=== PATIENT | female | born 1950 | race African-American/Black ===

== ENCOUNTER 2016-11-07 11:19 | Inpatient (IN) | payer MEDICARE ==
[~2016-11-07] VITALS: Ht 167.6 cm; Wt 65.8 kg
[2016-11-07] VITALS (14 sets, daily range): BP systolic 73–111; BP diastolic 32–53
[~2016-11-07 11:19] MED LIST: AMLO5TAB4 PO; FOLI1TAB16 PO; GABA-586 PO; GLYB1TAB2 PO; HYDR-2666 PO; INSU100I13 SQ; LATA2.5D2 EACHEYE; LOSA1TAB18 PO; METO-269 PO
--- NOTE | 2016-11-07 12:02 | RAD ---
Portable chest, 11/07/2016: History: Confusion, decreased alertness Comparison is made to a study from 04/08/2008. The right-sided transvenous pacing wires are unchanged in positions. The heart size and pulmonary vascularity are normal. There is calcific plaquing of the aorta. No pulmonary infiltrates are seen. There is no evidence of pleural fluid. IMPRESSION: No acute cardiopulmonary abnormality is detected.
[2016-11-07 12:38] LABS: ALBUMIN 4.2 g/dL (3.4-5.0); CREATININE 1.9 mg/dL (0.6-1.0); DIRECT BILIRUBIN 0.1 mg/dL (0.0-0.2); GFR 32.1; POTASSIUM 4.8 mmol/L (3.5-5.1); TOTAL BILIRUBIN 0.5 mg/dL (0.2-1.0); TOTAL PROTEIN 8.3 g/dL (6.4-8.2)
[2016-11-07 13:00] LABS: BILIRUBIN,URINE NEGATIVE (NEG); GLUCOSE,URINE >=1000 mg/dL (NEG); NITRITE,URINE NEGATIVE (NEG); PROTEIN,URINE 30 mg/dL (NEG-TRACE); UROBILINOGEN,URINE 0.2 mg/dL (0.2 mg/dL)
[2016-11-07] MEDS ORDERED: ASPIRIN 81 MG TAB.CHEW PO ONE (13:00)
[2016-11-07 13:01] LABS: BASO # 0.1 x10^3/uL (0.0-0.2); BASO % 1 % (0-3); EOS % 0 % (0-3); HEMATOCRIT 45.7 % (36.0-47.0); LYMPH % 6 % (24-48); MEAN CORPUSCULAR HEMOGLOBIN 28 pg (25-35); MEAN CORPUSCULAR HGB CONC 28 g/dL (31-37); MEAN CORPUSCULAR VOLUME 99 fL (79-100); MONO % 9 % (0-9); NEUT % 85 % (31-73); PLATELET COUNT 224 x10^3/uL (140-400); RED BLOOD COUNT 4.63 x10^6/uL (3.50-5.40); RED CELL DISTRIBUTION WIDTH 14.8 % (11.5-14.5); WHITE BLOOD COUNT 15.5 x10^3/uL (4.0-11.0)
[2016-11-07 13:08] LABS: BACTERIA,URINE 0 /HPF (0-FEW); RBC,URINE 0 /HPF (0-2); SQUAMOUS EPITHELIAL CELL,UR FEW /LPF; WBC,URINE OCC /HPF (0-4)
[2016-11-07] MEDS ORDERED: IV NORMAL SALINE 1000ML BAG 1,000 ML IV SCH (13:20)
[2016-11-07] MEDS ORDERED: SODIUM BICARBONATE VIAL 50 MEQ in IV 1/2 NORMAL SALINE 1,000 ML IV PRN ×2 (13:20→16:50)
[2016-11-07] MEDS ORDERED: POTASSIUM CHLORIDE 10MEQ 100 ML IV PRN ×4 (13:30→23:00)
[2016-11-07] MEDS ORDERED: ONDANSETRON PF 4 MG/2 ML VIAL. IV PRN (13:30)
[2016-11-07] MEDS ORDERED: MORPHINE SULFATE 2 MG/ML DISP.SYRIN. IV PRN (13:30)
[2016-11-07] MEDS ORDERED: INSULIN,REGULAR 150 UNIT DRIP 150 ML IV ONE (13:30)
[2016-11-07] MEDS ORDERED: INSULIN REGULAR VIAL 150 UNIT in 0.9 % SODIUM CHLORIDE 150ML 150 ML IV PRN (13:30)
[2016-11-07] MEDS ORDERED: PROPOFOL 50 ML IV ONE (13:54)
[2016-11-07 13:55] LABS: PLT ESTIMATE ADEQUATE (ADEQUATE); TOXIC GRANULATION SLIGHT
[2016-11-07 13:57] LABS: MAGNESIUM 2.9 mg/dL (1.8-2.4)
[2016-11-07 14:18] LABS: PCO2 ABG 10 mmHg (35-46); PH ABG 7.01 (7.35-7.45)
[2016-11-07 14:19] LABS: BODY TEMP ABG 96.2 DEG; FIO2 ABG 21; HCO3 ABG 3 mmol/L (21-28); PO2 ABG 140 mmHg (65-108); SAT O2 ABG 98 % (92-99)
--- NOTE | 2016-11-07 14:56 | EKG ---
[facility] [address] [place] [address] Test Date: 2016-11-07 Test Time: 12:41:56 Pat Name: MARY BONILLA Department: Room: ED HOLD 1 Gender: F Digital Campaign Manager: : 1950 Requested By: ROSEMARIE SOLORZANO Order Number: [id number] Reading MD: Shekhar Stubbs Measurements Intervals [place] Rate: 98 P: -82 MI: 182 QRS: 16 QRSD: 54 T: -70 QT: 404 QTc: 518 Interpretive Statements V PACED BEATS RI6.01 Unconfirmed report Electronically Signed On 11-16-2016 10:13:20 ASSESSMENT CLINICIAN by Shekhar Stubbs
--- NOTE | 2016-11-07 15:10 | PHYS DOC ---
Past Medical History Past Medical History: COPD, Diabetes-Type I, Seizure Additional Past Medical Histor: RA,NEUROPATHY, SLEEP APNEA-CPAP @NOC Past Surgical History: Pacemaker, Other Additional Past Surgical Histo: PACE Alcohol Use: None Drug Use: None Adult General Chief Complaint Chief Complaint: ALTERED MENTAL STATUS HPI HPI 66-year-old female presenting to the emergency department with an elevated blood glucose. Daughter is here with her today. Daughter reports her having eaten last night and having mild gastric abdominal pain. The abdominal pain went away and this morning when the daughter went to check on her she was confused and tired. EMS was called. Blood glucose elevated on EMS bedside glucometer. They bring the patient to our emergency department for further evaluation workup and care. Onset today. Location generalized. Duration intermittent. No alleviating factors. No specific timing. Review of systems is negative for chest pain shortness of breath. Positive for abdominal pain. Negative for fevers chills nausea or vomiting. All other review of systems is negative unless otherwise noted in history of present illness. Review of Systems Review of Systems SEE ABOVE. Current Medications Current Medications Current Medications Medications (Trade) Dose Ordered Sig/Thuy Start Time Stop Time Status Last Admin Dose Admin Aspirin 324 mg 324 mg 1X ONCE 11/07/16 13:00 11/07/16 13:01 DC 11/07/16 13:20 324 MG Sodium Bicarbonate/ Sodium Chloride (Iv Sodium Chloride 0.45%) 1,050 ml @ 500 mls/hr Q2H6M PRN 11/07/16 13:20 11/07/16 15:50 500 MLS/HR Sodium Chloride 1,000 ml @ 1,000 mls/hr Q1H 11/07/16 13:20 11/07/16 14:19 DC Allergies Allergies Allergies Coded Allergies Type Severity Reaction Last Updated Verified Penicillins Allergy Intermediate 12/25/14 No azithromycin Allergy Intermediate 05/28/16 Yes metoprolol Allergy Intermediate 05/28/16 Yes nifedipine Allergy Intermediate 05/28/16 Yes Physical Exam Physical Exam Constitutional: Well developed, well nourished, patient has decreased mental status. Patient breathing comfortably on room air. HENT: Normocephalic, atraumatic, bilateral external ears normal, oropharynx moist, no oral exudates, nose normal. Eyes: PERRLA, EOMI, conjunctiva normal, no discharge. Neck: Normal range of motion, no tenderness, supple, no stridor. [] Cardiovascular:Heart rate regular rhythm, no murmur Lungs & Thorax: Bilateral breath sounds clear to auscultation Abdomen: Bowel sounds normal, soft, no tenderness, no masses, no pulsatile masses. Skin: Warm, dry, no erythema, no rash. Back: No tenderness, no CVA tenderness. [] Extremities: No tenderness, no cyanosis, no clubbing, ROM intact, no edema. Neurologic: Neuro exam: Mental status: Patient is somnolent but opens eyes to voice and pain. She speaks in clear sentences when aroused. withdraws to pain. Cranial nerves: Extraocular movements intact, eyebrows giuseppe bilaterally smile symmetric, uvula elevation, shoulder shrug intact, tongue protrusion normal Sensation: equal and normal in all extremities Strength: 5/5 in upper and lower extremities bilaterally Psychologic: Affect normal, judgement normal, mood normal. [] Current Patient Data Vital Signs Vital Signs Date Time Temp Pulse Resp B/P Pulse Ox O2 Delivery O2 Flow Rate FiO2 11/07/16 11:19 96.2 65 26 147/73 100 Room Air 96.2 Lab Values Laboratory Tests Test 11/07/16 12:05 11/07/16 12:25 11/07/16 12:49 11/07/16 12:55 Sodium Level 135mmol/L (136-145) L Potassium Level 4.8mmol/L (3.5-5.1) Chloride Level 93mmol/L (98-107) L Carbon Dioxide Level 7mmol/L (21-32) *L Anion Gap 35 (6-14) H Blood Urea Nitrogen 27mg/dL (7-20) H Creatinine 1.9mg/dL (0.6-1.0) H Estimated GFR (Cockcroft-Gault) 32.1 Glucose Level 818mg/dL (70-99) *H Calcium Level 11.0mg/dL (8.5-10.1) H Total Bilirubin 0.5mg/dL (0.2-1.0) Direct Bilirubin 0.1mg/dL (0.0-0.2) Aspartate Amino Transferase (AST) 16U/L (15-37) Alanine Aminotransferase (ALT) 22U/L (14-59) Alkaline Phosphatase 108U/L (46-116) Total Protein 8.3g/dL (6.4-8.2) H Albumin 4.2g/dL (3.4-5.0) Lipase 61U/L (73-393) L Urine Collection Type Unknown Urine Color Yellow Urine Clarity Clear Urine pH 5.0 Urine Specific [place] 1.025 Urine Protein 30mg/dL (NEG-TRACE) Urine Glucose (UA) >=1000mg/dL (NEG) Urine Ketones (Stick) >=80mg/dL (NEG) Urine Blood Small (NEG) Urine Nitrite Negative (NEG) Urine Bilirubin Negative (NEG) Urine Urobilinogen Dipstick 0.2mg/dL (0.2 mg/dL) Urine Leukocyte Esterase Negative (NEG) Urine RBC 0/HPF (0-2) Urine WBC Occ/HPF (0-4) Urine Squamous Epithelial Cells Few/LPF Urine Amorphous Sediment Present/HPF Urine Bacteria 0/HPF (0-FEW) Urine Hyaline Casts Occasional/HPF Urine Mucus Slight/LPF White Blood Count 15.5x10^3/uL (4.0-11.0) H Red Blood Count 4.63x10^6/uL (3.50-5.40) Hemoglobin 13.0g/dL (12.0-15.5) Hematocrit 45.7% (36.0-47.0) Mean Corpuscular Volume 99fL (79-100) Mean Corpuscular Hemoglobin 28pg (25-35) Mean Corpuscular Hemoglobin Concent 28g/dL (31-37) L Red Cell Distribution Width 14.8% (11.5-14.5) H Platelet Count 224x10^3/uL (140-400) Neutrophils (%) (Auto) 85% (31-73) H Lymphocytes (%) (Auto) 6% (24-48) L Monocytes (%) (Auto) 9% (0-9) Eosinophils (%) (Auto) 0% (0-3) Basophils (%) (Auto) 1% (0-3) Neutrophils # (Auto) 13.1x10^3uL (1.8-7.7) H Lymphocytes # (Auto) 1.0x10^3/uL (1.0-4.8) Monocytes # (Auto) 1.4x10^3/uL (0.0-1.1) H Eosinophils # (Auto) 0.0x10^3/uL (0.0-0.7) Basophils # (Auto) 0.1x10^3/uL (0.0-0.2) Segmented Neutrophils % 74% (35-66) H Band Neutrophils % 8% (0-9) Lymphocytes % 9% (24-48) L Monocytes % 9% (0-10) Toxic Granulation Slight Platelet Estimate Adequate (ADEQUATE) Serum Osmolality 357mOsm/Kg (279-304) H Lactic Acid Level 6.5mmol/L (0.4-2.0) *H Phosphorus Level 10.0mg/dL (2.6-4.7) H Magnesium Level 2.9mg/dL (1.8-2.4) H Troponin I Quantitative 0.058ng/mL (0.000-0.055) FI-Rtm-U-Type Natriuretic Peptide 995pg/mL (0-124) H O2 Saturation 98% (92-99) Arterial Blood pH 7.01 (7.35-7.45) *L Arterial Blood pCO2 at Patient Temp 10mmHg (35-46) *L Arterial Blood pO2 at Patient Temp 140mmHg (65-108) H Arterial Blood HCO3 3mmol/L (21-28) L Arterial Blood Base Excess -27mmol/L (-3-3) L FiO2 21 Laboratory Tests 11/07/16 12:49 Laboratory Tests 11/07/16 12:05 EKG EKG EKG shows paced rhythm. Discussed with Dr. mckeon at 1253pm. Dr. Mckeon review EKG in real time. Radiology/Procedures Radiology/Procedures [] Course & Med Decision Making Course & Med Decision Making Pertinent Labs and Imaging studies reviewed. (See chart for details) [] 66-year-old female presenting to the emergency department today with decreased mental status/somnolence in conjunction with hyperglycemia. Vital signs showed tachypnea with Kussmaul breathing. IV access obtained. IV fluids administered. Patient was hypothermic and warmed with warm IV fluids and a bear hugger. Patient was intubated in the emergency department for mental status. See procedure note. Right IJ placed. See procedure note. Chest x-ray afterwards shows ET tube in good position after adjustment with right IJ in good position. Blood work shows leukocytosis. Urinalysis not suggestive of infection. Chemistry panel shows significant diabetic ketoacidosis. Positive Lactic acidosis present. Magnesium within normal limits. Patient was administered bicarbonate and insulin and initiated on our DKA protocol including an insulin drip with regular electrolyte checks. The patient was then admitted to our intensive care unit for further evaluation workup and care. Dragon Disclaimer Dragon Disclaimer This electronic medical record was generated, in whole or in part, using a voice recognition dictation system. Departure Departure Impression: Primary Impression: DKA (diabetic ketoacidoses) Additional Impressions: Lethargy Lactic acidosis Disposition: ADMITTED INPATIENT Admitting Physician: Cherry Del Toro Condition: IMPROVED Referrals: MATTHEW BOOTH (PCP) Central Line Placement Proc Central Line Indication: Vascular access Consent: The patient provided consent for this procedure. Procedure: The patient was positioned appropriately and the skin over the right IJ was prepped and draped in a sterile fashion. Local anesthesia was used. Ultrasound guidance utilized. A large bore needle was used to identify the vein. A guide wire was then inserted into the vein through the needle. A triple lumen catheter was then inserted into the vessel over the guide wire using the Seldinger technique. All ports showed good, free flowing blood return and were flushed with saline solution. The catheter was then securely fastened to the skin with sutures and covered with a sterile dressing. A post procedure X-ray was ordered. The patient tolerated the procedure well. Complications: none. Critical Care Time Critical care time was 50 minutes exclusive of procedures. Time was spent evaluating the patient, ordering the titration of medications, reevaluating the patient, documenting, and discussing with the admitting provider. Intubation Procedure Intubation Procedure Intub Indication: Respiratory failure Consent: Unable to give consent due to emergent nature. Medications Used: see nursing note Procedure: The patient was placed in the appropriate position. Intubation was performed 7.5 endotracheal tube used secured at 24 cm at the teeth.. Initial confirmation of placement included bilateral breath sounds, tube fogging, adequate chest rise, adequate pulse oximetry reading. A chest x-ray to verify correct placement of the tube showed the ETT need to be advanced. It was advanced 3 cm. repeat chest x-ray shows ET tube in good position. The patient tolerated the procedure well. Complications: none. Problem Qualifiers ROSEMARIE SOLORZANO MD Nov 07, 2016 15:10
--- NOTE | 2016-11-07 15:22 | RAD ---
Portable chest, 11/07/2016, 3:04 PM: History: Check central line placement Comparison is made to a study from earlier the same day. An ET tube has been inserted with its tip located 6-7 cm above the rukhsana. An NG tube extends into the stomach. A right jugular central venous catheter extends into the superior vena cava. A right-sided transvenous pacemaker remains in place. The heart size and pulmonary vascularity are normal. The lungs are clear. There is no evidence of pneumothorax or pleural fluid. IMPRESSION: 1. The ET tube, NG tube and right jugular central venous catheter are in satisfactory positions. 2. No acute cardiopulmonary abnormality is detected.
--- NOTE | 2016-11-07 15:23 | RAD ---
Portable abdomen, 11/07/2016: History: Check NG tube placement A supine view of the upper abdomen demonstrates an NG tube extending into the body of the stomach. The gas pattern is unremarkable. IMPRESSION: The NG tube extends into the body of the stomach.
--- NOTE | 2016-11-07 15:28 | ACF ---
Admission Forms Criteria DIABETES Clinical Indications for Admission to Inpatient Care (Place 'X' for any and all applicable criteria): Admission is indicated by presence of ALL (if I & II) or ANY ONE (if III or IV) of the following (1)(2)(3)(4): [X]I. Diabetes is uncontrolled as indicated by ANY ONE of the following: [X]a) Diabetic ketoacidosis as indicated by ALL of the following (8): [X]i) Hyperglycemia (eg, plasma glucose greater than 200 mg/ dL (11.1 mmol/L)) [X]ii) Acidosis (eg, arterial pH less than 7.30, serum bicarbonate level less than 15 mEq/L (mmol/L)) [X]iii) Moderate ketonuria or ketonemia [ ]b) Hyperglycemic hyperosmolar state as indicated by ALL of the following(9)(10): [ ]i) Neurologic dysfunction (eg, stupor, coma, hemiparesis , seizure)(13) [ ]ii) Plasma glucose greater than 600 mg/dL (33.3 mmol/L) [ ]iii) Serum osmolality greater than 320 mOsm/kg (mmol/kg) [ ]c) Severe signs or symptoms secondary to hyperglycemia indicated by ANY ONE of the following: [ ]i) Altered mental status(10) [ ]ii) Significant hypovolemia or dehydration [ ]iii) Intractable nausea or vomiting [ ]iv) Unexplained fever or severe infection [ ]v) Severe electrolyte abnormality (eg, hypokalemia, hyperkalemia, hypernatremia) [X]II. Management at other levels of care (Also use Diabetes: Observation Care as appropriate) is not feasible because of ANY ONE of the following: [X]a) Condition was not adequately corrected with treatment at other levels of care. [ ]b) Treatment at other levels of care is not appropriate because of condition severity (eg, hyperosmolar coma). [ ]III. Contraindications and/or Inappropriate clinical situations for Observational Care in patients with Diabetes, when ANY ONE of the following is required: [ ]a) Patient require specific diagnostic workup or therapeutic intervention 22 [ ]b) Patient with abnormal vital signs or altered mental status 23 [ ]IV. General contraindications and/or Inappropriate clinical situations for Observational Care in patients with Diabetes, when ANY ONE of the following is required: [ ]a) Prediction of prolongation of LOS based on ANY ONE of the following may be considered as a contraindication for observational care 2, 3, 4, 5, 6, 7, 8, 9, 10, 11 [ ]i) Age > 65 yrs. [ ]ii) Patient arriving by ambulance [ ]iii) Patient with high acuity [ ]iv) Patient requiring vital sign monitoring [ ]v) Patient on IV medication [ ]b) Systolic blood pressures 180mmHg 3,12 [ ]c) Patient with altered mental status including delirium and other alteration of consciousness, (3) [ ]d) Patient whose discharge disposition will be to a [place] [facility] home or rehabilitation home should not be managed in Emergency Department Observation Unit. CMS rule requires 3 days hospital stay before such placement.3,13 [ ]e) Patient with failure to thrive due to broad array of etiologies 3,16,17 [ ]f) Inability to ambulate 3,14 Extended stay beyond goal length of stay may be needed for(3)(20): [ ]a) Treatment of precipitating causes [ ]b) Development of hypoglycemia [ ]c) Complications of treatment [ ]d) Complications of decompensated diabetes (eg, acute gastric dilatation, persistent metabolic or neurologic derangement) [ ]e) Active Comorbidities [ ]f) Older patients( 65 years or older) The original [employer] content created by [employer] has been revised. The portions of the content which have been revised are identified through the use of italic text or in bold,and [facility] has neither reviewed nor approved the modified material. All other unmodified content is copyright [employer]. Please see references footnoted in the original [facility] edition 2016 Admission Criteria Met?: Yes MARISSA HASTINGS Nov 07, 2016 15:28
[2016-11-07] MEDS ORDERED: SODIUM BICARB ADULT 8.4% 50 MEQ/50 ML DISP.SYRIN. ONE (15:43)
[2016-11-07] MEDS ORDERED: VANCOMYCIN 1.5 GM in IV NORMAL SALINE 500ML BAG 500 ML IV ONE ×2 (16:00→17:00)
[2016-11-07] MEDS ORDERED: IV RINGERS,LACTATED 500ML 500 ML IV ONE (16:00)
[2016-11-07] MEDS ORDERED: SODIUM BICARB ADULT 8.4% 50 MEQ/50 ML DISP.SYRIN. IV ONE (16:00)
--- NOTE | 2016-11-07 16:38 | RAD ---
Chest portable chest, 11/07/2016, 4:11 PM: History: Intubation Comparison is made to the study of earlier the same day at 3:04 PM. The patient is rotated to the left. The tip of the ET tube lies 2.5 cm above the rukhsana. The NG tube extends into the stomach. A right jugular central venous catheter extends into the superior vena cava. A right-sided transvenous pacemaker is again noted. The heart size is normal. The lungs are clear. There is no evidence of pleural fluid. IMPRESSION: 1. Tube placements as described above. 2. No acute cardiopulmonary abnormality is detected.
[2016-11-07] MEDS ORDERED: SODIUM BICARBONATE VIAL 50 MEQ in IV 1/2 NORMAL SALINE 1,000 ML IV SCH (17:00)
[2016-11-07] MEDS ORDERED: SUCCINYLCHOLINE 200 MG/10 ML VIAL. ONE (17:16)
[2016-11-07] MEDS ORDERED: ETOMIDATE 20 MG/10 ML VIAL. IV ONE (17:16)
[2016-11-07] MEDS: VANCOMYCIN PER PHARMACY MC PRN (17:19)
[2016-11-07 17:35] LABS: PH ABG 6.85 (7.35-7.45)
[2016-11-07 17:36] LABS: HCO3 ABG 4 mmol/L (21-28); PCO2 ABG 22 mmHg (35-46); PO2 ABG 147 mmHg (65-108); SAT O2 ABG 98 % (92-99)
[2016-11-07 17:37] LABS: BODY TEMP ABG 95.6 DEG; FIO2 ABG 28
--- NOTE | 2016-11-07 17:37 | PDOC ---
Provider Note Provider Note called by RT regarding low PH. Pt in DKA and has severe metabolic acidosis due to DKA (bicarb 4, PCO2 10). discussed in detail with Dr Del Toro regarding management of DKA aggressively with Insulin drip/ IV hydration. Pt does not need bicarb drip as it may delay the resolution of ketosis and may make acidosis worse.Dr Del Toro with continue management of DKA. Pt is covered with BS antibiotic to cover for any infection. repeat lactic acid level. I will follow up on vent with repeat ABG YASHIRA REYNOLDS MD Nov 07, 2016 17:37
--- NOTE | 2016-11-07 18:00 | PDOC2 ---
CONSULT Date of Consult Date of Consult DATE: 11/07/16 TIME: 18:00 Past Surgical History Past Surgical History: Total knee replacement, No pertinent history Family History Family History: No Significant Social History ALCOHOL: none Drugs: None Current Problem List Problem List Problems Medical Problems: (1) DKA (diabetic ketoacidoses) Status: Acute (2) Lactic acidosis Status: Acute (3) Lethargy Status: Acute Current Medications Current Medications Current Medications Aspirin 324 mg 324 mg 1X ONCE PO Last administered on 11/07/16 13:20; Start 11/07/16 at 13:00; Stop 11/07/16 at 13:01; Status DC Sodium Chloride 1,000 ml @ 1,000 mls/hr Q1H IV Last administered on 11/07/16 16:15; Start 11/07/16 at 13:20; Stop 11/07/16 at 14:19; Status DC Insulin Human Regular 150 unit/ Sodium Chloride 151.5 ml @ 0 mls/hr CONT PRN PRN IV PER PROTOCOL; Start 11/07/16 at 13:30 Potassium Chloride 100 ml @ 100 mls/hr PRN Q1HR PRN IV SEE COMMENTS; Start at 13:30 Potassium Chloride 100 ml @ 100 mls/hr PRN Q1HR PRN IV SEE COMMENTS; Start at 13:30 Potassium Chloride 100 ml @ 100 mls/hr PRN Q1HR PRN IV SEE COMMENTS; Start at 13:30 Sodium Bicarbonate/ Sodium Chloride (Iv Sodium Chloride 0.45%) 1,050 ml @ 500 mls/hr Q2H6M PRN IV SEE COMMENTS Last administered on 11/07/16 15:50; Start at 13:20 Ondansetron HCl (Zofran) 4 mg PRN Q8HRS PRN IV NAUSEA/VOMITING; Start 11/07/16 at 13:30; Stop 11/08/16 at 13:29 Morphine Sulfate 2 mg 2 mg PRN Q2HR PRN IV PAIN; Start 11/07/16 at 13:30; Stop 11/08/16 at 13:29 Sodium Chloride 1,000 ml @ 125 mls/hr Q8H IV ; Start 11/07/16 at 13:23; Stop at 13:22 Insulin Human Regular 150 ml @ 0 mls/hr 1X ONCE IV Last administered on 17:00; Start 11/07/16 at 13:30; Stop 11/07/16 at 13:32; Status DC Propofol (Diprivan) 50 ml @ As Directed STK-MED ONCE IV ; Start 11/07/16 at 13: 54; Stop 11/07/16 at 13:55; Status DC Vancomycin HCl 1 each 1 each PRN DAILY PRN MC SEE COMMENTS Last administered on 11/07/16 17:19; Start 11/07/16 at 15:30 Levofloxacin/ Dextrose 100 ml @ 100 mls/hr 1X ONCE IV Last administered on 15:53; Start 11/07/16 at 16:00; Stop 11/07/16 at 17:10; Status DC Lactated Ringer's 500 ml @ 500 mls/hr 1X ONCE IV ; Start 11/07/16 at 16:00; Stop 11/07/16 at 17:10; Status DC Vancomycin HCl/ Sodium Chloride (Iv Sodium Chloride 0.9% 500ml Bag) 500 ml @ 250 mls/hr 1X ONCE IV Last administered on 11/07/16 16:00; Start 11/07/16 at 16:00; Stop 11/07/16 at 17:59; Status DC Sodium Bicarbonate 50 meq STK-MED ONCE .ROUTE ; Start 11/07/16 at 15:43; Stop at 15:44; Status DC Sodium Bicarbonate 150 meq 150 meq 1X ONCE IV Last administered on 11/07/16 15:57; Start 11/07/16 at 16:00; Stop 11/07/16 at 17:10; Status DC Sodium Bicarbonate 50 meq/Sodium Chloride 1,050 ml @ 125 mls/hr Q8H24M IV ; Start 11/07/16 at 17:00; Stop 11/07/16 at 17:00; Status DC Sodium Bicarbonate 50 meq/Sodium Chloride 1,050 ml @ 500 mls/hr Q2H6M PRN IV SEE COMMENTS; Start 11/07/16 at 16:50 Vancomycin HCl/ Sodium Chloride (Iv Sodium Chloride 0.9% 500ml Bag) 500 ml @ 250 mls/hr 1X ONCE IV ; Start 11/07/16 at 17:00; Stop 11/07/16 at 18:59; Status Cancel Etomidate (Amidate) 20 mg STK-MED ONCE IV ; Start 11/07/16 at 17:16; Stop at 17:17; Status DC Succinylcholine Chloride 200 mg 200 mg STK-MED ONCE .ROUTE ; Start 11/07/16 at 17:16; Stop 11/07/16 at 17:17; Status DC Vancomycin HCl/ Sodium Chloride (Iv Sodium Chloride 0.9% 250ml) 250 ml @ 250 mls/hr Q24H IV ; Start 11/08/16 at 18:00 Vancomycin HCl 1 each 1 each 1X ONCE MC ; Start 11/09/16 at 17:30; Stop at 17:31 Piperacillin Sod/ Tazobactam Sod/ Sodium Chloride (Zosyn/Iv Sodium Chloride 0.9 % 50ml) 50 ml @ 100 mls/hr Q6HRS IV ; Start 11/07/16 at 18:30 Active Scripts Active Reported Folic Acid 1 Mg Tablet 1 Tab PO DAILY Hydrocodone-Apap 5-325 (Hydrocodone Bit/Acetaminophen) 1 Each Tablet 1-2 Tab PO Q4-6HRS Glucovance 5-500 Mg Tablet (Glyburide/Metformin Hcl) 1 Each Tablet 2 Tab PO DAILY Glucovance 5-500 Mg Tablet (Glyburide/Metformin Hcl) 1 Each Tablet 1 Tab PO HS Losartan-Hctz 100-12.5 Mg Tab (Losartan/Hydrochlorothiazide) 1 Each Tablet 1 Each PO DAILY Xalatan (Latanoprost) 2.5 Ml Drops 1 Drop EACHEYE QHS Gabapentin 300 Mg Capsule 300 Mg PO TID Toprol Xl (Metoprolol Succinate) 50 Mg Tab.er.24h 1 Tab PO DAILY Allergies Allergies: Coded Allergies: Penicillins (Unverified Allergy, Intermediate, 12/25/14) azithromycin (Verified Allergy, Intermediate, 05/28/16) metoprolol (Verified Allergy, Intermediate, 05/28/16) nifedipine (Verified Allergy, Intermediate, 05/28/16) Vitals VITALS Vital Signs Date Time Temp Pulse Resp B/P Pulse Ox O2 Delivery O2 Flow Rate FiO2 11/07/16 16:45 109 93/43 Ventilator 11/07/16 16:30 100 11/07/16 14:00 15 11/07/16 13:00 95.6 95.6 11/07/16 11:19 26 Labs Labs Laboratory Tests Test 11/07/16 12:05 11/07/16 12:25 11/07/16 12:49 11/07/16 12:55 Sodium Level 135mmol/L (136-145) Potassium Level 4.8mmol/L (3.5-5.1) Chloride Level 93mmol/L (98-107) Carbon Dioxide Level 7mmol/L (21-32) Anion Gap 35 (6-14) Blood Urea Nitrogen 27mg/dL (7-20) Creatinine 1.9mg/dL (0.6-1.0) Estimated GFR (Cockcroft-Gault) 32.1 Glucose Level 818mg/dL (70-99) Calcium Level 11.0mg/dL (8.5-10.1) Total Bilirubin 0.5mg/dL (0.2-1.0) Direct Bilirubin 0.1mg/dL (0.0-0.2) Aspartate Amino Transf (AST/SGOT) 16U/L (15-37) Alanine Aminotransferase (ALT/SGPT) 22U/L (14-59) Alkaline Phosphatase 108U/L (46-116) Total Protein 8.3g/dL (6.4-8.2) Albumin 4.2g/dL (3.4-5.0) Lipase 61U/L (73-393) Urine Collection Type Unknown Urine Color Yellow Urine Clarity Clear Urine pH 5.0 Urine Specific Truman 1.025 Urine Protein 30mg/dL (NEG-TRACE) Urine Glucose (UA) >=1000mg/dL (NEG) Urine Ketones (Stick) >=80mg/dL (NEG) Urine Blood Small (NEG) Urine Nitrite Negative (NEG) Urine Bilirubin Negative (NEG) Urine Urobilinogen Dipstick 0.2mg/dL (0.2 mg/dL) Urine Leukocyte Esterase Negative (NEG) Urine RBC 0/HPF (0-2) Urine WBC Occ/HPF (0-4) Urine Squamous Epithelial Cells Few/LPF Urine Amorphous Sediment Present/HPF Urine Bacteria 0/HPF (0-FEW) Urine Hyaline Casts Occasional/HPF Urine Mucus Slight/LPF White Blood Count 15.5x10^3/uL (4.0-11.0) Red Blood Count 4.63x10^6/uL (3.50-5.40) Hemoglobin 13.0g/dL (12.0-15.5) Hematocrit 45.7% (36.0-47.0) Mean Corpuscular Volume 99fL (79-100) Mean Corpuscular Hemoglobin 28pg (25-35) Mean Corpuscular Hemoglobin Concent 28g/dL (31-37) Red Cell Distribution Width 14.8% (11.5-14.5) Platelet Count 224x10^3/uL (140-400) Neutrophils (%) (Auto) 85% (31-73) Lymphocytes (%) (Auto) 6% (24-48) Monocytes (%) (Auto) 9% (0-9) Eosinophils (%) (Auto) 0% (0-3) Basophils (%) (Auto) 1% (0-3) Neutrophils # (Auto) 13.1x10^3uL (1.8-7.7) Lymphocytes # (Auto) 1.0x10^3/uL (1.0-4.8) Monocytes # (Auto) 1.4x10^3/uL (0.0-1.1) Eosinophils # (Auto) 0.0x10^3/uL (0.0-0.7) Basophils # (Auto) 0.1x10^3/uL (0.0-0.2) Segmented Neutrophils % 74% (35-66) Band Neutrophils % 8% (0-9) Lymphocytes % 9% (24-48) Monocytes % 9% (0-10) Toxic Granulation Slight Platelet Estimate Adequate (ADEQUATE) Serum Osmolality 357mOsm/Kg (279-304) Lactic Acid Level 6.5mmol/L (0.4-2.0) Phosphorus Level 10.0mg/dL (2.6-4.7) Magnesium Level 2.9mg/dL (1.8-2.4) Troponin I Quantitative 0.058ng/mL (0.000-0.055) SX-Pcu-B-Type Natriuretic Peptide 995pg/mL (0-124) O2 Saturation 98% (92-99) Arterial Blood pH 7.01 (7.35-7.45) Arterial Blood pCO2 at Patient Temp 10mmHg (35-46) Arterial Blood pO2 at Patient Temp 140mmHg (65-108) Arterial Blood HCO3 3mmol/L (21-28) Arterial Blood Base Excess -27mmol/L (-3-3) FiO2 21 Test 11/07/16 15:20 O2 Saturation 98% (92-99) Arterial Blood pH 6.85 (7.35-7.45) Arterial Blood pCO2 at Patient Temp 22mmHg (35-46) Arterial Blood pO2 at Patient Temp 147mmHg (65-108) Arterial Blood HCO3 4mmol/L (21-28) Arterial Blood Base Excess -29mmol/L (-3-3) FiO2 28 Laboratory Tests Test 11/07/16 12:05 11/07/16 12:25 11/07/16 12:49 11/07/16 12:55 Sodium Level 135mmol/L (136-145) Potassium Level 4.8mmol/L (3.5-5.1) Chloride Level 93mmol/L (98-107) Carbon Dioxide Level 7mmol/L (21-32) Anion Gap 35 (6-14) Blood Urea Nitrogen 27mg/dL (7-20) Creatinine 1.9mg/dL (0.6-1.0) Estimated GFR (Cockcroft-Gault) 32.1 Glucose Level 818mg/dL (70-99) Calcium Level 11.0mg/dL (8.5-10.1) Total Bilirubin 0.5mg/dL (0.2-1.0) Direct Bilirubin 0.1mg/dL (0.0-0.2) Aspartate Amino Transf (AST/SGOT) 16U/L (15-37) Alanine Aminotransferase (ALT/SGPT) 22U/L (14-59) Alkaline Phosphatase 108U/L (46-116) Total Protein 8.3g/dL (6.4-8.2) Albumin 4.2g/dL (3.4-5.0) Lipase 61U/L (73-393) Urine Collection Type Unknown Urine Color Yellow Urine Clarity Clear Urine pH 5.0 Urine Specific Truman 1.025 Urine Protein 30mg/dL (NEG-TRACE) Urine Glucose (UA) >=1000mg/dL (NEG) Urine Ketones (Stick) >=80mg/dL (NEG) Urine Blood Small (NEG) Urine Nitrite Negative (NEG) Urine Bilirubin Negative (NEG) Urine Urobilinogen Dipstick 0.2mg/dL (0.2 mg/dL) Urine Leukocyte Esterase Negative (NEG) Urine RBC 0/HPF (0-2) Urine WBC Occ/HPF (0-4) Urine Squamous Epithelial Cells Few/LPF Urine Amorphous Sediment Present/HPF Urine Bacteria 0/HPF (0-FEW) Urine Hyaline Casts Occasional/HPF Urine Mucus Slight/LPF White Blood Count 15.5x10^3/uL (4.0-11.0) Red Blood Count 4.63x10^6/uL (3.50-5.40) Hemoglobin 13.0g/dL (12.0-15.5) Hematocrit 45.7% (36.0-47.0) Mean Corpuscular Volume 99fL (79-100) Mean Corpuscular Hemoglobin 28pg (25-35) Mean Corpuscular Hemoglobin Concent 28g/dL (31-37) Red Cell Distribution Width 14.8% (11.5-14.5) Platelet Count 224x10^3/uL (140-400) Neutrophils (%) (Auto) 85% (31-73) Lymphocytes (%) (Auto) 6% (24-48) Monocytes (%) (Auto) 9% (0-9) Eosinophils (%) (Auto) 0% (0-3) Basophils (%) (Auto) 1% (0-3) Neutrophils # (Auto) 13.1x10^3uL (1.8-7.7) Lymphocytes # (Auto) 1.0x10^3/uL (1.0-4.8) Monocytes # (Auto) 1.4x10^3/uL (0.0-1.1) Eosinophils # (Auto) 0.0x10^3/uL (0.0-0.7) Basophils # (Auto) 0.1x10^3/uL (0.0-0.2) Segmented Neutrophils % 74% (35-66) Band Neutrophils % 8% (0-9) Lymphocytes % 9% (24-48) Monocytes % 9% (0-10) Toxic Granulation Slight Platelet Estimate Adequate (ADEQUATE) Serum Osmolality 357mOsm/Kg (279-304) Lactic Acid Level 6.5mmol/L (0.4-2.0) Phosphorus Level 10.0mg/dL (2.6-4.7) Magnesium Level 2.9mg/dL (1.8-2.4) Troponin I Quantitative 0.058ng/mL (0.000-0.055) JI-Dmu-T-Type Natriuretic Peptide 995pg/mL (0-124) O2 Saturation 98% (92-99) Arterial Blood pH 7.01 (7.35-7.45) Arterial Blood pCO2 at Patient Temp 10mmHg (35-46) Arterial Blood pO2 at Patient Temp 140mmHg (65-108) Arterial Blood HCO3 3mmol/L (21-28) Arterial Blood Base Excess -27mmol/L (-3-3) FiO2 21 Test / 15:20 O2 Saturation 98% (92-99) Arterial Blood pH 6.85 (7.35-7.45) Arterial Blood pCO2 at Patient Temp 22mmHg (35-46) Arterial Blood pO2 at Patient Temp 147mmHg (65-108) Arterial Blood HCO3 4mmol/L (21-28) Arterial Blood Base Excess -29mmol/L (-3-3) FiO2 28 Assessment/Plan Assessment/Plan RENAL CONSULT / ED Dictated. d/w Drs. Del Toro and Sue Thank you. See orders. DC HCO3 IVF Labs. DANUTA WARD MD Nov 07, 2016 18:00
[2016-11-07] MEDS: IV NORMAL SALINE 1000ML BAG 1,000 ML IV SCH ×2 (18:07→22:53)
[2016-11-07 18:23] LABS: CALCIUM 8.5 mg/dL (8.5-10.1); CREATININE 2.2 mg/dL (0.6-1.0); GFR 27.1; MAGNESIUM 2.1 mg/dL (1.8-2.4); PHOSPHORUS 6.4 mg/dL (2.6-4.7); POTASSIUM 4.2 mmol/L (3.5-5.1)
--- NOTE | 2016-11-07 19:21 | PDOC ---
Provider Note Provider Note full note dictated YASHIRA REYNOLDS MD Nov 07, 2016 19:21
[2016-11-07 19:44] LABS: HCO3 ABG 7 mmol/L (21-28); PCO2 ABG 21 mmHg (35-46); PH ABG 7.14 (7.35-7.45); PO2 ABG 153 mmHg (65-108); SAT O2 ABG 98 % (92-99)
[2016-11-07 19:45] LABS: FIO2 ABG 28
--- NOTE | 2016-11-07 19:45 | HP ---
ADMIT DATE: 11/07/2016 CHIEF COMPLAINT: Mental status change. HISTORY OF PRESENT ILLNESS: The patient is a pleasant 66-year-old female who presents to the ER with mental status change. She was noted to have DKA. She has a glucose of 818, her bicarbonate is down to 7. Her pH is 6.8. I discussed the case with the ER physician. We are admitting the patient to the ICU. I gave orders to start insulin drip, fluids and BiPAP, and consulted Dr. Rogers and Dr. Corral. I spoke with all 3 physicians and a couple of nurses on this case. PAST MEDICAL HISTORY: Noncompliance per her daughter, diabetes, previous DKA, COPD, neuropathy, obstructive sleep apnea, and pacemaker. ALLERGIES: PENICILLIN, AZITHROMYCIN, METOPROLOL, AND NIFEDIPINE. FAMILY HISTORY: Diabetes. SOCIAL HISTORY: She quit smoking, no drinking or drugs. I think she lives alone. MEDICATIONS: Reviewed, please refer to the MRAD. REVIEW OF SYSTEMS: Unobtainable, the patient is too obtunded. PHYSICAL EXAMINATION: VITAL SIGNS: Temperature 95.6, pulse 100, respirations 20, blood pressure 133/50. GENERAL: She is obtunded in the ER ____. HEART: Tachy, S1, S2. LUNGS: Diminished, but clear. ABDOMEN: Soft, decreased bowel sounds. EXTREMITIES: Trace edema. SKIN: No rashes. ENDOCRINE: No thyromegaly. LYMPHATICS: No cervical nodes. HEMATOPOIETIC: No bruising. LABORATORY DATA: Electrolytes: Sodium 135, potassium 4.8, chloride 93, bicarb 7, anion gap 35, BUN 27, creatinine 1.9, glucose ____, lactic acid 6.5, serum osmolality 357. Troponin 0.058. BNP 995. Urinalysis negative. ASSESSMENT AND PLAN: Severe metabolic anion gap acidosis with leukocytosis, elevated troponin, elevated BNP, respiratory failure. The patient is being admitted to the ICU. I am starting IV vancomycin and IV Zosyn. Consult Dr. Rogers, consult Dr. Corral, consult Dr. Bartholomew. Insulin drip, IV fluids, frequent labs, DKA protocol. We started bicarb drip, but after extensive discussion with Dr. Rogers, we have decided to try stopping the drip as there is some literature which I reviewed from Dr. Rogers showing that bicarb might possibly ____ slow the clearing of the ketoacidosis. PROGNOSIS: Extremely guarded. ANA KIRKLAND DO DR: CAPRI/kyaw JOB#: [id number] / [id number]
--- NOTE | 2016-11-07 20:06 | CONS ---
DATE OF CONSULTATION: ATTENDING PHYSICIAN: Dr. Del Toro. REASON FOR CONSULTATION: Respiratory failure, DKA. HISTORY OF PRESENT ILLNESS: The patient is a 66-year-old female who has a history of insulin-requiring diabetes. The patient has been in reasonable health until today when she was brought into the hospital with lethargy and altered mental status. The patient's daughter is at the bedside. She states that she ate pizza last night and she was having diarrhea all night. She was also started on a new diabetic medication, Trulicity by her primary care physician recently. The patient had also some abdominal pain as well. She was seen in the Emergency Room, she was confused and lethargic. Her pH was 7.01, pCO2 of 10 and a pO2 of 140 with a bicarbonate of 3. The patient's ABGs were on room air. She had a severe hyperglycemia with a glucose level of 818 with serum bicarbonate of 7. Her potassium was 4.8. The patient's troponin level was 0.058. She has a phosphorus level of 6.4, which was initially 10. Magnesium was 2.1. I have been asked to see her for further evaluation. I interviewed the patient's daughter at the bedside and I have talked in detail with Dr. Del Toro. She was intubated by ER staff due to her lethargy. She was started on insulin drip in the ICU. She has received 2 liters of IV fluids, her blood pressure was in the 70s last check and I have ordered to give more aggressive fluids. The daughter states there are no recent signs of infection. There is no cough, no fever, no chills and no urinary symptoms. She was, however, started on vancomycin and Zosyn in the ER. Consultation was requested for further evaluation and management. PAST MEDICAL HISTORY: Significant for history of diabetes type 1, history of seizure. No history of tobacco use. History of rheumatoid arthritis, neuropathy, sleep apnea, CPAP at night time. PAST SURGICAL HISTORY: Pacemaker. ALLERGIES: PENICILLIN, AZITHROMYCIN, METOPROLOL AND NIFEDIPINE. REVIEW OF SYSTEMS: Unable to obtain as she is on the ventilator. SOCIAL HISTORY: Nonsmoker, nonalcoholic. PHYSICAL EXAMINATION: VITAL SIGNS: Latest blood pressure recorded is 93 systolic. Pulse is 103. There is no fever. HEENT: Sclerae nonicteric. NECK: Supple. LUNGS: Diminished breath sounds. CARDIOVASCULAR: Regular rate. ABDOMEN: Soft and nontender. Decreased bowel sounds. EXTREMITIES: With no pitting edema. LABORATORY DATA: Reviewed. White cell count 15.5, hemoglobin 13.0, platelets are 224. BUN is 34 and creatinine of 2.2. Bicarbonate latest was 9 on serum chemistries. IMPRESSION: 1. Acute respiratory failure secondary to acute encephalopathy from diabetic ketoacidosis. 2. Severe metabolic acidosis secondary to diabetic ketoacidosis. Lactic acid was also elevated. Clinically, I doubt any infection. Lactic acidosis is probably elevated because of hypoperfusion caused by hypotension. 3. Hypotension, likely related to severe dehydration with acute renal failure. She will benefit from continued IV aggressive fluid resuscitation. 4. Clear chest x-ray. Endotracheal tube is slightly above the rukhsana. We will pull it back further 2 cm. 5. History of insulin-requiring diabetes and recently started on Trulicity, which can also contribute to diarrhea. RECOMMENDATIONS: 1. Discussed with Dr. Del Toro and with family, and with RN and RT in detail. 2. Continue with present ventilator support and follow ABGs. 3. Treatment of DKA would help improve the acidosis. I would recommend aggressive insulin drip, aggressive volume resuscitation. Close monitoring of electrolytes including potassium, magnesium and phosphate. 4. Follow chemistries as needed. 5. Continue empiric antibiotics for now. 6. Lactic acid is being monitored and is down to 3.5. 7. SCDs for stress ulcer prophylaxis. 8. Lovenox for DVT prophylaxis. 9. Discussed with Dr. Del Toro, discussed with family, discussed with RN and RT and discussed with Dr. Corral. YASHIRA REYNOLDS MD DR: URMILA/kyaw JOB#: [id number] / [id number]
[2016-11-07] MEDS ORDERED: IV NORMAL SALINE 1000ML BAG 1,000 ML IV ONE ×2 (20:15→21:45)
[2016-11-07] MEDS: PIPERACILLIN/TAZOBACTAM 3.375 GM in IV NORMAL SALINE 50ML 50 ML IV SCH ×2 (21:24→22:57)
[2016-11-07 22:39] LABS: ALBUMIN 2.5 g/dL (3.4-5.0); CALCIUM 7.9 mg/dL (8.5-10.1); GFR 30.3; MAGNESIUM 1.8 mg/dL (1.8-2.4); PHOSPHORUS 0.8 mg/dL (2.6-4.7); TOTAL BILIRUBIN 0.5 mg/dL (0.2-1.0); TOTAL PROTEIN 5.1 g/dL (6.4-8.2)
[2016-11-07 22:49] LABS: POTASSIUM 2.9 mmol/L (3.5-5.1)
[2016-11-07] MEDS: FENTANYL PF 100 MCG/2 ML VIAL. IV PRN (22:56)
[2016-11-07] MEDS ORDERED: SODIUM PHOSPHATE IV PRN (23:00)
[2016-11-07] MEDS ORDERED: DEXTROSE 5% IV PRN (23:00)
[2016-11-07] MEDS ORDERED: SODIUM PHOSPHATE IV ONE (23:30)
[2016-11-07] MEDS ORDERED: DEXTROSE 5% IV ONE (23:30)
[2016-11-08] VITALS (22 sets, daily range): BP systolic 108–148; BP diastolic 42–79
[2016-11-08] MEDS: IV 1/2 NORMAL SALINE 1,000 ML IV SCH ×2 (00:28→02:53)
[2016-11-08] MEDS: FENTANYL PF 100 MCG/2 ML VIAL. IV PRN ×2 (00:33→07:18)
[2016-11-08] MEDS: POTASSIUM CHLORIDE 20MEQ 50 ML IV SCH ×6 (00:55→13:09)
[2016-11-08] MEDS ORDERED: INSU100I30 SQ (02:10)
[2016-11-08] MEDS ORDERED: METF750T2 PO (02:10)
[2016-11-08] MEDS ORDERED: OXYB10TA PO (02:10)
[2016-11-08] MEDS: PIPERACILLIN/TAZOBACTAM 3.375 GM in IV NORMAL SALINE 50ML 50 ML IV SCH ×3 (05:19→17:35)
[2016-11-08 06:26] LABS: CALCIUM 7.8 mg/dL (8.5-10.1); CREATININE 1.5 mg/dL (0.6-1.0); GFR 42.2
[2016-11-08 06:29] LABS: BASO # 0.1 x10^3/uL (0.0-0.2); BASO % 1 % (0-3); EOS % 0 % (0-3); HEMATOCRIT 29.7 % (36.0-47.0); HEMOGLOBIN 9.8 g/dL (12.0-15.5); LYMPH # 0.7 x10^3/uL (1.0-4.8); LYMPH % 8 % (24-48); MEAN CORPUSCULAR HEMOGLOBIN 28 pg (25-35); MEAN CORPUSCULAR HGB CONC 33 g/dL (31-37); MONO % 13 % (0-9); NEUT % 78 % (31-73); PLATELET COUNT 148 x10^3/uL (140-400); RED BLOOD COUNT 3.45 x10^6/uL (3.50-5.40); RED CELL DISTRIBUTION WIDTH 13.3 % (11.5-14.5); WHITE BLOOD COUNT 8.3 x10^3/uL (4.0-11.0)
[2016-11-08 06:33] LABS: POTASSIUM 2.7 mmol/L (3.5-5.1)
[2016-11-08] MEDS ORDERED: POTASSIUM CHLORIDE 20MEQ 50 ML IV ONE ×3 (07:00→20:30)
[2016-11-08 07:12] LABS: MEAN CORPUSCULAR VOLUME 86 fL (79-100)
[2016-11-08 07:23] LABS: MAGNESIUM 1.5 mg/dL (1.8-2.4); PHOSPHORUS 1.7 mg/dL (2.6-4.7)
[2016-11-08] MEDS ORDERED: POTASSIUM PHOSPHATE DIBASIC 10 MMOL in IV NORMAL SALINE 100ML 100 ML IV SCH (08:00)
[2016-11-08] MEDS ORDERED: MAGNESIUM SULFATE 2GM 50 ML IV ONE (08:00)
[2016-11-08 08:28] LABS: HCO3 ABG 19 mmol/L (21-28); PCO2 ABG 27 mmHg (35-46); PH ABG 7.47 (7.35-7.45); PO2 ABG 133 mmHg (65-108); SAT O2 ABG 98 % (92-99)
[2016-11-08 08:30] LABS: FIO2 ABG 28
[2016-11-08] MEDS ORDERED: DEXTROSE 50% 25 GM / 50ML DISP.SYRIN. IV ONE (09:00)
[2016-11-08] MEDS ORDERED: DEXTROSE 50% 25 GM / 50ML DISP.SYRIN. IV PRN (09:00)
--- NOTE | 2016-11-08 09:18 | PDOC ---
PULMONARY PROGRESS NOTES Subjective awake, AG almost resolved Acidosis much improved Vitals Vital Signs Date Time Temp Pulse Resp B/P Pulse Ox O2 Delivery O2 Flow Rate FiO2 11/08/16 08:33 Ventilator 11/08/16 08:05 100 11/08/16 07:48 16 11/08/16 07:00 100.0 100 116/50 100.0 11/07/16 22:56 15.0 General: Alert, No acute distress Cardiovascular: S1 Abdomen: Soft Neuro Exam: Alert Extremities: No Edema Skin: Warm Labs Laboratory Tests Test 11/07/16 12:05 11/07/16 12:25 11/07/16 12:49 11/07/16 12:55 Sodium Level 135mmol/L (136-145) Potassium Level 4.8mmol/L (3.5-5.1) Chloride Level 93mmol/L (98-107) Carbon Dioxide Level 7mmol/L (21-32) Anion Gap 35 (6-14) Blood Urea Nitrogen 27mg/dL (7-20) Creatinine 1.9mg/dL (0.6-1.0) Estimated GFR (Cockcroft-Gault) 32.1 Glucose Level 818mg/dL (70-99) Calcium Level 11.0mg/dL (8.5-10.1) Total Bilirubin 0.5mg/dL (0.2-1.0) Direct Bilirubin 0.1mg/dL (0.0-0.2) Aspartate Amino Transf (AST/SGOT) 16U/L (15-37) Alanine Aminotransferase (ALT/SGPT) 22U/L (14-59) Alkaline Phosphatase 108U/L (46-116) Total Protein 8.3g/dL (6.4-8.2) Albumin 4.2g/dL (3.4-5.0) Lipase 61U/L (73-393) Urine Collection Type Unknown Urine Color Yellow Urine Clarity Clear Urine pH 5.0 Urine Specific [place] 1.025 Urine Protein 30mg/dL (NEG-TRACE) Urine Glucose (UA) >=1000mg/dL (NEG) Urine Ketones (Stick) >=80mg/dL (NEG) Urine Blood Small (NEG) Urine Nitrite Negative (NEG) Urine Bilirubin Negative (NEG) Urine Urobilinogen Dipstick 0.2mg/dL (0.2 mg/dL) Urine Leukocyte Esterase Negative (NEG) Urine RBC 0/HPF (0-2) Urine WBC Occ/HPF (0-4) Urine Squamous Epithelial Cells Few/LPF Urine Amorphous Sediment Present/HPF Urine Bacteria 0/HPF (0-FEW) Urine Hyaline Casts Occasional/HPF Urine Mucus Slight/LPF White Blood Count 15.5x10^3/uL (4.0-11.0) Red Blood Count 4.63x10^6/uL (3.50-5.40) Hemoglobin 13.0g/dL (12.0-15.5) Hematocrit 45.7% (36.0-47.0) Mean Corpuscular Volume 99fL (79-100) Mean Corpuscular Hemoglobin 28pg (25-35) Mean Corpuscular Hemoglobin Concent 28g/dL (31-37) Red Cell Distribution Width 14.8% (11.5-14.5) Platelet Count 224x10^3/uL (140-400) Neutrophils (%) (Auto) 85% (31-73) Lymphocytes (%) (Auto) 6% (24-48) Monocytes (%) (Auto) 9% (0-9) Eosinophils (%) (Auto) 0% (0-3) Basophils (%) (Auto) 1% (0-3) Neutrophils # (Auto) 13.1x10^3uL (1.8-7.7) Lymphocytes # (Auto) 1.0x10^3/uL (1.0-4.8) Monocytes # (Auto) 1.4x10^3/uL (0.0-1.1) Eosinophils # (Auto) 0.0x10^3/uL (0.0-0.7) Basophils # (Auto) 0.1x10^3/uL (0.0-0.2) Segmented Neutrophils % 74% (35-66) Band Neutrophils % 8% (0-9) Lymphocytes % 9% (24-48) Monocytes % 9% (0-10) Toxic Granulation Slight Platelet Estimate Adequate (ADEQUATE) Serum Osmolality 357mOsm/Kg (279-304) Lactic Acid Level 6.5mmol/L (0.4-2.0) Phosphorus Level 10.0mg/dL (2.6-4.7) Magnesium Level 2.9mg/dL (1.8-2.4) Troponin I Quantitative 0.058ng/mL (0.000-0.055) MJ-Ujq-S-Type Natriuretic Peptide 995pg/mL (0-124) O2 Saturation 98% (92-99) Arterial Blood pH 7.01 (7.35-7.45) Arterial Blood pCO2 at Patient Temp 10mmHg (35-46) Arterial Blood pO2 at Patient Temp 140mmHg (65-108) Arterial Blood HCO3 3mmol/L (21-28) Arterial Blood Base Excess -27mmol/L (-3-3) FiO2 21 Test 11/07/16 15:20 11/07/16 17:58 11/07/16 18:55 11/07/16 19:28 O2 Saturation 98% (92-99) 98% (92-99) Arterial Blood pH 6.85 (7.35-7.45) 7.14 (7.35-7.45) Arterial Blood pCO2 at Patient Temp 22mmHg (35-46) 21mmHg (35-46) Arterial Blood pO2 at Patient Temp 147mmHg (65-108) 153mmHg (65-108) Arterial Blood HCO3 4mmol/L (21-28) 7mmol/L (21-28) Arterial Blood Base Excess -29mmol/L (-3-3) -21mmol/L (-3-3) FiO2 28 28 Sodium Level 143mmol/L (136-145) Potassium Level 4.2mmol/L (3.5-5.1) Chloride Level 99mmol/L (98-107) Carbon Dioxide Level 9mmol/L (21-32) Anion Gap 35 (6-14) Blood Urea Nitrogen 34mg/dL (7-20) Creatinine 2.2mg/dL (0.6-1.0) Estimated GFR (Cockcroft-Gault) 27.1 Glucose Level 822mg/dL (70-99) 830mg/dL (70-99) Lactic Acid Level 3.5mmol/L (0.4-2.0) Calcium Level 8.5mg/dL (8.5-10.1) Phosphorus Level 6.4mg/dL (2.6-4.7) Magnesium Level 2.1mg/dL (1.8-2.4) Test 11/07/16 20:23 11/07/16 22:16 11/07/16 23:30 11/07/16 23:54 Glucose Level 571mg/dL (70-99) 428mg/dL (70-99) Sodium Level 150mmol/L (136-145) Potassium Level 2.9mmol/L (3.5-5.1) Chloride Level 111mmol/L (98-107) Carbon Dioxide Level 13mmol/L (21-32) Anion Gap 26 (6-14) Blood Urea Nitrogen 31mg/dL (7-20) Creatinine 2.0mg/dL (0.6-1.0) Estimated GFR (Cockcroft-Gault) 30.3 BUN/Creatinine Ratio 16 (6-20) Calcium Level 7.9mg/dL (8.5-10.1) Phosphorus Level 0.8mg/dL (2.6-4.7) Magnesium Level 1.8mg/dL (1.8-2.4) Total Bilirubin 0.5mg/dL (0.2-1.0) Aspartate Amino Transf (AST/SGOT) 19U/L (15-37) Alanine Aminotransferase (ALT/SGPT) 12U/L (14-59) Alkaline Phosphatase 63U/L (46-116) Total Protein 5.1g/dL (6.4-8.2) Albumin 2.5g/dL (3.4-5.0) Albumin/Globulin Ratio 1.0 (1.0-1.7) Troponin I Quantitative 0.453ng/mL (0.000-0.055) Glucose (Fingerstick) 341mg/dL (70-99) Test 11/08/16 00:58 11/08/16 02:02 11/08/16 03:06 11/08/16 04:16 Glucose (Fingerstick) 288mg/dL (70-99) 240mg/dL (70-99) 237mg/dL (70-99) 274mg/dL (70-99) Test 11/08/16 05:25 11/08/16 06:06 11/08/16 06:29 11/08/16 08:05 Glucose (Fingerstick) 176mg/dL (70-99) 145mg/dL (70-99) White Blood Count 8.3x10^3/uL (4.0-11.0) Red Blood Count 3.45x10^6/uL (3.50-5.40) Hemoglobin 9.8g/dL (12.0-15.5) Hematocrit 29.7% (36.0-47.0) Mean Corpuscular Volume 86fL (79-100) Mean Corpuscular Hemoglobin 28pg (25-35) Mean Corpuscular Hemoglobin Concent 33g/dL (31-37) Red Cell Distribution Width 13.3% (11.5-14.5) Platelet Count 148x10^3/uL (140-400) Neutrophils (%) (Auto) 78% (31-73) Lymphocytes (%) (Auto) 8% (24-48) Monocytes (%) (Auto) 13% (0-9) Eosinophils (%) (Auto) 0% (0-3) Basophils (%) (Auto) 1% (0-3) Neutrophils # (Auto) 6.5x10^3uL (1.8-7.7) Lymphocytes # (Auto) 0.7x10^3/uL (1.0-4.8) Monocytes # (Auto) 1.1x10^3/uL (0.0-1.1) Eosinophils # (Auto) 0.0x10^3/uL (0.0-0.7) Basophils # (Auto) 0.1x10^3/uL (0.0-0.2) Sodium Level 150mmol/L (136-145) Potassium Level 2.7mmol/L (3.5-5.1) Chloride Level 116mmol/L (98-107) Carbon Dioxide Level 21mmol/L (21-32) Anion Gap 13 (6-14) Blood Urea Nitrogen 23mg/dL (7-20) Creatinine 1.5mg/dL (0.6-1.0) Estimated GFR (Cockcroft-Gault) 42.2 Glucose Level 148mg/dL (70-99) Calcium Level 7.8mg/dL (8.5-10.1) Phosphorus Level 1.7mg/dL (2.6-4.7) Magnesium Level 1.5mg/dL (1.8-2.4) Troponin I Quantitative 1.162ng/mL (0.000-0.055) O2 Saturation 98% (92-99) Arterial Blood pH 7.47 (7.35-7.45) Arterial Blood pCO2 at Patient Temp 27mmHg (35-46) Arterial Blood pO2 at Patient Temp 133mmHg (65-108) Arterial Blood HCO3 19mmol/L (21-28) Arterial Blood Base Excess -3mmol/L (-3-3) FiO2 28 Laboratory Tests Test 11/07/16 12:05 11/07/16 12:25 11/07/16 12:49 11/07/16 12:55 Sodium Level 135mmol/L (136-145) Potassium Level 4.8mmol/L (3.5-5.1) Chloride Level 93mmol/L (98-107) Carbon Dioxide Level 7mmol/L (21-32) Anion Gap 35 (6-14) Blood Urea Nitrogen 27mg/dL (7-20) Creatinine 1.9mg/dL (0.6-1.0) Estimated GFR (Cockcroft-Gault) 32.1 Glucose Level 818mg/dL (70-99) Calcium Level 11.0mg/dL (8.5-10.1) Total Bilirubin 0.5mg/dL (0.2-1.0) Direct Bilirubin 0.1mg/dL (0.0-0.2) Aspartate Amino Transf (AST/SGOT) 16U/L (15-37) Alanine Aminotransferase (ALT/SGPT) 22U/L (14-59) Alkaline Phosphatase 108U/L (46-116) Total Protein 8.3g/dL (6.4-8.2) Albumin 4.2g/dL (3.4-5.0) Lipase 61U/L (73-393) Urine Collection Type Unknown Urine Color Yellow Urine Clarity Clear Urine pH 5.0 Urine Specific [place] 1.025 Urine Protein 30mg/dL (NEG-TRACE) Urine Glucose (UA) >=1000mg/dL (NEG) Urine Ketones (Stick) >=80mg/dL (NEG) Urine Blood Small (NEG) Urine Nitrite Negative (NEG) Urine Bilirubin Negative (NEG) Urine Urobilinogen Dipstick 0.2mg/dL (0.2 mg/dL) Urine Leukocyte Esterase Negative (NEG) Urine RBC 0/HPF (0-2) Urine WBC Occ/HPF (0-4) Urine Squamous Epithelial Cells Few/LPF Urine Amorphous Sediment Present/HPF Urine Bacteria 0/HPF (0-FEW) Urine Hyaline Casts Occasional/HPF Urine Mucus Slight/LPF White Blood Count 15.5x10^3/uL (4.0-11.0) Red Blood Count 4.63x10^6/uL (3.50-5.40) Hemoglobin 13.0g/dL (12.0-15.5) Hematocrit 45.7% (36.0-47.0) Mean Corpuscular Volume 99fL (79-100) Mean Corpuscular Hemoglobin 28pg (25-35) Mean Corpuscular Hemoglobin Concent 28g/dL (31-37) Red Cell Distribution Width 14.8% (11.5-14.5) Platelet Count 224x10^3/uL (140-400) Neutrophils (%) (Auto) 85% (31-73) Lymphocytes (%) (Auto) 6% (24-48) Monocytes (%) (Auto) 9% (0-9) Eosinophils (%) (Auto) 0% (0-3) Basophils (%) (Auto) 1% (0-3) Neutrophils # (Auto) 13.1x10^3uL (1.8-7.7) Lymphocytes # (Auto) 1.0x10^3/uL (1.0-4.8) Monocytes # (Auto) 1.4x10^3/uL (0.0-1.1) Eosinophils # (Auto) 0.0x10^3/uL (0.0-0.7) Basophils # (Auto) 0.1x10^3/uL (0.0-0.2) Segmented Neutrophils % 74% (35-66) Band Neutrophils % 8% (0-9) Lymphocytes % 9% (24-48) Monocytes % 9% (0-10) Toxic Granulation Slight Platelet Estimate Adequate (ADEQUATE) Serum Osmolality 357mOsm/Kg (279-304) Lactic Acid Level 6.5mmol/L (0.4-2.0) Phosphorus Level 10.0mg/dL (2.6-4.7) Magnesium Level 2.9mg/dL (1.8-2.4) Troponin I Quantitative 0.058ng/mL (0.000-0.055) WM-Gil-G-Type Natriuretic Peptide 995pg/mL (0-124) O2 Saturation 98% (92-99) Arterial Blood pH 7.01 (7.35-7.45) Arterial Blood pCO2 at Patient Temp 10mmHg (35-46) Arterial Blood pO2 at Patient Temp 140mmHg (65-108) Arterial Blood HCO3 3mmol/L (21-28) Arterial Blood Base Excess -27mmol/L (-3-3) FiO2 21 Test 11/07/16 15:20 11/07/16 17:58 11/07/16 18:55 11/07/16 19:28 O2 Saturation 98% (92-99) 98% (92-99) Arterial Blood pH 6.85 (7.35-7.45) 7.14 (7.35-7.45) Arterial Blood pCO2 at Patient Temp 22mmHg (35-46) 21mmHg (35-46) Arterial Blood pO2 at Patient Temp 147mmHg (65-108) 153mmHg (65-108) Arterial Blood HCO3 4mmol/L (21-28) 7mmol/L (21-28) Arterial Blood Base Excess -29mmol/L (-3-3) -21mmol/L (-3-3) FiO2 28 28 Sodium Level 143mmol/L (136-145) Potassium Level 4.2mmol/L (3.5-5.1) Chloride Level 99mmol/L (98-107) Carbon Dioxide Level 9mmol/L (21-32) Anion Gap 35 (6-14) Blood Urea Nitrogen 34mg/dL (7-20) Creatinine 2.2mg/dL (0.6-1.0) Estimated GFR (Cockcroft-Gault) 27.1 Glucose Level 822mg/dL (70-99) 830mg/dL (70-99) Lactic Acid Level 3.5mmol/L (0.4-2.0) Calcium Level 8.5mg/dL (8.5-10.1) Phosphorus Level 6.4mg/dL (2.6-4.7) Magnesium Level 2.1mg/dL (1.8-2.4) Test 11/07/16 20:23 11/07/16 22:16 11/07/16 23:30 11/07/16 23:54 Glucose Level 571mg/dL (70-99) 428mg/dL (70-99) Sodium Level 150mmol/L (136-145) Potassium Level 2.9mmol/L (3.5-5.1) Chloride Level 111mmol/L (98-107) Carbon Dioxide Level 13mmol/L (21-32) Anion Gap 26 (6-14) Blood Urea Nitrogen 31mg/dL (7-20) Creatinine 2.0mg/dL (0.6-1.0) Estimated GFR (Cockcroft-Gault) 30.3 BUN/Creatinine Ratio 16 (6-20) Calcium Level 7.9mg/dL (8.5-10.1) Phosphorus Level 0.8mg/dL (2.6-4.7) Magnesium Level 1.8mg/dL (1.8-2.4) Total Bilirubin 0.5mg/dL (0.2-1.0) Aspartate Amino Transf (AST/SGOT) 19U/L (15-37) Alanine Aminotransferase (ALT/SGPT) 12U/L (14-59) Alkaline Phosphatase 63U/L (46-116) Total Protein 5.1g/dL (6.4-8.2) Albumin 2.5g/dL (3.4-5.0) Albumin/Globulin Ratio 1.0 (1.0-1.7) Troponin I Quantitative 0.453ng/mL (0.000-0.055) Glucose (Fingerstick) 341mg/dL (70-99) Test 11/08/16 00:58 11/08/16 02:02 11/08/16 03:06 11/08/16 04:16 Glucose (Fingerstick) 288mg/dL (70-99) 240mg/dL (70-99) 237mg/dL (70-99) 274mg/dL (70-99) Test 11/08/16 05:25 11/08/16 06:06 11/08/16 06:29 11/08/16 08:05 Glucose (Fingerstick) 176mg/dL (70-99) 145mg/dL (70-99) White Blood Count 8.3x10^3/uL (4.0-11.0) Red Blood Count 3.45x10^6/uL (3.50-5.40) Hemoglobin 9.8g/dL (12.0-15.5) Hematocrit 29.7% (36.0-47.0) Mean Corpuscular Volume 86fL (79-100) Mean Corpuscular Hemoglobin 28pg (25-35) Mean Corpuscular Hemoglobin Concent 33g/dL (31-37) Red Cell Distribution Width 13.3% (11.5-14.5) Platelet Count 148x10^3/uL (140-400) Neutrophils (%) (Auto) 78% (31-73) Lymphocytes (%) (Auto) 8% (24-48) Monocytes (%) (Auto) 13% (0-9) Eosinophils (%) (Auto) 0% (0-3) Basophils (%) (Auto) 1% (0-3) Neutrophils # (Auto) 6.5x10^3uL (1.8-7.7) Lymphocytes # (Auto) 0.7x10^3/uL (1.0-4.8) Monocytes # (Auto) 1.1x10^3/uL (0.0-1.1) Eosinophils # (Auto) 0.0x10^3/uL (0.0-0.7) Basophils # (Auto) 0.1x10^3/uL (0.0-0.2) Sodium Level 150mmol/L (136-145) Potassium Level 2.7mmol/L (3.5-5.1) Chloride Level 116mmol/L (98-107) Carbon Dioxide Level 21mmol/L (21-32) Anion Gap 13 (6-14) Blood Urea Nitrogen 23mg/dL (7-20) Creatinine 1.5mg/dL (0.6-1.0) Estimated GFR (Cockcroft-Gault) 42.2 Glucose Level 148mg/dL (70-99) Calcium Level 7.8mg/dL (8.5-10.1) Phosphorus Level 1.7mg/dL (2.6-4.7) Magnesium Level 1.5mg/dL (1.8-2.4) Troponin I Quantitative 1.162ng/mL (0.000-0.055) O2 Saturation 98% (92-99) Arterial Blood pH 7.47 (7.35-7.45) Arterial Blood pCO2 at Patient Temp 27mmHg (35-46) Arterial Blood pO2 at Patient Temp 133mmHg (65-108) Arterial Blood HCO3 19mmol/L (21-28) Arterial Blood Base Excess -3mmol/L (-3-3) FiO2 28 Medications Active Scripts Medications Dose Route/Sig Days Date Category Metformin Hcl Er (Metformin Hcl) 750 Mg Tab.er.24h 1 Tab PO BID 11/08/16 Reported Oxybutynin Chloride Er (Oxybutynin Chloride) 10 Mg Tab.er.24 1 Tab PO DAILY 11/08/16 Reported Tresiba Flextouch U-100 (Insulin Degludec) 100 Unit/1 Ml Insuln.pen 25 Unit SQ DAILY 11/08/16 Reported Folic Acid 1 Mg Tablet 1 Tab PO DAILY 05/28/14 Reported Hydrocodone-Apap 5-325 (Hydrocodone Bit/Acetaminophen) 1 Each Tablet 1-2 Tab PO Q4-6HRS 05/28/14 Reported Glucovance 5-500 Mg Tablet (Glyburide/Metformin Hcl) 1 Each Tablet 2 Tab PO DAILY 05/28/14 Reported Glucovance 5-500 Mg Tablet (Glyburide/Metformin Hcl) 1 Each Tablet 1 Tab PO HS 05/28/14 Reported Losartan-Hctz 100-12.5 Mg Tab (Losartan/Hydrochlorothiazide) 1 Each Tablet 1 Each PO DAILY 05/28/14 Reported Xalatan (Latanoprost) 2.5 Ml Drops 1 Drop EACHEYE QHS 05/28/14 Reported Gabapentin 300 Mg Capsule 300 Mg PO TID 05/28/14 Reported Toprol Xl (Metoprolol Succinate) 50 Mg Tab.er.24h 1 Tab PO DAILY 05/28/14 Reported Impression . 1. Acute respiratory failure secondary to acute encephalopathy from diabetic ketoacidosis. 2. Severe AG induced metabolic acidosis secondary to diabetic ketoacidosis. Lactic acid was also elevated. Clinically, I doubt any infection. Lactic acidosis is probably elevated because of hypoperfusion caused by hypotension. improved post hydration 3. Hypotension, related to severe dehydration with acute renal failure. improved s/p aggressive fluid resuscitation. 4. Clear chest x-ray. 5. History of insulin-requiring diabetes and recently started on Trulicity, which can also contribute to diarrhea. Plan . 1. Pt self extubated during CPAP trial. Doing well 2. follow ABGs.much improved. 3. DKA management per PCP, 4. replace Mg, K, PO4 5. Continue empiric antibiotics for now. 6. Lactic acid improved 7. SCDs for stress ulcer prophylaxis. 8. Lovenox for DVT prophylaxis. 9. Discussed with RN and RT cct 30 min YASHIRA REYNOLDS MD Nov 08, 2016 09:18
[2016-11-08] MEDS: VANCOMYCIN PER PHARMACY MC PRN (09:56)
[2016-11-08] MEDS ORDERED: ALBUTEROL SULFATE 2.5 MG/3 ML NEBU. NEB ONE (10:00)
[2016-11-08] MEDS: INSULIN ASPART 300 UNITS/3 ML INSULN.PEN SQ SCH ×2 (11:27→17:00)
[2016-11-08] MEDS: IV DEXTROSE 5 %-0.45 % NACL 1,000 ML IV SCH ×4 (11:28→22:44)
[2016-11-08] MEDS: INSULIN DETEMIR 300 UNITS/3 ML INSULN.PEN. SQ SCH (12:41)
--- NOTE | 2016-11-08 13:12 | PDOC ---
PROGRESS NOTES Chief Complaint Chief Complaint 1. Severe metabolic anion gap acidosis with leukocytosis 2. Diabetic Ketoacidosis 3. Respiratory failure 4. Elevated BNP 5. Elevated Troponin 6. COPD 7. Medication non-compliance History of Present Illness History of Present Illness Pt seen and examined this AM in ICU. Pt resting in NAD. Pt's family member present and at bedside. Pt self extubated and is hemodynamically stable. ICU nurse present and discussed with during AM evaluation. Pt has been complaining of a sore throat. Pt is able to open eyes to verbal commands. VSS- All questions and concerns addressed and answered. Vitals Vitals Vital Signs Date Time Temp Pulse Resp B/P Pulse Ox O2 Delivery O2 Flow Rate FiO2 11/08/16 12:02 99.3 104 26 139/48 100 Nasal Cannula 2.0 99.3 Physical Exam General: Cooperative, No acute distress Heart: Regular rate, Normal S1, Normal S2, No murmurs Lungs: Clear Abdomen: Normal bowel sounds, Soft, No tenderness, No hepatosplenomegaly Extremities: No clubbing, No cyanosis, No edema, Normal pulses Skin: No rashes, No breakdown, No significant lesion Labs LABS Laboratory Tests Test 11/07/16 15:20 11/07/16 17:58 11/07/16 18:55 11/07/16 19:28 O2 Saturation 98% (92-99) 98% (92-99) Arterial Blood pH 6.85 (7.35-7.45) 7.14 (7.35-7.45) Arterial Blood pCO2 at Patient Temp 22mmHg (35-46) 21mmHg (35-46) Arterial Blood pO2 at Patient Temp 147mmHg (65-108) 153mmHg (65-108) Arterial Blood HCO3 4mmol/L (21-28) 7mmol/L (21-28) Arterial Blood Base Excess -29mmol/L (-3-3) -21mmol/L (-3-3) FiO2 28 28 Sodium Level 143mmol/L (136-145) Potassium Level 4.2mmol/L (3.5-5.1) Chloride Level 99mmol/L (98-107) Carbon Dioxide Level 9mmol/L (21-32) Anion Gap 35 (6-14) Blood Urea Nitrogen 34mg/dL (7-20) Creatinine 2.2mg/dL (0.6-1.0) Estimated GFR (Cockcroft-Gault) 27.1 Glucose Level 822mg/dL (70-99) 830mg/dL (70-99) Lactic Acid Level 3.5mmol/L (0.4-2.0) Calcium Level 8.5mg/dL (8.5-10.1) Phosphorus Level 6.4mg/dL (2.6-4.7) Magnesium Level 2.1mg/dL (1.8-2.4) Test 11/07/16 20:23 11/07/16 22:16 11/07/16 23:30 11/07/16 23:54 Glucose Level 571mg/dL (70-99) 428mg/dL (70-99) Sodium Level 150mmol/L (136-145) Potassium Level 2.9mmol/L (3.5-5.1) Chloride Level 111mmol/L (98-107) Carbon Dioxide Level 13mmol/L (21-32) Anion Gap 26 (6-14) Blood Urea Nitrogen 31mg/dL (7-20) Creatinine 2.0mg/dL (0.6-1.0) Estimated GFR (Cockcroft-Gault) 30.3 BUN/Creatinine Ratio 16 (6-20) Calcium Level 7.9mg/dL (8.5-10.1) Phosphorus Level 0.8mg/dL (2.6-4.7) Magnesium Level 1.8mg/dL (1.8-2.4) Total Bilirubin 0.5mg/dL (0.2-1.0) Aspartate Amino Transf (AST/SGOT) 19U/L (15-37) Alanine Aminotransferase (ALT/SGPT) 12U/L (14-59) Alkaline Phosphatase 63U/L (46-116) Total Protein 5.1g/dL (6.4-8.2) Albumin 2.5g/dL (3.4-5.0) Albumin/Globulin Ratio 1.0 (1.0-1.7) Troponin I Quantitative 0.453ng/mL (0.000-0.055) Glucose (Fingerstick) 341mg/dL (70-99) Test 11/08/16 00:58 11/08/16 02:02 11/08/16 03:06 11/08/16 04:16 Glucose (Fingerstick) 288mg/dL (70-99) 240mg/dL (70-99) 237mg/dL (70-99) 274mg/dL (70-99) Test 11/08/16 05:25 11/08/16 06:06 11/08/16 06:29 11/08/16 07:40 Glucose (Fingerstick) 176mg/dL (70-99) 145mg/dL (70-99) 83mg/dL (70-99) White Blood Count 8.3x10^3/uL (4.0-11.0) Red Blood Count 3.45x10^6/uL (3.50-5.40) Hemoglobin 9.8g/dL (12.0-15.5) Hematocrit 29.7% (36.0-47.0) Mean Corpuscular Volume 86fL (79-100) Mean Corpuscular Hemoglobin 28pg (25-35) Mean Corpuscular Hemoglobin Concent 33g/dL (31-37) Red Cell Distribution Width 13.3% (11.5-14.5) Platelet Count 148x10^3/uL (140-400) Neutrophils (%) (Auto) 78% (31-73) Lymphocytes (%) (Auto) 8% (24-48) Monocytes (%) (Auto) 13% (0-9) Eosinophils (%) (Auto) 0% (0-3) Basophils (%) (Auto) 1% (0-3) Neutrophils # (Auto) 6.5x10^3uL (1.8-7.7) Lymphocytes # (Auto) 0.7x10^3/uL (1.0-4.8) Monocytes # (Auto) 1.1x10^3/uL (0.0-1.1) Eosinophils # (Auto) 0.0x10^3/uL (0.0-0.7) Basophils # (Auto) 0.1x10^3/uL (0.0-0.2) Sodium Level 150mmol/L (136-145) Potassium Level 2.7mmol/L (3.5-5.1) Chloride Level 116mmol/L (98-107) Carbon Dioxide Level 21mmol/L (21-32) Anion Gap 13 (6-14) Blood Urea Nitrogen 23mg/dL (7-20) Creatinine 1.5mg/dL (0.6-1.0) Estimated GFR (Cockcroft-Gault) 42.2 Glucose Level 148mg/dL (70-99) Calcium Level 7.8mg/dL (8.5-10.1) Phosphorus Level 1.7mg/dL (2.6-4.7) Magnesium Level 1.5mg/dL (1.8-2.4) Troponin I Quantitative 1.162ng/mL (0.000-0.055) Test 11/08/16 08:05 11/08/16 08:33 11/08/16 09:00 11/08/16 09:22 O2 Saturation 98% (92-99) Arterial Blood pH 7.47 (7.35-7.45) Arterial Blood pCO2 at Patient Temp 27mmHg (35-46) Arterial Blood pO2 at Patient Temp 133mmHg (65-108) Arterial Blood HCO3 19mmol/L (21-28) Arterial Blood Base Excess -3mmol/L (-3-3) FiO2 28 Glucose (Fingerstick) 61mg/dL (70-99) 74mg/dL (70-99) 133mg/dL (70-99) Test 11/08/16 10:14 Glucose (Fingerstick) 147mg/dL (70-99) Review of Systems Review of Systems Complaint of fatigue Complaint of hunger Assessment and Plan Assessmemt and Plan Problems Medical Problems: (1) DKA (diabetic ketoacidoses) Status: Acute (2) Lactic acidosis Status: Acute (3) Lethargy Status: Acute Assessment: 1. Severe metabolic anion gap acidosis with leukocytosis 2. Diabetic Ketoacidosis 3. Respiratory failure 4. Elevated BNP 5. Elevated Troponin 6. COPD 7. Medication non-compliance Plan: Continue to monitor the patient per ICU protocol Monitor daily labs- CBC, BMP, BUN and Cr Monitor daily glucose, Add Levemir 20 units for high BG Monitor ABG Add Cholaseptic throat spray for sore throat Continue broad spectrum IV Abx- Vancomycin and Zosyn Continue Zofran 4 mg PRN for nausea Appreciate all subspecialty input and recommendations Pulmonary and Renal following Discuss with ICU nurse and family Problems: Comment Review of Relevant I have reviewed the following items terese (where applicable) has been applied. Labs Laboratory Tests Test 11/07/16 12:05 11/07/16 12:25 11/07/16 12:49 11/07/16 12:55 Sodium Level 135mmol/L (136-145) Potassium Level 4.8mmol/L (3.5-5.1) Chloride Level 93mmol/L (98-107) Carbon Dioxide Level 7mmol/L (21-32) Anion Gap 35 (6-14) Blood Urea Nitrogen 27mg/dL (7-20) Creatinine 1.9mg/dL (0.6-1.0) Estimated GFR (Cockcroft-Gault) 32.1 Glucose Level 818mg/dL (70-99) Calcium Level 11.0mg/dL (8.5-10.1) Total Bilirubin 0.5mg/dL (0.2-1.0) Direct Bilirubin 0.1mg/dL (0.0-0.2) Aspartate Amino Transf (AST/SGOT) 16U/L (15-37) Alanine Aminotransferase (ALT/SGPT) 22U/L (14-59) Alkaline Phosphatase 108U/L (46-116) Total Protein 8.3g/dL (6.4-8.2) Albumin 4.2g/dL (3.4-5.0) Lipase 61U/L (73-393) Urine Collection Type Unknown Urine Color Yellow Urine Clarity Clear Urine pH 5.0 Urine Specific [place] 1.025 Urine Protein 30mg/dL (NEG-TRACE) Urine Glucose (UA) >=1000mg/dL (NEG) Urine Ketones (Stick) >=80mg/dL (NEG) Urine Blood Small (NEG) Urine Nitrite Negative (NEG) Urine Bilirubin Negative (NEG) Urine Urobilinogen Dipstick 0.2mg/dL (0.2 mg/dL) Urine Leukocyte Esterase Negative (NEG) Urine RBC 0/HPF (0-2) Urine WBC Occ/HPF (0-4) Urine Squamous Epithelial Cells Few/LPF Urine Amorphous Sediment Present/HPF Urine Bacteria 0/HPF (0-FEW) Urine Hyaline Casts Occasional/HPF Urine Mucus Slight/LPF White Blood Count 15.5x10^3/uL (4.0-11.0) Red Blood Count 4.63x10^6/uL (3.50-5.40) Hemoglobin 13.0g/dL (12.0-15.5) Hematocrit 45.7% (36.0-47.0) Mean Corpuscular Volume 99fL (79-100) Mean Corpuscular Hemoglobin 28pg (25-35) Mean Corpuscular Hemoglobin Concent 28g/dL (31-37) Red Cell Distribution Width 14.8% (11.5-14.5) Platelet Count 224x10^3/uL (140-400) Neutrophils (%) (Auto) 85% (31-73) Lymphocytes (%) (Auto) 6% (24-48) Monocytes (%) (Auto) 9% (0-9) Eosinophils (%) (Auto) 0% (0-3) Basophils (%) (Auto) 1% (0-3) Neutrophils # (Auto) 13.1x10^3uL (1.8-7.7) Lymphocytes # (Auto) 1.0x10^3/uL (1.0-4.8) Monocytes # (Auto) 1.4x10^3/uL (0.0-1.1) Eosinophils # (Auto) 0.0x10^3/uL (0.0-0.7) Basophils # (Auto) 0.1x10^3/uL (0.0-0.2) Segmented Neutrophils % 74% (35-66) Band Neutrophils % 8% (0-9) Lymphocytes % 9% (24-48) Monocytes % 9% (0-10) Toxic Granulation Slight Platelet Estimate Adequate (ADEQUATE) Serum Osmolality 357mOsm/Kg (279-304) Lactic Acid Level 6.5mmol/L (0.4-2.0) Phosphorus Level 10.0mg/dL (2.6-4.7) Magnesium Level 2.9mg/dL (1.8-2.4) Troponin I Quantitative 0.058ng/mL (0.000-0.055) IQ-Yey-W-Type Natriuretic Peptide 995pg/mL (0-124) O2 Saturation 98% (92-99) Arterial Blood pH 7.01 (7.35-7.45) Arterial Blood pCO2 at Patient Temp 10mmHg (35-46) Arterial Blood pO2 at Patient Temp 140mmHg (65-108) Arterial Blood HCO3 3mmol/L (21-28) Arterial Blood Base Excess -27mmol/L (-3-3) FiO2 21 Test 11/07/16 15:20 11/07/16 17:58 11/07/16 18:55 11/07/16 19:28 O2 Saturation 98% (92-99) 98% (92-99) Arterial Blood pH 6.85 (7.35-7.45) 7.14 (7.35-7.45) Arterial Blood pCO2 at Patient Temp 22mmHg (35-46) 21mmHg (35-46) Arterial Blood pO2 at Patient Temp 147mmHg (65-108) 153mmHg (65-108) Arterial Blood HCO3 4mmol/L (21-28) 7mmol/L (21-28) Arterial Blood Base Excess -29mmol/L (-3-3) -21mmol/L (-3-3) FiO2 28 28 Sodium Level 143mmol/L (136-145) Potassium Level 4.2mmol/L (3.5-5.1) Chloride Level 99mmol/L (98-107) Carbon Dioxide Level 9mmol/L (21-32) Anion Gap 35 (6-14) Blood Urea Nitrogen 34mg/dL (7-20) Creatinine 2.2mg/dL (0.6-1.0) Estimated GFR (Cockcroft-Gault) 27.1 Glucose Level 822mg/dL (70-99) 830mg/dL (70-99) Lactic Acid Level 3.5mmol/L (0.4-2.0) Calcium Level 8.5mg/dL (8.5-10.1) Phosphorus Level 6.4mg/dL (2.6-4.7) Magnesium Level 2.1mg/dL (1.8-2.4) Test 11/07/16 20:23 11/07/16 22:16 11/07/16 23:30 11/07/16 23:54 Glucose Level 571mg/dL (70-99) 428mg/dL (70-99) Sodium Level 150mmol/L (136-145) Potassium Level 2.9mmol/L (3.5-5.1) Chloride Level 111mmol/L (98-107) Carbon Dioxide Level 13mmol/L (21-32) Anion Gap 26 (6-14) Blood Urea Nitrogen 31mg/dL (7-20) Creatinine 2.0mg/dL (0.6-1.0) Estimated GFR (Cockcroft-Gault) 30.3 BUN/Creatinine Ratio 16 (6-20) Calcium Level 7.9mg/dL (8.5-10.1) Phosphorus Level 0.8mg/dL (2.6-4.7) Magnesium Level 1.8mg/dL (1.8-2.4) Total Bilirubin 0.5mg/dL (0.2-1.0) Aspartate Amino Transf (AST/SGOT) 19U/L (15-37) Alanine Aminotransferase (ALT/SGPT) 12U/L (14-59) Alkaline Phosphatase 63U/L (46-116) Total Protein 5.1g/dL (6.4-8.2) Albumin 2.5g/dL (3.4-5.0) Albumin/Globulin Ratio 1.0 (1.0-1.7) Troponin I Quantitative 0.453ng/mL (0.000-0.055) Glucose (Fingerstick) 341mg/dL (70-99) Test 11/08/16 00:58 11/08/16 02:02 11/08/16 03:06 11/08/16 04:16 Glucose (Fingerstick) 288mg/dL (70-99) 240mg/dL (70-99) 237mg/dL (70-99) 274mg/dL (70-99) Test 11/08/16 05:25 11/08/16 06:06 11/08/16 06:29 11/08/16 07:40 Glucose (Fingerstick) 176mg/dL (70-99) 145mg/dL (70-99) 83mg/dL (70-99) White Blood Count 8.3x10^3/uL (4.0-11.0) Red Blood Count 3.45x10^6/uL (3.50-5.40) Hemoglobin 9.8g/dL (12.0-15.5) Hematocrit 29.7% (36.0-47.0) Mean Corpuscular Volume 86fL (79-100) Mean Corpuscular Hemoglobin 28pg (25-35) Mean Corpuscular Hemoglobin Concent 33g/dL (31-37) Red Cell Distribution Width 13.3% (11.5-14.5) Platelet Count 148x10^3/uL (140-400) Neutrophils (%) (Auto) 78% (31-73) Lymphocytes (%) (Auto) 8% (24-48) Monocytes (%) (Auto) 13% (0-9) Eosinophils (%) (Auto) 0% (0-3) Basophils (%) (Auto) 1% (0-3) Neutrophils # (Auto) 6.5x10^3uL (1.8-7.7) Lymphocytes # (Auto) 0.7x10^3/uL (1.0-4.8) Monocytes # (Auto) 1.1x10^3/uL (0.0-1.1) Eosinophils # (Auto) 0.0x10^3/uL (0.0-0.7) Basophils # (Auto) 0.1x10^3/uL (0.0-0.2) Sodium Level 150mmol/L (136-145) Potassium Level 2.7mmol/L (3.5-5.1) Chloride Level 116mmol/L (98-107) Carbon Dioxide Level 21mmol/L (21-32) Anion Gap 13 (6-14) Blood Urea Nitrogen 23mg/dL (7-20) Creatinine 1.5mg/dL (0.6-1.0) Estimated GFR (Cockcroft-Gault) 42.2 Glucose Level 148mg/dL (70-99) Calcium Level 7.8mg/dL (8.5-10.1) Phosphorus Level 1.7mg/dL (2.6-4.7) Magnesium Level 1.5mg/dL (1.8-2.4) Troponin I Quantitative 1.162ng/mL (0.000-0.055) Test 11/08/16 08:05 11/08/16 08:33 11/08/16 09:00 11/08/16 09:22 O2 Saturation 98% (92-99) Arterial Blood pH 7.47 (7.35-7.45) Arterial Blood pCO2 at Patient Temp 27mmHg (35-46) Arterial Blood pO2 at Patient Temp 133mmHg (65-108) Arterial Blood HCO3 19mmol/L (21-28) Arterial Blood Base Excess -3mmol/L (-3-3) FiO2 28 Glucose (Fingerstick) 61mg/dL (70-99) 74mg/dL (70-99) 133mg/dL (70-99) Test 11/08/16 10:14 Glucose (Fingerstick) 147mg/dL (70-99) Laboratory Tests Test 11/07/16 15:20 11/07/16 17:58 11/07/16 18:55 11/07/16 19:28 O2 Saturation 98% (92-99) 98% (92-99) Arterial Blood pH 6.85 (7.35-7.45) 7.14 (7.35-7.45) Arterial Blood pCO2 at Patient Temp 22mmHg (35-46) 21mmHg (35-46) Arterial Blood pO2 at Patient Temp 147mmHg (65-108) 153mmHg (65-108) Arterial Blood HCO3 4mmol/L (21-28) 7mmol/L (21-28) Arterial Blood Base Excess -29mmol/L (-3-3) -21mmol/L (-3-3) FiO2 28 28 Sodium Level 143mmol/L (136-145) Potassium Level 4.2mmol/L (3.5-5.1) Chloride Level 99mmol/L (98-107) Carbon Dioxide Level 9mmol/L (21-32) Anion Gap 35 (6-14) Blood Urea Nitrogen 34mg/dL (7-20) Creatinine 2.2mg/dL (0.6-1.0) Estimated GFR (Cockcroft-Gault) 27.1 Glucose Level 822mg/dL (70-99) 830mg/dL (70-99) Lactic Acid Level 3.5mmol/L (0.4-2.0) Calcium Level 8.5mg/dL (8.5-10.1) Phosphorus Level 6.4mg/dL (2.6-4.7) Magnesium Level 2.1mg/dL (1.8-2.4) Test 11/07/16 20:23 11/07/16 22:16 11/07/16 23:30 11/07/16 23:54 Glucose Level 571mg/dL (70-99) 428mg/dL (70-99) Sodium Level 150mmol/L (136-145) Potassium Level 2.9mmol/L (3.5-5.1) Chloride Level 111mmol/L (98-107) Carbon Dioxide Level 13mmol/L (21-32) Anion Gap 26 (6-14) Blood Urea Nitrogen 31mg/dL (7-20) Creatinine 2.0mg/dL (0.6-1.0) Estimated GFR (Cockcroft-Gault) 30.3 BUN/Creatinine Ratio 16 (6-20) Calcium Level 7.9mg/dL (8.5-10.1) Phosphorus Level 0.8mg/dL (2.6-4.7) Magnesium Level 1.8mg/dL (1.8-2.4) Total Bilirubin 0.5mg/dL (0.2-1.0) Aspartate Amino Transf (AST/SGOT) 19U/L (15-37) Alanine Aminotransferase (ALT/SGPT) 12U/L (14-59) Alkaline Phosphatase 63U/L (46-116) Total Protein 5.1g/dL (6.4-8.2) Albumin 2.5g/dL (3.4-5.0) Albumin/Globulin Ratio 1.0 (1.0-1.7) Troponin I Quantitative 0.453ng/mL (0.000-0.055) Glucose (Fingerstick) 341mg/dL (70-99) Test 11/08/16 00:58 11/08/16 02:02 11/08/16 03:06 11/08/16 04:16 Glucose (Fingerstick) 288mg/dL (70-99) 240mg/dL (70-99) 237mg/dL (70-99) 274mg/dL (70-99) Test 11/08/16 05:25 11/08/16 06:06 11/08/16 06:29 11/08/16 07:40 Glucose (Fingerstick) 176mg/dL (70-99) 145mg/dL (70-99) 83mg/dL (70-99) White Blood Count 8.3x10^3/uL (4.0-11.0) Red Blood Count 3.45x10^6/uL (3.50-5.40) Hemoglobin 9.8g/dL (12.0-15.5) Hematocrit 29.7% (36.0-47.0) Mean Corpuscular Volume 86fL (79-100) Mean Corpuscular Hemoglobin 28pg (25-35) Mean Corpuscular Hemoglobin Concent 33g/dL (31-37) Red Cell Distribution Width 13.3% (11.5-14.5) Platelet Count 148x10^3/uL (140-400) Neutrophils (%) (Auto) 78% (31-73) Lymphocytes (%) (Auto) 8% (24-48) Monocytes (%) (Auto) 13% (0-9) Eosinophils (%) (Auto) 0% (0-3) Basophils (%) (Auto) 1% (0-3) Neutrophils # (Auto) 6.5x10^3uL (1.8-7.7) Lymphocytes # (Auto) 0.7x10^3/uL (1.0-4.8) Monocytes # (Auto) 1.1x10^3/uL (0.0-1.1) Eosinophils # (Auto) 0.0x10^3/uL (0.0-0.7) Basophils # (Auto) 0.1x10^3/uL (0.0-0.2) Sodium Level 150mmol/L (136-145) Potassium Level 2.7mmol/L (3.5-5.1) Chloride Level 116mmol/L (98-107) Carbon Dioxide Level 21mmol/L (21-32) Anion Gap 13 (6-14) Blood Urea Nitrogen 23mg/dL (7-20) Creatinine 1.5mg/dL (0.6-1.0) Estimated GFR (Cockcroft-Gault) 42.2 Glucose Level 148mg/dL (70-99) Calcium Level 7.8mg/dL (8.5-10.1) Phosphorus Level 1.7mg/dL (2.6-4.7) Magnesium Level 1.5mg/dL (1.8-2.4) Troponin I Quantitative 1.162ng/mL (0.000-0.055) Test 11/08/16 08:05 11/08/16 08:33 11/08/16 09:00 11/08/16 09:22 O2 Saturation 98% (92-99) Arterial Blood pH 7.47 (7.35-7.45) Arterial Blood pCO2 at Patient Temp 27mmHg (35-46) Arterial Blood pO2 at Patient Temp 133mmHg (65-108) Arterial Blood HCO3 19mmol/L (21-28) Arterial Blood Base Excess -3mmol/L (-3-3) FiO2 28 Glucose (Fingerstick) 61mg/dL (70-99) 74mg/dL (70-99) 133mg/dL (70-99) Test 11/08/16 10:14 Glucose (Fingerstick) 147mg/dL (70-99) Medications Current Medications Aspirin 324 mg 324 mg 1X ONCE PO Last administered on 11/07/16 13:20; Start 11/07/16 at 13:00; Stop 11/07/16 at 13:01; Status DC Sodium Chloride 1,000 ml @ 1,000 mls/hr Q1H IV Last administered on 11/07/16 16:15; Start 11/07/16 at 13:20; Stop 11/07/16 at 14:19; Status DC Insulin Human Regular 150 unit/ Sodium Chloride 151.5 ml @ 0 mls/hr CONT PRN PRN IV PER PROTOCOL; Start 11/07/16 at 13:30; Stop 11/08/16 at 10:34; Status DC Potassium Chloride 100 ml @ 100 mls/hr PRN Q1HR PRN IV SEE COMMENTS; Start at 13:30 Potassium Chloride 100 ml @ 100 mls/hr PRN Q1HR PRN IV SEE COMMENTS; Start at 13:30 Potassium Chloride 100 ml @ 100 mls/hr PRN Q1HR PRN IV SEE COMMENTS; Start at 13:30 Sodium Bicarbonate/ Sodium Chloride (Iv Sodium Chloride 0.45%) 1,050 ml @ 500 mls/hr Q2H6M PRN IV SEE COMMENTS Last administered on 11/07/16 15:50; Start at 13:20; Stop 11/07/16 at 20:13; Status DC Ondansetron HCl (Zofran) 4 mg PRN Q8HRS PRN IV NAUSEA/VOMITING Last administered on 11/08/16 12:19; Start 11/07/16 at 13:30; Stop 11/08/16 at 13:29 Morphine Sulfate 2 mg 2 mg PRN Q2HR PRN IV PAIN; Start 11/07/16 at 13:30; Stop 11/08/16 at 13:29 Sodium Chloride 1,000 ml @ 125 mls/hr Q8H IV Last administered on 11/07/16 22 :53; Start 11/07/16 at 13:23; Stop 11/08/16 at 00:15; Status DC Insulin Human Regular 150 ml @ 0 mls/hr 1X ONCE IV Last administered on 17:00; Start 11/07/16 at 13:30; Stop 11/07/16 at 13:32; Status DC Propofol (Diprivan) 50 ml @ As Directed STK-MED ONCE IV ; Start 11/07/16 at 13: 54; Stop 11/07/16 at 13:55; Status DC Vancomycin HCl 1 each 1 each PRN DAILY PRN MC SEE COMMENTS Last administered on 11/08/16 09:56; Start 11/07/16 at 15:30 Levofloxacin/ Dextrose 100 ml @ 100 mls/hr 1X ONCE IV Last administered on 15:53; Start 11/07/16 at 16:00; Stop 11/07/16 at 17:10; Status DC Lactated Ringer's 500 ml @ 500 mls/hr 1X ONCE IV ; Start 11/07/16 at 16:00; Stop 11/07/16 at 17:10; Status DC Vancomycin HCl/ Sodium Chloride (Iv Sodium Chloride 0.9% 500ml Bag) 500 ml @ 250 mls/hr 1X ONCE IV Last administered on 11/07/16 16:00; Start 11/07/16 at 16:00; Stop 11/07/16 at 17:59; Status DC Sodium Bicarbonate 50 meq STK-MED ONCE .ROUTE ; Start 11/07/16 at 15:43; Stop at 15:44; Status DC Sodium Bicarbonate 150 meq 150 meq 1X ONCE IV Last administered on 11/07/16 15:57; Start 11/07/16 at 16:00; Stop 11/07/16 at 17:10; Status DC Sodium Bicarbonate 50 meq/Sodium Chloride 1,050 ml @ 125 mls/hr Q8H24M IV ; Start 11/07/16 at 17:00; Stop 11/07/16 at 17:00; Status DC Sodium Bicarbonate 50 meq/Sodium Chloride 1,050 ml @ 500 mls/hr Q2H6M PRN IV SEE COMMENTS; Start 11/07/16 at 16:50; Stop 11/07/16 at 20:13; Status DC Vancomycin HCl/ Sodium Chloride (Iv Sodium Chloride 0.9% 500ml Bag) 500 ml @ 250 mls/hr 1X ONCE IV ; Start 11/07/16 at 17:00; Stop 11/07/16 at 18:59; Status Cancel Etomidate (Amidate) 20 mg STK-MED ONCE IV ; Start 11/07/16 at 17:16; Stop at 17:17; Status DC Succinylcholine Chloride 200 mg 200 mg STK-MED ONCE .ROUTE ; Start 11/07/16 at 17:16; Stop 11/07/16 at 17:17; Status DC Vancomycin HCl/ Sodium Chloride (Iv Sodium Chloride 0.9% 250ml) 250 ml @ 250 mls/hr Q24H IV ; Start 11/08/16 at 18:00 Vancomycin HCl 1 each 1 each 1X ONCE MC ; Start 11/09/16 at 17:30; Stop at 17:31 Piperacillin Sod/ Tazobactam Sod 3.375 gm/Sodium Chloride 50 ml @ 100 mls/hr Q6HRS IV Last administered on 11/08/16 12:00; Start 11/07/16 at 18:30 Sodium Chloride (Iv Sodium Chloride 0.9% 1000ml Bag) 1,000 ml @ 1,000 mls/hr 1X ONCE IV Last administered on 11/07/16 21:24; Start 11/07/16 at 20:15; Stop 11/07/16 at 21:14; Status DC Fentanyl Citrate 25 mcg 25 mcg PRN Q2HR PRN IV PAIN Last administered on 07:18; Start 11/07/16 at 20:15 Sodium Chloride 1,000 ml @ 1,000 mls/hr ONCE ONCE IV Last administered on 21:44; Start 11/07/16 at 21:45; Stop 11/07/16 at 22:44; Status DC Potassium Chloride 100 ml @ 100 mls/hr PRN Q1HR PRN IV SEE COMMENTS; Start at 23:00 Sodium Phosphate 40 mmol/Dextrose 513.3333 ml @ 83.3 mls/hr 1X PRN PRN IV SEE COMMENTS; Start 11/07/16 at 23:00 Sodium Phosphate 40 mmol/Dextrose 513.3333 ml @ 83.3 mls/hr ONCE ONCE IV Last administered on 11/07/16 23:46; Start 11/07/16 at 23:30; Stop 11/08/16 at 05:39 ; Status DC Potassium Chloride 50 ml @ 50 mls/hr 1X ONCE IV Last administered on 00:11; Start 11/08/16 at 00:00; Stop 11/08/16 at 00:59; Status DC Potassium Chloride 50 ml @ 50 mls/hr Q1H IV Last administered on 11/08/16 02: 05; Start 11/08/16 at 01:00; Stop 11/08/16 at 02:59; Status DC Sodium Chloride 1,000 ml @ 125 mls/hr Q8H IV Last administered on 11/08/16 02 :53; Start 11/08/16 at 00:15; Stop 11/08/16 at 10:34; Status DC Potassium Chloride 50 ml @ 50 mls/hr 1X ONCE IV Last administered on 07:02; Start 11/08/16 at 07:00; Stop 11/08/16 at 07:59; Status DC Potassium Chloride 50 ml @ 50 mls/hr Q1H IV Last administered on 11/08/16 10: 07; Start 11/08/16 at 08:00; Stop 11/08/16 at 09:59; Status DC Potassium Chloride 50 ml @ 50 mls/hr Q1H IV Last administered on 11/08/16 11: 29; Start 11/08/16 at 10:00; Stop 11/08/16 at 11:59; Status DC Magnesium Sulfate/ Dextrose 50 ml @ 25 mls/hr 1X ONCE IV Last administered on 11/08/16 08:30; Start 11/08/16 at 08:00; Stop 11/08/16 at 09:59; Status DC Potassium Phosphate/Sodium Chloride (Potassium Phosphate/Iv Sodium Chloride 0.9 % 100ml) 103.3333 ml @ 51.667 m... Q2H IV Last administered on 11/08/16 10:07 ; Start 11/08/16 at 08:00; Stop 11/08/16 at 09:59; Status DC Dextrose 25 gm PRN Q15MIN PRN IV SEE COMMENTS; Start 11/08/16 at 09:00; Stop at 10:32; Status DC Albuterol Sulfate (Ventolin Neb Soln) 2.5 mg 1X ONCE NEB Last administered on 11/08/16 09:20; Start 11/08/16 at 10:00; Stop 11/08/16 at 10:01; Status DC Insulin Aspart (Novolog) 0-7 UNITS TIDWMEALS SQ ; Start 11/08/16 at 12:00 Dextrose 12.5 gm 12.5 gm PRN Q15MIN PRN IV SEE COMMENTS; Start 11/08/16 at 09: 45 Dextrose/Sodium Chloride (Iv D5% - 1/2 NS) 1,000 ml @ 250 mls/hr Q4H IV Last administered on 11/08/16 11:28; Start 11/08/16 at 10:30 Insulin Detemir (Levemir) 20 units DAILY SQ Last administered on 11/08/16 12: 41; Start 11/08/16 at 12:00 Throat Lozenges (Chloraseptic) 2 spray PRN Q2HR PRN PO SORE THROAT; Start 11/08 at 12:00 Ondansetron HCl (Zofran) 4 mg PRN Q6HRS PRN IV NAUSEA/VOMITING 1ST CHOICE; Start 11/08/16 at 12:15 Active Scripts Active Reported Metformin Hcl Er (Metformin Hcl) 750 Mg Tab.er.24h 1 Tab PO BID Oxybutynin Chloride Er (Oxybutynin Chloride) 10 Mg Tab.er.24 1 Tab PO DAILY Tresiba Flextouch U-100 (Insulin Degludec) 100 Unit/1 Ml Insuln.pen 25 Unit SQ DAILY Folic Acid 1 Mg Tablet 1 Tab PO DAILY Hydrocodone-Apap 5-325 (Hydrocodone Bit/Acetaminophen) 1 Each Tablet 1-2 Tab PO Q4-6HRS Glucovance 5-500 Mg Tablet (Glyburide/Metformin Hcl) 1 Each Tablet 2 Tab PO DAILY Glucovance 5-500 Mg Tablet (Glyburide/Metformin Hcl) 1 Each Tablet 1 Tab PO HS Losartan-Hctz 100-12.5 Mg Tab (Losartan/Hydrochlorothiazide) 1 Each Tablet 1 Each PO DAILY Xalatan (Latanoprost) 2.5 Ml Drops 1 Drop EACHEYE QHS Gabapentin 300 Mg Capsule 300 Mg PO TID Toprol Xl (Metoprolol Succinate) 50 Mg Tab.er.24h 1 Tab PO DAILY Vitals/I & O Vital Sign - Last 24 Hours 11/07/16 11/07/16 11/07/16 11/07/16 13:30 14:00 14:15 14:28 Pulse 82 80 78 B/P 132/56 128/54 175/74 Pulse Ox 93 100 100 O2 Delivery Room Air Bag Valve Mask Ventilator Ventilator O2 Flow Rate 15 11/07/16 11/07/16 11/07/16 11/07/16 14:30 14:45 15:00 15:15 Pulse 78 100 100 98 B/P 119/55 151/53 92/46 100/45 Pulse Ox 100 100 100 100 O2 Delivery Ventilator Ventilator Ventilator Ventilator 11/07/16 11/07/16 11/07/16 11/07/16 15:30 15:45 16:00 16:15 Pulse 100 98 112 106 B/P 92/44 132/50 85/41 71/32 Pulse Ox 100 100 100 100 O2 Delivery Ventilator Ventilator Ventilator Ventilator 11/07/16 11/07/16 11/07/16 11/07/16 16:30 16:30 16:45 16:45 Temp 98.8 98.8 Pulse 108 106 Resp 24 B/P 74/40 90/40 Pulse Ox 100 98 98 O2 Delivery Ventilator Ventilator Ventilator Mechanical Ventilator 11/07/16 11/07/16 11/07/16 11/07/16 16:45 17:00 17:15 17:30 Pulse 109 102 102 102 Resp 24 24 24 B/P 93/43 100/43 100/42 90/37 Pulse Ox 98 100 98 O2 Delivery Ventilator Ventilator Ventilator Ventilator 11/07/16 11/07/16 11/07/16 11/07/16 18:00 18:30 19:00 19:05 Pulse 102 102 100 100 Resp 24 24 24 B/P 81/33 75/39 83/35 73/41 Pulse Ox 100 100 100 100 O2 Delivery Ventilator Ventilator Ventilator Ventilator 11/07/16 11/07/16 11/07/16 11/07/16 19:28 20:00 20:15 20:35 Pulse 104 103 Resp 28 B/P 79/32 85/39 Pulse Ox 100 100 96 O2 Delivery Ventilator Mechanical Ventilator Ventilator Ventilator 11/07/16 11/07/16 11/07/16 11/07/16 20:50 21:35 21:49 22:35 Pulse 104 103 Resp 29 B/P 79/32 80/41 111/36 Pulse Ox 100 100 100 97 O2 Delivery Ventilator Ventilator Ventilator Ventilator 11/07/16 11/07/16 11/07/16 11/08/16 22:56 23:00 23:59 00:00 Temp 97.6 97.6 Pulse 103 101 Resp 25 25 B/P 111/53 116/42 Pulse Ox 97 100 100 O2 Delivery Ventilator Mechanical Ventilator Ventilator O2 Flow Rate 15.0 11/08/16 11/08/16 11/08/16 11/08/16 00:33 01:00 01:37 02:00 Pulse 97 100 Resp 24 24 24 B/P 113/43 125/44 Pulse Ox 100 100 100 100 O2 Delivery Ventilator Ventilator Ventilator Ventilator 11/08/16 11/08/16 11/08/16 11/08/16 03:09 03:36 04:00 04:00 Temp 98.5 98.5 Pulse 100 103 Resp 24 24 B/P 115/51 114/47 Pulse Ox 100 100 100 O2 Delivery Ventilator Ventilator Mechanical Ventilator Ventilator 11/08/16 11/08/16 11/08/16 11/08/16 05:00 05:00 06:00 07:00 Temp 100.0 100.0 Pulse 101 101 100 Resp 24 22 17 B/P 116/45 118/46 116/50 Pulse Ox 100 100 100 100 O2 Delivery Ventilator Ventilator Ventilator Ventilator 11/08/16 11/08/16 11/08/16 11/08/16 07:18 07:48 08:00 08:00 Pulse 100 Resp 19 16 19 B/P 108/50 Pulse Ox 100 O2 Delivery Ventilator Ventilator Ventilator Mechanical Ventilator 11/08/16 11/08/16 11/08/16 11/08/16 08:05 08:33 09:00 09:05 Pulse 96 Resp 20 B/P Pulse Ox 100 100 100 O2 Delivery Ventilator Ventilator Ventilator Nasal Cannula O2 Flow Rate 2.0 11/08/16 11/08/16 11/08/16 11/08/16 09:17 10:00 11:00 12:02 Temp 99.3 99.3 Pulse 104 Resp B/P 130/51 121/52 139/48 Pulse Ox 100 100 100 100 O2 Delivery Nasal Cannula Nasal Cannula Nasal Cannula Nasal Cannula O2 Flow Rate 2.0 2.0 2.0 2.0 Intake and Output 11/07/16 11/07/16 11/08/16 15:00 23:00 07:00 Intake Total 2000 ml 7850 ml Output Total 1360 ml 305 ml Balance 640 ml 7545 ml ANA KIRKLAND III DO Nov 08, 2016 13:12
[2016-11-08] MEDS ORDERED: PROCHLORPERAZINE 10 MG/2 ML VIAL. IV ONE (14:30)
[2016-11-08 15:06] LABS: MAGNESIUM 2.1 mg/dL (1.8-2.4)
[2016-11-08] MEDS ORDERED: INSULIN ASPART 300 UNITS/3 ML INSULN.PEN SQ ONE (15:15)
[2016-11-08 15:56] LABS: CALCIUM 7.6 mg/dL (8.5-10.1); CREATININE 1.2 mg/dL (0.6-1.0); GFR 54.6; POTASSIUM 4.8 mmol/L (3.5-5.1)
--- NOTE | 2016-11-08 16:32 | PDOC2 ---
CONSULT Date of Consult Date of Consult DATE: 11/08/16 TIME: 16:25 Reason for Consult Reason for Consult: Elevated troponin level Referring Physician Referring Physician: Dr. Del Toro Identification/Chief Complaint Chief Complaint Mental status changes Source Source: Chart review History of Present Illness Reason for Visit: 66-year-old female was brought to the emergency room with mental status changes and was diagnosed with diabetic ketoacidosis and acute respiratory failure secondary to metabolic encephalopathy. Cardiology has been consulted for elevated troponin level. Patient self extubated herself earlier today and apparently had an episode of chest pain according to her family. She has history of permanent pacemaker implantation done in 1999 with subsequent generator change and usually follows with Dr. Rose. She is a poor historian due to mental status changes and no significant history can be obtained at this time. Past Medical History Past Medical History Diabetes mellitus with noncompliance with medications Sick sinus syndrome s/p permanent pacemaker implantation COPD Obstructive sleep apnea Hypertension Past Surgical History Past Surgical History: Pacemaker, Total knee replacement Family History Family History Diabetes mellitus Social History Quit ALCOHOL: none Drugs: None Current Problem List Problem List Problems Medical Problems: (1) DKA (diabetic ketoacidoses) Status: Acute (2) Lactic acidosis Status: Acute (3) Lethargy Status: Acute Current Medications Current Medications Current Medications Aspirin 324 mg 324 mg 1X ONCE PO Last administered on 11/07/16 13:20; Start 11/07/16 at 13:00; Stop 11/07/16 at 13:01; Status DC Sodium Chloride 1,000 ml @ 1,000 mls/hr Q1H IV Last administered on 11/07/16 16:15; Start 11/07/16 at 13:20; Stop 11/07/16 at 14:19; Status DC Insulin Human Regular 150 unit/ Sodium Chloride 151.5 ml @ 0 mls/hr CONT PRN PRN IV PER PROTOCOL; Start 11/07/16 at 13:30; Stop 11/08/16 at 10:34; Status DC Potassium Chloride 100 ml @ 100 mls/hr PRN Q1HR PRN IV SEE COMMENTS; Start at 13:30 Potassium Chloride 100 ml @ 100 mls/hr PRN Q1HR PRN IV SEE COMMENTS; Start at 13:30 Potassium Chloride 100 ml @ 100 mls/hr PRN Q1HR PRN IV SEE COMMENTS; Start at 13:30 Sodium Bicarbonate/ Sodium Chloride (Iv Sodium Chloride 0.45%) 1,050 ml @ 500 mls/hr Q2H6M PRN IV SEE COMMENTS Last administered on 11/07/16 15:50; Start at 13:20; Stop 11/07/16 at 20:13; Status DC Ondansetron HCl (Zofran) 4 mg PRN Q8HRS PRN IV NAUSEA/VOMITING Last administered on 11/08/16 12:19; Start 11/07/16 at 13:30; Stop 11/08/16 at 13:29 ; Status DC Morphine Sulfate 2 mg 2 mg PRN Q2HR PRN IV PAIN; Start 11/07/16 at 13:30; Stop 11/08/16 at 13:29; Status DC Sodium Chloride 1,000 ml @ 125 mls/hr Q8H IV Last administered on 11/07/16 22 :53; Start 11/07/16 at 13:23; Stop 11/08/16 at 00:15; Status DC Insulin Human Regular 150 ml @ 0 mls/hr 1X ONCE IV Last administered on 17:00; Start 11/07/16 at 13:30; Stop 11/07/16 at 13:32; Status DC Propofol (Diprivan) 50 ml @ As Directed STK-MED ONCE IV ; Start 11/07/16 at 13: 54; Stop 11/07/16 at 13:55; Status DC Vancomycin HCl 1 each 1 each PRN DAILY PRN MC SEE COMMENTS Last administered on 11/08/16 09:56; Start 11/07/16 at 15:30 Levofloxacin/ Dextrose 100 ml @ 100 mls/hr 1X ONCE IV Last administered on 15:53; Start 11/07/16 at 16:00; Stop 11/07/16 at 17:10; Status DC Lactated Ringer's 500 ml @ 500 mls/hr 1X ONCE IV ; Start 11/07/16 at 16:00; Stop 11/07/16 at 17:10; Status DC Vancomycin HCl/ Sodium Chloride (Iv Sodium Chloride 0.9% 500ml Bag) 500 ml @ 250 mls/hr 1X ONCE IV Last administered on 11/07/16 16:00; Start 11/07/16 at 16:00; Stop 11/07/16 at 17:59; Status DC Sodium Bicarbonate 50 meq STK-MED ONCE .ROUTE ; Start 11/07/16 at 15:43; Stop at 15:44; Status DC Sodium Bicarbonate 150 meq 150 meq 1X ONCE IV Last administered on 11/07/16 15:57; Start 11/07/16 at 16:00; Stop 11/07/16 at 17:10; Status DC Sodium Bicarbonate 50 meq/Sodium Chloride 1,050 ml @ 125 mls/hr Q8H24M IV ; Start 11/07/16 at 17:00; Stop 11/07/16 at 17:00; Status DC Sodium Bicarbonate 50 meq/Sodium Chloride 1,050 ml @ 500 mls/hr Q2H6M PRN IV SEE COMMENTS; Start 11/07/16 at 16:50; Stop 11/07/16 at 20:13; Status DC Vancomycin HCl/ Sodium Chloride (Iv Sodium Chloride 0.9% 500ml Bag) 500 ml @ 250 mls/hr 1X ONCE IV ; Start 11/07/16 at 17:00; Stop 11/07/16 at 18:59; Status Cancel Etomidate (Amidate) 20 mg STK-MED ONCE IV ; Start 11/07/16 at 17:16; Stop at 17:17; Status DC Succinylcholine Chloride 200 mg 200 mg STK-MED ONCE .ROUTE ; Start 11/07/16 at 17:16; Stop 11/07/16 at 17:17; Status DC Vancomycin HCl/ Sodium Chloride (Iv Sodium Chloride 0.9% 250ml) 250 ml @ 250 mls/hr Q24H IV ; Start 11/08/16 at 18:00 Vancomycin HCl 1 each 1 each 1X ONCE MC ; Start 11/09/16 at 17:30; Stop at 17:31 Piperacillin Sod/ Tazobactam Sod 3.375 gm/Sodium Chloride 50 ml @ 100 mls/hr Q6HRS IV Last administered on 11/08/16 12:00; Start 11/07/16 at 18:30 Sodium Chloride (Iv Sodium Chloride 0.9% 1000ml Bag) 1,000 ml @ 1,000 mls/hr 1X ONCE IV Last administered on 11/07/16 21:24; Start 11/07/16 at 20:15; Stop 11/07/16 at 21:14; Status DC Fentanyl Citrate 25 mcg 25 mcg PRN Q2HR PRN IV PAIN Last administered on 07:18; Start 11/07/16 at 20:15 Sodium Chloride 1,000 ml @ 1,000 mls/hr ONCE ONCE IV Last administered on 21:44; Start 11/07/16 at 21:45; Stop 11/07/16 at 22:44; Status DC Potassium Chloride 100 ml @ 100 mls/hr PRN Q1HR PRN IV SEE COMMENTS; Start at 23:00 Sodium Phosphate 40 mmol/Dextrose 513.3333 ml @ 83.3 mls/hr 1X PRN PRN IV SEE COMMENTS; Start 11/07/16 at 23:00 Sodium Phosphate 40 mmol/Dextrose 513.3333 ml @ 83.3 mls/hr ONCE ONCE IV Last administered on 11/07/16 23:46; Start 11/07/16 at 23:30; Stop 11/08/16 at 05:39 ; Status DC Potassium Chloride 50 ml @ 50 mls/hr 1X ONCE IV Last administered on 00:11; Start 11/08/16 at 00:00; Stop 11/08/16 at 00:59; Status DC Potassium Chloride 50 ml @ 50 mls/hr Q1H IV Last administered on 11/08/16 02: 05; Start 11/08/16 at 01:00; Stop 11/08/16 at 02:59; Status DC Sodium Chloride 1,000 ml @ 125 mls/hr Q8H IV Last administered on 11/08/16 02 :53; Start 11/08/16 at 00:15; Stop 11/08/16 at 10:34; Status DC Potassium Chloride 50 ml @ 50 mls/hr 1X ONCE IV Last administered on 07:02; Start 11/08/16 at 07:00; Stop 11/08/16 at 07:59; Status DC Potassium Chloride 50 ml @ 50 mls/hr Q1H IV Last administered on 11/08/16 10: 07; Start 11/08/16 at 08:00; Stop 11/08/16 at 09:59; Status DC Potassium Chloride 50 ml @ 50 mls/hr Q1H IV Last administered on 11/08/16 13: 09; Start 11/08/16 at 10:00; Stop 11/08/16 at 11:59; Status DC Magnesium Sulfate/ Dextrose 50 ml @ 25 mls/hr 1X ONCE IV Last administered on 11/08/16 08:30; Start 11/08/16 at 08:00; Stop 11/08/16 at 09:59; Status DC Potassium Phosphate/Sodium Chloride (Potassium Phosphate/Iv Sodium Chloride 0.9 % 100ml) 103.3333 ml @ 51.667 m... Q2H IV Last administered on 11/08/16 10:07 ; Start 11/08/16 at 08:00; Stop 11/08/16 at 09:59; Status DC Dextrose 25 gm PRN Q15MIN PRN IV SEE COMMENTS; Start 11/08/16 at 09:00; Stop at 10:32; Status DC Albuterol Sulfate (Ventolin Neb Soln) 2.5 mg 1X ONCE NEB Last administered on 11/08/16 09:20; Start 11/08/16 at 10:00; Stop 11/08/16 at 10:01; Status DC Insulin Aspart (Novolog) 0-7 UNITS TIDWMEALS SQ ; Start 11/08/16 at 12:00 Dextrose 12.5 gm 12.5 gm PRN Q15MIN PRN IV SEE COMMENTS; Start 11/08/16 at 09: 45 Dextrose/Sodium Chloride (Iv D5% - 1/2 NS) 1,000 ml @ 250 mls/hr Q4H IV Last administered on 11/08/16 13:09; Start 11/08/16 at 10:30 Insulin Detemir (Levemir) 20 units DAILY SQ Last administered on 11/08/16 12: 41; Start 11/08/16 at 12:00 Throat Lozenges (Chloraseptic) 2 spray PRN Q2HR PRN PO SORE THROAT; Start 11/08 at 12:00 Ondansetron HCl (Zofran) 4 mg PRN Q6HRS PRN IV NAUSEA/VOMITING 1ST CHOICE; Start 11/08/16 at 12:15 Prochlorperazine Edisylate (Compazine) 10 mg 1X ONCE IV Last administered on 14:50; Start 11/08/16 at 14:30; Stop 11/08/16 at 14:31; Status DC Insulin Aspart (Novolog) 12 units 1X ONCE SQ Last administered on 11/08/16 15 :23; Start 11/08/16 at 15:15; Stop 11/08/16 at 15:16; Status DC Active Scripts Active Reported Metformin Hcl Er (Metformin Hcl) 750 Mg Tab.er.24h 1 Tab PO BID Oxybutynin Chloride Er (Oxybutynin Chloride) 10 Mg Tab.er.24 1 Tab PO DAILY Tresiba Flextouch U-100 (Insulin Degludec) 100 Unit/1 Ml Insuln.pen 25 Unit SQ DAILY Folic Acid 1 Mg Tablet 1 Tab PO DAILY Hydrocodone-Apap 5-325 (Hydrocodone Bit/Acetaminophen) 1 Each Tablet 1-2 Tab PO Q4-6HRS Glucovance 5-500 Mg Tablet (Glyburide/Metformin Hcl) 1 Each Tablet 2 Tab PO DAILY Glucovance 5-500 Mg Tablet (Glyburide/Metformin Hcl) 1 Each Tablet 1 Tab PO HS Losartan-Hctz 100-12.5 Mg Tab (Losartan/Hydrochlorothiazide) 1 Each Tablet 1 Each PO DAILY Xalatan (Latanoprost) 2.5 Ml Drops 1 Drop EACHEYE QHS Gabapentin 300 Mg Capsule 300 Mg PO TID Toprol Xl (Metoprolol Succinate) 50 Mg Tab.er.24h 1 Tab PO DAILY Allergies Allergies: Coded Allergies: Penicillins (Verified Allergy, Intermediate, 11/08/16) azithromycin (Verified Allergy, Intermediate, 05/28/16) metoprolol (Verified Allergy, Intermediate, 05/28/16) nifedipine (Verified Allergy, Intermediate, 05/28/16) ROS Review of System No significant review of systems can be obtained since patient is too obtunded Physical Exam General: Other (obtunded) HEENT: Atraumatic Lungs: Clear to auscultation Heart: Regular rate Abdomen: Soft, No tenderness Extremities: No edema Vitals VITALS Vital Signs Date Time Temp Pulse Resp B/P Pulse Ox O2 Delivery O2 Flow Rate FiO2 11/08/16 12:02 99.3 104 26 139/48 100 Nasal Cannula 2.0 99.3 Labs Labs Laboratory Tests Test 11/07/16 12:05 11/07/16 12:25 11/07/16 12:49 11/07/16 12:55 Sodium Level 135mmol/L (136-145) Potassium Level 4.8mmol/L (3.5-5.1) Chloride Level 93mmol/L (98-107) Carbon Dioxide Level 7mmol/L (21-32) Anion Gap 35 (6-14) Blood Urea Nitrogen 27mg/dL (7-20) Creatinine 1.9mg/dL (0.6-1.0) Estimated GFR (Cockcroft-Gault) 32.1 Glucose Level 818mg/dL (70-99) Calcium Level 11.0mg/dL (8.5-10.1) Total Bilirubin 0.5mg/dL (0.2-1.0) Direct Bilirubin 0.1mg/dL (0.0-0.2) Aspartate Amino Transf (AST/SGOT) 16U/L (15-37) Alanine Aminotransferase (ALT/SGPT) 22U/L (14-59) Alkaline Phosphatase 108U/L (46-116) Total Protein 8.3g/dL (6.4-8.2) Albumin 4.2g/dL (3.4-5.0) Lipase 61U/L (73-393) Urine Collection Type Unknown Urine Color Yellow Urine Clarity Clear Urine pH 5.0 Urine Specific [place] 1.025 Urine Protein 30mg/dL (NEG-TRACE) Urine Glucose (UA) >=1000mg/dL (NEG) Urine Ketones (Stick) >=80mg/dL (NEG) Urine Blood Small (NEG) Urine Nitrite Negative (NEG) Urine Bilirubin Negative (NEG) Urine Urobilinogen Dipstick 0.2mg/dL (0.2 mg/dL) Urine Leukocyte Esterase Negative (NEG) Urine RBC 0/HPF (0-2) Urine WBC Occ/HPF (0-4) Urine Squamous Epithelial Cells Few/LPF Urine Amorphous Sediment Present/HPF Urine Bacteria 0/HPF (0-FEW) Urine Hyaline Casts Occasional/HPF Urine Mucus Slight/LPF White Blood Count 15.5x10^3/uL (4.0-11.0) Red Blood Count 4.63x10^6/uL (3.50-5.40) Hemoglobin 13.0g/dL (12.0-15.5) Hematocrit 45.7% (36.0-47.0) Mean Corpuscular Volume 99fL (79-100) Mean Corpuscular Hemoglobin 28pg (25-35) Mean Corpuscular Hemoglobin Concent 28g/dL (31-37) Red Cell Distribution Width 14.8% (11.5-14.5) Platelet Count 224x10^3/uL (140-400) Neutrophils (%) (Auto) 85% (31-73) Lymphocytes (%) (Auto) 6% (24-48) Monocytes (%) (Auto) 9% (0-9) Eosinophils (%) (Auto) 0% (0-3) Basophils (%) (Auto) 1% (0-3) Neutrophils # (Auto) 13.1x10^3uL (1.8-7.7) Lymphocytes # (Auto) 1.0x10^3/uL (1.0-4.8) Monocytes # (Auto) 1.4x10^3/uL (0.0-1.1) Eosinophils # (Auto) 0.0x10^3/uL (0.0-0.7) Basophils # (Auto) 0.1x10^3/uL (0.0-0.2) Segmented Neutrophils % 74% (35-66) Band Neutrophils % 8% (0-9) Lymphocytes % 9% (24-48) Monocytes % 9% (0-10) Toxic Granulation Slight Platelet Estimate Adequate (ADEQUATE) Serum Osmolality 357mOsm/Kg (279-304) Lactic Acid Level 6.5mmol/L (0.4-2.0) Phosphorus Level 10.0mg/dL (2.6-4.7) Magnesium Level 2.9mg/dL (1.8-2.4) Troponin I Quantitative 0.058ng/mL (0.000-0.055) YQ-Pks-H-Type Natriuretic Peptide 995pg/mL (0-124) O2 Saturation 98% (92-99) Arterial Blood pH 7.01 (7.35-7.45) Arterial Blood pCO2 at Patient Temp 10mmHg (35-46) Arterial Blood pO2 at Patient Temp 140mmHg (65-108) Arterial Blood HCO3 3mmol/L (21-28) Arterial Blood Base Excess -27mmol/L (-3-3) FiO2 21 Test 11/07/16 15:20 11/07/16 17:58 11/07/16 18:55 11/07/16 19:28 O2 Saturation 98% (92-99) 98% (92-99) Arterial Blood pH 6.85 (7.35-7.45) 7.14 (7.35-7.45) Arterial Blood pCO2 at Patient Temp 22mmHg (35-46) 21mmHg (35-46) Arterial Blood pO2 at Patient Temp 147mmHg (65-108) 153mmHg (65-108) Arterial Blood HCO3 4mmol/L (21-28) 7mmol/L (21-28) Arterial Blood Base Excess -29mmol/L (-3-3) -21mmol/L (-3-3) FiO2 28 28 Sodium Level 143mmol/L (136-145) Potassium Level 4.2mmol/L (3.5-5.1) Chloride Level 99mmol/L (98-107) Carbon Dioxide Level 9mmol/L (21-32) Anion Gap 35 (6-14) Blood Urea Nitrogen 34mg/dL (7-20) Creatinine 2.2mg/dL (0.6-1.0) Estimated GFR (Cockcroft-Gault) 27.1 Glucose Level 822mg/dL (70-99) 830mg/dL (70-99) Lactic Acid Level 3.5mmol/L (0.4-2.0) Calcium Level 8.5mg/dL (8.5-10.1) Phosphorus Level 6.4mg/dL (2.6-4.7) Magnesium Level 2.1mg/dL (1.8-2.4) Test 11/07/16 20:23 11/07/16 22:16 11/07/16 23:30 11/07/16 23:54 Glucose Level 571mg/dL (70-99) 428mg/dL (70-99) Sodium Level 150mmol/L (136-145) Potassium Level 2.9mmol/L (3.5-5.1) Chloride Level 111mmol/L (98-107) Carbon Dioxide Level 13mmol/L (21-32) Anion Gap 26 (6-14) Blood Urea Nitrogen 31mg/dL (7-20) Creatinine 2.0mg/dL (0.6-1.0) Estimated GFR (Cockcroft-Gault) 30.3 BUN/Creatinine Ratio 16 (6-20) Calcium Level 7.9mg/dL (8.5-10.1) Phosphorus Level 0.8mg/dL (2.6-4.7) Magnesium Level 1.8mg/dL (1.8-2.4) Total Bilirubin 0.5mg/dL (0.2-1.0) Aspartate Amino Transf (AST/SGOT) 19U/L (15-37) Alanine Aminotransferase (ALT/SGPT) 12U/L (14-59) Alkaline Phosphatase 63U/L (46-116) Total Protein 5.1g/dL (6.4-8.2) Albumin 2.5g/dL (3.4-5.0) Albumin/Globulin Ratio 1.0 (1.0-1.7) Troponin I Quantitative 0.453ng/mL (0.000-0.055) Glucose (Fingerstick) 341mg/dL (70-99) Test 11/08/16 00:58 11/08/16 02:02 11/08/16 03:06 11/08/16 04:16 Glucose (Fingerstick) 288mg/dL (70-99) 240mg/dL (70-99) 237mg/dL (70-99) 274mg/dL (70-99) Test 11/08/16 05:25 11/08/16 06:06 11/08/16 06:29 11/08/16 07:40 Glucose (Fingerstick) 176mg/dL (70-99) 145mg/dL (70-99) 83mg/dL (70-99) White Blood Count 8.3x10^3/uL (4.0-11.0) Red Blood Count 3.45x10^6/uL (3.50-5.40) Hemoglobin 9.8g/dL (12.0-15.5) Hematocrit 29.7% (36.0-47.0) Mean Corpuscular Volume 86fL (79-100) Mean Corpuscular Hemoglobin 28pg (25-35) Mean Corpuscular Hemoglobin Concent 33g/dL (31-37) Red Cell Distribution Width 13.3% (11.5-14.5) Platelet Count 148x10^3/uL (140-400) Neutrophils (%) (Auto) 78% (31-73) Lymphocytes (%) (Auto) 8% (24-48) Monocytes (%) (Auto) 13% (0-9) Eosinophils (%) (Auto) 0% (0-3) Basophils (%) (Auto) 1% (0-3) Neutrophils # (Auto) 6.5x10^3uL (1.8-7.7) Lymphocytes # (Auto) 0.7x10^3/uL (1.0-4.8) Monocytes # (Auto) 1.1x10^3/uL (0.0-1.1) Eosinophils # (Auto) 0.0x10^3/uL (0.0-0.7) Basophils # (Auto) 0.1x10^3/uL (0.0-0.2) Sodium Level 150mmol/L (136-145) Potassium Level 2.7mmol/L (3.5-5.1) Chloride Level 116mmol/L (98-107) Carbon Dioxide Level 21mmol/L (21-32) Anion Gap 13 (6-14) Blood Urea Nitrogen 23mg/dL (7-20) Creatinine 1.5mg/dL (0.6-1.0) Estimated GFR (Cockcroft-Gault) 42.2 Glucose Level 148mg/dL (70-99) Calcium Level 7.8mg/dL (8.5-10.1) Phosphorus Level 1.7mg/dL (2.6-4.7) Magnesium Level 1.5mg/dL (1.8-2.4) Troponin I Quantitative 1.162ng/mL (0.000-0.055) Test 11/08/16 08:05 11/08/16 08:33 11/08/16 09:00 11/08/16 09:22 O2 Saturation 98% (92-99) Arterial Blood pH 7.47 (7.35-7.45) Arterial Blood pCO2 at Patient Temp 27mmHg (35-46) Arterial Blood pO2 at Patient Temp 133mmHg (65-108) Arterial Blood HCO3 19mmol/L (21-28) Arterial Blood Base Excess -3mmol/L (-3-3) FiO2 28 Glucose (Fingerstick) 61mg/dL (70-99) 74mg/dL (70-99) 133mg/dL (70-99) Test 11/08/16 10:14 11/08/16 11:24 11/08/16 14:34 11/08/16 14:36 Glucose (Fingerstick) 147mg/dL (70-99) 183mg/dL (70-99) 353mg/dL (70-99) Sodium Level 144mmol/L (136-145) Potassium Level 4.8mmol/L (3.5-5.1) Chloride Level 111mmol/L (98-107) Carbon Dioxide Level 16mmol/L (21-32) Anion Gap 17 (6-14) Blood Urea Nitrogen 14mg/dL (7-20) Creatinine 1.2mg/dL (0.6-1.0) Estimated GFR (Cockcroft-Gault) 54.6 Glucose Level 393mg/dL (70-99) Calcium Level 7.6mg/dL (8.5-10.1) Phosphorus Level 3.0mg/dL (2.6-4.7) Magnesium Level 2.1mg/dL (1.8-2.4) Troponin I Quantitative 0.689ng/mL (0.000-0.055) Laboratory Tests Test 11/07/16 17:58 11/07/16 18:55 11/07/16 19:28 11/07/16 20:23 Sodium Level 143mmol/L (136-145) Potassium Level 4.2mmol/L (3.5-5.1) Chloride Level 99mmol/L (98-107) Carbon Dioxide Level 9mmol/L (21-32) Anion Gap 35 (6-14) Blood Urea Nitrogen 34mg/dL (7-20) Creatinine 2.2mg/dL (0.6-1.0) Estimated GFR (Cockcroft-Gault) 27.1 Glucose Level 822mg/dL (70-99) 830mg/dL (70-99) 571mg/dL (70-99) Lactic Acid Level 3.5mmol/L (0.4-2.0) Calcium Level 8.5mg/dL (8.5-10.1) Phosphorus Level 6.4mg/dL (2.6-4.7) Magnesium Level 2.1mg/dL (1.8-2.4) O2 Saturation 98% (92-99) Arterial Blood pH 7.14 (7.35-7.45) Arterial Blood pCO2 at Patient Temp 21mmHg (35-46) Arterial Blood pO2 at Patient Temp 153mmHg (65-108) Arterial Blood HCO3 7mmol/L (21-28) Arterial Blood Base Excess -21mmol/L (-3-3) FiO2 28 Test 11/07/16 22:16 11/07/16 23:30 11/07/16 23:54 11/08/16 00:58 Sodium Level 150mmol/L (136-145) Potassium Level 2.9mmol/L (3.5-5.1) Chloride Level 111mmol/L (98-107) Carbon Dioxide Level 13mmol/L (21-32) Anion Gap 26 (6-14) Blood Urea Nitrogen 31mg/dL (7-20) Creatinine 2.0mg/dL (0.6-1.0) Estimated GFR (Cockcroft-Gault) 30.3 BUN/Creatinine Ratio 16 (6-20) Glucose Level 428mg/dL (70-99) Calcium Level 7.9mg/dL (8.5-10.1) Phosphorus Level 0.8mg/dL (2.6-4.7) Magnesium Level 1.8mg/dL (1.8-2.4) Total Bilirubin 0.5mg/dL (0.2-1.0) Aspartate Amino Transf (AST/SGOT) 19U/L (15-37) Alanine Aminotransferase (ALT/SGPT) 12U/L (14-59) Alkaline Phosphatase 63U/L (46-116) Total Protein 5.1g/dL (6.4-8.2) Albumin 2.5g/dL (3.4-5.0) Albumin/Globulin Ratio 1.0 (1.0-1.7) Troponin I Quantitative 0.453ng/mL (0.000-0.055) Glucose (Fingerstick) 341mg/dL (70-99) 288mg/dL (70-99) Test 11/08/16 02:02 11/08/16 03:06 11/08/16 04:16 11/08/16 05:25 Glucose (Fingerstick) 240mg/dL (70-99) 237mg/dL (70-99) 274mg/dL (70-99) 176mg/dL (70-99) Test 11/08/16 06:06 11/08/16 06:29 11/08/16 07:40 11/08/16 08:05 White Blood Count 8.3x10^3/uL (4.0-11.0) Red Blood Count 3.45x10^6/uL (3.50-5.40) Hemoglobin 9.8g/dL (12.0-15.5) Hematocrit 29.7% (36.0-47.0) Mean Corpuscular Volume 86fL (79-100) Mean Corpuscular Hemoglobin 28pg (25-35) Mean Corpuscular Hemoglobin Concent 33g/dL (31-37) Red Cell Distribution Width 13.3% (11.5-14.5) Platelet Count 148x10^3/uL (140-400) Neutrophils (%) (Auto) 78% (31-73) Lymphocytes (%) (Auto) 8% (24-48) Monocytes (%) (Auto) 13% (0-9) Eosinophils (%) (Auto) 0% (0-3) Basophils (%) (Auto) 1% (0-3) Neutrophils # (Auto) 6.5x10^3uL (1.8-7.7) Lymphocytes # (Auto) 0.7x10^3/uL (1.0-4.8) Monocytes # (Auto) 1.1x10^3/uL (0.0-1.1) Eosinophils # (Auto) 0.0x10^3/uL (0.0-0.7) Basophils # (Auto) 0.1x10^3/uL (0.0-0.2) Sodium Level 150mmol/L (136-145) Potassium Level 2.7mmol/L (3.5-5.1) Chloride Level 116mmol/L (98-107) Carbon Dioxide Level 21mmol/L (21-32) Anion Gap 13 (6-14) Blood Urea Nitrogen 23mg/dL (7-20) Creatinine 1.5mg/dL (0.6-1.0) Estimated GFR (Cockcroft-Gault) 42.2 Glucose Level 148mg/dL (70-99) Calcium Level 7.8mg/dL (8.5-10.1) Phosphorus Level 1.7mg/dL (2.6-4.7) Magnesium Level 1.5mg/dL (1.8-2.4) Troponin I Quantitative 1.162ng/mL (0.000-0.055) Glucose (Fingerstick) 145mg/dL (70-99) 83mg/dL (70-99) O2 Saturation 98% (92-99) Arterial Blood pH 7.47 (7.35-7.45) Arterial Blood pCO2 at Patient Temp 27mmHg (35-46) Arterial Blood pO2 at Patient Temp 133mmHg (65-108) Arterial Blood HCO3 19mmol/L (21-28) Arterial Blood Base Excess -3mmol/L (-3-3) FiO2 28 Test 11/08/16 08:33 11/08/16 09:00 11/08/16 09:22 11/08/16 10:14 Glucose (Fingerstick) 61mg/dL (70-99) 74mg/dL (70-99) 133mg/dL (70-99) 147mg/dL (70-99) Test 11/08/16 11:24 11/08/16 14:34 11/08/16 14:36 Glucose (Fingerstick) 183mg/dL (70-99) 353mg/dL (70-99) Sodium Level 144mmol/L (136-145) Potassium Level 4.8mmol/L (3.5-5.1) Chloride Level 111mmol/L (98-107) Carbon Dioxide Level 16mmol/L (21-32) Anion Gap 17 (6-14) Blood Urea Nitrogen 14mg/dL (7-20) Creatinine 1.2mg/dL (0.6-1.0) Estimated GFR (Cockcroft-Gault) 54.6 Glucose Level 393mg/dL (70-99) Calcium Level 7.6mg/dL (8.5-10.1) Phosphorus Level 3.0mg/dL (2.6-4.7) Magnesium Level 2.1mg/dL (1.8-2.4) Troponin I Quantitative 0.689ng/mL (0.000-0.055) Assessment/Plan Assessment/Plan 1. Diabetic ketoacidosis secondary to noncompliance: Continue treatment per IM 2. Acute respiratory failure secondary to metabolic encephalopathy: Patient self extubated earlier today. Pulmonary team following. 3. Acute non-STEMI: Probably secondary to demand ischemia but significant coronary artery disease needs to be ruled out since patient has multiple cardiac risk factors factors. The option of cardiac catheterization was discussed with patient's family and they're agreeable. We will plan for this either tomorrow or Wednesday based on her overall clinical status. 4. Sick sinus syndrome s/p permanent pacemaker implantation with subsequent generator change. We will obtain records from primary junior staff accountant's (Dr. Rose) office. Thank you for your consultation. GORDON SPRINGER MD Nov 08, 2016 16:32
[2016-11-08] MEDS ORDERED: INSULIN REGULAR VIAL 150 UNIT in 0.9 % SODIUM CHLORIDE 150ML 150 ML IV PRN (17:00)
[2016-11-08] MEDS: VANCOMYCIN 1 GM in IV NORMAL SALINE 250ML 250 ML IV SCH (18:00)
[2016-11-08 19:10] LABS: CALCIUM 7.3 mg/dL (8.5-10.1); CREATININE 1.1 mg/dL (0.6-1.0); GFR 60.3; PHOSPHORUS 1.5 mg/dL (2.6-4.7); POTASSIUM 3.1 mmol/L (3.5-5.1)
[2016-11-08] MEDS: PHENOL ORAL SPRAY 177ML BOTTLE. PO PRN (20:34)
[2016-11-08] MEDS ORDERED: POTASSIUM CHLORIDE 10MEQ 100 ML IV SCH (20:45)
[2016-11-08] MEDS: POTASSIUM PHOSPHATE DIBASIC IV SCH ×3 (20:52→23:00)
[2016-11-08] MEDS: NORMAL SALINE IV SCH ×3 (20:52→23:00)
[2016-11-08] MEDS: ONDANSETRON PF 4 MG/2 ML VIAL. IV PRN (20:57)
[2016-11-08] MEDS: PROCHLORPERAZINE 10 MG/2 ML VIAL. IV PRN (22:27)
--- NOTE | 2016-11-08 23:39 | PDOC ---
Provider Note Provider Note ENAL F/U : ED S : Doing fair Weak and frail. No new c/o O : VSS Afebrile. Extubated Neck : Supple. Lungs : Non labored. CVS : RRR ABD : Portly, benign appearing. No distention. Ext. : No major edema. No specific focal changes. Labs reviewed. A/P: METABOLIC ACIDOSIS. DEHYDRATION. OLIGURIA ACUTE RESP FAILURE. Supportive care Watch labs. CPM. DANUTA WARD MD Nov 08, 2016 23:39
[2016-11-09] VITALS (29 sets, daily range): BP systolic 107–157; BP diastolic 52–85
[2016-11-09] MEDS: PIPERACILLIN/TAZOBACTAM 3.375 GM in IV NORMAL SALINE 50ML 50 ML IV SCH ×4 (01:01→17:52)
[2016-11-09] MEDS: IV DEXTROSE 5 %-0.45 % NACL 1,000 ML IV SCH ×3 (02:36→10:05)
[2016-11-09] MEDS: FENTANYL PF 100 MCG/2 ML VIAL. IV PRN ×3 (02:37→23:01)
[2016-11-09 04:34] LABS: BASO % 0 % (0-3); EOS % 0 % (0-3); HEMATOCRIT 29.7 % (36.0-47.0); HEMOGLOBIN 9.8 g/dL (12.0-15.5); LYMPH % 11 % (24-48); MEAN CORPUSCULAR HEMOGLOBIN 29 pg (25-35); MEAN CORPUSCULAR HGB CONC 33 g/dL (31-37); MEAN CORPUSCULAR VOLUME 87 fL (79-100); MONO % 12 % (0-9); NEUT % 77 % (31-73); PLATELET COUNT 133 x10^3/uL (140-400); RED CELL DISTRIBUTION WIDTH 13.9 % (11.5-14.5)
[2016-11-09] MEDS ORDERED: NITROGLYCERIN SUBLINGUAL 0.4 MG BOTTLE OF 25. SL ONE ×2 (04:42→05:00)
[2016-11-09] MEDS: ONDANSETRON PF 4 MG/2 ML VIAL. IV PRN ×2 (04:46→11:55)
[2016-11-09 04:53] LABS: CALCIUM 7.4 mg/dL (8.5-10.1); CREATININE 0.8 mg/dL (0.6-1.0); GFR 87.1; POTASSIUM 3.3 mmol/L (3.5-5.1)
[2016-11-09] MEDS ORDERED: NITROGLYCERIN SUBLINGUAL 0.4 MG BOTTLE OF 25. SL PRN (05:00)
[2016-11-09 05:43] LABS: MAGNESIUM 1.9 mg/dL (1.8-2.4); PHOSPHORUS 2.4 mg/dL (2.6-4.7)
[2016-11-09] MEDS ORDERED: POTASSIUM CHLORIDE 20MEQ 50 ML IV ONE (06:00)
[2016-11-09] MEDS: POTASSIUM PHOSPHATE DIBASIC 10 MMOL in IV NORMAL SALINE 100ML 100 ML IV SCH ×2 (06:20→10:01)
[2016-11-09] MEDS ORDERED: POTASSIUM CHLORIDE 10MEQ 100 ML IV SCH (06:30)
[2016-11-09] MEDS: INSULIN ASPART 300 UNITS/3 ML INSULN.PEN SQ SCH ×3 (08:00→17:00)
[2016-11-09] MEDS: PROCHLORPERAZINE 10 MG/2 ML VIAL. IV PRN (08:09)
[2016-11-09] MEDS: VANCOMYCIN PER PHARMACY MC PRN ×2 (08:24→18:50)
[2016-11-09] MEDS: INSULIN DETEMIR 300 UNITS/3 ML INSULN.PEN. SQ SCH (10:03)
--- NOTE | 2016-11-09 10:25 | PDOC ---
PROGRESS NOTES Chief Complaint Chief Complaint 1. Severe metabolic anion gap acidosis with leukocytosis 2. Diabetic Ketoacidosis 3. Respiratory failure 4. Elevated BNP 5. Elevated Troponin 6. COPD 7. Medication non-compliance History of Present Illness History of Present Illness Pt seen and examined this AM in ICU. Pt resting in NAD. Pt states that she is "not doing well". Pt responds and opens eyes to verbal commands. Pt not eating yet. VSS- All questions and concerns addressed and answered. Vitals Vitals Vital Signs Date Time Temp Pulse Resp B/P Pulse Ox O2 Delivery O2 Flow Rate FiO2 11/09/16 06:00 96 32 131/60 100 Nasal Cannula 2.0 11/09/16 03:00 98.7 98.7 Physical Exam General: Cooperative, No acute distress Heart: Regular rate, Normal S1, Normal S2 Lungs: Clear Abdomen: Soft, No tenderness, No hepatosplenomegaly Extremities: No clubbing, No cyanosis, No edema Skin: No rashes, No breakdown, No significant lesion Labs LABS Laboratory Tests Test 11/08/16 11:24 11/08/16 14:34 11/08/16 14:36 11/08/16 16:12 Glucose (Fingerstick) 183mg/dL (70-99) 353mg/dL (70-99) 308mg/dL (70-99) Sodium Level 144mmol/L (136-145) Potassium Level 4.8mmol/L (3.5-5.1) Chloride Level 111mmol/L (98-107) Carbon Dioxide Level 16mmol/L (21-32) Anion Gap 17 (6-14) Blood Urea Nitrogen 14mg/dL (7-20) Creatinine 1.2mg/dL (0.6-1.0) Estimated GFR (Cockcroft-Gault) 54.6 Glucose Level 393mg/dL (70-99) Calcium Level 7.6mg/dL (8.5-10.1) Phosphorus Level 3.0mg/dL (2.6-4.7) Magnesium Level 2.1mg/dL (1.8-2.4) Troponin I Quantitative 0.689ng/mL (0.000-0.055) Test 11/08/16 17:26 11/08/16 18:39 11/08/16 18:41 11/08/16 19:47 Glucose (Fingerstick) 231mg/dL (70-99) 170mg/dL (70-99) 140mg/dL (70-99) Sodium Level 149mmol/L (136-145) Potassium Level 3.1mmol/L (3.5-5.1) Chloride Level 116mmol/L (98-107) Carbon Dioxide Level 21mmol/L (21-32) Anion Gap 12 (6-14) Blood Urea Nitrogen 10mg/dL (7-20) Creatinine 1.1mg/dL (0.6-1.0) Estimated GFR (Cockcroft-Gault) 60.3 Glucose Level 183mg/dL (70-99) Calcium Level 7.3mg/dL (8.5-10.1) Phosphorus Level 1.5mg/dL (2.6-4.7) Test 11/08/16 20:56 11/08/16 22:00 11/08/16 23:07 11/09/16 00:01 Glucose (Fingerstick) 133mg/dL (70-99) 121mg/dL (70-99) 108mg/dL (70-99) 114mg/dL (70-99) Test 11/09/16 01:11 11/09/16 02:02 11/09/16 03:10 11/09/16 04:00 Glucose (Fingerstick) 108mg/dL (70-99) 121mg/dL (70-99) 137mg/dL (70-99) White Blood Count 9.0x10^3/uL (4.0-11.0) Red Blood Count 3.40x10^6/uL (3.50-5.40) Hemoglobin 9.8g/dL (12.0-15.5) Hematocrit 29.7% (36.0-47.0) Mean Corpuscular Volume 87fL (79-100) Mean Corpuscular Hemoglobin 29pg (25-35) Mean Corpuscular Hemoglobin Concent 33g/dL (31-37) Red Cell Distribution Width 13.9% (11.5-14.5) Platelet Count 133x10^3/uL (140-400) Neutrophils (%) (Auto) 77% (31-73) Lymphocytes (%) (Auto) 11% (24-48) Monocytes (%) (Auto) 12% (0-9) Eosinophils (%) (Auto) 0% (0-3) Basophils (%) (Auto) 0% (0-3) Neutrophils # (Auto) 7.0x10^3uL (1.8-7.7) Lymphocytes # (Auto) 1.0x10^3/uL (1.0-4.8) Monocytes # (Auto) 1.1x10^3/uL (0.0-1.1) Eosinophils # (Auto) 0.0x10^3/uL (0.0-0.7) Basophils # (Auto) 0.0x10^3/uL (0.0-0.2) Sodium Level 146mmol/L (136-145) Potassium Level 3.3mmol/L (3.5-5.1) Chloride Level 116mmol/L (98-107) Carbon Dioxide Level 22mmol/L (21-32) Anion Gap 8 (6-14) Blood Urea Nitrogen 5mg/dL (7-20) Creatinine 0.8mg/dL (0.6-1.0) Estimated GFR (Cockcroft-Gault) 87.1 Glucose Level 168mg/dL (70-99) Calcium Level 7.4mg/dL (8.5-10.1) Phosphorus Level 2.4mg/dL (2.6-4.7) Magnesium Level 1.9mg/dL (1.8-2.4) Test 11/09/16 04:16 11/09/16 05:27 11/09/16 06:30 11/09/16 07:36 Glucose (Fingerstick) 157mg/dL (70-99) 151mg/dL (70-99) 141mg/dL (70-99) 106mg/dL (70-99) Test 11/09/16 08:45 Glucose (Fingerstick) 98mg/dL (70-99) Review of Systems Review of Systems Complaint of fatigue Complaint of hunger Assessment and Plan Assessmemt and Plan Problems Medical Problems: (1) DKA (diabetic ketoacidoses) Status: Acute (2) Lactic acidosis Status: Acute (3) Lethargy Status: Acute Assessment: 1. Severe metabolic anion gap acidosis with leukocytosis 2. Diabetic Ketoacidosis 3. Respiratory failure 4. Elevated BNP 5. Elevated Troponin 6. COPD 7. Medication non-compliance Plan: Continue to monitor the patient per ICU protocol Continue labs- CBC, BMP, BUN, and Cr Monitor glucose levels Monitor Anion Gap for maintaining closure Encourage PO intake Continue electrolyte IV replacement Continue insulin drop while monitoring glucose Continue IV abx- Tammy Appreciate all subspecialty input and recommendations Discuss with ICU nurse Problems: Comment Review of Relevant I have reviewed the following items terese (where applicable) has been applied. Labs Laboratory Tests Test 11/07/16 12:05 11/07/16 12:25 11/07/16 12:49 11/07/16 12:55 Sodium Level 135mmol/L (136-145) Potassium Level 4.8mmol/L (3.5-5.1) Chloride Level 93mmol/L (98-107) Carbon Dioxide Level 7mmol/L (21-32) Anion Gap 35 (6-14) Blood Urea Nitrogen 27mg/dL (7-20) Creatinine 1.9mg/dL (0.6-1.0) Estimated GFR (Cockcroft-Gault) 32.1 Glucose Level 818mg/dL (70-99) Calcium Level 11.0mg/dL (8.5-10.1) Total Bilirubin 0.5mg/dL (0.2-1.0) Direct Bilirubin 0.1mg/dL (0.0-0.2) Aspartate Amino Transf (AST/SGOT) 16U/L (15-37) Alanine Aminotransferase (ALT/SGPT) 22U/L (14-59) Alkaline Phosphatase 108U/L (46-116) Total Protein 8.3g/dL (6.4-8.2) Albumin 4.2g/dL (3.4-5.0) Lipase 61U/L (73-393) Urine Collection Type Unknown Urine Color Yellow Urine Clarity Clear Urine pH 5.0 Urine Specific [place] 1.025 Urine Protein 30mg/dL (NEG-TRACE) Urine Glucose (UA) >=1000mg/dL (NEG) Urine Ketones (Stick) >=80mg/dL (NEG) Urine Blood Small (NEG) Urine Nitrite Negative (NEG) Urine Bilirubin Negative (NEG) Urine Urobilinogen Dipstick 0.2mg/dL (0.2 mg/dL) Urine Leukocyte Esterase Negative (NEG) Urine RBC 0/HPF (0-2) Urine WBC Occ/HPF (0-4) Urine Squamous Epithelial Cells Few/LPF Urine Amorphous Sediment Present/HPF Urine Bacteria 0/HPF (0-FEW) Urine Hyaline Casts Occasional/HPF Urine Mucus Slight/LPF White Blood Count 15.5x10^3/uL (4.0-11.0) Red Blood Count 4.63x10^6/uL (3.50-5.40) Hemoglobin 13.0g/dL (12.0-15.5) Hematocrit 45.7% (36.0-47.0) Mean Corpuscular Volume 99fL (79-100) Mean Corpuscular Hemoglobin 28pg (25-35) Mean Corpuscular Hemoglobin Concent 28g/dL (31-37) Red Cell Distribution Width 14.8% (11.5-14.5) Platelet Count 224x10^3/uL (140-400) Neutrophils (%) (Auto) 85% (31-73) Lymphocytes (%) (Auto) 6% (24-48) Monocytes (%) (Auto) 9% (0-9) Eosinophils (%) (Auto) 0% (0-3) Basophils (%) (Auto) 1% (0-3) Neutrophils # (Auto) 13.1x10^3uL (1.8-7.7) Lymphocytes # (Auto) 1.0x10^3/uL (1.0-4.8) Monocytes # (Auto) 1.4x10^3/uL (0.0-1.1) Eosinophils # (Auto) 0.0x10^3/uL (0.0-0.7) Basophils # (Auto) 0.1x10^3/uL (0.0-0.2) Segmented Neutrophils % 74% (35-66) Band Neutrophils % 8% (0-9) Lymphocytes % 9% (24-48) Monocytes % 9% (0-10) Toxic Granulation Slight Platelet Estimate Adequate (ADEQUATE) Serum Osmolality 357mOsm/Kg (279-304) Lactic Acid Level 6.5mmol/L (0.4-2.0) Phosphorus Level 10.0mg/dL (2.6-4.7) Magnesium Level 2.9mg/dL (1.8-2.4) Troponin I Quantitative 0.058ng/mL (0.000-0.055) MI-Tmo-X-Type Natriuretic Peptide 995pg/mL (0-124) O2 Saturation 98% (92-99) Arterial Blood pH 7.01 (7.35-7.45) Arterial Blood pCO2 at Patient Temp 10mmHg (35-46) Arterial Blood pO2 at Patient Temp 140mmHg (65-108) Arterial Blood HCO3 3mmol/L (21-28) Arterial Blood Base Excess -27mmol/L (-3-3) FiO2 21 Test 11/07/16 15:20 11/07/16 17:58 11/07/16 18:55 11/07/16 19:28 O2 Saturation 98% (92-99) 98% (92-99) Arterial Blood pH 6.85 (7.35-7.45) 7.14 (7.35-7.45) Arterial Blood pCO2 at Patient Temp 22mmHg (35-46) 21mmHg (35-46) Arterial Blood pO2 at Patient Temp 147mmHg (65-108) 153mmHg (65-108) Arterial Blood HCO3 4mmol/L (21-28) 7mmol/L (21-28) Arterial Blood Base Excess -29mmol/L (-3-3) -21mmol/L (-3-3) FiO2 28 28 Sodium Level 143mmol/L (136-145) Potassium Level 4.2mmol/L (3.5-5.1) Chloride Level 99mmol/L (98-107) Carbon Dioxide Level 9mmol/L (21-32) Anion Gap 35 (6-14) Blood Urea Nitrogen 34mg/dL (7-20) Creatinine 2.2mg/dL (0.6-1.0) Estimated GFR (Cockcroft-Gault) 27.1 Glucose Level 822mg/dL (70-99) 830mg/dL (70-99) Lactic Acid Level 3.5mmol/L (0.4-2.0) Calcium Level 8.5mg/dL (8.5-10.1) Phosphorus Level 6.4mg/dL (2.6-4.7) Magnesium Level 2.1mg/dL (1.8-2.4) Test 11/07/16 20:23 11/07/16 22:16 2/25/17 23:30 11/07/16 23:54 Glucose Level 571mg/dL (70-99) 428mg/dL (70-99) Sodium Level 150mmol/L (136-145) Potassium Level 2.9mmol/L (3.5-5.1) Chloride Level 111mmol/L (98-107) Carbon Dioxide Level 13mmol/L (21-32) Anion Gap 26 (6-14) Blood Urea Nitrogen 31mg/dL (7-20) Creatinine 2.0mg/dL (0.6-1.0) Estimated GFR (Cockcroft-Gault) 30.3 BUN/Creatinine Ratio 16 (6-20) Calcium Level 7.9mg/dL (8.5-10.1) Phosphorus Level 0.8mg/dL (2.6-4.7) Magnesium Level 1.8mg/dL (1.8-2.4) Total Bilirubin 0.5mg/dL (0.2-1.0) Aspartate Amino Transf (AST/SGOT) 19U/L (15-37) Alanine Aminotransferase (ALT/SGPT) 12U/L (14-59) Alkaline Phosphatase 63U/L (46-116) Total Protein 5.1g/dL (6.4-8.2) Albumin 2.5g/dL (3.4-5.0) Albumin/Globulin Ratio 1.0 (1.0-1.7) Troponin I Quantitative 0.453ng/mL (0.000-0.055) Glucose (Fingerstick) 341mg/dL (70-99) Test 11/08/16 00:58 11/08/16 02:02 11/08/16 03:06 11/08/16 04:16 Glucose (Fingerstick) 288mg/dL (70-99) 240mg/dL (70-99) 237mg/dL (70-99) 274mg/dL (70-99) Test 11/08/16 05:25 11/08/16 06:06 11/08/16 06:29 11/08/16 07:40 Glucose (Fingerstick) 176mg/dL (70-99) 145mg/dL (70-99) 83mg/dL (70-99) White Blood Count 8.3x10^3/uL (4.0-11.0) Red Blood Count 3.45x10^6/uL (3.50-5.40) Hemoglobin 9.8g/dL (12.0-15.5) Hematocrit 29.7% (36.0-47.0) Mean Corpuscular Volume 86fL (79-100) Mean Corpuscular Hemoglobin 28pg (25-35) Mean Corpuscular Hemoglobin Concent 33g/dL (31-37) Red Cell Distribution Width 13.3% (11.5-14.5) Platelet Count 148x10^3/uL (140-400) Neutrophils (%) (Auto) 78% (31-73) Lymphocytes (%) (Auto) 8% (24-48) Monocytes (%) (Auto) 13% (0-9) Eosinophils (%) (Auto) 0% (0-3) Basophils (%) (Auto) 1% (0-3) Neutrophils # (Auto) 6.5x10^3uL (1.8-7.7) Lymphocytes # (Auto) 0.7x10^3/uL (1.0-4.8) Monocytes # (Auto) 1.1x10^3/uL (0.0-1.1) Eosinophils # (Auto) 0.0x10^3/uL (0.0-0.7) Basophils # (Auto) 0.1x10^3/uL (0.0-0.2) Sodium Level 150mmol/L (136-145) Potassium Level 2.7mmol/L (3.5-5.1) Chloride Level 116mmol/L (98-107) Carbon Dioxide Level 21mmol/L (21-32) Anion Gap 13 (6-14) Blood Urea Nitrogen 23mg/dL (7-20) Creatinine 1.5mg/dL (0.6-1.0) Estimated GFR (Cockcroft-Gault) 42.2 Glucose Level 148mg/dL (70-99) Calcium Level 7.8mg/dL (8.5-10.1) Phosphorus Level 1.7mg/dL (2.6-4.7) Magnesium Level 1.5mg/dL (1.8-2.4) Troponin I Quantitative 1.162ng/mL (0.000-0.055) Test 11/08/16 08:05 11/08/16 08:33 11/08/16 09:00 11/08/16 09:22 O2 Saturation 98% (92-99) Arterial Blood pH 7.47 (7.35-7.45) Arterial Blood pCO2 at Patient Temp 27mmHg (35-46) Arterial Blood pO2 at Patient Temp 133mmHg (65-108) Arterial Blood HCO3 19mmol/L (21-28) Arterial Blood Base Excess -3mmol/L (-3-3) FiO2 28 Glucose (Fingerstick) 61mg/dL (70-99) 74mg/dL (70-99) 133mg/dL (70-99) Test 11/08/16 10:14 11/08/16 11:24 11/08/16 14:34 11/08/16 14:36 Glucose (Fingerstick) 147mg/dL (70-99) 183mg/dL (70-99) 353mg/dL (70-99) Sodium Level 144mmol/L (136-145) Potassium Level 4.8mmol/L (3.5-5.1) Chloride Level 111mmol/L (98-107) Carbon Dioxide Level 16mmol/L (21-32) Anion Gap 17 (6-14) Blood Urea Nitrogen 14mg/dL (7-20) Creatinine 1.2mg/dL (0.6-1.0) Estimated GFR (Cockcroft-Gault) 54.6 Glucose Level 393mg/dL (70-99) Calcium Level 7.6mg/dL (8.5-10.1) Phosphorus Level 3.0mg/dL (2.6-4.7) Magnesium Level 2.1mg/dL (1.8-2.4) Troponin I Quantitative 0.689ng/mL (0.000-0.055) Test 11/08/16 16:12 11/08/16 17:26 11/08/16 18:39 11/08/16 18:41 Glucose (Fingerstick) 308mg/dL (70-99) 231mg/dL (70-99) 170mg/dL (70-99) Sodium Level 149mmol/L (136-145) Potassium Level 3.1mmol/L (3.5-5.1) Chloride Level 116mmol/L (98-107) Carbon Dioxide Level 21mmol/L (21-32) Anion Gap 12 (6-14) Blood Urea Nitrogen 10mg/dL (7-20) Creatinine 1.1mg/dL (0.6-1.0) Estimated GFR (Cockcroft-Gault) 60.3 Glucose Level 183mg/dL (70-99) Calcium Level 7.3mg/dL (8.5-10.1) Phosphorus Level 1.5mg/dL (2.6-4.7) Test 11/08/16 19:47 11/08/16 20:56 11/08/16 22:00 11/08/16 23:07 Glucose (Fingerstick) 140mg/dL (70-99) 133mg/dL (70-99) 121mg/dL (70-99) 108mg/dL (70-99) Test 11/09/16 00:01 11/09/16 01:11 11/09/16 02:02 11/09/16 03:10 Glucose (Fingerstick) 114mg/dL (70-99) 108mg/dL (70-99) 121mg/dL (70-99) 137mg/dL (70-99) Test 11/09/16 04:00 11/09/16 04:16 11/09/16 05:27 11/09/16 06:30 White Blood Count 9.0x10^3/uL (4.0-11.0) Red Blood Count 3.40x10^6/uL (3.50-5.40) Hemoglobin 9.8g/dL (12.0-15.5) Hematocrit 29.7% (36.0-47.0) Mean Corpuscular Volume 87fL (79-100) Mean Corpuscular Hemoglobin 29pg (25-35) Mean Corpuscular Hemoglobin Concent 33g/dL (31-37) Red Cell Distribution Width 13.9% (11.5-14.5) Platelet Count 133x10^3/uL (140-400) Neutrophils (%) (Auto) 77% (31-73) Lymphocytes (%) (Auto) 11% (24-48) Monocytes (%) (Auto) 12% (0-9) Eosinophils (%) (Auto) 0% (0-3) Basophils (%) (Auto) 0% (0-3) Neutrophils # (Auto) 7.0x10^3uL (1.8-7.7) Lymphocytes # (Auto) 1.0x10^3/uL (1.0-4.8) Monocytes # (Auto) 1.1x10^3/uL (0.0-1.1) Eosinophils # (Auto) 0.0x10^3/uL (0.0-0.7) Basophils # (Auto) 0.0x10^3/uL (0.0-0.2) Sodium Level 146mmol/L (136-145) Potassium Level 3.3mmol/L (3.5-5.1) Chloride Level 116mmol/L (98-107) Carbon Dioxide Level 22mmol/L (21-32) Anion Gap 8 (6-14) Blood Urea Nitrogen 5mg/dL (7-20) Creatinine 0.8mg/dL (0.6-1.0) Estimated GFR (Cockcroft-Gault) 87.1 Glucose Level 168mg/dL (70-99) Calcium Level 7.4mg/dL (8.5-10.1) Phosphorus Level 2.4mg/dL (2.6-4.7) Magnesium Level 1.9mg/dL (1.8-2.4) Glucose (Fingerstick) 157mg/dL (70-99) 151mg/dL (70-99) 141mg/dL (70-99) Test 11/09/16 07:36 11/09/16 08:45 Glucose (Fingerstick) 106mg/dL (70-99) 98mg/dL (70-99) Laboratory Tests Test 11/08/16 11:24 11/08/16 14:34 11/08/16 14:36 11/08/16 16:12 Glucose (Fingerstick) 183mg/dL (70-99) 353mg/dL (70-99) 308mg/dL (70-99) Sodium Level 144mmol/L (136-145) Potassium Level 4.8mmol/L (3.5-5.1) Chloride Level 111mmol/L (98-107) Carbon Dioxide Level 16mmol/L (21-32) Anion Gap 17 (6-14) Blood Urea Nitrogen 14mg/dL (7-20) Creatinine 1.2mg/dL (0.6-1.0) Estimated GFR (Cockcroft-Gault) 54.6 Glucose Level 393mg/dL (70-99) Calcium Level 7.6mg/dL (8.5-10.1) Phosphorus Level 3.0mg/dL (2.6-4.7) Magnesium Level 2.1mg/dL (1.8-2.4) Troponin I Quantitative 0.689ng/mL (0.000-0.055) Test 11/08/16 17:26 11/08/16 18:39 11/08/16 18:41 11/08/16 19:47 Glucose (Fingerstick) 231mg/dL (70-99) 170mg/dL (70-99) 140mg/dL (70-99) Sodium Level 149mmol/L (136-145) Potassium Level 3.1mmol/L (3.5-5.1) Chloride Level 116mmol/L (98-107) Carbon Dioxide Level 21mmol/L (21-32) Anion Gap 12 (6-14) Blood Urea Nitrogen 10mg/dL (7-20) Creatinine 1.1mg/dL (0.6-1.0) Estimated GFR (Cockcroft-Gault) 60.3 Glucose Level 183mg/dL (70-99) Calcium Level 7.3mg/dL (8.5-10.1) Phosphorus Level 1.5mg/dL (2.6-4.7) Test 11/08/16 20:56 11/08/16 22:00 11/08/16 23:07 11/09/16 00:01 Glucose (Fingerstick) 133mg/dL (70-99) 121mg/dL (70-99) 108mg/dL (70-99) 114mg/dL (70-99) Test 11/09/16 01:11 11/09/16 02:02 11/09/16 03:10 11/09/16 04:00 Glucose (Fingerstick) 108mg/dL (70-99) 121mg/dL (70-99) 137mg/dL (70-99) White Blood Count 9.0x10^3/uL (4.0-11.0) Red Blood Count 3.40x10^6/uL (3.50-5.40) Hemoglobin 9.8g/dL (12.0-15.5) Hematocrit 29.7% (36.0-47.0) Mean Corpuscular Volume 87fL (79-100) Mean Corpuscular Hemoglobin 29pg (25-35) Mean Corpuscular Hemoglobin Concent 33g/dL (31-37) Red Cell Distribution Width 13.9% (11.5-14.5) Platelet Count 133x10^3/uL (140-400) Neutrophils (%) (Auto) 77% (31-73) Lymphocytes (%) (Auto) 11% (24-48) Monocytes (%) (Auto) 12% (0-9) Eosinophils (%) (Auto) 0% (0-3) Basophils (%) (Auto) 0% (0-3) Neutrophils # (Auto) 7.0x10^3uL (1.8-7.7) Lymphocytes # (Auto) 1.0x10^3/uL (1.0-4.8) Monocytes # (Auto) 1.1x10^3/uL (0.0-1.1) Eosinophils # (Auto) 0.0x10^3/uL (0.0-0.7) Basophils # (Auto) 0.0x10^3/uL (0.0-0.2) Sodium Level 146mmol/L (136-145) Potassium Level 3.3mmol/L (3.5-5.1) Chloride Level 116mmol/L (98-107) Carbon Dioxide Level 22mmol/L (21-32) Anion Gap 8 (6-14) Blood Urea Nitrogen 5mg/dL (7-20) Creatinine 0.8mg/dL (0.6-1.0) Estimated GFR (Cockcroft-Gault) 87.1 Glucose Level 168mg/dL (70-99) Calcium Level 7.4mg/dL (8.5-10.1) Phosphorus Level 2.4mg/dL (2.6-4.7) Magnesium Level 1.9mg/dL (1.8-2.4) Test 11/09/16 04:16 11/09/16 05:27 11/09/16 06:30 11/09/16 07:36 Glucose (Fingerstick) 157mg/dL (70-99) 151mg/dL (70-99) 141mg/dL (70-99) 106mg/dL (70-99) Test 11/09/16 08:45 Glucose (Fingerstick) 98mg/dL (70-99) Microbiology 11/08/16 Blood Culture - Preliminary, Resulted NO GROWTH AFTER 1 DAY Medications Current Medications Aspirin 324 mg 324 mg 1X ONCE PO Last administered on 11/07/16 13:20; Start 11/07/16 at 13:00; Stop 11/07/16 at 13:01; Status DC Sodium Chloride 1,000 ml @ 1,000 mls/hr Q1H IV Last administered on 11/07/16 16:15; Start 11/07/16 at 13:20; Stop 11/07/16 at 14:19; Status DC Insulin Human Regular 150 unit/ Sodium Chloride 151.5 ml @ 0 mls/hr CONT PRN PRN IV PER PROTOCOL; Start 11/07/16 at 13:30; Stop 11/08/16 at 10:34; Status DC Potassium Chloride 100 ml @ 100 mls/hr PRN Q1HR PRN IV SEE COMMENTS; Start at 13:30 Potassium Chloride 100 ml @ 100 mls/hr PRN Q1HR PRN IV SEE COMMENTS; Start at 13:30 Potassium Chloride 100 ml @ 100 mls/hr PRN Q1HR PRN IV SEE COMMENTS; Start at 13:30 Sodium Bicarbonate/ Sodium Chloride (Iv Sodium Chloride 0.45%) 1,050 ml @ 500 mls/hr Q2H6M PRN IV SEE COMMENTS Last administered on 11/07/16 15:50; Start at 13:20; Stop 11/07/16 at 20:13; Status DC Ondansetron HCl (Zofran) 4 mg PRN Q8HRS PRN IV NAUSEA/VOMITING Last administered on 11/08/16 12:19; Start 11/07/16 at 13:30; Stop 11/08/16 at 13:29 ; Status DC Morphine Sulfate 2 mg 2 mg PRN Q2HR PRN IV PAIN; Start 11/07/16 at 13:30; Stop 11/08/16 at 13:29; Status DC Sodium Chloride 1,000 ml @ 125 mls/hr Q8H IV Last administered on 11/07/16 22 :53; Start 11/07/16 at 13:23; Stop 11/08/16 at 00:15; Status DC Insulin Human Regular 150 ml @ 0 mls/hr 1X ONCE IV Last administered on 17:00; Start 11/07/16 at 13:30; Stop 11/07/16 at 13:32; Status DC Propofol (Diprivan) 50 ml @ As Directed STK-MED ONCE IV ; Start 11/07/16 at 13: 54; Stop 11/07/16 at 13:55; Status DC Vancomycin HCl 1 each 1 each PRN DAILY PRN MC SEE COMMENTS Last administered on 11/09/16 08:24; Start 11/07/16 at 15:30 Levofloxacin/ Dextrose 100 ml @ 100 mls/hr 1X ONCE IV Last administered on 15:53; Start 11/07/16 at 16:00; Stop 11/07/16 at 17:10; Status DC Lactated Ringer's 500 ml @ 500 mls/hr 1X ONCE IV ; Start 11/07/16 at 16:00; Stop 11/07/16 at 17:10; Status DC Vancomycin HCl/ Sodium Chloride (Iv Sodium Chloride 0.9% 500ml Bag) 500 ml @ 250 mls/hr 1X ONCE IV Last administered on 11/07/16 16:00; Start 11/07/16 at 16:00; Stop 11/07/16 at 17:59; Status DC Sodium Bicarbonate 50 meq STK-MED ONCE .ROUTE ; Start 11/07/16 at 15:43; Stop at 15:44; Status DC Sodium Bicarbonate 150 meq 150 meq 1X ONCE IV Last administered on 11/07/16 15:57; Start 11/07/16 at 16:00; Stop 11/07/16 at 17:10; Status DC Sodium Bicarbonate 50 meq/Sodium Chloride 1,050 ml @ 125 mls/hr Q8H24M IV ; Start 11/07/16 at 17:00; Stop 11/07/16 at 17:00; Status DC Sodium Bicarbonate 50 meq/Sodium Chloride 1,050 ml @ 500 mls/hr Q2H6M PRN IV SEE COMMENTS; Start 11/07/16 at 16:50; Stop 11/07/16 at 20:13; Status DC Vancomycin HCl/ Sodium Chloride (Iv Sodium Chloride 0.9% 500ml Bag) 500 ml @ 250 mls/hr 1X ONCE IV ; Start 11/07/16 at 17:00; Stop 11/07/16 at 18:59; Status Cancel Etomidate (Amidate) 20 mg STK-MED ONCE IV ; Start 11/07/16 at 17:16; Stop at 17:17; Status DC Succinylcholine Chloride 200 mg 200 mg STK-MED ONCE .ROUTE ; Start 11/07/16 at 17:16; Stop 11/07/16 at 17:17; Status DC Vancomycin HCl/ Sodium Chloride (Iv Sodium Chloride 0.9% 250ml) 250 ml @ 250 mls/hr Q24H IV Last administered on 11/08/16 18:00; Start 11/08/16 at 18:00 Vancomycin HCl 1 each 1 each 1X ONCE MC ; Start 11/09/16 at 17:30; Stop at 17:31 Piperacillin Sod/ Tazobactam Sod 3.375 gm/Sodium Chloride 50 ml @ 100 mls/hr Q6HRS IV Last administered on 11/09/16 05:30; Start 11/07/16 at 18:30 Sodium Chloride (Iv Sodium Chloride 0.9% 1000ml Bag) 1,000 ml @ 1,000 mls/hr 1X ONCE IV Last administered on 11/07/16 21:24; Start 11/07/16 at 20:15; Stop 11/07/16 at 21:14; Status DC Fentanyl Citrate 25 mcg 25 mcg PRN Q2HR PRN IV PAIN Last administered on 02:37; Start 11/07/16 at 20:15 Sodium Chloride 1,000 ml @ 1,000 mls/hr ONCE ONCE IV Last administered on 21:44; Start 11/07/16 at 21:45; Stop 11/07/16 at 22:44; Status DC Potassium Chloride 100 ml @ 100 mls/hr PRN Q1HR PRN IV SEE COMMENTS; Start at 23:00 Sodium Phosphate 40 mmol/Dextrose 513.3333 ml @ 83.3 mls/hr 1X PRN PRN IV SEE COMMENTS; Start 11/07/16 at 23:00 Sodium Phosphate 40 mmol/Dextrose 513.3333 ml @ 83.3 mls/hr ONCE ONCE IV Last administered on 11/07/16 23:46; Start 11/07/16 at 23:30; Stop 11/08/16 at 05:39 ; Status DC Potassium Chloride 50 ml @ 50 mls/hr 1X ONCE IV Last administered on 00:11; Start 11/08/16 at 00:00; Stop 11/08/16 at 00:59; Status DC Potassium Chloride 50 ml @ 50 mls/hr Q1H IV Last administered on 11/08/16 02: 05; Start 11/08/16 at 01:00; Stop 11/08/16 at 02:59; Status DC Sodium Chloride 1,000 ml @ 125 mls/hr Q8H IV Last administered on 11/08/16 02 :53; Start 11/08/16 at 00:15; Stop 11/08/16 at 10:34; Status DC Potassium Chloride 50 ml @ 50 mls/hr 1X ONCE IV Last administered on 07:02; Start 11/08/16 at 07:00; Stop 11/08/16 at 07:59; Status DC Potassium Chloride 50 ml @ 50 mls/hr Q1H IV Last administered on 11/08/16 10: 07; Start 11/08/16 at 08:00; Stop 11/08/16 at 09:59; Status DC Potassium Chloride 50 ml @ 50 mls/hr Q1H IV Last administered on 11/08/16 13: 09; Start 11/08/16 at 10:00; Stop 11/08/16 at 11:59; Status DC Magnesium Sulfate/ Dextrose 50 ml @ 25 mls/hr 1X ONCE IV Last administered on 11/08/16 08:30; Start 11/08/16 at 08:00; Stop 11/08/16 at 09:59; Status DC Potassium Phosphate/Sodium Chloride (Potassium Phosphate/Iv Sodium Chloride 0.9 % 100ml) 103.3333 ml @ 51.667 m... Q2H IV Last administered on 11/08/16 10:07 ; Start 11/08/16 at 08:00; Stop 11/08/16 at 09:59; Status DC Dextrose 25 gm PRN Q15MIN PRN IV SEE COMMENTS; Start 11/08/16 at 09:00; Stop at 10:32; Status DC Albuterol Sulfate (Ventolin Neb Soln) 2.5 mg 1X ONCE NEB Last administered on 11/08/16 09:20; Start 11/08/16 at 10:00; Stop 11/08/16 at 10:01; Status DC Insulin Aspart (Novolog) 0-7 UNITS TIDWMEALS SQ ; Start 11/08/16 at 12:00 Dextrose 12.5 gm 12.5 gm PRN Q15MIN PRN IV SEE COMMENTS; Start 11/08/16 at 09: 45 Dextrose/Sodium Chloride (Iv D5% - 1/2 NS) 1,000 ml @ 250 mls/hr Q4H IV Last administered on 11/09/16 10:05; Start 11/08/16 at 10:30 Insulin Detemir (Levemir) 20 units DAILY SQ Last administered on 11/09/16 10: 03; Start 11/08/16 at 12:00 Throat Lozenges (Chloraseptic) 2 spray PRN Q2HR PRN PO SORE THROAT Last administered on 11/08/16 20:34; Start 11/08/16 at 12:00 Ondansetron HCl (Zofran) 4 mg PRN Q6HRS PRN IV NAUSEA/VOMITING 1ST CHOICE Last administered on 11/09/16 04:46; Start 11/08/16 at 12:15 Prochlorperazine Edisylate (Compazine) 10 mg 1X ONCE IV Last administered on 14:50; Start 11/08/16 at 14:30; Stop 11/08/16 at 14:31; Status DC Insulin Aspart 12 units 12 units 1X ONCE SQ Last administered on 11/08/16 15: 23; Start 11/08/16 at 15:15; Stop 11/08/16 at 15:16; Status DC Insulin Human Regular 150 unit/ Sodium Chloride 151.5 ml @ 0 mls/hr CONT PRN PRN IV PER PROTOCOL Last administered on 11/08/16 17:33; Start 11/08/16 at 17: 00 Potassium Phosphate 13.3 mmol/Sodium Chloride 104.4333 ml @ 100 mls/hr Q1H IV Last administered on 11/08/16 22:42; Start 11/08/16 at 21:00; Stop 11/08/16 at 23:59; Status DC Potassium Chloride 50 ml @ 50 mls/hr 1X ONCE IV ; Start 11/08/16 at 20:30; Stop 11/08/16 at 21:29; Status DC Potassium Chloride (KCl Premix 10meq) 100 ml @ 100 mls/hr Q1H IV Last administered on 11/09/16 01:01; Start 11/08/16 at 20:45; Stop 11/08/16 at 21:44 ; Status DC Prochlorperazine Edisylate (Compazine) 10 mg PRN Q8HRS PRN IV NAUSEA/VOMITING Last administered on 11/09/16 08:09; Start 11/08/16 at 22:30 Nitroglycerin (Nitrostat) 0.4 mg STK-MED ONCE SL ; Start 11/09/16 at 04:42; Stop 11/09/16 at 04:43; Status DC Nitroglycerin 0.4 mg 0.4 mg PRN Q5MIN PRN SL X 3 DOSES FOR CHEST PAIN Last administered on 11/09/16 04:52; Start 11/09/16 at 05:00 Potassium Chloride 50 ml @ 50 mls/hr 1X ONCE IV ; Start 11/09/16 at 06:00; Stop 11/09/16 at 06:23; Status DC Potassium Phosphate 10 mmol/ Sodium Chloride 103.3333 ml @ 51.667 m... Q2H IV Last administered on 11/09/16 10:01; Start 11/09/16 at 06:15; Stop 11/09/16 at 10:14; Status DC Potassium Chloride (KCl Premix 10meq) 100 ml @ 100 mls/hr Q1H IV Last administered on 11/09/16 06:44; Start 11/09/16 at 06:30; Stop 11/09/16 at 07:29 ; Status DC Dextrose 25 gm STK-MED ONCE IV ; Start 11/08/16 at 09:00; Stop 11/09/16 at 08:21 ; Status DC Nitroglycerin (Nitrostat) 0.4 mg STK-MED ONCE SL ; Start 11/09/16 at 05:00; Stop 11/09/16 at 08:22; Status DC Active Scripts Active Reported Metformin Hcl Er (Metformin Hcl) 750 Mg Tab.er.24h 1 Tab PO BID Oxybutynin Chloride Er (Oxybutynin Chloride) 10 Mg Tab.er.24 1 Tab PO DAILY Tresiba Flextouch U-100 (Insulin Degludec) 100 Unit/1 Ml Insuln.pen 25 Unit SQ DAILY Folic Acid 1 Mg Tablet 1 Tab PO DAILY Hydrocodone-Apap 5-325 (Hydrocodone Bit/Acetaminophen) 1 Each Tablet 1-2 Tab PO Q4-6HRS Glucovance 5-500 Mg Tablet (Glyburide/Metformin Hcl) 1 Each Tablet 2 Tab PO DAILY Glucovance 5-500 Mg Tablet (Glyburide/Metformin Hcl) 1 Each Tablet 1 Tab PO HS Losartan-Hctz 100-12.5 Mg Tab (Losartan/Hydrochlorothiazide) 1 Each Tablet 1 Each PO DAILY Xalatan (Latanoprost) 2.5 Ml Drops 1 Drop EACHEYE QHS Gabapentin 300 Mg Capsule 300 Mg PO TID Toprol Xl (Metoprolol Succinate) 50 Mg Tab.er.24h 1 Tab PO DAILY Vitals/I & O Vital Sign - Last 24 Hours 11/08/16 11/08/16 11/08/16 11/08/16 11:00 12:00 12:02 13:00 Temp 99.3 99.3 Pulse 106 104 106 Resp 30 B/P 121/52 139/48 135/79 Pulse Ox 100 100 100 O2 Delivery Nasal Cannula Nasal Cannula Nasal Cannula Nasal Cannula O2 Flow Rate 2.0 2.0 2.0 2.0 11/08/16 11/08/16 11/08/16 11/08/16 14:00 15:00 16:00 16:00 Pulse 102 102 100 Resp 18 18 B/P 114/52 122/48 117/51 Pulse Ox 100 100 100 O2 Delivery Nasal Cannula Nasal Cannula Nasal Cannula Nasal Cannula O2 Flow Rate 2.0 2.0 2.0 2.0 11/08/16 11/08/16 11/08/16 11/08/16 17:00 19:00 20:00 20:00 Temp 98.8 99.2 98.8 99.2 Pulse 104 102 102 Resp 26 25 28 B/P 120/53 123/49 138/58 Pulse Ox 100 100 100 O2 Delivery Nasal Cannula Nasal Cannula Nasal Cannula Nasal Cannula O2 Flow Rate 2.0 2.0 2.0 2.0 11/08/16 11/08/16 11/08/16 11/08/16 21:00 22:00 23:00 23:59 Temp 98.7 98.7 Pulse 99 102 100 Resp 22 B/P 131/52 148/61 128/56 Pulse Ox 100 100 100 O2 Delivery Nasal Cannula Nasal Cannula Nasal Cannula Nasal Cannula O2 Flow Rate 2.0 2.0 2.0 2.0 11/09/16 11/09/16 11/09/16 11/09/16 00:00 01:00 02:00 02:37 Pulse 94 100 100 Resp 28 0 25 B/P 112/72 147/63 137/62 Pulse Ox 100 100 100 O2 Delivery Nasal Cannula Nasal Cannula Nasal Cannula Nasal Cannula O2 Flow Rate 2.0 2.0 2.0 2.0 11/09/16 11/09/16 11/09/16 11/09/16 03:00 04:00 04:46 04:52 Temp 98.7 98.7 Pulse 100 103 100 Resp 17 B/P 157/71 132/61 142/70 Pulse Ox 100 100 O2 Delivery Nasal Cannula Nasal Cannula Nasal Cannula O2 Flow Rate 2.0 2.0 2.0 11/09/16 11/09/16 05:37 06:00 Pulse 100 96 Resp 32 B/P 139/59 131/60 Pulse Ox 95 100 O2 Delivery Nasal Cannula Nasal Cannula O2 Flow Rate 2.0 2.0 Intake and Output 11/08/16 11/08/16 11/09/16 15:00 23:00 07:00 Intake Total 411.5 ml 1740 ml Output Total 1140 ml 610 ml 885 ml Balance -728.5 ml -610 ml 855 ml ANA KIRKLAND III DO Nov 09, 2016 10:25
--- NOTE | 2016-11-09 10:52 | PDOC ---
Renal-Progress Notes Vitals Vitals Vital Signs Date Time Temp Pulse Resp B/P Pulse Ox O2 Delivery O2 Flow Rate FiO2 11/09/16 06:00 96 32 131/60 100 Nasal Cannula 2.0 11/09/16 03:00 98.7 98.7 Weight Weight [ ] I.O. Intake and Output Intake and Output 11/09/16 06:59 Intake Total 2151.5 ml Output Total 2680 ml Balance -528.5 ml IV Total 2151.5 ml Output Urine Total 2680 ml Labs Labs Laboratory Tests Test 11/08/16 11:24 11/08/16 14:34 11/08/16 14:36 11/08/16 16:12 Glucose (Fingerstick) 183mg/dL (70-99) 353mg/dL (70-99) 308mg/dL (70-99) Sodium Level 144mmol/L (136-145) Potassium Level 4.8mmol/L (3.5-5.1) Chloride Level 111mmol/L (98-107) Carbon Dioxide Level 16mmol/L (21-32) Anion Gap 17 (6-14) Blood Urea Nitrogen 14mg/dL (7-20) Creatinine 1.2mg/dL (0.6-1.0) Estimated GFR (Cockcroft-Gault) 54.6 Glucose Level 393mg/dL (70-99) Calcium Level 7.6mg/dL (8.5-10.1) Phosphorus Level 3.0mg/dL (2.6-4.7) Magnesium Level 2.1mg/dL (1.8-2.4) Troponin I Quantitative 0.689ng/mL (0.000-0.055) Test 11/08/16 17:26 11/08/16 18:39 11/08/16 18:41 11/08/16 19:47 Glucose (Fingerstick) 231mg/dL (70-99) 170mg/dL (70-99) 140mg/dL (70-99) Sodium Level 149mmol/L (136-145) Potassium Level 3.1mmol/L (3.5-5.1) Chloride Level 116mmol/L (98-107) Carbon Dioxide Level 21mmol/L (21-32) Anion Gap 12 (6-14) Blood Urea Nitrogen 10mg/dL (7-20) Creatinine 1.1mg/dL (0.6-1.0) Estimated GFR (Cockcroft-Gault) 60.3 Glucose Level 183mg/dL (70-99) Calcium Level 7.3mg/dL (8.5-10.1) Phosphorus Level 1.5mg/dL (2.6-4.7) Test 11/08/16 20:56 11/08/16 22:00 11/08/16 23:07 11/09/16 00:01 Glucose (Fingerstick) 133mg/dL (70-99) 121mg/dL (70-99) 108mg/dL (70-99) 114mg/dL (70-99) Test 11/09/16 01:11 11/09/16 02:02 11/09/16 03:10 11/09/16 04:00 Glucose (Fingerstick) 108mg/dL (70-99) 121mg/dL (70-99) 137mg/dL (70-99) White Blood Count 9.0x10^3/uL (4.0-11.0) Red Blood Count 3.40x10^6/uL (3.50-5.40) Hemoglobin 9.8g/dL (12.0-15.5) Hematocrit 29.7% (36.0-47.0) Mean Corpuscular Volume 87fL (79-100) Mean Corpuscular Hemoglobin 29pg (25-35) Mean Corpuscular Hemoglobin Concent 33g/dL (31-37) Red Cell Distribution Width 13.9% (11.5-14.5) Platelet Count 133x10^3/uL (140-400) Neutrophils (%) (Auto) 77% (31-73) Lymphocytes (%) (Auto) 11% (24-48) Monocytes (%) (Auto) 12% (0-9) Eosinophils (%) (Auto) 0% (0-3) Basophils (%) (Auto) 0% (0-3) Neutrophils # (Auto) 7.0x10^3uL (1.8-7.7) Lymphocytes # (Auto) 1.0x10^3/uL (1.0-4.8) Monocytes # (Auto) 1.1x10^3/uL (0.0-1.1) Eosinophils # (Auto) 0.0x10^3/uL (0.0-0.7) Basophils # (Auto) 0.0x10^3/uL (0.0-0.2) Sodium Level 146mmol/L (136-145) Potassium Level 3.3mmol/L (3.5-5.1) Chloride Level 116mmol/L (98-107) Carbon Dioxide Level 22mmol/L (21-32) Anion Gap 8 (6-14) Blood Urea Nitrogen 5mg/dL (7-20) Creatinine 0.8mg/dL (0.6-1.0) Estimated GFR (Cockcroft-Gault) 87.1 Glucose Level 168mg/dL (70-99) Calcium Level 7.4mg/dL (8.5-10.1) Phosphorus Level 2.4mg/dL (2.6-4.7) Magnesium Level 1.9mg/dL (1.8-2.4) Test 11/09/16 04:16 11/09/16 05:27 11/09/16 06:30 11/09/16 07:36 Glucose (Fingerstick) 157mg/dL (70-99) 151mg/dL (70-99) 141mg/dL (70-99) 106mg/dL (70-99) Test 11/09/16 08:45 Glucose (Fingerstick) 98mg/dL (70-99) Micro Micro Microbiology 11/08/16 Blood Culture - Preliminary, Resulted NO GROWTH AFTER 1 DAY Assessment Assessment IMP SAURABH-RESOLVED DKA HYPOKALEMIA HYPERNATREMIA DEHYDRATION PLAN CONT IVF REPLACE SUSANA ZAFAR MD Nov 09, 2016 10:52
[2016-11-09 10:57] LABS: CALCIUM 7.6 mg/dL (8.5-10.1); CREATININE 0.6 mg/dL (0.6-1.0); GFR 121.4; MAGNESIUM 1.8 mg/dL (1.8-2.4); PHOSPHORUS 2.6 mg/dL (2.6-4.7); POTASSIUM 3.3 mmol/L (3.5-5.1)
[2016-11-09] MEDS: PHENOL ORAL SPRAY 177ML BOTTLE. PO PRN ×2 (11:03→23:04)
--- NOTE | 2016-11-09 11:12 | CARD ---
APPROVED REPORT EXAM: Two-dimensional and M-mode echocardiogram with Doppler and color Doppler. Other Information Quality : Fair INDICATION Non STEMI 2D DIMENSIONS Left Atrium(2D)2.4 (1.6-4.0cm)IVSd0.6 (0.7-1.1cm) Aortic Root(2D)2.7 (2.0-3.7cm)LVDd4.6 (3.9-5.9cm) LVOT Diameter2.0 (1.8-2.4cm)PWd0.9 (0.7-1.1cm) LVDs3.0 (2.5-4.0cm)FS (%) 35.5 % SV63.7 mlLVEF(%)65.0 (>50%) Aortic Valve AoV Peak Ez.144.5cm/sAoV VTI25.7cm AO Peak GR.8.3mmHgLVOT VTI 20.74cm AO Mean GR.5mmHgAVA (VTI)2.60cm2 Mitral Valve MV E Wtuxxvww30.1cm/sMV DECEL [id number] MV A Edwksaxw62.7cm/sE/A Ratio0.8 MV A [id number] TDI Lateral E' P. V10.88cm/sMedial E' P. V10.55cm/s E/Lateral E'6.2E/Medial E'6.4 Tricuspid Valve TR P. [id number]/sRAP [id number] TR Peak Gr.[id number] Pulmonary Vein S1 Ujkcjhii84.8cm/sS2 Wukintnr18.23cm/s D2 Mpiqogoa34.2cm/sPVa [id number] LEFT VENTRICLE The left ventricle is normal size. There is normal left ventricular wall thickness. The left ventricu lar systolic function is normal and the ejection fraction is within normal range. The Ejection Fracti on is 60-65%. There is normal LV segmental wall motion. Transmitral Doppler flow pattern is Grade I-a bnormal relaxation pattern. RIGHT VENTRICLE The right ventricle is normal size. The right ventricular systolic function is normal. ATRIA The left atrium size is normal. The right atrium size is normal. The interatrial septum is intact wit h no evidence for an atrial septal defect or patent foramen ovale as noted on 2-D or Doppler imaging. AORTIC VALVE The aortic valve is calcified but opens well. Doppler and Color Flow revealed no significant aortic r egurgitation. There is no significant aortic valvular stenosis. MITRAL VALVE The mitral valve is calcified but opens well. There is no evidence of mitral valve prolapse. There is no mitral valve stenosis. Doppler and Color Flow revealed no mitral valve regurgitation noted. TRICUSPID VALVE The tricuspid valve is normal in structure and function. Doppler and Color Flow revealed physiologica l tricuspid regurgitation. The PA pressure was estimated at 32 mmHg. There is no tricuspid valve sten osis. PULMONIC VALVE Doppler and Color Flow revealed no pulmonic valvular regurgitation. There is no pulmonic valvular keily nosis. GREAT VESSELS The aortic root is normal in size. The ascending aorta is normal in size. The IVC is normal in size a nd collapses >50% with inspiration. PERICARDIAL EFFUSION There is no evidence of significant pericardial effusion. Critical Notification Critical Value: No <Conclusion> There is normal left ventricular wall thickness. The left ventricular systolic function is normal and the ejection fraction is within normal range. Th e Ejection Fraction is 60-65%. No significant valvular disease.
--- NOTE | 2016-11-09 11:24 | PDOC ---
PULMONARY PROGRESS NOTES Subjective extubated 11/08 awake, AG resolved Acidosis much improved Vitals Vital Signs Date Time Temp Pulse Resp B/P Pulse Ox O2 Delivery O2 Flow Rate FiO2 11/09/16 06:00 96 32 131/60 100 Nasal Cannula 2.0 11/09/16 03:00 98.7 98.7 General: Alert, No acute distress Lungs: Clear Cardiovascular: S1 Abdomen: Soft Neuro Exam: Alert Extremities: No Edema Skin: Warm Labs Laboratory Tests Test 11/07/16 12:05 11/07/16 12:25 11/07/16 12:49 11/07/16 12:55 Sodium Level 135mmol/L (136-145) Potassium Level 4.8mmol/L (3.5-5.1) Chloride Level 93mmol/L (98-107) Carbon Dioxide Level 7mmol/L (21-32) Anion Gap 35 (6-14) Blood Urea Nitrogen 27mg/dL (7-20) Creatinine 1.9mg/dL (0.6-1.0) Estimated GFR (Cockcroft-Gault) 32.1 Glucose Level 818mg/dL (70-99) Calcium Level 11.0mg/dL (8.5-10.1) Total Bilirubin 0.5mg/dL (0.2-1.0) Direct Bilirubin 0.1mg/dL (0.0-0.2) Aspartate Amino Transf (AST/SGOT) 16U/L (15-37) Alanine Aminotransferase (ALT/SGPT) 22U/L (14-59) Alkaline Phosphatase 108U/L (46-116) Total Protein 8.3g/dL (6.4-8.2) Albumin 4.2g/dL (3.4-5.0) Lipase 61U/L (73-393) Urine Collection Type Unknown Urine Color Yellow Urine Clarity Clear Urine pH 5.0 Urine Specific [place] 1.025 Urine Protein 30mg/dL (NEG-TRACE) Urine Glucose (UA) >=1000mg/dL (NEG) Urine Ketones (Stick) >=80mg/dL (NEG) Urine Blood Small (NEG) Urine Nitrite Negative (NEG) Urine Bilirubin Negative (NEG) Urine Urobilinogen Dipstick 0.2mg/dL (0.2 mg/dL) Urine Leukocyte Esterase Negative (NEG) Urine RBC 0/HPF (0-2) Urine WBC Occ/HPF (0-4) Urine Squamous Epithelial Cells Few/LPF Urine Amorphous Sediment Present/HPF Urine Bacteria 0/HPF (0-FEW) Urine Hyaline Casts Occasional/HPF Urine Mucus Slight/LPF White Blood Count 15.5x10^3/uL (4.0-11.0) Red Blood Count 4.63x10^6/uL (3.50-5.40) Hemoglobin 13.0g/dL (12.0-15.5) Hematocrit 45.7% (36.0-47.0) Mean Corpuscular Volume 99fL (79-100) Mean Corpuscular Hemoglobin 28pg (25-35) Mean Corpuscular Hemoglobin Concent 28g/dL (31-37) Red Cell Distribution Width 14.8% (11.5-14.5) Platelet Count 224x10^3/uL (140-400) Neutrophils (%) (Auto) 85% (31-73) Lymphocytes (%) (Auto) 6% (24-48) Monocytes (%) (Auto) 9% (0-9) Eosinophils (%) (Auto) 0% (0-3) Basophils (%) (Auto) 1% (0-3) Neutrophils # (Auto) 13.1x10^3uL (1.8-7.7) Lymphocytes # (Auto) 1.0x10^3/uL (1.0-4.8) Monocytes # (Auto) 1.4x10^3/uL (0.0-1.1) Eosinophils # (Auto) 0.0x10^3/uL (0.0-0.7) Basophils # (Auto) 0.1x10^3/uL (0.0-0.2) Segmented Neutrophils % 74% (35-66) Band Neutrophils % 8% (0-9) Lymphocytes % 9% (24-48) Monocytes % 9% (0-10) Toxic Granulation Slight Platelet Estimate Adequate (ADEQUATE) Serum Osmolality 357mOsm/Kg (279-304) Lactic Acid Level 6.5mmol/L (0.4-2.0) Phosphorus Level 10.0mg/dL (2.6-4.7) Magnesium Level 2.9mg/dL (1.8-2.4) Troponin I Quantitative 0.058ng/mL (0.000-0.055) IZ-Xmy-A-Type Natriuretic Peptide 995pg/mL (0-124) O2 Saturation 98% (92-99) Arterial Blood pH 7.01 (7.35-7.45) Arterial Blood pCO2 at Patient Temp 10mmHg (35-46) Arterial Blood pO2 at Patient Temp 140mmHg (65-108) Arterial Blood HCO3 3mmol/L (21-28) Arterial Blood Base Excess -27mmol/L (-3-3) FiO2 21 Test 11/07/16 15:20 11/07/16 17:58 11/07/16 18:55 11/07/16 19:28 O2 Saturation 98% (92-99) 98% (92-99) Arterial Blood pH 6.85 (7.35-7.45) 7.14 (7.35-7.45) Arterial Blood pCO2 at Patient Temp 22mmHg (35-46) 21mmHg (35-46) Arterial Blood pO2 at Patient Temp 147mmHg (65-108) 153mmHg (65-108) Arterial Blood HCO3 4mmol/L (21-28) 7mmol/L (21-28) Arterial Blood Base Excess -29mmol/L (-3-3) -21mmol/L (-3-3) FiO2 28 28 Sodium Level 143mmol/L (136-145) Potassium Level 4.2mmol/L (3.5-5.1) Chloride Level 99mmol/L (98-107) Carbon Dioxide Level 9mmol/L (21-32) Anion Gap 35 (6-14) Blood Urea Nitrogen 34mg/dL (7-20) Creatinine 2.2mg/dL (0.6-1.0) Estimated GFR (Cockcroft-Gault) 27.1 Glucose Level 822mg/dL (70-99) 830mg/dL (70-99) Lactic Acid Level 3.5mmol/L (0.4-2.0) Calcium Level 8.5mg/dL (8.5-10.1) Phosphorus Level 6.4mg/dL (2.6-4.7) Magnesium Level 2.1mg/dL (1.8-2.4) Test 11/07/16 20:23 11/07/16 22:16 11/07/16 23:30 11/07/16 23:54 Glucose Level 571mg/dL (70-99) 428mg/dL (70-99) Sodium Level 150mmol/L (136-145) Potassium Level 2.9mmol/L (3.5-5.1) Chloride Level 111mmol/L (98-107) Carbon Dioxide Level 13mmol/L (21-32) Anion Gap 26 (6-14) Blood Urea Nitrogen 31mg/dL (7-20) Creatinine 2.0mg/dL (0.6-1.0) Estimated GFR (Cockcroft-Gault) 30.3 BUN/Creatinine Ratio 16 (6-20) Calcium Level 7.9mg/dL (8.5-10.1) Phosphorus Level 0.8mg/dL (2.6-4.7) Magnesium Level 1.8mg/dL (1.8-2.4) Total Bilirubin 0.5mg/dL (0.2-1.0) Aspartate Amino Transf (AST/SGOT) 19U/L (15-37) Alanine Aminotransferase (ALT/SGPT) 12U/L (14-59) Alkaline Phosphatase 63U/L (46-116) Total Protein 5.1g/dL (6.4-8.2) Albumin 2.5g/dL (3.4-5.0) Albumin/Globulin Ratio 1.0 (1.0-1.7) Troponin I Quantitative 0.453ng/mL (0.000-0.055) Glucose (Fingerstick) 341mg/dL (70-99) Test 11/08/16 00:58 11/08/16 02:02 11/08/16 03:06 11/08/16 04:16 Glucose (Fingerstick) 288mg/dL (70-99) 240mg/dL (70-99) 237mg/dL (70-99) 274mg/dL (70-99) Test 11/08/16 05:25 11/08/16 06:06 11/08/16 06:29 11/08/16 07:40 Glucose (Fingerstick) 176mg/dL (70-99) 145mg/dL (70-99) 83mg/dL (70-99) White Blood Count 8.3x10^3/uL (4.0-11.0) Red Blood Count 3.45x10^6/uL (3.50-5.40) Hemoglobin 9.8g/dL (12.0-15.5) Hematocrit 29.7% (36.0-47.0) Mean Corpuscular Volume 86fL (79-100) Mean Corpuscular Hemoglobin 28pg (25-35) Mean Corpuscular Hemoglobin Concent 33g/dL (31-37) Red Cell Distribution Width 13.3% (11.5-14.5) Platelet Count 148x10^3/uL (140-400) Neutrophils (%) (Auto) 78% (31-73) Lymphocytes (%) (Auto) 8% (24-48) Monocytes (%) (Auto) 13% (0-9) Eosinophils (%) (Auto) 0% (0-3) Basophils (%) (Auto) 1% (0-3) Neutrophils # (Auto) 6.5x10^3uL (1.8-7.7) Lymphocytes # (Auto) 0.7x10^3/uL (1.0-4.8) Monocytes # (Auto) 1.1x10^3/uL (0.0-1.1) Eosinophils # (Auto) 0.0x10^3/uL (0.0-0.7) Basophils # (Auto) 0.1x10^3/uL (0.0-0.2) Sodium Level 150mmol/L (136-145) Potassium Level 2.7mmol/L (3.5-5.1) Chloride Level 116mmol/L (98-107) Carbon Dioxide Level 21mmol/L (21-32) Anion Gap 13 (6-14) Blood Urea Nitrogen 23mg/dL (7-20) Creatinine 1.5mg/dL (0.6-1.0) Estimated GFR (Cockcroft-Gault) 42.2 Glucose Level 148mg/dL (70-99) Calcium Level 7.8mg/dL (8.5-10.1) Phosphorus Level 1.7mg/dL (2.6-4.7) Magnesium Level 1.5mg/dL (1.8-2.4) Troponin I Quantitative 1.162ng/mL (0.000-0.055) Test 11/08/16 08:05 11/08/16 08:33 11/08/16 09:00 11/08/16 09:22 O2 Saturation 98% (92-99) Arterial Blood pH 7.47 (7.35-7.45) Arterial Blood pCO2 at Patient Temp 27mmHg (35-46) Arterial Blood pO2 at Patient Temp 133mmHg (65-108) Arterial Blood HCO3 19mmol/L (21-28) Arterial Blood Base Excess -3mmol/L (-3-3) FiO2 28 Glucose (Fingerstick) 61mg/dL (70-99) 74mg/dL (70-99) 133mg/dL (70-99) Test 11/08/16 10:14 11/08/16 11:24 11/08/16 14:34 11/08/16 14:36 Glucose (Fingerstick) 147mg/dL (70-99) 183mg/dL (70-99) 353mg/dL (70-99) Sodium Level 144mmol/L (136-145) Potassium Level 4.8mmol/L (3.5-5.1) Chloride Level 111mmol/L (98-107) Carbon Dioxide Level 16mmol/L (21-32) Anion Gap 17 (6-14) Blood Urea Nitrogen 14mg/dL (7-20) Creatinine 1.2mg/dL (0.6-1.0) Estimated GFR (Cockcroft-Gault) 54.6 Glucose Level 393mg/dL (70-99) Calcium Level 7.6mg/dL (8.5-10.1) Phosphorus Level 3.0mg/dL (2.6-4.7) Magnesium Level 2.1mg/dL (1.8-2.4) Troponin I Quantitative 0.689ng/mL (0.000-0.055) Test 11/08/16 16:12 11/08/16 17:26 11/08/16 18:39 11/08/16 18:41 Glucose (Fingerstick) 308mg/dL (70-99) 231mg/dL (70-99) 170mg/dL (70-99) Sodium Level 149mmol/L (136-145) Potassium Level 3.1mmol/L (3.5-5.1) Chloride Level 116mmol/L (98-107) Carbon Dioxide Level 21mmol/L (21-32) Anion Gap 12 (6-14) Blood Urea Nitrogen 10mg/dL (7-20) Creatinine 1.1mg/dL (0.6-1.0) Estimated GFR (Cockcroft-Gault) 60.3 Glucose Level 183mg/dL (70-99) Calcium Level 7.3mg/dL (8.5-10.1) Phosphorus Level 1.5mg/dL (2.6-4.7) Test 11/08/16 19:47 11/08/16 20:56 11/08/16 22:00 11/08/16 23:07 Glucose (Fingerstick) 140mg/dL (70-99) 133mg/dL (70-99) 121mg/dL (70-99) 108mg/dL (70-99) Test 11/09/16 00:01 11/09/16 01:11 11/09/16 02:02 11/09/16 03:10 Glucose (Fingerstick) 114mg/dL (70-99) 108mg/dL (70-99) 121mg/dL (70-99) 137mg/dL (70-99) Test 11/09/16 04:00 11/09/16 04:16 11/09/16 05:27 11/09/16 06:30 White Blood Count 9.0x10^3/uL (4.0-11.0) Red Blood Count 3.40x10^6/uL (3.50-5.40) Hemoglobin 9.8g/dL (12.0-15.5) Hematocrit 29.7% (36.0-47.0) Mean Corpuscular Volume 87fL (79-100) Mean Corpuscular Hemoglobin 29pg (25-35) Mean Corpuscular Hemoglobin Concent 33g/dL (31-37) Red Cell Distribution Width 13.9% (11.5-14.5) Platelet Count 133x10^3/uL (140-400) Neutrophils (%) (Auto) 77% (31-73) Lymphocytes (%) (Auto) 11% (24-48) Monocytes (%) (Auto) 12% (0-9) Eosinophils (%) (Auto) 0% (0-3) Basophils (%) (Auto) 0% (0-3) Neutrophils # (Auto) 7.0x10^3uL (1.8-7.7) Lymphocytes # (Auto) 1.0x10^3/uL (1.0-4.8) Monocytes # (Auto) 1.1x10^3/uL (0.0-1.1) Eosinophils # (Auto) 0.0x10^3/uL (0.0-0.7) Basophils # (Auto) 0.0x10^3/uL (0.0-0.2) Sodium Level 146mmol/L (136-145) Potassium Level 3.3mmol/L (3.5-5.1) Chloride Level 116mmol/L (98-107) Carbon Dioxide Level 22mmol/L (21-32) Anion Gap 8 (6-14) Blood Urea Nitrogen 5mg/dL (7-20) Creatinine 0.8mg/dL (0.6-1.0) Estimated GFR (Cockcroft-Gault) 87.1 Glucose Level 168mg/dL (70-99) Calcium Level 7.4mg/dL (8.5-10.1) Phosphorus Level 2.4mg/dL (2.6-4.7) Magnesium Level 1.9mg/dL (1.8-2.4) Glucose (Fingerstick) 157mg/dL (70-99) 151mg/dL (70-99) 141mg/dL (70-99) Test 11/09/16 07:36 11/09/16 08:45 11/09/16 09:58 11/09/16 10:00 Glucose (Fingerstick) 106mg/dL (70-99) 98mg/dL (70-99) 122mg/dL (70-99) Sodium Level 146mmol/L (136-145) Potassium Level 3.3mmol/L (3.5-5.1) Chloride Level 113mmol/L (98-107) Carbon Dioxide Level 22mmol/L (21-32) Anion Gap 11 (6-14) Blood Urea Nitrogen 4mg/dL (7-20) Creatinine 0.6mg/dL (0.6-1.0) Estimated GFR (Cockcroft-Gault) 121.4 Glucose Level 129mg/dL (70-99) Calcium Level 7.6mg/dL (8.5-10.1) Phosphorus Level 2.6mg/dL (2.6-4.7) Magnesium Level 1.8mg/dL (1.8-2.4) Laboratory Tests Test 11/08/16 11:24 11/08/16 14:34 11/08/16 14:36 11/08/16 16:12 Glucose (Fingerstick) 183mg/dL (70-99) 353mg/dL (70-99) 308mg/dL (70-99) Sodium Level 144mmol/L (136-145) Potassium Level 4.8mmol/L (3.5-5.1) Chloride Level 111mmol/L (98-107) Carbon Dioxide Level 16mmol/L (21-32) Anion Gap 17 (6-14) Blood Urea Nitrogen 14mg/dL (7-20) Creatinine 1.2mg/dL (0.6-1.0) Estimated GFR (Cockcroft-Gault) 54.6 Glucose Level 393mg/dL (70-99) Calcium Level 7.6mg/dL (8.5-10.1) Phosphorus Level 3.0mg/dL (2.6-4.7) Magnesium Level 2.1mg/dL (1.8-2.4) Troponin I Quantitative 0.689ng/mL (0.000-0.055) Test 11/08/16 17:26 11/08/16 18:39 11/08/16 18:41 11/08/16 19:47 Glucose (Fingerstick) 231mg/dL (70-99) 170mg/dL (70-99) 140mg/dL (70-99) Sodium Level 149mmol/L (136-145) Potassium Level 3.1mmol/L (3.5-5.1) Chloride Level 116mmol/L (98-107) Carbon Dioxide Level 21mmol/L (21-32) Anion Gap 12 (6-14) Blood Urea Nitrogen 10mg/dL (7-20) Creatinine 1.1mg/dL (0.6-1.0) Estimated GFR (Cockcroft-Gault) 60.3 Glucose Level 183mg/dL (70-99) Calcium Level 7.3mg/dL (8.5-10.1) Phosphorus Level 1.5mg/dL (2.6-4.7) Test 11/08/16 20:56 11/08/16 22:00 11/08/16 23:07 11/09/16 00:01 Glucose (Fingerstick) 133mg/dL (70-99) 121mg/dL (70-99) 108mg/dL (70-99) 114mg/dL (70-99) Test 11/09/16 01:11 11/09/16 02:02 11/09/16 03:10 11/09/16 04:00 Glucose (Fingerstick) 108mg/dL (70-99) 121mg/dL (70-99) 137mg/dL (70-99) White Blood Count 9.0x10^3/uL (4.0-11.0) Red Blood Count 3.40x10^6/uL (3.50-5.40) Hemoglobin 9.8g/dL (12.0-15.5) Hematocrit 29.7% (36.0-47.0) Mean Corpuscular Volume 87fL (79-100) Mean Corpuscular Hemoglobin 29pg (25-35) Mean Corpuscular Hemoglobin Concent 33g/dL (31-37) Red Cell Distribution Width 13.9% (11.5-14.5) Platelet Count 133x10^3/uL (140-400) Neutrophils (%) (Auto) 77% (31-73) Lymphocytes (%) (Auto) 11% (24-48) Monocytes (%) (Auto) 12% (0-9) Eosinophils (%) (Auto) 0% (0-3) Basophils (%) (Auto) 0% (0-3) Neutrophils # (Auto) 7.0x10^3uL (1.8-7.7) Lymphocytes # (Auto) 1.0x10^3/uL (1.0-4.8) Monocytes # (Auto) 1.1x10^3/uL (0.0-1.1) Eosinophils # (Auto) 0.0x10^3/uL (0.0-0.7) Basophils # (Auto) 0.0x10^3/uL (0.0-0.2) Sodium Level 146mmol/L (136-145) Potassium Level 3.3mmol/L (3.5-5.1) Chloride Level 116mmol/L (98-107) Carbon Dioxide Level 22mmol/L (21-32) Anion Gap 8 (6-14) Blood Urea Nitrogen 5mg/dL (7-20) Creatinine 0.8mg/dL (0.6-1.0) Estimated GFR (Cockcroft-Gault) 87.1 Glucose Level 168mg/dL (70-99) Calcium Level 7.4mg/dL (8.5-10.1) Phosphorus Level 2.4mg/dL (2.6-4.7) Magnesium Level 1.9mg/dL (1.8-2.4) Test 11/09/16 04:16 11/09/16 05:27 11/09/16 06:30 11/09/16 07:36 Glucose (Fingerstick) 157mg/dL (70-99) 151mg/dL (70-99) 141mg/dL (70-99) 106mg/dL (70-99) Test 11/09/16 08:45 11/09/16 09:58 11/09/16 10:00 Glucose (Fingerstick) 98mg/dL (70-99) 122mg/dL (70-99) Sodium Level 146mmol/L (136-145) Potassium Level 3.3mmol/L (3.5-5.1) Chloride Level 113mmol/L (98-107) Carbon Dioxide Level 22mmol/L (21-32) Anion Gap 11 (6-14) Blood Urea Nitrogen 4mg/dL (7-20) Creatinine 0.6mg/dL (0.6-1.0) Estimated GFR (Cockcroft-Gault) 121.4 Glucose Level 129mg/dL (70-99) Calcium Level 7.6mg/dL (8.5-10.1) Phosphorus Level 2.6mg/dL (2.6-4.7) Magnesium Level 1.8mg/dL (1.8-2.4) Medications Active Scripts Medications Dose Route/Sig Days Date Category Metformin Hcl Er (Metformin Hcl) 750 Mg Tab.er.24h 1 Tab PO BID 11/08/16 Reported Oxybutynin Chloride Er (Oxybutynin Chloride) 10 Mg Tab.er.24 1 Tab PO DAILY 11/08/16 Reported Tresiba Flextouch U-100 (Insulin Degludec) 100 Unit/1 Ml Insuln.pen 25 Unit SQ DAILY 11/08/16 Reported Folic Acid 1 Mg Tablet 1 Tab PO DAILY 05/28/14 Reported Hydrocodone-Apap 5-325 (Hydrocodone Bit/Acetaminophen) 1 Each Tablet 1-2 Tab PO Q4-6HRS 05/28/14 Reported Glucovance 5-500 Mg Tablet (Glyburide/Metformin Hcl) 1 Each Tablet 2 Tab PO DAILY 05/28/14 Reported Glucovance 5-500 Mg Tablet (Glyburide/Metformin Hcl) 1 Each Tablet 1 Tab PO HS 05/28/14 Reported Losartan-Hctz 100-12.5 Mg Tab (Losartan/Hydrochlorothiazide) 1 Each Tablet 1 Each PO DAILY 05/28/14 Reported Xalatan (Latanoprost) 2.5 Ml Drops 1 Drop EACHEYE QHS 05/28/14 Reported Gabapentin 300 Mg Capsule 300 Mg PO TID 05/28/14 Reported Toprol Xl (Metoprolol Succinate) 50 Mg Tab.er.24h 1 Tab PO DAILY 05/28/14 Reported Impression . 1. Acute respiratory failure secondary to acute encephalopathy from diabetic ketoacidosis. extubated 11/08 2. Severe AG induced metabolic acidosis secondary to diabetic ketoacidosis. Lactic acid was also elevated. Clinically, I doubt any infection. Lactic acidosis is probably elevated because of hypoperfusion caused by hypotension. improved post hydration 3. Hypotension, related to severe dehydration with acute renal failure. improved s/p aggressive fluid resuscitation. 4. Clear chest x-ray. 5. History of insulin-requiring diabetes and recently started on Trulicity, which can also contribute to diarrhea. Plan . 1. nasal canula 2. follow ABGs.much improved. 3. DKA management per PCP, 4. replace Mg, K, PO4 5. Continue empiric antibiotics for now. 6. Lactic acid improved 7. SCDs for stress ulcer prophylaxis. 8. Lovenox for DVT prophylaxis. 9. Discussed with RN and RT YASHIRA REYNOLDS MD Nov 09, 2016 11:24
[2016-11-09] MEDS: IV 1/2 NORMAL SALINE 1,000 ML IV SCH (11:30)
[2016-11-09] MEDS ORDERED: NITROGLYCERIN 200 MCG/2 ML SYRINGE FOR CATH/VASC LAB. ONE (15:44)
[2016-11-09] MEDS ORDERED: FENTANYL PF 100 MCG/2 ML VIAL. ONE (15:44)
[2016-11-09] MEDS ORDERED: HEPARIN for IV BOLUS 10,000 UNIT/10 ML VIAL. ONE (15:44)
[2016-11-09] MEDS ORDERED: VERAPAMIL 5 MG/2 ML VIAL. ONE (15:44)
[2016-11-09] MEDS ORDERED: MIDAZOLAM HCL 2 MG/2 ML VIAL. ONE (15:44)
[2016-11-09] MEDS ORDERED: LIDOCAINE 2% 20 ML VIAL. ONE (15:49)
[2016-11-09] MEDS ORDERED: IOHEXOL 300 MG/ML 100ML VIAL. ONE (15:49)
[2016-11-09] MEDS ORDERED: IOHEXOL 300 MG/ML 100ML VIAL. IART ONE (16:00)
[2016-11-09] MEDS ORDERED: NITROGLYCERIN 200 MCG/2 ML SYRINGE FOR CATH/VASC LAB. IART ONE (16:00)
[2016-11-09] MEDS ORDERED: VERAPAMIL 5 MG/2 ML VIAL. IART ONE (16:00)
[2016-11-09] MEDS ORDERED: LIDOCAINE 2% 20 ML VIAL. IJ ONE (16:00)
[2016-11-09] MEDS ORDERED: FENTANYL PF 100 MCG/2 ML VIAL. IV ONE (16:00)
[2016-11-09] MEDS ORDERED: MIDAZOLAM HCL 2 MG/2 ML VIAL. IV ONE (16:00)
[2016-11-09] MEDS ORDERED: HEPARIN for IV BOLUS 10,000 UNIT/10 ML VIAL. IART ONE (16:00)
--- NOTE | 2016-11-09 16:13 | PDOC ---
MODERATE SEDATION ASSESSMENT RISKS/ALTERNATIVES Risks/Alternatives Risks and alternatives of this type of sedation and procedure discussed with: RISK/ALTERNATIVES: Patient H & P ON CHART H & P H & P on chart and reviewed for co-morbid conditions and appropriate labs. H&P ON CHART: Yes STATUS PREG STATUS ASSESSED: N/A MEDS/ALLERGIES REVIEWED Meds/Allergies Reviewed Medications and Allergies including time and route of recently administered narcotics and sedatives. MEDS/ALLERGIES REVIEWED: Yes ASA RATING ASA RATING: II AIRWAY ASSESSMENT Airway Assessment Airway patency, oral function limitations, presence of caps, crowns, dentures, partials, and ability to extend neck assessed. AIRWAY ASSESSMENT: Yes MALLAMPATI SCORE MALLAMPATI SCORE: II PRE-SEDATION ASSESSMENT PRE-SEDATION ASSESSMENT: Yes GORDON SPRINGER MD Nov 09, 2016 16:12
[2016-11-09] MEDS ORDERED: CONTRAST GIVEN MC PRN (16:15)
--- NOTE | 2016-11-09 16:38 | CARD ---
APPROVED REPORT Procedure(s) performed: Left heart catheterization, selective coronary angiography and left ventricul ography via right transradial approach. INDICATION The indication(s) include : non-STEMI . PROCEDURE NARRATIVE After explaining the risks, benefits and alternative options, informed consent was obtained from josue ent. Patient was brought to the cardiac Grinding Room Supervisor and right wrist was prepped and draped in the usual fashion after confirming a positive modified Ashu's test. Arterial access was obtained in the mclaren thumb region t radial artery and a 6 Prydeinig sheath was inserted. 6 Prydeinig Baldev catheter was used to perform isidro ective angiography of the left and right coronary arteries. 6 Prydeinig pigtail catheter was used to pe rform left ventriculography. Patient tolerated the procedure well. Hemostasis was achieved using TR band. There were no immediate complications. The following findings were noted. FINDINGS 1. Hemodynamics: Left ventricular end-diastolic pressure of 20 mmHg. No pullback gradient across th e aortic valve. 2. Left ventriculography: Hyperdynamic left ventricle systolic function with ejection fraction tony mated at 75%. No significant mitral regurgitation seen. 3. Coronary angiography: a. The left main coronary artery arose from the left sinus of Valsalva, gave rise to the left anteri or descending and left circumflex arteries and did not show any significant stenosis. b. The left anterior descending artery did not show any significant stenosis. c. The left circumflex artery did not show any significant stenosis. d. The right coronary artery was arose from the right sinus of Valsalva and did not show any signifi cant stenosis. Conclusion 1. No significant coronary artery disease 2. Hyperdynamic left ventricle systolic function with ejection fraction estimated at 75%. Recommendations Medical Therapy
[2016-11-09] MEDS: VANCOMYCIN 1 GM in IV NORMAL SALINE 250ML 250 ML IV SCH (18:35)
[2016-11-09 18:58] LABS: CALCIUM 7.7 mg/dL (8.5-10.1); CREATININE 0.6 mg/dL (0.6-1.0); GFR 121.4; MAGNESIUM 1.8 mg/dL (1.8-2.4); PHOSPHORUS 2.2 mg/dL (2.6-4.7); POTASSIUM 3.1 mmol/L (3.5-5.1)
[2016-11-09] MEDS: ENOXAPARIN 40 MG/0.4 ML DISP.SYRIN. SQ SCH (23:02)
[2016-11-10] VITALS (24 sets, daily range): BP systolic 100–139; BP diastolic 43–67
[2016-11-10] MEDS: POTASSIUM CHLORIDE 20MEQ 50 ML IV SCH ×2 (00:39→02:20)
[2016-11-10] MEDS: PIPERACILLIN/TAZOBACTAM 3.375 GM in IV NORMAL SALINE 50ML 50 ML IV SCH ×5 (00:40→23:02)
[2016-11-10] MEDS: DEXTROSE 50% 25 GM / 50ML DISP.SYRIN. IV PRN (01:14)
[2016-11-10] MEDS: IV 1/2 NORMAL SALINE 1,000 ML IV SCH ×3 (05:15→21:05)
[2016-11-10 06:07] LABS: BASO % 0 % (0-3); EOS % 0 % (0-3); HEMATOCRIT 28.7 % (36.0-47.0); HEMOGLOBIN 9.3 g/dL (12.0-15.5); LYMPH # 1.1 x10^3/uL (1.0-4.8); LYMPH % 18 % (24-48); MEAN CORPUSCULAR HEMOGLOBIN 28 pg (25-35); MEAN CORPUSCULAR HGB CONC 33 g/dL (31-37); MEAN CORPUSCULAR VOLUME 87 fL (79-100); MONO % 10 % (0-9); NEUT % 72 % (31-73); PLATELET COUNT 124 x10^3/uL (140-400); RED BLOOD COUNT 3.29 x10^6/uL (3.50-5.40); WHITE BLOOD COUNT 6.2 x10^3/uL (4.0-11.0)
[2016-11-10 06:16] LABS: CALCIUM 7.9 mg/dL (8.5-10.1); CREATININE 0.5 mg/dL (0.6-1.0); GFR 149.8; POTASSIUM 3.9 mmol/L (3.5-5.1)
[2016-11-10] MEDS: VANCOMYCIN 1 GM in IV NORMAL SALINE 250ML 250 ML IV SCH ×2 (06:36→17:56)
[2016-11-10] MEDS: INSULIN ASPART 300 UNITS/3 ML INSULN.PEN SQ SCH ×3 (08:00→18:18)
--- NOTE | 2016-11-10 09:25 | RAD ---
Portable chest, 11/10/2016: History: Cough Comparison is made to a study from 11/07/2016. The ET tube and NG tube have been removed. A right jugular central venous catheter remains in place extending into the superior vena cava. A right-sided transvenous pacemaker is again noted. The heart size and pulmonary vascularity are normal. No pulmonary infiltrates are seen. There is slight blunting of the lateral costophrenic angles. A tiny amount of pleural fluid cannot be excluded. IMPRESSION: 1. The ET tube and NG tube have been removed. 2. No pulmonary infiltrates
--- NOTE | 2016-11-10 09:51 | PDOC ---
PULMONARY PROGRESS NOTES Subjective extubated 11/08 no resp complaints Vitals Vital Signs Date Time Temp Pulse Resp B/P Pulse Ox O2 Delivery O2 Flow Rate FiO2 11/10/16 08:21 Room Air 11/10/16 06:00 76 15 127/53 100 2.0 11/10/16 04:00 98.5 98.5 ROS: No Nausea, No Chest Pain, No Abdominal Pain, No Increase Cough General: Alert, No acute distress Lungs: Clear Cardiovascular: S1 Abdomen: Soft Neuro Exam: Alert Extremities: No Edema Skin: Warm Labs Laboratory Tests Test 11/08/16 10:14 11/08/16 11:24 11/08/16 14:34 11/08/16 14:36 Glucose (Fingerstick) 147mg/dL (70-99) 183mg/dL (70-99) 353mg/dL (70-99) Sodium Level 144mmol/L (136-145) Potassium Level 4.8mmol/L (3.5-5.1) Chloride Level 111mmol/L (98-107) Carbon Dioxide Level 16mmol/L (21-32) Anion Gap 17 (6-14) Blood Urea Nitrogen 14mg/dL (7-20) Creatinine 1.2mg/dL (0.6-1.0) Estimated GFR (Cockcroft-Gault) 54.6 Glucose Level 393mg/dL (70-99) Calcium Level 7.6mg/dL (8.5-10.1) Phosphorus Level 3.0mg/dL (2.6-4.7) Magnesium Level 2.1mg/dL (1.8-2.4) Troponin I Quantitative 0.689ng/mL (0.000-0.055) Test 11/08/16 16:12 11/08/16 17:26 11/08/16 18:39 11/08/16 18:41 Glucose (Fingerstick) 308mg/dL (70-99) 231mg/dL (70-99) 170mg/dL (70-99) Sodium Level 149mmol/L (136-145) Potassium Level 3.1mmol/L (3.5-5.1) Chloride Level 116mmol/L (98-107) Carbon Dioxide Level 21mmol/L (21-32) Anion Gap 12 (6-14) Blood Urea Nitrogen 10mg/dL (7-20) Creatinine 1.1mg/dL (0.6-1.0) Estimated GFR (Cockcroft-Gault) 60.3 Glucose Level 183mg/dL (70-99) Calcium Level 7.3mg/dL (8.5-10.1) Phosphorus Level 1.5mg/dL (2.6-4.7) Test 11/08/16 19:47 11/08/16 20:56 11/08/16 22:00 11/08/16 23:07 Glucose (Fingerstick) 140mg/dL (70-99) 133mg/dL (70-99) 121mg/dL (70-99) 108mg/dL (70-99) Test 11/09/16 00:01 11/09/16 01:11 11/09/16 02:02 11/09/16 03:10 Glucose (Fingerstick) 114mg/dL (70-99) 108mg/dL (70-99) 121mg/dL (70-99) 137mg/dL (70-99) Test 11/09/16 04:00 11/09/16 04:16 11/09/16 05:27 11/09/16 06:30 White Blood Count 9.0x10^3/uL (4.0-11.0) Red Blood Count 3.40x10^6/uL (3.50-5.40) Hemoglobin 9.8g/dL (12.0-15.5) Hematocrit 29.7% (36.0-47.0) Mean Corpuscular Volume 87fL (79-100) Mean Corpuscular Hemoglobin 29pg (25-35) Mean Corpuscular Hemoglobin Concent 33g/dL (31-37) Red Cell Distribution Width 13.9% (11.5-14.5) Platelet Count 133x10^3/uL (140-400) Neutrophils (%) (Auto) 77% (31-73) Lymphocytes (%) (Auto) 11% (24-48) Monocytes (%) (Auto) 12% (0-9) Eosinophils (%) (Auto) 0% (0-3) Basophils (%) (Auto) 0% (0-3) Neutrophils # (Auto) 7.0x10^3uL (1.8-7.7) Lymphocytes # (Auto) 1.0x10^3/uL (1.0-4.8) Monocytes # (Auto) 1.1x10^3/uL (0.0-1.1) Eosinophils # (Auto) 0.0x10^3/uL (0.0-0.7) Basophils # (Auto) 0.0x10^3/uL (0.0-0.2) Sodium Level 146mmol/L (136-145) Potassium Level 3.3mmol/L (3.5-5.1) Chloride Level 116mmol/L (98-107) Carbon Dioxide Level 22mmol/L (21-32) Anion Gap 8 (6-14) Blood Urea Nitrogen 5mg/dL (7-20) Creatinine 0.8mg/dL (0.6-1.0) Estimated GFR (Cockcroft-Gault) 87.1 Glucose Level 168mg/dL (70-99) Calcium Level 7.4mg/dL (8.5-10.1) Phosphorus Level 2.4mg/dL (2.6-4.7) Magnesium Level 1.9mg/dL (1.8-2.4) Glucose (Fingerstick) 157mg/dL (70-99) 151mg/dL (70-99) 141mg/dL (70-99) Test 11/09/16 07:36 11/09/16 08:45 11/09/16 09:58 11/09/16 10:00 Glucose (Fingerstick) 106mg/dL (70-99) 98mg/dL (70-99) 122mg/dL (70-99) Sodium Level 146mmol/L (136-145) Potassium Level 3.3mmol/L (3.5-5.1) Chloride Level 113mmol/L (98-107) Carbon Dioxide Level 22mmol/L (21-32) Anion Gap 11 (6-14) Blood Urea Nitrogen 4mg/dL (7-20) Creatinine 0.6mg/dL (0.6-1.0) Estimated GFR (Cockcroft-Gault) 121.4 Glucose Level 129mg/dL (70-99) Calcium Level 7.6mg/dL (8.5-10.1) Phosphorus Level 2.6mg/dL (2.6-4.7) Magnesium Level 1.8mg/dL (1.8-2.4) Test 11/09/16 12:08 11/09/16 17:30 11/09/16 17:45 11/10/16 01:08 Glucose (Fingerstick) 127mg/dL (70-99) 83mg/dL (70-99) 48mg/dL (70-99) Sodium Level 146mmol/L (136-145) Potassium Level 3.1mmol/L (3.5-5.1) Chloride Level 114mmol/L (98-107) Carbon Dioxide Level 23mmol/L (21-32) Anion Gap 9 (6-14) Blood Urea Nitrogen 3mg/dL (7-20) Creatinine 0.6mg/dL (0.6-1.0) Estimated GFR (Cockcroft-Gault) 121.4 Glucose Level 88mg/dL (70-99) Calcium Level 7.7mg/dL (8.5-10.1) Phosphorus Level 2.2mg/dL (2.6-4.7) Magnesium Level 1.8mg/dL (1.8-2.4) Vancomycin Level Trough 4.1mcg/mL (10.0-20.0) Vancomycin Last Dose Date Vancomycin Last Dose Time Test 11/10/16 01:34 11/10/16 05:17 11/10/16 08:58 Glucose (Fingerstick) 145mg/dL (70-99) 138mg/dL (70-99) White Blood Count 6.2x10^3/uL (4.0-11.0) Red Blood Count 3.29x10^6/uL (3.50-5.40) Hemoglobin 9.3g/dL (12.0-15.5) Hematocrit 28.7% (36.0-47.0) Mean Corpuscular Volume 87fL (79-100) Mean Corpuscular Hemoglobin 28pg (25-35) Mean Corpuscular Hemoglobin Concent 33g/dL (31-37) Red Cell Distribution Width 14.0% (11.5-14.5) Platelet Count 124x10^3/uL (140-400) Neutrophils (%) (Auto) 72% (31-73) Lymphocytes (%) (Auto) 18% (24-48) Monocytes (%) (Auto) 10% (0-9) Eosinophils (%) (Auto) 0% (0-3) Basophils (%) (Auto) 0% (0-3) Neutrophils # (Auto) 4.4x10^3uL (1.8-7.7) Lymphocytes # (Auto) 1.1x10^3/uL (1.0-4.8) Monocytes # (Auto) 0.6x10^3/uL (0.0-1.1) Eosinophils # (Auto) 0.0x10^3/uL (0.0-0.7) Basophils # (Auto) 0.0x10^3/uL (0.0-0.2) Sodium Level 147mmol/L (136-145) Potassium Level 3.9mmol/L (3.5-5.1) Chloride Level 115mmol/L (98-107) Carbon Dioxide Level 25mmol/L (21-32) Anion Gap 7 (6-14) Blood Urea Nitrogen 2mg/dL (7-20) Creatinine 0.5mg/dL (0.6-1.0) Estimated GFR (Cockcroft-Gault) 149.8 Glucose Level 88mg/dL (70-99) Calcium Level 7.9mg/dL (8.5-10.1) Laboratory Tests Test 11/09/16 09:58 11/09/16 10:00 11/09/16 12:08 11/09/16 17:30 Glucose (Fingerstick) 122mg/dL (70-99) 127mg/dL (70-99) Sodium Level 146mmol/L (136-145) 146mmol/L (136-145) Potassium Level 3.3mmol/L (3.5-5.1) 3.1mmol/L (3.5-5.1) Chloride Level 113mmol/L (98-107) 114mmol/L (98-107) Carbon Dioxide Level 22mmol/L (21-32) 23mmol/L (21-32) Anion Gap 11 (6-14) 9 (6-14) Blood Urea Nitrogen 4mg/dL (7-20) 3mg/dL (7-20) Creatinine 0.6mg/dL (0.6-1.0) 0.6mg/dL (0.6-1.0) Estimated GFR (Cockcroft-Gault) 121.4 121.4 Glucose Level 129mg/dL (70-99) 88mg/dL (70-99) Calcium Level 7.6mg/dL (8.5-10.1) 7.7mg/dL (8.5-10.1) Phosphorus Level 2.6mg/dL (2.6-4.7) 2.2mg/dL (2.6-4.7) Magnesium Level 1.8mg/dL (1.8-2.4) 1.8mg/dL (1.8-2.4) Vancomycin Level Trough 4.1mcg/mL (10.0-20.0) Vancomycin Last Dose Date Vancomycin Last Dose Time Test 11/09/16 17:45 11/10/16 01:08 11/10/16 01:34 11/10/16 05:17 Glucose (Fingerstick) 83mg/dL (70-99) 48mg/dL (70-99) 145mg/dL (70-99) White Blood Count 6.2x10^3/uL (4.0-11.0) Red Blood Count 3.29x10^6/uL (3.50-5.40) Hemoglobin 9.3g/dL (12.0-15.5) Hematocrit 28.7% (36.0-47.0) Mean Corpuscular Volume 87fL (79-100) Mean Corpuscular Hemoglobin 28pg (25-35) Mean Corpuscular Hemoglobin Concent 33g/dL (31-37) Red Cell Distribution Width 14.0% (11.5-14.5) Platelet Count 124x10^3/uL (140-400) Neutrophils (%) (Auto) 72% (31-73) Lymphocytes (%) (Auto) 18% (24-48) Monocytes (%) (Auto) 10% (0-9) Eosinophils (%) (Auto) 0% (0-3) Basophils (%) (Auto) 0% (0-3) Neutrophils # (Auto) 4.4x10^3uL (1.8-7.7) Lymphocytes # (Auto) 1.1x10^3/uL (1.0-4.8) Monocytes # (Auto) 0.6x10^3/uL (0.0-1.1) Eosinophils # (Auto) 0.0x10^3/uL (0.0-0.7) Basophils # (Auto) 0.0x10^3/uL (0.0-0.2) Sodium Level 147mmol/L (136-145) Potassium Level 3.9mmol/L (3.5-5.1) Chloride Level 115mmol/L (98-107) Carbon Dioxide Level 25mmol/L (21-32) Anion Gap 7 (6-14) Blood Urea Nitrogen 2mg/dL (7-20) Creatinine 0.5mg/dL (0.6-1.0) Estimated GFR (Cockcroft-Gault) 149.8 Glucose Level 88mg/dL (70-99) Calcium Level 7.9mg/dL (8.5-10.1) Test 11/10/16 08:58 Glucose (Fingerstick) 138mg/dL (70-99) Medications Active Scripts Medications Dose Route/Sig Days Date Category Metformin Hcl Er (Metformin Hcl) 750 Mg Tab.er.24h 1 Tab PO BID 11/08/16 Reported Oxybutynin Chloride Er (Oxybutynin Chloride) 10 Mg Tab.er.24 1 Tab PO DAILY 11/08/16 Reported Tresiba Flextouch U-100 (Insulin Degludec) 100 Unit/1 Ml Insuln.pen 25 Unit SQ DAILY 11/08/16 Reported Folic Acid 1 Mg Tablet 1 Tab PO DAILY 05/28/14 Reported Hydrocodone-Apap 5-325 (Hydrocodone Bit/Acetaminophen) 1 Each Tablet 1-2 Tab PO Q4-6HRS 05/28/14 Reported Glucovance 5-500 Mg Tablet (Glyburide/Metformin Hcl) 1 Each Tablet 2 Tab PO DAILY 05/28/14 Reported Glucovance 5-500 Mg Tablet (Glyburide/Metformin Hcl) 1 Each Tablet 1 Tab PO HS 05/28/14 Reported Losartan-Hctz 100-12.5 Mg Tab (Losartan/Hydrochlorothiazide) 1 Each Tablet 1 Each PO DAILY 05/28/14 Reported Xalatan (Latanoprost) 2.5 Ml Drops 1 Drop EACHEYE QHS 9/15/14 Reported Gabapentin 300 Mg Capsule 300 Mg PO TID 05/28/14 Reported Toprol Xl (Metoprolol Succinate) 50 Mg Tab.er.24h 1 Tab PO DAILY 05/28/14 Reported Impression . 1. Acute respiratory failure secondary to acute encephalopathy from diabetic ketoacidosis. extubated 11/08 2. Severe AG induced metabolic acidosis secondary to diabetic ketoacidosis 3. Hypotension, related to severe dehydration with acute renal failure. improved 4. Met Encephalopathy clearing 5. History of insulin-requiring diabetes and recently started on Trulicity, Plan . ok to transfer out of icu advance diet per PCP d/c dimas will s/o call if needed d/w TIMOTEO Agrawal MD Nov 10, 2016 09:51
[2016-11-10] MEDS: VANCOMYCIN PER PHARMACY MC PRN ×3 (10:08→15:21)
--- NOTE | 2016-11-10 10:38 | PDOC ---
Renal-Progress Notes Subjective Notes Notes NONE History of Present Illness Hx of present illness BETTER Vitals Vitals Vital Signs Date Time Temp Pulse Resp B/P Pulse Ox O2 Delivery O2 Flow Rate FiO2 11/10/16 09:00 88 16 108/55 100 Room Air 11/10/16 08:00 98.4 98.4 11/10/16 07:00 2.0 Weight Weight [ ] I.O. Intake and Output Intake and Output 11/10/16 07:00 Intake Total 893 ml Output Total 2125 ml Balance -1232 ml Intake Oral 0 ml IV Total 893 ml Output Urine Total 2125 ml Labs Labs Laboratory Tests Test 11/09/16 12:08 11/09/16 17:30 11/09/16 17:45 11/10/16 01:08 Glucose (Fingerstick) 127mg/dL (70-99) 83mg/dL (70-99) 48mg/dL (70-99) Sodium Level 146mmol/L (136-145) Potassium Level 3.1mmol/L (3.5-5.1) Chloride Level 114mmol/L (98-107) Carbon Dioxide Level 23mmol/L (21-32) Anion Gap 9 (6-14) Blood Urea Nitrogen 3mg/dL (7-20) Creatinine 0.6mg/dL (0.6-1.0) Estimated GFR (Cockcroft-Gault) 121.4 Glucose Level 88mg/dL (70-99) Calcium Level 7.7mg/dL (8.5-10.1) Phosphorus Level 2.2mg/dL (2.6-4.7) Magnesium Level 1.8mg/dL (1.8-2.4) Vancomycin Level Trough 4.1mcg/mL (10.0-20.0) Vancomycin Last Dose Date Vancomycin Last Dose Time Test 11/10/16 01:34 11/10/16 05:17 11/10/16 08:58 Glucose (Fingerstick) 145mg/dL (70-99) 138mg/dL (70-99) White Blood Count 6.2x10^3/uL (4.0-11.0) Red Blood Count 3.29x10^6/uL (3.50-5.40) Hemoglobin 9.3g/dL (12.0-15.5) Hematocrit 28.7% (36.0-47.0) Mean Corpuscular Volume 87fL (79-100) Mean Corpuscular Hemoglobin 28pg (25-35) Mean Corpuscular Hemoglobin Concent 33g/dL (31-37) Red Cell Distribution Width 14.0% (11.5-14.5) Platelet Count 124x10^3/uL (140-400) Neutrophils (%) (Auto) 72% (31-73) Lymphocytes (%) (Auto) 18% (24-48) Monocytes (%) (Auto) 10% (0-9) Eosinophils (%) (Auto) 0% (0-3) Basophils (%) (Auto) 0% (0-3) Neutrophils # (Auto) 4.4x10^3uL (1.8-7.7) Lymphocytes # (Auto) 1.1x10^3/uL (1.0-4.8) Monocytes # (Auto) 0.6x10^3/uL (0.0-1.1) Eosinophils # (Auto) 0.0x10^3/uL (0.0-0.7) Basophils # (Auto) 0.0x10^3/uL (0.0-0.2) Sodium Level 147mmol/L (136-145) Potassium Level 3.9mmol/L (3.5-5.1) Chloride Level 115mmol/L (98-107) Carbon Dioxide Level 25mmol/L (21-32) Anion Gap 7 (6-14) Blood Urea Nitrogen 2mg/dL (7-20) Creatinine 0.5mg/dL (0.6-1.0) Estimated GFR (Cockcroft-Gault) 149.8 Glucose Level 88mg/dL (70-99) Calcium Level 7.9mg/dL (8.5-10.1) Micro Micro Microbiology 11/08/16 Blood Culture - Preliminary, Resulted NO GROWTH AFTER 2 DAYS Assessment Assessment IMP SAURABH-RESOLVED DKA HYPOKALEMIA HYPERNATREMIA DEHYDRATION PLAN CONT IVF REPLACE K WILL FOLLOW SUSANA FITZPATRICK MD Nov 10, 2016 10:38
[2016-11-10] MEDS: PHENOL ORAL SPRAY 177ML BOTTLE. PO PRN (11:04)
[2016-11-10] MEDS: FENTANYL PF 100 MCG/2 ML VIAL. IV PRN (11:07)
--- NOTE | 2016-11-10 14:43 | PDOC ---
PROGRESS NOTES Chief Complaint Chief Complaint 1. Severe metabolic anion gap acidosis with leukocytosis 2. Diabetic Ketoacidosis 3. Respiratory failure 4. Elevated BNP 5. Elevated Troponin 6. COPD 7. Medication non-compliance 8. bronchitis fu with card. pulm, renal cath neg add levemir 20u qhs, ssi cont ivf still on vanco and zosyn as per card on clear liquid with N/V, advance as tolerated History of Present Illness History of Present Illness Pt seen and examined this AM in ICU. Pt resting in NAD. Pt states that she is "not doing well". Pt responds and opens eyes to verbal commands. Pt not eating yet. cough a lot with sputum VSS- All questions and concerns addressed and answered. Vitals Vitals Vital Signs Date Time Temp Pulse Resp B/P Pulse Ox O2 Delivery O2 Flow Rate FiO2 11/10/16 13:00 98.6 92 20 103/65 100 Room Air 2.0 98.6 Physical Exam General: Alert, Cooperative, No acute distress Heart: Regular rate, Normal S1, Normal S2 Lungs: Clear Abdomen: Soft, No tenderness, No hepatosplenomegaly Extremities: No clubbing, No cyanosis, No edema Skin: No rashes, No breakdown, No significant lesion Labs LABS Laboratory Tests Test 11/09/16 17:30 11/09/16 17:45 11/10/16 01:08 11/10/16 01:34 Sodium Level 146mmol/L (136-145) Potassium Level 3.1mmol/L (3.5-5.1) Chloride Level 114mmol/L (98-107) Carbon Dioxide Level 23mmol/L (21-32) Anion Gap 9 (6-14) Blood Urea Nitrogen 3mg/dL (7-20) Creatinine 0.6mg/dL (0.6-1.0) Estimated GFR (Cockcroft-Gault) 121.4 Glucose Level 88mg/dL (70-99) Calcium Level 7.7mg/dL (8.5-10.1) Phosphorus Level 2.2mg/dL (2.6-4.7) Magnesium Level 1.8mg/dL (1.8-2.4) Vancomycin Level Trough 4.1mcg/mL (10.0-20.0) Vancomycin Last Dose Date Vancomycin Last Dose Time Glucose (Fingerstick) 83mg/dL (70-99) 48mg/dL (70-99) 145mg/dL (70-99) Test 11/10/16 05:17 11/10/16 08:58 11/10/16 12:39 White Blood Count 6.2x10^3/uL (4.0-11.0) Red Blood Count 3.29x10^6/uL (3.50-5.40) Hemoglobin 9.3g/dL (12.0-15.5) Hematocrit 28.7% (36.0-47.0) Mean Corpuscular Volume 87fL (79-100) Mean Corpuscular Hemoglobin 28pg (25-35) Mean Corpuscular Hemoglobin Concent 33g/dL (31-37) Red Cell Distribution Width 14.0% (11.5-14.5) Platelet Count 124x10^3/uL (140-400) Neutrophils (%) (Auto) 72% (31-73) Lymphocytes (%) (Auto) 18% (24-48) Monocytes (%) (Auto) 10% (0-9) Eosinophils (%) (Auto) 0% (0-3) Basophils (%) (Auto) 0% (0-3) Neutrophils # (Auto) 4.4x10^3uL (1.8-7.7) Lymphocytes # (Auto) 1.1x10^3/uL (1.0-4.8) Monocytes # (Auto) 0.6x10^3/uL (0.0-1.1) Eosinophils # (Auto) 0.0x10^3/uL (0.0-0.7) Basophils # (Auto) 0.0x10^3/uL (0.0-0.2) Sodium Level 147mmol/L (136-145) Potassium Level 3.9mmol/L (3.5-5.1) Chloride Level 115mmol/L (98-107) Carbon Dioxide Level 25mmol/L (21-32) Anion Gap 7 (6-14) Blood Urea Nitrogen 2mg/dL (7-20) Creatinine 0.5mg/dL (0.6-1.0) Estimated GFR (Cockcroft-Gault) 149.8 Glucose Level 88mg/dL (70-99) Calcium Level 7.9mg/dL (8.5-10.1) Glucose (Fingerstick) 138mg/dL (70-99) 242mg/dL (70-99) Review of Systems Review of Systems no fever, chills, sob or chest pain Assessment and Plan Assessmemt and Plan Problems Medical Problems: (1) DKA (diabetic ketoacidoses) Status: Acute (2) Lactic acidosis Status: Acute (3) Lethargy Status: Acute Problems: Comment Review of Relevant I have reviewed the following items terese (where applicable) has been applied. Labs Laboratory Tests Test 11/08/16 16:12 11/08/16 17:26 11/08/16 18:39 11/08/16 18:41 Glucose (Fingerstick) 308mg/dL (70-99) 231mg/dL (70-99) 170mg/dL (70-99) Sodium Level 149mmol/L (136-145) Potassium Level 3.1mmol/L (3.5-5.1) Chloride Level 116mmol/L (98-107) Carbon Dioxide Level 21mmol/L (21-32) Anion Gap 12 (6-14) Blood Urea Nitrogen 10mg/dL (7-20) Creatinine 1.1mg/dL (0.6-1.0) Estimated GFR (Cockcroft-Gault) 60.3 Glucose Level 183mg/dL (70-99) Calcium Level 7.3mg/dL (8.5-10.1) Phosphorus Level 1.5mg/dL (2.6-4.7) Test 11/08/16 19:47 11/08/16 20:56 11/08/16 22:00 11/08/16 23:07 Glucose (Fingerstick) 140mg/dL (70-99) 133mg/dL (70-99) 121mg/dL (70-99) 108mg/dL (70-99) Test 11/09/16 00:01 11/09/16 01:11 11/09/16 02:02 11/09/16 03:10 Glucose (Fingerstick) 114mg/dL (70-99) 108mg/dL (70-99) 121mg/dL (70-99) 137mg/dL (70-99) Test 11/09/16 04:00 11/09/16 04:16 11/09/16 05:27 11/09/16 06:30 White Blood Count 9.0x10^3/uL (4.0-11.0) Red Blood Count 3.40x10^6/uL (3.50-5.40) Hemoglobin 9.8g/dL (12.0-15.5) Hematocrit 29.7% (36.0-47.0) Mean Corpuscular Volume 87fL (79-100) Mean Corpuscular Hemoglobin 29pg (25-35) Mean Corpuscular Hemoglobin Concent 33g/dL (31-37) Red Cell Distribution Width 13.9% (11.5-14.5) Platelet Count 133x10^3/uL (140-400) Neutrophils (%) (Auto) 77% (31-73) Lymphocytes (%) (Auto) 11% (24-48) Monocytes (%) (Auto) 12% (0-9) Eosinophils (%) (Auto) 0% (0-3) Basophils (%) (Auto) 0% (0-3) Neutrophils # (Auto) 7.0x10^3uL (1.8-7.7) Lymphocytes # (Auto) 1.0x10^3/uL (1.0-4.8) Monocytes # (Auto) 1.1x10^3/uL (0.0-1.1) Eosinophils # (Auto) 0.0x10^3/uL (0.0-0.7) Basophils # (Auto) 0.0x10^3/uL (0.0-0.2) Sodium Level 146mmol/L (136-145) Potassium Level 3.3mmol/L (3.5-5.1) Chloride Level 116mmol/L (98-107) Carbon Dioxide Level 22mmol/L (21-32) Anion Gap 8 (6-14) Blood Urea Nitrogen 5mg/dL (7-20) Creatinine 0.8mg/dL (0.6-1.0) Estimated GFR (Cockcroft-Gault) 87.1 Glucose Level 168mg/dL (70-99) Calcium Level 7.4mg/dL (8.5-10.1) Phosphorus Level 2.4mg/dL (2.6-4.7) Magnesium Level 1.9mg/dL (1.8-2.4) Glucose (Fingerstick) 157mg/dL (70-99) 151mg/dL (70-99) 141mg/dL (70-99) Test 11/09/16 07:36 11/09/16 08:45 11/09/16 09:58 11/09/16 10:00 Glucose (Fingerstick) 106mg/dL (70-99) 98mg/dL (70-99) 122mg/dL (70-99) Sodium Level 146mmol/L (136-145) Potassium Level 3.3mmol/L (3.5-5.1) Chloride Level 113mmol/L (98-107) Carbon Dioxide Level 22mmol/L (21-32) Anion Gap 11 (6-14) Blood Urea Nitrogen 4mg/dL (7-20) Creatinine 0.6mg/dL (0.6-1.0) Estimated GFR (Cockcroft-Gault) 121.4 Glucose Level 129mg/dL (70-99) Calcium Level 7.6mg/dL (8.5-10.1) Phosphorus Level 2.6mg/dL (2.6-4.7) Magnesium Level 1.8mg/dL (1.8-2.4) Test 11/09/16 12:08 11/09/16 17:30 11/09/16 17:45 11/10/16 01:08 Glucose (Fingerstick) 127mg/dL (70-99) 83mg/dL (70-99) 48mg/dL (70-99) Sodium Level 146mmol/L (136-145) Potassium Level 3.1mmol/L (3.5-5.1) Chloride Level 114mmol/L (98-107) Carbon Dioxide Level 23mmol/L (21-32) Anion Gap 9 (6-14) Blood Urea Nitrogen 3mg/dL (7-20) Creatinine 0.6mg/dL (0.6-1.0) Estimated GFR (Cockcroft-Gault) 121.4 Glucose Level 88mg/dL (70-99) Calcium Level 7.7mg/dL (8.5-10.1) Phosphorus Level 2.2mg/dL (2.6-4.7) Magnesium Level 1.8mg/dL (1.8-2.4) Vancomycin Level Trough 4.1mcg/mL (10.0-20.0) Vancomycin Last Dose Date Vancomycin Last Dose Time Test 11/10/16 01:34 11/10/16 05:17 11/10/16 08:58 11/10/16 12:39 Glucose (Fingerstick) 145mg/dL (70-99) 138mg/dL (70-99) 242mg/dL (70-99) White Blood Count 6.2x10^3/uL (4.0-11.0) Red Blood Count 3.29x10^6/uL (3.50-5.40) Hemoglobin 9.3g/dL (12.0-15.5) Hematocrit 28.7% (36.0-47.0) Mean Corpuscular Volume 87fL (79-100) Mean Corpuscular Hemoglobin 28pg (25-35) Mean Corpuscular Hemoglobin Concent 33g/dL (31-37) Red Cell Distribution Width 14.0% (11.5-14.5) Platelet Count 124x10^3/uL (140-400) Neutrophils (%) (Auto) 72% (31-73) Lymphocytes (%) (Auto) 18% (24-48) Monocytes (%) (Auto) 10% (0-9) Eosinophils (%) (Auto) 0% (0-3) Basophils (%) (Auto) 0% (0-3) Neutrophils # (Auto) 4.4x10^3uL (1.8-7.7) Lymphocytes # (Auto) 1.1x10^3/uL (1.0-4.8) Monocytes # (Auto) 0.6x10^3/uL (0.0-1.1) Eosinophils # (Auto) 0.0x10^3/uL (0.0-0.7) Basophils # (Auto) 0.0x10^3/uL (0.0-0.2) Sodium Level 147mmol/L (136-145) Potassium Level 3.9mmol/L (3.5-5.1) Chloride Level 115mmol/L (98-107) Carbon Dioxide Level 25mmol/L (21-32) Anion Gap 7 (6-14) Blood Urea Nitrogen 2mg/dL (7-20) Creatinine 0.5mg/dL (0.6-1.0) Estimated GFR (Cockcroft-Gault) 149.8 Glucose Level 88mg/dL (70-99) Calcium Level 7.9mg/dL (8.5-10.1) Laboratory Tests Test 11/09/16 17:30 11/09/16 17:45 11/10/16 01:08 11/10/16 01:34 Sodium Level 146mmol/L (136-145) Potassium Level 3.1mmol/L (3.5-5.1) Chloride Level 114mmol/L (98-107) Carbon Dioxide Level 23mmol/L (21-32) Anion Gap 9 (6-14) Blood Urea Nitrogen 3mg/dL (7-20) Creatinine 0.6mg/dL (0.6-1.0) Estimated GFR (Cockcroft-Gault) 121.4 Glucose Level 88mg/dL (70-99) Calcium Level 7.7mg/dL (8.5-10.1) Phosphorus Level 2.2mg/dL (2.6-4.7) Magnesium Level 1.8mg/dL (1.8-2.4) Vancomycin Level Trough 4.1mcg/mL (10.0-20.0) Vancomycin Last Dose Date Vancomycin Last Dose Time Glucose (Fingerstick) 83mg/dL (70-99) 48mg/dL (70-99) 145mg/dL (70-99) Test 11/10/16 05:17 11/10/16 08:58 11/10/16 12:39 White Blood Count 6.2x10^3/uL (4.0-11.0) Red Blood Count 3.29x10^6/uL (3.50-5.40) Hemoglobin 9.3g/dL (12.0-15.5) Hematocrit 28.7% (36.0-47.0) Mean Corpuscular Volume 87fL (79-100) Mean Corpuscular Hemoglobin 28pg (25-35) Mean Corpuscular Hemoglobin Concent 33g/dL (31-37) Red Cell Distribution Width 14.0% (11.5-14.5) Platelet Count 124x10^3/uL (140-400) Neutrophils (%) (Auto) 72% (31-73) Lymphocytes (%) (Auto) 18% (24-48) Monocytes (%) (Auto) 10% (0-9) Eosinophils (%) (Auto) 0% (0-3) Basophils (%) (Auto) 0% (0-3) Neutrophils # (Auto) 4.4x10^3uL (1.8-7.7) Lymphocytes # (Auto) 1.1x10^3/uL (1.0-4.8) Monocytes # (Auto) 0.6x10^3/uL (0.0-1.1) Eosinophils # (Auto) 0.0x10^3/uL (0.0-0.7) Basophils # (Auto) 0.0x10^3/uL (0.0-0.2) Sodium Level 147mmol/L (136-145) Potassium Level 3.9mmol/L (3.5-5.1) Chloride Level 115mmol/L (98-107) Carbon Dioxide Level 25mmol/L (21-32) Anion Gap 7 (6-14) Blood Urea Nitrogen 2mg/dL (7-20) Creatinine 0.5mg/dL (0.6-1.0) Estimated GFR (Cockcroft-Gault) 149.8 Glucose Level 88mg/dL (70-99) Calcium Level 7.9mg/dL (8.5-10.1) Glucose (Fingerstick) 138mg/dL (70-99) 242mg/dL (70-99) Microbiology 11/08/16 Blood Culture - Preliminary, Resulted NO GROWTH AFTER 2 DAYS Medications Current Medications Aspirin 324 mg 324 mg 1X ONCE PO Last administered on 11/07/16 13:20; Start 11/07/16 at 13:00; Stop 11/07/16 at 13:01; Status DC Sodium Chloride 1,000 ml @ 1,000 mls/hr Q1H IV Last administered on 11/07/16 16:15; Start 11/07/16 at 13:20; Stop 11/07/16 at 14:19; Status DC Insulin Human Regular 150 unit/ Sodium Chloride 151.5 ml @ 0 mls/hr CONT PRN PRN IV PER PROTOCOL; Start 11/07/16 at 13:30; Stop 11/08/16 at 10:34; Status DC Potassium Chloride 100 ml @ 100 mls/hr PRN Q1HR PRN IV SEE COMMENTS; Start at 13:30 Potassium Chloride 100 ml @ 100 mls/hr PRN Q1HR PRN IV SEE COMMENTS; Start at 13:30 Potassium Chloride 100 ml @ 100 mls/hr PRN Q1HR PRN IV SEE COMMENTS; Start at 13:30 Sodium Bicarbonate/ Sodium Chloride (Iv Sodium Chloride 0.45%) 1,050 ml @ 500 mls/hr Q2H6M PRN IV SEE COMMENTS Last administered on 11/07/16 15:50; Start at 13:20; Stop 11/07/16 at 20:13; Status DC Ondansetron HCl (Zofran) 4 mg PRN Q8HRS PRN IV NAUSEA/VOMITING Last administered on 11/08/16 12:19; Start 11/07/16 at 13:30; Stop 11/08/16 at 13:29 ; Status DC Morphine Sulfate 2 mg 2 mg PRN Q2HR PRN IV PAIN; Start 11/07/16 at 13:30; Stop 11/08/16 at 13:29; Status DC Sodium Chloride 1,000 ml @ 125 mls/hr Q8H IV Last administered on 11/07/16 22 :53; Start 11/07/16 at 13:23; Stop 11/08/16 at 00:15; Status DC Insulin Human Regular 150 ml @ 0 mls/hr 1X ONCE IV Last administered on 17:00; Start 11/07/16 at 13:30; Stop 11/07/16 at 13:32; Status DC Propofol (Diprivan) 50 ml @ As Directed STK-MED ONCE IV ; Start 11/07/16 at 13: 54; Stop 11/07/16 at 13:55; Status DC Vancomycin HCl 1 each 1 each PRN DAILY PRN MC SEE COMMENTS Last administered on 11/10/16 10:08; Start 11/07/16 at 15:30 Levofloxacin/ Dextrose 100 ml @ 100 mls/hr 1X ONCE IV Last administered on 15:53; Start 11/07/16 at 16:00; Stop 11/07/16 at 17:10; Status DC Lactated Ringer's 500 ml @ 500 mls/hr 1X ONCE IV ; Start 11/07/16 at 16:00; Stop 11/07/16 at 17:10; Status DC Vancomycin HCl/ Sodium Chloride (Iv Sodium Chloride 0.9% 500ml Bag) 500 ml @ 250 mls/hr 1X ONCE IV Last administered on 11/07/16 16:00; Start 11/07/16 at 16:00; Stop 11/07/16 at 17:59; Status DC Sodium Bicarbonate 50 meq STK-MED ONCE .ROUTE ; Start 11/07/16 at 15:43; Stop at 15:44; Status DC Sodium Bicarbonate 150 meq 150 meq 1X ONCE IV Last administered on 11/07/16 15:57; Start 11/07/16 at 16:00; Stop 11/07/16 at 17:10; Status DC Sodium Bicarbonate 50 meq/Sodium Chloride 1,050 ml @ 125 mls/hr Q8H24M IV ; Start 11/07/16 at 17:00; Stop 11/07/16 at 17:00; Status DC Sodium Bicarbonate 50 meq/Sodium Chloride 1,050 ml @ 500 mls/hr Q2H6M PRN IV SEE COMMENTS; Start 11/07/16 at 16:50; Stop 11/07/16 at 20:13; Status DC Vancomycin HCl/ Sodium Chloride (Iv Sodium Chloride 0.9% 500ml Bag) 500 ml @ 250 mls/hr 1X ONCE IV ; Start 11/07/16 at 17:00; Stop 11/07/16 at 18:59; Status Cancel Etomidate (Amidate) 20 mg STK-MED ONCE IV ; Start 11/07/16 at 17:16; Stop at 17:17; Status DC Succinylcholine Chloride 200 mg 200 mg STK-MED ONCE .ROUTE ; Start 11/07/16 at 17:16; Stop 11/07/16 at 17:17; Status DC Vancomycin HCl/ Sodium Chloride (Iv Sodium Chloride 0.9% 250ml) 250 ml @ 250 mls/hr Q24H IV Last administered on 11/09/16 18:35; Start 11/08/16 at 18:00; Stop 11/09/16 at 20:00; Status DC Vancomycin HCl 1 each 1 each 1X ONCE MC Last administered on 11/09/16 17:30; Start 11/09/16 at 17:30; Stop 11/09/16 at 17:31; Status DC Piperacillin Sod/ Tazobactam Sod 3.375 gm/Sodium Chloride 50 ml @ 100 mls/hr Q6HRS IV Last administered on 11/10/16 12:48; Start 11/07/16 at 18:30 Sodium Chloride (Iv Sodium Chloride 0.9% 1000ml Bag) 1,000 ml @ 1,000 mls/hr 1X ONCE IV Last administered on 11/07/16 21:24; Start 11/07/16 at 20:15; Stop 11/07/16 at 21:14; Status DC Fentanyl Citrate 25 mcg 25 mcg PRN Q2HR PRN IV PAIN Last administered on 11:07; Start 11/07/16 at 20:15 Sodium Chloride 1,000 ml @ 1,000 mls/hr ONCE ONCE IV Last administered on 21:44; Start 11/07/16 at 21:45; Stop 11/07/16 at 22:44; Status DC Potassium Chloride 100 ml @ 100 mls/hr PRN Q1HR PRN IV SEE COMMENTS; Start at 23:00 Sodium Phosphate 40 mmol/Dextrose 513.3333 ml @ 83.3 mls/hr 1X PRN PRN IV SEE COMMENTS; Start 11/07/16 at 23:00 Sodium Phosphate 40 mmol/Dextrose 513.3333 ml @ 83.3 mls/hr ONCE ONCE IV Last administered on 11/07/16 23:46; Start 11/07/16 at 23:30; Stop 11/08/16 at 05:39 ; Status DC Potassium Chloride 50 ml @ 50 mls/hr 1X ONCE IV Last administered on 00:11; Start 11/08/16 at 00:00; Stop 11/08/16 at 00:59; Status DC Potassium Chloride 50 ml @ 50 mls/hr Q1H IV Last administered on 11/08/16 02: 05; Start 11/08/16 at 01:00; Stop 11/08/16 at 02:59; Status DC Sodium Chloride 1,000 ml @ 125 mls/hr Q8H IV Last administered on 11/08/16 02 :53; Start 11/08/16 at 00:15; Stop 11/08/16 at 10:34; Status DC Potassium Chloride 50 ml @ 50 mls/hr 1X ONCE IV Last administered on 07:02; Start 11/08/16 at 07:00; Stop 11/08/16 at 07:59; Status DC Potassium Chloride 50 ml @ 50 mls/hr Q1H IV Last administered on 11/08/16 10: 07; Start 11/08/16 at 08:00; Stop 11/08/16 at 09:59; Status DC Potassium Chloride 50 ml @ 50 mls/hr Q1H IV Last administered on 11/08/16 13: 09; Start 11/08/16 at 10:00; Stop 11/08/16 at 11:59; Status DC Magnesium Sulfate/ Dextrose 50 ml @ 25 mls/hr 1X ONCE IV Last administered on 11/08/16 08:30; Start 11/08/16 at 08:00; Stop 11/08/16 at 09:59; Status DC Potassium Phosphate/Sodium Chloride (Potassium Phosphate/Iv Sodium Chloride 0.9 % 100ml) 103.3333 ml @ 51.667 m... Q2H IV Last administered on 11/08/16 10:07 ; Start 11/08/16 at 08:00; Stop 11/08/16 at 09:59; Status DC Dextrose 25 gm PRN Q15MIN PRN IV SEE COMMENTS; Start 11/08/16 at 09:00; Stop at 10:32; Status DC Albuterol Sulfate (Ventolin Neb Soln) 2.5 mg 1X ONCE NEB Last administered on 11/08/16 09:20; Start 11/08/16 at 10:00; Stop 11/08/16 at 10:01; Status DC Insulin Aspart (Novolog) 0-7 UNITS TIDWMEALS SQ Last administered on 11/10/16 12:44; Start 11/08/16 at 12:00 Dextrose 12.5 gm 12.5 gm PRN Q15MIN PRN IV SEE COMMENTS Last administered on 01:14; Start 11/08/16 at 09:45 Dextrose/Sodium Chloride (Iv D5% - 1/2 NS) 1,000 ml @ 250 mls/hr Q4H IV Last administered on 11/09/16 10:05; Start 11/08/16 at 10:30; Stop 11/09/16 at 14:55 ; Status DC Insulin Detemir (Levemir) 20 units DAILY SQ Last administered on 11/09/16 10: 03; Start 11/08/16 at 12:00; Stop 11/10/16 at 08:56; Status DC Throat Lozenges (Chloraseptic) 2 spray PRN Q2HR PRN PO SORE THROAT Last administered on 11/10/16 11:04; Start 11/08/16 at 12:00 Ondansetron HCl (Zofran) 4 mg PRN Q6HRS PRN IV NAUSEA/VOMITING 1ST CHOICE Last administered on 11/09/16 11:55; Start 11/08/16 at 12:15 Prochlorperazine Edisylate (Compazine) 10 mg 1X ONCE IV Last administered on 14:50; Start 11/08/16 at 14:30; Stop 11/08/16 at 14:31; Status DC Insulin Aspart 12 units 12 units 1X ONCE SQ Last administered on 11/08/16 15: 23; Start 11/08/16 at 15:15; Stop 11/08/16 at 15:16; Status DC Insulin Human Regular 150 unit/ Sodium Chloride 151.5 ml @ 0 mls/hr CONT PRN PRN IV PER PROTOCOL Last administered on 11/08/16 17:33; Start 11/08/16 at 17: 00 Potassium Phosphate 13.3 mmol/Sodium Chloride 104.4333 ml @ 100 mls/hr Q1H IV Last administered on 11/08/16 22:42; Start 11/08/16 at 21:00; Stop 11/08/16 at 23:59; Status DC Potassium Chloride 50 ml @ 50 mls/hr 1X ONCE IV ; Start 11/08/16 at 20:30; Stop 11/08/16 at 21:29; Status DC Potassium Chloride (KCl Premix 10meq) 100 ml @ 100 mls/hr Q1H IV Last administered on 11/09/16 01:01; Start 11/08/16 at 20:45; Stop 11/08/16 at 21:44 ; Status DC Prochlorperazine Edisylate (Compazine) 10 mg PRN Q8HRS PRN IV NAUSEA/VOMITING Last administered on 11/09/16 08:09; Start 11/08/16 at 22:30 Nitroglycerin (Nitrostat) 0.4 mg STK-MED ONCE SL ; Start 11/09/16 at 04:42; Stop 11/09/16 at 04:43; Status DC Nitroglycerin 0.4 mg 0.4 mg PRN Q5MIN PRN SL X 3 DOSES FOR CHEST PAIN Last administered on 11/09/16 04:52; Start 11/09/16 at 05:00 Potassium Chloride 50 ml @ 50 mls/hr 1X ONCE IV ; Start 11/09/16 at 06:00; Stop 11/09/16 at 06:23; Status DC Potassium Phosphate 10 mmol/ Sodium Chloride 103.3333 ml @ 51.667 m... Q2H IV Last administered on 11/09/16 10:01; Start 11/09/16 at 06:15; Stop 11/09/16 at 10:14; Status DC Potassium Chloride (KCl Premix 10meq) 100 ml @ 100 mls/hr Q1H IV Last administered on 11/09/16 06:44; Start 11/09/16 at 06:30; Stop 11/09/16 at 07:29 ; Status DC Dextrose 25 gm STK-MED ONCE IV ; Start 11/08/16 at 09:00; Stop 11/09/16 at 08:21 ; Status DC Nitroglycerin (Nitrostat) 0.4 mg STK-MED ONCE SL ; Start 11/09/16 at 05:00; Stop 11/09/16 at 08:22; Status DC Enoxaparin Sodium 40 mg 40 mg QHS SQ Last administered on 11/09/16 23:02; Start 11/09/16 at 21:00 Sodium Chloride (Iv Sodium Chloride 0.45%) 1,000 ml @ 75 mls/hr [id number] IV Last administered on 11/10/16 05:15; Start 11/09/16 at 11:30 Nitroglycerin (Nitroglycerin) 200 mcg STK-MED ONCE .ROUTE ; Start 11/09/16 at 15 :44; Stop 11/09/16 at 15:45; Status DC Verapamil HCl (Verapamil) 5 mg STK-MED ONCE .ROUTE ; Start 11/09/16 at 15:44; Stop 11/09/16 at 15:45; Status DC Heparin Sodium (Porcine) 10,000 unit STK-MED ONCE .ROUTE ; Start 11/09/16 at 15: 44; Stop 11/09/16 at 15:45; Status DC Fentanyl Citrate (Fentanyl 2ml Vial) 100 mcg STK-MED ONCE .ROUTE ; Start at 15:44; Stop 11/09/16 at 15:45; Status DC Midazolam HCl (Versed) 2 mg STK-MED ONCE .ROUTE ; Start 11/09/16 at 15:44; Stop 11/09/16 at 15:45; Status DC Iohexol 100 ml 100 ml STK-MED ONCE .ROUTE ; Start 11/09/16 at 15:49; Stop at 15:50; Status DC Heparin Sodium/ Sodium Chloride 500 ml @ As Directed STK-MED ONCE .ROUTE ; Start 11/09/16 at 15:49; Stop 11/09/16 at 15:50; Status DC Lidocaine HCl 20 ml STK-MED ONCE .ROUTE ; Start 11/09/16 at 15:49; Stop at 15:50; Status DC Nitroglycerin (Nitroglycerin) 200 mcg 1X ONCE IART Last administered on 16:14; Start 11/09/16 at 16:00; Stop 11/09/16 at 16:09; Status DC Verapamil HCl (Verapamil) 2.5 mg 1X ONCE IART Last administered on 11/09/16 16:15; Start 11/09/16 at 16:00; Stop 11/09/16 at 16:09; Status DC Heparin Sodium (Porcine) 2,500 unit 1X ONCE IART Last administered on 16:17; Start 11/09/16 at 16:00; Stop 11/09/16 at 16:09; Status DC Heparin Sodium/ Sodium Chloride 1,000 unit 1X ONCE IART Last administered on 16:16; Start 11/09/16 at 16:00; Stop 11/09/16 at 16:09; Status DC Midazolam HCl (Versed) 1 mg 1X ONCE IV Last administered on 11/09/16 16:15; Start 11/09/16 at 16:00; Stop 11/09/16 at 16:09; Status DC Fentanyl Citrate (Fentanyl 2ml Vial) 50 mcg 1X ONCE IV Last administered on 16:16; Start 11/09/16 at 16:00; Stop 11/09/16 at 16:09; Status DC Iohexol (Omnipaque 300 Mg/ml) 100 ml 1X ONCE IART Last administered on 16:16; Start 11/09/16 at 16:00; Stop 11/09/16 at 16:09; Status DC Lidocaine HCl 1 ml 1X ONCE IJ Last administered on 11/09/16 16:14; Start at 16:00; Stop 11/09/16 at 16:09; Status DC Info 1 each 1 each PRN DAILY PRN MC SEE COMMENTS; Start 11/09/16 at 16:15; Stop 11/11/16 at 16:14 Vancomycin HCl/ Sodium Chloride (Iv Sodium Chloride 0.9% 250ml) 250 ml @ 250 mls/hr Q12H IV Last administered on 11/10/16 06:36; Start 11/10/16 at 06:00 Vancomycin HCl 1 each 1 each 1X ONCE MC ; Start 11/11/16 at 05:30; Stop 11/11/16 at 05:31 Potassium Chloride (KCl Premix 20meq) 50 ml @ 50 mls/hr Q1H IV Last administered on 11/10/16 02:20; Start 11/10/16 at 00:30; Stop 11/10/16 at 02:29 ; Status DC Active Scripts Active Reported Metformin Hcl Er (Metformin Hcl) 750 Mg Tab.er.24h 1 Tab PO BID Oxybutynin Chloride Er (Oxybutynin Chloride) 10 Mg Tab.er.24 1 Tab PO DAILY Tresiba Flextouch U-100 (Insulin Degludec) 100 Unit/1 Ml Insuln.pen 25 Unit SQ DAILY Folic Acid 1 Mg Tablet 1 Tab PO DAILY Hydrocodone-Apap 5-325 (Hydrocodone Bit/Acetaminophen) 1 Each Tablet 1-2 Tab PO Q4-6HRS Glucovance 5-500 Mg Tablet (Glyburide/Metformin Hcl) 1 Each Tablet 2 Tab PO DAILY Glucovance 5-500 Mg Tablet (Glyburide/Metformin Hcl) 1 Each Tablet 1 Tab PO HS Losartan-Hctz 100-12.5 Mg Tab (Losartan/Hydrochlorothiazide) 1 Each Tablet 1 Each PO DAILY Xalatan (Latanoprost) 2.5 Ml Drops 1 Drop EACHEYE QHS Gabapentin 300 Mg Capsule 300 Mg PO TID Toprol Xl (Metoprolol Succinate) 50 Mg Tab.er.24h 1 Tab PO DAILY Vitals/I & O Vital Sign - Last 24 Hours 11/09/16 11/09/16 11/09/16 11/09/16 15:00 16:12 16:15 16:16 Pulse 90 94 94 Resp 24 14 14 B/P 133/85 128/52 Pulse Ox 100 100 100 O2 Delivery Nasal Cannula Nasal Cannula Nasal Cannula O2 Flow Rate 2.0 2.0 2.0 11/09/16 11/09/16 11/09/16 11/09/16 16:30 16:30 16:45 17:00 Temp 98.5 98.5 Pulse 90 94 94 Resp 24 26 B/P 127/52 127/55 130/57 Pulse Ox 95 94 96 O2 Delivery Nasal Cannula Nasal Cannula Nasal Cannula Nasal Cannula O2 Flow Rate 2.0 2.0 2.0 2.0 11/09/16 11/09/16 11/09/16 11/09/16 17:15 17:30 18:00 18:30 Pulse 90 96 96 93 Resp 23 15 B/P 132/54 135/56 138/58 144/81 Pulse Ox 93 97 95 100 O2 Delivery Nasal Cannula Nasal Cannula Nasal Cannula Nasal Cannula O2 Flow Rate 2.0 2.0 2.0 2.0 11/09/16 11/09/16 11/09/16 11/09/16 19:00 20:00 20:00 21:00 Temp 97.9 97.9 Pulse 92 86 96 Resp 32 16 25 B/P 138/65 107/54 122/69 Pulse Ox 100 98 96 O2 Delivery Nasal Cannula Nasal Cannula Nasal Cannula Nasal Cannula O2 Flow Rate 2.0 2.0 2.0 2.0 11/09/16 11/09/16 11/09/16 11/10/16 22:00 23:00 23:01 00:00 Pulse 90 92 Resp 26 25 B/P 136/56 109/72 Pulse Ox 96 100 100 O2 Delivery Nasal Cannula Nasal Cannula Nasal Cannula Nasal Cannula O2 Flow Rate 2.0 2.0 2.0 2.0 11/10/16 11/10/16 11/10/16 11/10/16 00:00 01:00 02:00 03:00 Temp 98.4 98.4 Pulse 84 80 94 84 Resp B/P 105/43 122/49 115/56 119/59 Pulse Ox 100 100 100 100 O2 Delivery Nasal Cannula Nasal Cannula Nasal Cannula Nasal Cannula O2 Flow Rate 2.0 2.0 2.0 2.0 11/10/16 11/10/16 11/10/16 11/10/16 04:00 04:00 05:00 06:00 Temp 98.5 98.5 Pulse 86 94 76 Resp B/P 119/58 127/59 127/53 Pulse Ox 100 100 100 O2 Delivery Nasal Cannula Nasal Cannula Nasal Cannula Nasal Cannula O2 Flow Rate 2.0 2.0 2.0 2.0 11/10/16 11/10/16 11/10/16 11/10/16 07:00 08:00 08:21 09:00 Temp 98.4 98.4 Pulse 80 88 88 Resp B/P 120/55 115/57 108/55 Pulse Ox 100 100 100 O2 Delivery Nasal Cannula Room Air Room Air Room Air O2 Flow Rate 2.0 11/10/16 11/10/16 11/10/16 11/10/16 10:00 11:00 11:07 12:00 Temp 98.4 98.4 98.6 98.4 98.4 98.6 Pulse 74 88 92 Resp B/P 138/60 125/67 130/61 Pulse Ox 99 99 100 99 O2 Delivery Room Air Room Air Room Air Room Air O2 Flow Rate 2.0 2.0 2.0 11/10/16 11/10/16 12:48 13:00 Temp 98.6 98.6 Pulse 92 Resp 20 B/P 103/65 Pulse Ox 100 100 O2 Delivery Room Air Room Air O2 Flow Rate 2.0 Intake and Output 11/09/16 11/09/16 11/10/16 15:00 23:00 07:00 Intake Total 893 ml 0 ml 0 ml Output Total 500 ml 975 ml 650 ml Balance 393 ml -975 ml -650 ml BOB MATHUR MD Nov 10, 2016 14:43
[2016-11-10] MEDS: TRAMADOL 50 MG TABLET. PO PRN (17:58)
[2016-11-10] MEDS: ENOXAPARIN 40 MG/0.4 ML DISP.SYRIN. SQ SCH (20:50)
[2016-11-10] MEDS ORDERED: INSULIN DETEMIR 300 UNITS/3 ML INSULN.PEN. SQ SCH (21:00)
[2016-11-10] MEDS: ONDANSETRON PF 4 MG/2 ML VIAL. IV PRN (22:49)
[2016-11-11] VITALS (17 sets, daily range): BP systolic 93–146; BP diastolic 46–83
[2016-11-11] MEDS: PIPERACILLIN/TAZOBACTAM 3.375 GM in IV NORMAL SALINE 50ML 50 ML IV SCH ×3 (04:39→17:29)
[2016-11-11] MEDS: DEXTROSE 50% 25 GM / 50ML DISP.SYRIN. IV PRN (04:46)
[2016-11-11] MEDS: ACETAMINOPHEN 325 MG TABLET. PO PRN (05:02)
[2016-11-11 05:15] LABS: BASO % 1 % (0-3); EOS % 1 % (0-3); HEMATOCRIT 31.3 % (36.0-47.0); HEMOGLOBIN 10.3 g/dL (12.0-15.5); LYMPH # 1.5 x10^3/uL (1.0-4.8); LYMPH % 25 % (24-48); MEAN CORPUSCULAR HEMOGLOBIN 29 pg (25-35); MEAN CORPUSCULAR HGB CONC 33 g/dL (31-37); MEAN CORPUSCULAR VOLUME 87 fL (79-100); MONO % 10 % (0-9); NEUT % 64 % (31-73); PLATELET COUNT 155 x10^3/uL (140-400)
[2016-11-11] MEDS: VANCOMYCIN 1 GM in IV NORMAL SALINE 250ML 250 ML IV SCH (05:40)
[2016-11-11 05:55] LABS: CALCIUM 8.5 mg/dL (8.5-10.1); CREATININE 0.6 mg/dL (0.6-1.0); GFR 121.4; POTASSIUM 3.2 mmol/L (3.5-5.1)
[2016-11-11] MEDS ORDERED: POTASSIUM CHLORIDE 20MEQ 50 ML IV SCH (06:30)
[2016-11-11] MEDS: VANCOMYCIN PER PHARMACY MC PRN (06:31)
[2016-11-11] MEDS: VANCOMYCIN 1.25 GM in IV NORMAL SALINE 250ML 250 ML IV SCH ×2 (06:37→19:10)
[2016-11-11] MEDS: POTASSIUM CHLORIDE 10MEQ 100 ML IV SCH ×4 (06:37→09:42)
[2016-11-11] MEDS: INSULIN ASPART 300 UNITS/3 ML INSULN.PEN SQ SCH ×4 (08:00→21:51)
[2016-11-11] MEDS ORDERED: NORMAL SALINE IV ONE (09:30)
[2016-11-11] MEDS ORDERED: POTASSIUM PHOSPHATE DIBASIC IV ONE (09:30)
[2016-11-11] MEDS: TRAMADOL 50 MG TABLET. PO PRN (09:45)
--- NOTE | 2016-11-11 14:35 | PDOC ---
PULMONARY PROGRESS NOTES Subjective extubated 11/08 no resp complaints Vitals Vital Signs Date Time Temp Pulse Resp B/P Pulse Ox O2 Delivery O2 Flow Rate FiO2 11/11/16 14:00 98.1 88 12 120/71 99 Room Air 98.1 11/10/16 20:00 2.0 ROS: No Nausea, No Chest Pain, No Abdominal Pain, No Increase Cough General: Alert, No acute distress Lungs: Clear Cardiovascular: S1 Abdomen: Soft Neuro Exam: Alert Extremities: No Edema Skin: Warm Labs Laboratory Tests Test 11/09/16 17:30 11/09/16 17:45 11/10/16 01:08 11/10/16 01:34 Sodium Level 146mmol/L (136-145) Potassium Level 3.1mmol/L (3.5-5.1) Chloride Level 114mmol/L (98-107) Carbon Dioxide Level 23mmol/L (21-32) Anion Gap 9 (6-14) Blood Urea Nitrogen 3mg/dL (7-20) Creatinine 0.6mg/dL (0.6-1.0) Estimated GFR (Cockcroft-Gault) 121.4 Glucose Level 88mg/dL (70-99) Calcium Level 7.7mg/dL (8.5-10.1) Phosphorus Level 2.2mg/dL (2.6-4.7) Magnesium Level 1.8mg/dL (1.8-2.4) Vancomycin Level Trough 4.1mcg/mL (10.0-20.0) Vancomycin Last Dose Date Vancomycin Last Dose Time Glucose (Fingerstick) 83mg/dL (70-99) 48mg/dL (70-99) 145mg/dL (70-99) Test 11/10/16 05:17 11/10/16 08:58 11/10/16 12:39 11/10/16 18:08 White Blood Count 6.2x10^3/uL (4.0-11.0) Red Blood Count 3.29x10^6/uL (3.50-5.40) Hemoglobin 9.3g/dL (12.0-15.5) Hematocrit 28.7% (36.0-47.0) Mean Corpuscular Volume 87fL (79-100) Mean Corpuscular Hemoglobin 28pg (25-35) Mean Corpuscular Hemoglobin Concent 33g/dL (31-37) Red Cell Distribution Width 14.0% (11.5-14.5) Platelet Count 124x10^3/uL (140-400) Neutrophils (%) (Auto) 72% (31-73) Lymphocytes (%) (Auto) 18% (24-48) Monocytes (%) (Auto) 10% (0-9) Eosinophils (%) (Auto) 0% (0-3) Basophils (%) (Auto) 0% (0-3) Neutrophils # (Auto) 4.4x10^3uL (1.8-7.7) Lymphocytes # (Auto) 1.1x10^3/uL (1.0-4.8) Monocytes # (Auto) 0.6x10^3/uL (0.0-1.1) Eosinophils # (Auto) 0.0x10^3/uL (0.0-0.7) Basophils # (Auto) 0.0x10^3/uL (0.0-0.2) Sodium Level 147mmol/L (136-145) Potassium Level 3.9mmol/L (3.5-5.1) Chloride Level 115mmol/L (98-107) Carbon Dioxide Level 25mmol/L (21-32) Anion Gap 7 (6-14) Blood Urea Nitrogen 2mg/dL (7-20) Creatinine 0.5mg/dL (0.6-1.0) Estimated GFR (Cockcroft-Gault) 149.8 Glucose Level 88mg/dL (70-99) Calcium Level 7.9mg/dL (8.5-10.1) Glucose (Fingerstick) 138mg/dL (70-99) 242mg/dL (70-99) 238mg/dL (70-99) Test 11/10/16 20:38 11/11/16 00:46 11/11/16 04:42 11/11/16 04:44 Glucose (Fingerstick) 259mg/dL (70-99) 163mg/dL (70-99) 42mg/dL (70-99) 42mg/dL (70-99) Test 11/11/16 05:00 11/11/16 05:09 11/11/16 07:51 11/11/16 08:31 White Blood Count 6.0x10^3/uL (4.0-11.0) Red Blood Count 3.60x10^6/uL (3.50-5.40) Hemoglobin 10.3g/dL (12.0-15.5) Hematocrit 31.3% (36.0-47.0) Mean Corpuscular Volume 87fL (79-100) Mean Corpuscular Hemoglobin 29pg (25-35) Mean Corpuscular Hemoglobin Concent 33g/dL (31-37) Red Cell Distribution Width 14.0% (11.5-14.5) Platelet Count 155x10^3/uL (140-400) Neutrophils (%) (Auto) 64% (31-73) Lymphocytes (%) (Auto) 25% (24-48) Monocytes (%) (Auto) 10% (0-9) Eosinophils (%) (Auto) 1% (0-3) Basophils (%) (Auto) 1% (0-3) Neutrophils # (Auto) 3.9x10^3uL (1.8-7.7) Lymphocytes # (Auto) 1.5x10^3/uL (1.0-4.8) Monocytes # (Auto) 0.6x10^3/uL (0.0-1.1) Eosinophils # (Auto) 0.0x10^3/uL (0.0-0.7) Basophils # (Auto) 0.0x10^3/uL (0.0-0.2) Sodium Level 147mmol/L (136-145) Potassium Level 3.2mmol/L (3.5-5.1) Chloride Level 112mmol/L (98-107) Carbon Dioxide Level 27mmol/L (21-32) Anion Gap 8 (6-14) Blood Urea Nitrogen 3mg/dL (7-20) Creatinine 0.6mg/dL (0.6-1.0) Estimated GFR (Cockcroft-Gault) 121.4 Glucose Level 49mg/dL (70-99) Calcium Level 8.5mg/dL (8.5-10.1) Phosphorus Level 2.0mg/dL (2.6-4.7) Magnesium Level 2.0mg/dL (1.8-2.4) Vancomycin Level Trough 8.0mcg/mL (10.0-20.0) Vancomycin Last Dose Date 11/10/16 Vancomycin Last Dose Time 1800 Glucose (Fingerstick) 135mg/dL (70-99) 60mg/dL (70-99) 83mg/dL (70-99) Test 11/11/16 13:10 Glucose (Fingerstick) 133mg/dL (70-99) Laboratory Tests Test 11/10/16 18:08 11/10/16 20:38 11/11/16 00:46 11/11/16 04:42 Glucose (Fingerstick) 238mg/dL (70-99) 259mg/dL (70-99) 163mg/dL (70-99) 42mg/dL (70-99) Test 11/11/16 04:44 11/11/16 05:00 11/11/16 05:09 11/11/16 07:51 Glucose (Fingerstick) 42mg/dL (70-99) 135mg/dL (70-99) 60mg/dL (70-99) White Blood Count 6.0x10^3/uL (4.0-11.0) Red Blood Count 3.60x10^6/uL (3.50-5.40) Hemoglobin 10.3g/dL (12.0-15.5) Hematocrit 31.3% (36.0-47.0) Mean Corpuscular Volume 87fL (79-100) Mean Corpuscular Hemoglobin 29pg (25-35) Mean Corpuscular Hemoglobin Concent 33g/dL (31-37) Red Cell Distribution Width 14.0% (11.5-14.5) Platelet Count 155x10^3/uL (140-400) Neutrophils (%) (Auto) 64% (31-73) Lymphocytes (%) (Auto) 25% (24-48) Monocytes (%) (Auto) 10% (0-9) Eosinophils (%) (Auto) 1% (0-3) Basophils (%) (Auto) 1% (0-3) Neutrophils # (Auto) 3.9x10^3uL (1.8-7.7) Lymphocytes # (Auto) 1.5x10^3/uL (1.0-4.8) Monocytes # (Auto) 0.6x10^3/uL (0.0-1.1) Eosinophils # (Auto) 0.0x10^3/uL (0.0-0.7) Basophils # (Auto) 0.0x10^3/uL (0.0-0.2) Sodium Level 147mmol/L (136-145) Potassium Level 3.2mmol/L (3.5-5.1) Chloride Level 112mmol/L (98-107) Carbon Dioxide Level 27mmol/L (21-32) Anion Gap 8 (6-14) Blood Urea Nitrogen 3mg/dL (7-20) Creatinine 0.6mg/dL (0.6-1.0) Estimated GFR (Cockcroft-Gault) 121.4 Glucose Level 49mg/dL (70-99) Calcium Level 8.5mg/dL (8.5-10.1) Phosphorus Level 2.0mg/dL (2.6-4.7) Magnesium Level 2.0mg/dL (1.8-2.4) Vancomycin Level Trough 8.0mcg/mL (10.0-20.0) Vancomycin Last Dose Date 11/10/16 Vancomycin Last Dose Time 1800 Test 11/11/16 08:31 11/11/16 13:10 Glucose (Fingerstick) 83mg/dL (70-99) 133mg/dL (70-99) Medications Active Scripts Medications Dose Route/Sig Days Date Category Metformin Hcl Er (Metformin Hcl) 750 Mg Tab.er.24h 1 Tab PO BID 11/08/16 Reported Oxybutynin Chloride Er (Oxybutynin Chloride) 10 Mg Tab.er.24 1 Tab PO DAILY 11/08/16 Reported Tresiba Flextouch U-100 (Insulin Degludec) 100 Unit/1 Ml Insuln.pen 25 Unit SQ DAILY 11/08/16 Reported Folic Acid 1 Mg Tablet 1 Tab PO DAILY 05/28/14 Reported Hydrocodone-Apap 5-325 (Hydrocodone Bit/Acetaminophen) 1 Each Tablet 1-2 Tab PO Q4-6HRS 05/28/14 Reported Glucovance 5-500 Mg Tablet (Glyburide/Metformin Hcl) 1 Each Tablet 2 Tab PO DAILY 05/28/14 Reported Glucovance 5-500 Mg Tablet (Glyburide/Metformin Hcl) 1 Each Tablet 1 Tab PO HS 05/28/14 Reported Losartan-Hctz 100-12.5 Mg Tab (Losartan/Hydrochlorothiazide) 1 Each Tablet 1 Each PO DAILY 05/28/14 Reported Xalatan (Latanoprost) 2.5 Ml Drops 1 Drop EACHEYE QHS 05/28/14 Reported Gabapentin 300 Mg Capsule 300 Mg PO TID 05/28/14 Reported Toprol Xl (Metoprolol Succinate) 50 Mg Tab.er.24h 1 Tab PO DAILY 05/28/14 Reported Impression . 1. Acute respiratory failure secondary to acute encephalopathy from diabetic ketoacidosis. extubated 11/08 2. Severe AG induced metabolic acidosis secondary to diabetic ketoacidosis 3. Hypotension, related to severe dehydration with acute renal failure. improved 4. Met Encephalopathy clearing 5. History of insulin-requiring diabetes and recently started on Trulicity, Plan . no resp issues ok to transfer out of [facility] advance diet per PCP d/c dimas will s/o call if needed d/w TIMOTEO Agrawal MD Nov 11, 2016 14:35
[2016-11-11] MEDS: IV 1/2 NORMAL SALINE 1,000 ML IV SCH (16:58)
[2016-11-11 17:16] LABS: PHOSPHORUS 2.9 mg/dL (2.6-4.7)
[2016-11-11] MEDS ORDERED: MAG HYDROX/ALUMINUM HYD/SIMETH 30 ML ORAL.SUSP PO PRN (20:30)
[2016-11-11] MEDS: ENOXAPARIN 40 MG/0.4 ML DISP.SYRIN. SQ SCH (21:15)
[2016-11-11] MEDS: INSULIN DETEMIR 300 UNITS/3 ML INSULN.PEN. SQ SCH (21:22)
[2016-11-12 03:23] VITALS: BP 142/71
[2016-11-12] MEDS: PIPERACILLIN/TAZOBACTAM 3.375 GM in IV NORMAL SALINE 50ML 50 ML IV SCH ×4 (06:19→12:04)
[2016-11-12 06:41] LABS: BASO # 0.1 x10^3/uL (0.0-0.2); BASO % 1 % (0-3); EOS % 1 % (0-3); HEMATOCRIT 30.7 % (36.0-47.0); HEMOGLOBIN 10.6 g/dL (12.0-15.5); LYMPH % 20 % (24-48); MEAN CORPUSCULAR HEMOGLOBIN 29 pg (25-35); MEAN CORPUSCULAR HGB CONC 34 g/dL (31-37); MEAN CORPUSCULAR VOLUME 85 fL (79-100); MONO % 14 % (0-9); NEUT % 65 % (31-73); PLATELET COUNT 227 x10^3/uL (140-400); RED BLOOD COUNT 3.61 x10^6/uL (3.50-5.40); RED CELL DISTRIBUTION WIDTH 13.8 % (11.5-14.5); WHITE BLOOD COUNT 5.3 x10^3/uL (4.0-11.0)
[2016-11-12 07:04] LABS: CALCIUM 8.8 mg/dL (8.5-10.1); CREATININE 0.8 mg/dL (0.6-1.0); GFR 87.1; POTASSIUM 3.7 mmol/L (3.5-5.1)
[2016-11-12 07:36] VITALS: BP 158/70
[2016-11-12] MEDS: INSULIN ASPART 300 UNITS/3 ML INSULN.PEN SQ SCH ×4 (08:00→22:24)
[2016-11-12] MEDS: VANCOMYCIN 1.25 GM in IV NORMAL SALINE 250ML 250 ML IV SCH (08:27)
[2016-11-12] MEDS: PANTOPRAZOLE 40 MG TABLET. PO SCH (08:27)
--- NOTE | 2016-11-12 10:15 | PDOC ---
PROGRESS NOTES Chief Complaint Chief Complaint A/P 1. Severe metabolic anion gap acidosis with leukocytosis RESOLVED. 2. Diabetic Ketoacidosis RESOLVED. 3. Respiratory failure RESOLVED. 4. Nausea Plan SSI with 10 units of Levemir bcx no growth, no signs of inaction seen, CXR no acute process IV Zofran PT/OT SSI labs reviwed dehydration better. advance diet as tolerated. History of Present Illness History of Present Illness nausea this AM NO FEVER WORKING WITH PT Vitals Vitals Vital Signs Date Time Temp Pulse Resp B/P Pulse Ox O2 Delivery O2 Flow Rate FiO2 11/12/16 08:00 Room Air 11/12/16 07:36 98.3 90 18 158/70 100 98.3 Physical Exam General: Alert, Oriented X3, Cooperative, No acute distress Heart: Regular rate, Normal S1, Normal S2 Lungs: Clear Abdomen: Soft, No tenderness, No hepatosplenomegaly Extremities: No clubbing, No cyanosis, No edema Skin: No rashes, No breakdown, No significant lesion Labs LABS Laboratory Tests Test 11/11/16 13:10 11/11/16 16:40 11/11/16 16:49 11/11/16 21:14 Glucose (Fingerstick) 133mg/dL (70-99) 145mg/dL (70-99) 328mg/dL (70-99) Potassium Level 4.0mmol/L (3.5-5.1) Phosphorus Level 2.9mg/dL (2.6-4.7) Test 11/12/16 06:10 11/12/16 07:50 White Blood Count 5.3x10^3/uL (4.0-11.0) Red Blood Count 3.61x10^6/uL (3.50-5.40) Hemoglobin 10.6g/dL (12.0-15.5) Hematocrit 30.7% (36.0-47.0) Mean Corpuscular Volume 85fL (79-100) Mean Corpuscular Hemoglobin 29pg (25-35) Mean Corpuscular Hemoglobin Concent 34g/dL (31-37) Red Cell Distribution Width 13.8% (11.5-14.5) Platelet Count 227x10^3/uL (140-400) Neutrophils (%) (Auto) 65% (31-73) Lymphocytes (%) (Auto) 20% (24-48) Monocytes (%) (Auto) 14% (0-9) Eosinophils (%) (Auto) 1% (0-3) Basophils (%) (Auto) 1% (0-3) Neutrophils # (Auto) 3.4x10^3uL (1.8-7.7) Lymphocytes # (Auto) 1.0x10^3/uL (1.0-4.8) Monocytes # (Auto) 0.7x10^3/uL (0.0-1.1) Eosinophils # (Auto) 0.0x10^3/uL (0.0-0.7) Basophils # (Auto) 0.1x10^3/uL (0.0-0.2) Sodium Level 143mmol/L (136-145) Potassium Level 3.7mmol/L (3.5-5.1) Chloride Level 110mmol/L (98-107) Carbon Dioxide Level 25mmol/L (21-32) Anion Gap 8 (6-14) Blood Urea Nitrogen 4mg/dL (7-20) Creatinine 0.8mg/dL (0.6-1.0) Estimated GFR (Cockcroft-Gault) 87.1 Glucose Level 159mg/dL (70-99) Calcium Level 8.8mg/dL (8.5-10.1) Vancomycin Level Trough 16.7mcg/mL (10.0-20.0) Vancomycin Last Dose Date 11/11/16 Vancomycin Last Dose Time 1830 Glucose (Fingerstick) 140mg/dL (70-99) Assessment and Plan Assessmemt and Plan Problems Medical Problems: (1) DKA (diabetic ketoacidoses) Status: Acute (2) Lactic acidosis Status: Acute (3) Lethargy Status: Acute Problems: Comment Review of Relevant I have reviewed the following items terese (where applicable) has been applied. Labs Laboratory Tests Test 11/10/16 12:39 11/10/16 18:08 11/10/16 20:38 11/10/16 21:45 Glucose (Fingerstick) 242mg/dL (70-99) 238mg/dL (70-99) 259mg/dL (70-99) Nasal Screen MRSA (PCR) Negative (Negative) Test 11/11/16 00:46 11/11/16 04:42 11/11/16 04:44 11/11/16 05:00 Glucose (Fingerstick) 163mg/dL (70-99) 42mg/dL (70-99) 42mg/dL (70-99) White Blood Count 6.0x10^3/uL (4.0-11.0) Red Blood Count 3.60x10^6/uL (3.50-5.40) Hemoglobin 10.3g/dL (12.0-15.5) Hematocrit 31.3% (36.0-47.0) Mean Corpuscular Volume 87fL (79-100) Mean Corpuscular Hemoglobin 29pg (25-35) Mean Corpuscular Hemoglobin Concent 33g/dL (31-37) Red Cell Distribution Width 14.0% (11.5-14.5) Platelet Count 155x10^3/uL (140-400) Neutrophils (%) (Auto) 64% (31-73) Lymphocytes (%) (Auto) 25% (24-48) Monocytes (%) (Auto) 10% (0-9) Eosinophils (%) (Auto) 1% (0-3) Basophils (%) (Auto) 1% (0-3) Neutrophils # (Auto) 3.9x10^3uL (1.8-7.7) Lymphocytes # (Auto) 1.5x10^3/uL (1.0-4.8) Monocytes # (Auto) 0.6x10^3/uL (0.0-1.1) Eosinophils # (Auto) 0.0x10^3/uL (0.0-0.7) Basophils # (Auto) 0.0x10^3/uL (0.0-0.2) Sodium Level 147mmol/L (136-145) Potassium Level 3.2mmol/L (3.5-5.1) Chloride Level 112mmol/L (98-107) Carbon Dioxide Level 27mmol/L (21-32) Anion Gap 8 (6-14) Blood Urea Nitrogen 3mg/dL (7-20) Creatinine 0.6mg/dL (0.6-1.0) Estimated GFR (Cockcroft-Gault) 121.4 Glucose Level 49mg/dL (70-99) Calcium Level 8.5mg/dL (8.5-10.1) Phosphorus Level 2.0mg/dL (2.6-4.7) Magnesium Level 2.0mg/dL (1.8-2.4) Vancomycin Level Trough 8.0mcg/mL (10.0-20.0) Vancomycin Last Dose Date 11/10/16 Vancomycin Last Dose Time 1800 Test 11/11/16 05:09 11/11/16 07:51 11/11/16 08:31 11/11/16 13:10 Glucose (Fingerstick) 135mg/dL (70-99) 60mg/dL (70-99) 83mg/dL (70-99) 133mg/dL (70-99) Test 11/11/16 16:40 11/11/16 16:49 11/11/16 21:14 11/12/16 06:10 Potassium Level 4.0mmol/L (3.5-5.1) 3.7mmol/L (3.5-5.1) Phosphorus Level 2.9mg/dL (2.6-4.7) Glucose (Fingerstick) 145mg/dL (70-99) 328mg/dL (70-99) White Blood Count 5.3x10^3/uL (4.0-11.0) Red Blood Count 3.61x10^6/uL (3.50-5.40) Hemoglobin 10.6g/dL (12.0-15.5) Hematocrit 30.7% (36.0-47.0) Mean Corpuscular Volume 85fL (79-100) Mean Corpuscular Hemoglobin 29pg (25-35) Mean Corpuscular Hemoglobin Concent 34g/dL (31-37) Red Cell Distribution Width 13.8% (11.5-14.5) Platelet Count 227x10^3/uL (140-400) Neutrophils (%) (Auto) 65% (31-73) Lymphocytes (%) (Auto) 20% (24-48) Monocytes (%) (Auto) 14% (0-9) Eosinophils (%) (Auto) 1% (0-3) Basophils (%) (Auto) 1% (0-3) Neutrophils # (Auto) 3.4x10^3uL (1.8-7.7) Lymphocytes # (Auto) 1.0x10^3/uL (1.0-4.8) Monocytes # (Auto) 0.7x10^3/uL (0.0-1.1) Eosinophils # (Auto) 0.0x10^3/uL (0.0-0.7) Basophils # (Auto) 0.1x10^3/uL (0.0-0.2) Sodium Level 143mmol/L (136-145) Chloride Level 110mmol/L (98-107) Carbon Dioxide Level 25mmol/L (21-32) Anion Gap 8 (6-14) Blood Urea Nitrogen 4mg/dL (7-20) Creatinine 0.8mg/dL (0.6-1.0) Estimated GFR (Cockcroft-Gault) 87.1 Glucose Level 159mg/dL (70-99) Calcium Level 8.8mg/dL (8.5-10.1) Vancomycin Level Trough 16.7mcg/mL (10.0-20.0) Vancomycin Last Dose Date 11/11/16 Vancomycin Last Dose Time 1830 Test 11/12/16 07:50 Glucose (Fingerstick) 140mg/dL (70-99) Laboratory Tests Test 11/11/16 13:10 11/11/16 16:40 11/11/16 16:49 11/11/16 21:14 Glucose (Fingerstick) 133mg/dL (70-99) 145mg/dL (70-99) 328mg/dL (70-99) Potassium Level 4.0mmol/L (3.5-5.1) Phosphorus Level 2.9mg/dL (2.6-4.7) Test 11/12/16 06:10 11/12/16 07:50 White Blood Count 5.3x10^3/uL (4.0-11.0) Red Blood Count 3.61x10^6/uL (3.50-5.40) Hemoglobin 10.6g/dL (12.0-15.5) Hematocrit 30.7% (36.0-47.0) Mean Corpuscular Volume 85fL (79-100) Mean Corpuscular Hemoglobin 29pg (25-35) Mean Corpuscular Hemoglobin Concent 34g/dL (31-37) Red Cell Distribution Width 13.8% (11.5-14.5) Platelet Count 227x10^3/uL (140-400) Neutrophils (%) (Auto) 65% (31-73) Lymphocytes (%) (Auto) 20% (24-48) Monocytes (%) (Auto) 14% (0-9) Eosinophils (%) (Auto) 1% (0-3) Basophils (%) (Auto) 1% (0-3) Neutrophils # (Auto) 3.4x10^3uL (1.8-7.7) Lymphocytes # (Auto) 1.0x10^3/uL (1.0-4.8) Monocytes # (Auto) 0.7x10^3/uL (0.0-1.1) Eosinophils # (Auto) 0.0x10^3/uL (0.0-0.7) Basophils # (Auto) 0.1x10^3/uL (0.0-0.2) Sodium Level 143mmol/L (136-145) Potassium Level 3.7mmol/L (3.5-5.1) Chloride Level 110mmol/L (98-107) Carbon Dioxide Level 25mmol/L (21-32) Anion Gap 8 (6-14) Blood Urea Nitrogen 4mg/dL (7-20) Creatinine 0.8mg/dL (0.6-1.0) Estimated GFR (Cockcroft-Gault) 87.1 Glucose Level 159mg/dL (70-99) Calcium Level 8.8mg/dL (8.5-10.1) Vancomycin Level Trough 16.7mcg/mL (10.0-20.0) Vancomycin Last Dose Date 11/11/16 Vancomycin Last Dose Time 1830 Glucose (Fingerstick) 140mg/dL (70-99) Microbiology 11/08/16 Blood Culture - Preliminary, Resulted NO GROWTH AFTER 4 DAYS Medications Current Medications Aspirin 324 mg 324 mg 1X ONCE PO Last administered on 11/07/16 13:20; Start 11/07/16 at 13:00; Stop 11/07/16 at 13:01; Status DC Sodium Chloride 1,000 ml @ 1,000 mls/hr Q1H IV Last administered on 11/07/16 16:15; Start 11/07/16 at 13:20; Stop 11/07/16 at 14:19; Status DC Insulin Human Regular 150 unit/ Sodium Chloride 151.5 ml @ 0 mls/hr CONT PRN PRN IV PER PROTOCOL; Start 11/07/16 at 13:30; Stop 11/08/16 at 10:34; Status DC Potassium Chloride 100 ml @ 100 mls/hr PRN Q1HR PRN IV SEE COMMENTS; Start at 13:30 Potassium Chloride 100 ml @ 100 mls/hr PRN Q1HR PRN IV SEE COMMENTS; Start at 13:30 Potassium Chloride 100 ml @ 100 mls/hr PRN Q1HR PRN IV SEE COMMENTS; Start at 13:30 Sodium Bicarbonate/ Sodium Chloride (Iv Sodium Chloride 0.45%) 1,050 ml @ 500 mls/hr Q2H6M PRN IV SEE COMMENTS Last administered on 11/07/16 15:50; Start at 13:20; Stop 11/07/16 at 20:13; Status DC Ondansetron HCl (Zofran) 4 mg PRN Q8HRS PRN IV NAUSEA/VOMITING Last administered on 11/08/16 12:19; Start 11/07/16 at 13:30; Stop 11/08/16 at 13:29 ; Status DC Morphine Sulfate 2 mg 2 mg PRN Q2HR PRN IV PAIN; Start 11/07/16 at 13:30; Stop 11/08/16 at 13:29; Status DC Sodium Chloride 1,000 ml @ 125 mls/hr Q8H IV Last administered on 11/07/16 22 :53; Start 11/07/16 at 13:23; Stop 11/08/16 at 00:15; Status DC Insulin Human Regular 150 ml @ 0 mls/hr 1X ONCE IV Last administered on 17:00; Start 11/07/16 at 13:30; Stop 11/07/16 at 13:32; Status DC Propofol (Diprivan) 50 ml @ As Directed STK-MED ONCE IV ; Start 11/07/16 at 13: 54; Stop 11/07/16 at 13:55; Status DC Vancomycin HCl 1 each 1 each PRN DAILY PRN MC SEE COMMENTS Last administered on 11/11/16 06:31; Start 11/07/16 at 15:30 Levofloxacin/ Dextrose 100 ml @ 100 mls/hr 1X ONCE IV Last administered on 15:53; Start 11/07/16 at 16:00; Stop 11/07/16 at 17:10; Status DC Lactated Ringer's 500 ml @ 500 mls/hr 1X ONCE IV ; Start 11/07/16 at 16:00; Stop 11/07/16 at 17:10; Status DC Vancomycin HCl/ Sodium Chloride (Iv Sodium Chloride 0.9% 500ml Bag) 500 ml @ 250 mls/hr 1X ONCE IV Last administered on 11/07/16 16:00; Start 11/07/16 at 16:00; Stop 11/07/16 at 17:59; Status DC Sodium Bicarbonate 50 meq STK-MED ONCE .ROUTE ; Start 11/07/16 at 15:43; Stop at 15:44; Status DC Sodium Bicarbonate 150 meq 150 meq 1X ONCE IV Last administered on 11/07/16 15:57; Start 11/07/16 at 16:00; Stop 11/07/16 at 17:10; Status DC Sodium Bicarbonate 50 meq/Sodium Chloride 1,050 ml @ 125 mls/hr Q8H24M IV ; Start 11/07/16 at 17:00; Stop 11/07/16 at 17:00; Status DC Sodium Bicarbonate 50 meq/Sodium Chloride 1,050 ml @ 500 mls/hr Q2H6M PRN IV SEE COMMENTS; Start 11/07/16 at 16:50; Stop 11/07/16 at 20:13; Status DC Vancomycin HCl/ Sodium Chloride (Iv Sodium Chloride 0.9% 500ml Bag) 500 ml @ 250 mls/hr 1X ONCE IV ; Start 11/07/16 at 17:00; Stop 11/07/16 at 18:59; Status Cancel Etomidate (Amidate) 20 mg STK-MED ONCE IV ; Start 11/07/16 at 17:16; Stop at 17:17; Status DC Succinylcholine Chloride 200 mg 200 mg STK-MED ONCE .ROUTE ; Start 11/07/16 at 17:16; Stop 11/07/16 at 17:17; Status DC Vancomycin HCl/ Sodium Chloride (Iv Sodium Chloride 0.9% 250ml) 250 ml @ 250 mls/hr Q24H IV Last administered on 11/09/16 18:35; Start 11/08/16 at 18:00; Stop 11/09/16 at 20:00; Status DC Vancomycin HCl 1 each 1 each 1X ONCE MC Last administered on 11/09/16 17:30; Start 11/09/16 at 17:30; Stop 11/09/16 at 17:31; Status DC Piperacillin Sod/ Tazobactam Sod 3.375 gm/Sodium Chloride 50 ml @ 100 mls/hr Q6HRS IV Last administered on 11/12/16 06:19; Start 11/07/16 at 18:30 Sodium Chloride (Iv Sodium Chloride 0.9% 1000ml Bag) 1,000 ml @ 1,000 mls/hr 1X ONCE IV Last administered on 11/07/16 21:24; Start 11/07/16 at 20:15; Stop 11/07/16 at 21:14; Status DC Fentanyl Citrate 25 mcg 25 mcg PRN Q2HR PRN IV PAIN Last administered on 11:07; Start 11/07/16 at 20:15 Sodium Chloride 1,000 ml @ 1,000 mls/hr ONCE ONCE IV Last administered on 21:44; Start 11/07/16 at 21:45; Stop 11/07/16 at 22:44; Status DC Potassium Chloride 100 ml @ 100 mls/hr PRN Q1HR PRN IV SEE COMMENTS; Start at 23:00 Sodium Phosphate 40 mmol/Dextrose 513.3333 ml @ 83.3 mls/hr 1X PRN PRN IV SEE COMMENTS; Start 11/07/16 at 23:00 Sodium Phosphate 40 mmol/Dextrose 513.3333 ml @ 83.3 mls/hr ONCE ONCE IV Last administered on 11/07/16 23:46; Start 11/07/16 at 23:30; Stop 11/08/16 at 05:39 ; Status DC Potassium Chloride 50 ml @ 50 mls/hr 1X ONCE IV Last administered on 00:11; Start 11/08/16 at 00:00; Stop 11/08/16 at 00:59; Status DC Potassium Chloride 50 ml @ 50 mls/hr Q1H IV Last administered on 11/08/16 02: 05; Start 11/08/16 at 01:00; Stop 11/08/16 at 02:59; Status DC Sodium Chloride 1,000 ml @ 125 mls/hr Q8H IV Last administered on 11/08/16 02 :53; Start 11/08/16 at 00:15; Stop 11/08/16 at 10:34; Status DC Potassium Chloride 50 ml @ 50 mls/hr 1X ONCE IV Last administered on 07:02; Start 11/08/16 at 07:00; Stop 11/08/16 at 07:59; Status DC Potassium Chloride 50 ml @ 50 mls/hr Q1H IV Last administered on 11/08/16 10: 07; Start 11/08/16 at 08:00; Stop 11/08/16 at 09:59; Status DC Potassium Chloride 50 ml @ 50 mls/hr Q1H IV Last administered on 11/08/16 13: 09; Start 11/08/16 at 10:00; Stop 11/08/16 at 11:59; Status DC Magnesium Sulfate/ Dextrose 50 ml @ 25 mls/hr 1X ONCE IV Last administered on 11/08/16 08:30; Start 11/08/16 at 08:00; Stop 11/08/16 at 09:59; Status DC Potassium Phosphate/Sodium Chloride (Potassium Phosphate/Iv Sodium Chloride 0.9 % 100ml) 103.3333 ml @ 51.667 m... Q2H IV Last administered on 11/08/16 10:07 ; Start 11/08/16 at 08:00; Stop 11/08/16 at 09:59; Status DC Dextrose 25 gm PRN Q15MIN PRN IV SEE COMMENTS; Start 11/08/16 at 09:00; Stop at 10:32; Status DC Albuterol Sulfate (Ventolin Neb Soln) 2.5 mg 1X ONCE NEB Last administered on 11/08/16 09:20; Start 11/08/16 at 10:00; Stop 11/08/16 at 10:01; Status DC Insulin Aspart (Novolog) 0-7 UNITS TIDWMEALS SQ Last administered on 11/10/16 18:18; Start 11/08/16 at 12:00; Stop 11/11/16 at 21:36; Status DC Dextrose 12.5 gm 12.5 gm PRN Q15MIN PRN IV SEE COMMENTS Last administered on 04:46; Start 11/08/16 at 09:45 Dextrose/Sodium Chloride (Iv D5% - 1/2 NS) 1,000 ml @ 250 mls/hr Q4H IV Last administered on 11/09/16 10:05; Start 11/08/16 at 10:30; Stop 11/09/16 at 14:55 ; Status DC Insulin Detemir (Levemir) 20 units DAILY SQ Last administered on 11/09/16 10: 03; Start 11/08/16 at 12:00; Stop 11/10/16 at 08:56; Status DC Throat Lozenges (Chloraseptic) 2 spray PRN Q2HR PRN PO SORE THROAT Last administered on 11/10/16 11:04; Start 11/08/16 at 12:00 Ondansetron HCl (Zofran) 4 mg PRN Q6HRS PRN IV NAUSEA/VOMITING 1ST CHOICE Last administered on 11/10/16 22:49; Start 11/08/16 at 12:15 Prochlorperazine Edisylate (Compazine) 10 mg 1X ONCE IV Last administered on 14:50; Start 11/08/16 at 14:30; Stop 11/08/16 at 14:31; Status DC Insulin Aspart 12 units 12 units 1X ONCE SQ Last administered on 11/08/16 15: 23; Start 11/08/16 at 15:15; Stop 11/08/16 at 15:16; Status DC Insulin Human Regular 150 unit/ Sodium Chloride 151.5 ml @ 0 mls/hr CONT PRN PRN IV PER PROTOCOL Last administered on 11/08/16 17:33; Start 11/08/16 at 17: 00 Potassium Phosphate 13.3 mmol/Sodium Chloride 104.4333 ml @ 100 mls/hr Q1H IV Last administered on 11/08/16 22:42; Start 11/08/16 at 21:00; Stop 11/08/16 at 23:59; Status DC Potassium Chloride 50 ml @ 50 mls/hr 1X ONCE IV ; Start 11/08/16 at 20:30; Stop 11/08/16 at 21:29; Status DC Potassium Chloride (KCl Premix 10meq) 100 ml @ 100 mls/hr Q1H IV Last administered on 11/09/16 01:01; Start 11/08/16 at 20:45; Stop 11/08/16 at 21:44 ; Status DC Prochlorperazine Edisylate (Compazine) 10 mg PRN Q8HRS PRN IV NAUSEA/VOMITING Last administered on 11/09/16 08:09; Start 11/08/16 at 22:30 Nitroglycerin (Nitrostat) 0.4 mg STK-MED ONCE SL ; Start 11/09/16 at 04:42; Stop 11/09/16 at 04:43; Status DC Nitroglycerin 0.4 mg 0.4 mg PRN Q5MIN PRN SL X 3 DOSES FOR CHEST PAIN Last administered on 11/09/16 04:52; Start 11/09/16 at 05:00 Potassium Chloride 50 ml @ 50 mls/hr 1X ONCE IV ; Start 11/09/16 at 06:00; Stop 11/09/16 at 06:23; Status DC Potassium Phosphate 10 mmol/ Sodium Chloride 103.3333 ml @ 51.667 m... Q2H IV Last administered on 11/09/16 10:01; Start 11/09/16 at 06:15; Stop 11/09/16 at 10:14; Status DC Potassium Chloride (KCl Premix 10meq) 100 ml @ 100 mls/hr Q1H IV Last administered on 11/09/16 06:44; Start 11/09/16 at 06:30; Stop 11/09/16 at 07:29 ; Status DC Dextrose 25 gm STK-MED ONCE IV ; Start 11/08/16 at 09:00; Stop 11/09/16 at 08:21 ; Status DC Nitroglycerin (Nitrostat) 0.4 mg STK-MED ONCE SL ; Start 11/09/16 at 05:00; Stop 11/09/16 at 08:22; Status DC Enoxaparin Sodium 40 mg 40 mg QHS SQ Last administered on 11/11/16 21:15; Start 11/09/16 at 21:00 Sodium Chloride (Iv Sodium Chloride 0.45%) 1,000 ml @ 75 mls/hr [id number] IV Last administered on 11/11/16 16:58; Start 11/09/16 at 11:30 Nitroglycerin (Nitroglycerin) 200 mcg STK-MED ONCE .ROUTE ; Start 11/09/16 at 15 :44; Stop 11/09/16 at 15:45; Status DC Verapamil HCl (Verapamil) 5 mg STK-MED ONCE .ROUTE ; Start 11/09/16 at 15:44; Stop 11/09/16 at 15:45; Status DC Heparin Sodium (Porcine) 10,000 unit STK-MED ONCE .ROUTE ; Start 11/09/16 at 15: 44; Stop 11/09/16 at 15:45; Status DC Fentanyl Citrate (Fentanyl 2ml Vial) 100 mcg STK-MED ONCE .ROUTE ; Start at 15:44; Stop 11/09/16 at 15:45; Status DC Midazolam HCl (Versed) 2 mg STK-MED ONCE .ROUTE ; Start 11/09/16 at 15:44; Stop 11/09/16 at 15:45; Status DC Iohexol 100 ml 100 ml STK-MED ONCE .ROUTE ; Start 11/09/16 at 15:49; Stop at 15:50; Status DC Heparin Sodium/ Sodium Chloride 500 ml @ As Directed STK-MED ONCE .ROUTE ; Start 11/09/16 at 15:49; Stop 11/09/16 at 15:50; Status DC Lidocaine HCl 20 ml STK-MED ONCE .ROUTE ; Start 11/09/16 at 15:49; Stop at 15:50; Status DC Nitroglycerin (Nitroglycerin) 200 mcg 1X ONCE IART Last administered on 16:14; Start 11/09/16 at 16:00; Stop 11/09/16 at 16:09; Status DC Verapamil HCl (Verapamil) 2.5 mg 1X ONCE IART Last administered on 11/09/16 16:15; Start 11/09/16 at 16:00; Stop 11/09/16 at 16:09; Status DC Heparin Sodium (Porcine) 2,500 unit 1X ONCE IART Last administered on 16:17; Start 11/09/16 at 16:00; Stop 11/09/16 at 16:09; Status DC Heparin Sodium/ Sodium Chloride 1,000 unit 1X ONCE IART Last administered on 16:16; Start 11/09/16 at 16:00; Stop 11/09/16 at 16:09; Status DC Midazolam HCl (Versed) 1 mg 1X ONCE IV Last administered on 11/09/16 16:15; Start 11/09/16 at 16:00; Stop 11/09/16 at 16:09; Status DC Fentanyl Citrate (Fentanyl 2ml Vial) 50 mcg 1X ONCE IV Last administered on 16:16; Start 11/09/16 at 16:00; Stop 11/09/16 at 16:09; Status DC Iohexol (Omnipaque 300 Mg/ml) 100 ml 1X ONCE IART Last administered on 16:16; Start 11/09/16 at 16:00; Stop 11/09/16 at 16:09; Status DC Lidocaine HCl 1 ml 1X ONCE IJ Last administered on 11/09/16 16:14; Start at 16:00; Stop 11/09/16 at 16:09; Status DC Info 1 each 1 each PRN DAILY PRN MC SEE COMMENTS; Start 11/09/16 at 16:15; Stop 11/11/16 at 16:14; Status DC Vancomycin HCl/ Sodium Chloride (Iv Sodium Chloride 0.9% 250ml) 250 ml @ 250 mls/hr Q12H IV Last administered on 11/11/16 05:40; Start 11/10/16 at 06:00; Stop 11/11/16 at 06:16; Status DC Vancomycin HCl 1 each 1 each 1X ONCE MC Last administered on 11/11/16 05:30; Start 11/11/16 at 05:30; Stop 11/11/16 at 05:31; Status DC Potassium Chloride (KCl Premix 20meq) 50 ml @ 50 mls/hr Q1H IV Last administered on 11/10/16 02:20; Start 11/10/16 at 00:30; Stop 11/10/16 at 02:29 ; Status DC Insulin Detemir (Levemir) 20 units QHS SQ Last administered on 11/10/16 21:03 ; Start 11/10/16 at 21:00; Stop 11/11/16 at 13:23; Status DC Acetaminophen (Tylenol) 650 mg PRN Q6HRS PRN PO MILD PAIN / TEMP Last administered on 11/11/16 05:02; Start 11/10/16 at 14:45 Tramadol HCl 50 mg 50 mg PRN Q6HRS PRN PO MODERATE - SEVERE PAIN Last administered on 11/11/16 09:45; Start 11/10/16 at 14:45 Vancomycin HCl 1.25 gm/Sodium Chloride 250 ml @ 167 mls/hr Q12H IV Last administered on 11/12/16 08:27; Start 11/11/16 at 06:30 Potassium Chloride (KCl Premix 20meq) 50 ml @ 50 mls/hr Q1H IV ; Start 11/11/16 at 06:30; Stop 11/11/16 at 10:29; Status UNV Vancomycin HCl 1 each 1 each 1X ONCE MC ; Start 11/12/16 at 06:00; Stop 11/12/16 at 06:01; Status DC Potassium Chloride 100 ml @ 100 mls/hr Q1H IV Last administered on 11/11/16 09 :42; Start 11/11/16 at 06:30; Stop 11/11/16 at 10:29; Status DC Potassium Phosphate/Sodium Chloride (Potassium Phosphate/Iv Sodium Chloride 0.9 % 250ml) 253.6667 ml @ 126.... 1X ONCE IV Last administered on 11/11/16 09:43 ; Start 11/11/16 at 09:30; Stop 11/11/16 at 11:29; Status DC Insulin Detemir (Levemir) 10 units QHS SQ Last administered on 11/11/16 21:22; Start 11/11/16 at 21:00 Pantoprazole Sodium (Protonix) 40 mg DAILYAC PO Last administered on 11/12/16 08:27; Start 11/12/16 at 07:30 Al Hydrox/Mg Hydrox/Simethicone (Mylanta Plus Xs) 30 ml PRN BFRMEALHC PRN PO HEARTBURN / GAS Last administered on 11/11/16 21:15; Start 11/11/16 at 20:30 Insulin Aspart (Novolog) 0-7 UNITS TIDWMEALHC SQ Last administered on 11/11/16 21:51; Start 11/11/16 at 21:45 Active Scripts Active Reported Metformin Hcl Er (Metformin Hcl) 750 Mg Tab.er.24h 1 Tab PO BID Oxybutynin Chloride Er (Oxybutynin Chloride) 10 Mg Tab.er.24 1 Tab PO DAILY Tresiba Flextouch U-100 (Insulin Degludec) 100 Unit/1 Ml Insuln.pen 25 Unit SQ DAILY Folic Acid 1 Mg Tablet 1 Tab PO DAILY Hydrocodone-Apap 5-325 (Hydrocodone Bit/Acetaminophen) 1 Each Tablet 1-2 Tab PO Q4-6HRS Glucovance 5-500 Mg Tablet (Glyburide/Metformin Hcl) 1 Each Tablet 2 Tab PO DAILY Glucovance 5-500 Mg Tablet (Glyburide/Metformin Hcl) 1 Each Tablet 1 Tab PO HS Losartan-Hctz 100-12.5 Mg Tab (Losartan/Hydrochlorothiazide) 1 Each Tablet 1 Each PO DAILY Xalatan (Latanoprost) 2.5 Ml Drops 1 Drop EACHEYE QHS Gabapentin 300 Mg Capsule 300 Mg PO TID Toprol Xl (Metoprolol Succinate) 50 Mg Tab.er.24h 1 Tab PO DAILY Vitals/I & O Vital Sign - Last 24 Hours 11/11/16 11/11/16 11/11/16 11/11/16 10:45 11:00 12:00 12:00 Pulse 76 88 Resp 16 12 14 B/P 120/56 128/83 Pulse Ox 99 100 99 O2 Delivery Room Air Room Air Room Air Room Air 11/11/16 11/11/16 11/11/16 11/11/16 14:00 15:53 19:46 19:59 Temp 98.1 98.0 98.5 98.1 98.0 98.5 Pulse 88 92 94 Resp 12 18 18 B/P 120/71 130/65 143/53 Pulse Ox 99 98 100 O2 Delivery Room Air Room Air Room Air Room Air 11/11/16 11/12/16 11/12/16 11/12/16 23:59 03:23 07:36 08:00 Temp 98.6 99.5 98.3 98.6 99.5 98.3 Pulse 90 99 90 Resp 18 18 18 B/P 146/59 142/71 158/70 Pulse Ox 100 100 100 O2 Delivery Room Air Room Air Room Air Room Air Intake and Output 3/1/17 3/1/17 3/2/17 15:00 23:00 07:00 Intake Total 240 ml 600 ml 540 ml Output Total 300 ml 600 ml Balance 240 ml 300 ml -60 ml KENYON PETIT MD Nov 12, 2016 10:15
[2016-11-12 10:32] VITALS: BP 155/68
[2016-11-12] MEDS: ONDANSETRON PF 4 MG/2 ML VIAL. IV PRN (10:42)
[2016-11-12] MEDS: IV 1/2 NORMAL SALINE 1,000 ML IV SCH ×2 (10:42→22:12)
[2016-11-12 14:16] VITALS: BP 151/66
[2016-11-12 19:59] VITALS: BP 160/66
[2016-11-12] MEDS: ACETAMINOPHEN 325 MG TABLET. PO PRN (22:10)
[2016-11-12] MEDS: ENOXAPARIN 40 MG/0.4 ML DISP.SYRIN. SQ SCH (22:13)
[2016-11-12] MEDS: INSULIN DETEMIR 300 UNITS/3 ML INSULN.PEN. SQ SCH (22:23)
[2016-11-12 23:58] VITALS: BP 152/56
[2016-11-13 03:59] VITALS: BP 152/54
[2016-11-13 06:32] LABS: BASO % 1 % (0-3); EOS % 1 % (0-3); HEMATOCRIT 27.4 % (36.0-47.0); LYMPH # 0.9 x10^3/uL (1.0-4.8); LYMPH % 26 % (24-48); MEAN CORPUSCULAR HEMOGLOBIN 29 pg (25-35); MEAN CORPUSCULAR HGB CONC 33 g/dL (31-37); MEAN CORPUSCULAR VOLUME 87 fL (79-100); MONO % 24 % (0-9); NEUT % 48 % (31-73); PLATELET COUNT 278 x10^3/uL (140-400); RED BLOOD COUNT 3.14 x10^6/uL (3.50-5.40); RED CELL DISTRIBUTION WIDTH 13.3 % (11.5-14.5); WHITE BLOOD COUNT 3.5 x10^3/uL (4.0-11.0)
[2016-11-13 06:40] LABS: CALCIUM 8.8 mg/dL (8.5-10.1); CREATININE 0.8 mg/dL (0.6-1.0); GFR 87.1; POTASSIUM 3.2 mmol/L (3.5-5.1)
[2016-11-13 07:33] VITALS: BP 159/75
[2016-11-13] MEDS: INSULIN ASPART 300 UNITS/3 ML INSULN.PEN SQ SCH ×4 (07:58→21:10)
[2016-11-13] MEDS: PANTOPRAZOLE 40 MG TABLET. PO SCH (08:02)
[2016-11-13 10:50] VITALS: BP 156/63
--- NOTE | 2016-11-13 11:09 | PDOC ---
PROGRESS NOTES Chief Complaint Chief Complaint A/P 1. Severe metabolic anion gap acidosis with leukocytosis RESOLVED. 2. Diabetic Ketoacidosis RESOLVED. 3. Respiratory failure RESOLVED. 4. Nausea 5. Hyperglycemia 6. Hypokalemia Plan SNU placement GI consult for intractable nausea. replace potassium SSI with 10 units of Levemir bcx no growth, no signs of infection seen, CXR no acute process IV Zofran PT/OT SSI labs reviwed dehydration better. advance diet as tolerated. spoke with daughter updated provided. History of Present Illness History of Present Illness nausea weak Vitals Vitals Vital Signs Date Time Temp Pulse Resp B/P Pulse Ox O2 Delivery O2 Flow Rate FiO2 11/13/16 10:50 98.3 81 17 156/63 100 Room Air 98.3 Physical Exam General: Alert, Oriented X3, Cooperative, No acute distress Heart: Regular rate, Normal S1, Normal S2 Lungs: Clear Abdomen: Soft, No tenderness, No hepatosplenomegaly Extremities: No clubbing, No cyanosis, No edema Skin: No rashes, No breakdown, No significant lesion Labs LABS Laboratory Tests Test 11/12/16 11:27 11/12/16 16:15 11/12/16 21:46 11/13/16 06:00 Glucose (Fingerstick) 276mg/dL (70-99) 290mg/dL (70-99) 345mg/dL (70-99) White Blood Count 3.5x10^3/uL (4.0-11.0) Red Blood Count 3.14x10^6/uL (3.50-5.40) Hemoglobin 9.0g/dL (12.0-15.5) Hematocrit 27.4% (36.0-47.0) Mean Corpuscular Volume 87fL (79-100) Mean Corpuscular Hemoglobin 29pg (25-35) Mean Corpuscular Hemoglobin Concent 33g/dL (31-37) Red Cell Distribution Width 13.3% (11.5-14.5) Platelet Count 278x10^3/uL (140-400) Neutrophils (%) (Auto) 48% (31-73) Lymphocytes (%) (Auto) 26% (24-48) Monocytes (%) (Auto) 24% (0-9) Eosinophils (%) (Auto) 1% (0-3) Basophils (%) (Auto) 1% (0-3) Neutrophils # (Auto) 1.7x10^3uL (1.8-7.7) Lymphocytes # (Auto) 0.9x10^3/uL (1.0-4.8) Monocytes # (Auto) 0.8x10^3/uL (0.0-1.1) Eosinophils # (Auto) 0.0x10^3/uL (0.0-0.7) Basophils # (Auto) 0.0x10^3/uL (0.0-0.2) Sodium Level 146mmol/L (136-145) Potassium Level 3.2mmol/L (3.5-5.1) Chloride Level 112mmol/L (98-107) Carbon Dioxide Level 27mmol/L (21-32) Anion Gap 7 (6-14) Blood Urea Nitrogen 3mg/dL (7-20) Creatinine 0.8mg/dL (0.6-1.0) Estimated GFR (Cockcroft-Gault) 87.1 Glucose Level 119mg/dL (70-99) Calcium Level 8.8mg/dL (8.5-10.1) Test 11/13/16 07:31 Glucose (Fingerstick) 91mg/dL (70-99) Assessment and Plan Assessmemt and Plan Problems Medical Problems: (1) DKA (diabetic ketoacidoses) Status: Acute (2) Lactic acidosis Status: Acute (3) Lethargy Status: Acute Problems: Comment Review of Relevant I have reviewed the following items terese (where applicable) has been applied. Labs Laboratory Tests Test 11/11/16 13:10 11/11/16 16:40 11/11/16 16:49 11/11/16 21:14 Glucose (Fingerstick) 133mg/dL (70-99) 145mg/dL (70-99) 328mg/dL (70-99) Potassium Level 4.0mmol/L (3.5-5.1) Phosphorus Level 2.9mg/dL (2.6-4.7) Test 11/12/16 06:10 11/12/16 07:50 11/12/16 11:27 11/12/16 16:15 White Blood Count 5.3x10^3/uL (4.0-11.0) Red Blood Count 3.61x10^6/uL (3.50-5.40) Hemoglobin 10.6g/dL (12.0-15.5) Hematocrit 30.7% (36.0-47.0) Mean Corpuscular Volume 85fL (79-100) Mean Corpuscular Hemoglobin 29pg (25-35) Mean Corpuscular Hemoglobin Concent 34g/dL (31-37) Red Cell Distribution Width 13.8% (11.5-14.5) Platelet Count 227x10^3/uL (140-400) Neutrophils (%) (Auto) 65% (31-73) Lymphocytes (%) (Auto) 20% (24-48) Monocytes (%) (Auto) 14% (0-9) Eosinophils (%) (Auto) 1% (0-3) Basophils (%) (Auto) 1% (0-3) Neutrophils # (Auto) 3.4x10^3uL (1.8-7.7) Lymphocytes # (Auto) 1.0x10^3/uL (1.0-4.8) Monocytes # (Auto) 0.7x10^3/uL (0.0-1.1) Eosinophils # (Auto) 0.0x10^3/uL (0.0-0.7) Basophils # (Auto) 0.1x10^3/uL (0.0-0.2) Sodium Level 143mmol/L (136-145) Potassium Level 3.7mmol/L (3.5-5.1) Chloride Level 110mmol/L (98-107) Carbon Dioxide Level 25mmol/L (21-32) Anion Gap 8 (6-14) Blood Urea Nitrogen 4mg/dL (7-20) Creatinine 0.8mg/dL (0.6-1.0) Estimated GFR (Cockcroft-Gault) 87.1 Glucose Level 159mg/dL (70-99) Calcium Level 8.8mg/dL (8.5-10.1) Vancomycin Level Trough 16.7mcg/mL (10.0-20.0) Vancomycin Last Dose Date 11/11/16 Vancomycin Last Dose Time 1830 Glucose (Fingerstick) 140mg/dL (70-99) 276mg/dL (70-99) 290mg/dL (70-99) Test 11/12/16 21:46 11/13/16 06:00 11/13/16 07:31 Glucose (Fingerstick) 345mg/dL (70-99) 91mg/dL (70-99) White Blood Count 3.5x10^3/uL (4.0-11.0) Red Blood Count 3.14x10^6/uL (3.50-5.40) Hemoglobin 9.0g/dL (12.0-15.5) Hematocrit 27.4% (36.0-47.0) Mean Corpuscular Volume 87fL (79-100) Mean Corpuscular Hemoglobin 29pg (25-35) Mean Corpuscular Hemoglobin Concent 33g/dL (31-37) Red Cell Distribution Width 13.3% (11.5-14.5) Platelet Count 278x10^3/uL (140-400) Neutrophils (%) (Auto) 48% (31-73) Lymphocytes (%) (Auto) 26% (24-48) Monocytes (%) (Auto) 24% (0-9) Eosinophils (%) (Auto) 1% (0-3) Basophils (%) (Auto) 1% (0-3) Neutrophils # (Auto) 1.7x10^3uL (1.8-7.7) Lymphocytes # (Auto) 0.9x10^3/uL (1.0-4.8) Monocytes # (Auto) 0.8x10^3/uL (0.0-1.1) Eosinophils # (Auto) 0.0x10^3/uL (0.0-0.7) Basophils # (Auto) 0.0x10^3/uL (0.0-0.2) Sodium Level 146mmol/L (136-145) Potassium Level 3.2mmol/L (3.5-5.1) Chloride Level 112mmol/L (98-107) Carbon Dioxide Level 27mmol/L (21-32) Anion Gap 7 (6-14) Blood Urea Nitrogen 3mg/dL (7-20) Creatinine 0.8mg/dL (0.6-1.0) Estimated GFR (Cockcroft-Gault) 87.1 Glucose Level 119mg/dL (70-99) Calcium Level 8.8mg/dL (8.5-10.1) Laboratory Tests Test 11/12/16 11:27 11/12/16 16:15 11/12/16 21:46 11/13/16 06:00 Glucose (Fingerstick) 276mg/dL (70-99) 290mg/dL (70-99) 345mg/dL (70-99) White Blood Count 3.5x10^3/uL (4.0-11.0) Red Blood Count 3.14x10^6/uL (3.50-5.40) Hemoglobin 9.0g/dL (12.0-15.5) Hematocrit 27.4% (36.0-47.0) Mean Corpuscular Volume 87fL (79-100) Mean Corpuscular Hemoglobin 29pg (25-35) Mean Corpuscular Hemoglobin Concent 33g/dL (31-37) Red Cell Distribution Width 13.3% (11.5-14.5) Platelet Count 278x10^3/uL (140-400) Neutrophils (%) (Auto) 48% (31-73) Lymphocytes (%) (Auto) 26% (24-48) Monocytes (%) (Auto) 24% (0-9) Eosinophils (%) (Auto) 1% (0-3) Basophils (%) (Auto) 1% (0-3) Neutrophils # (Auto) 1.7x10^3uL (1.8-7.7) Lymphocytes # (Auto) 0.9x10^3/uL (1.0-4.8) Monocytes # (Auto) 0.8x10^3/uL (0.0-1.1) Eosinophils # (Auto) 0.0x10^3/uL (0.0-0.7) Basophils # (Auto) 0.0x10^3/uL (0.0-0.2) Sodium Level 146mmol/L (136-145) Potassium Level 3.2mmol/L (3.5-5.1) Chloride Level 112mmol/L (98-107) Carbon Dioxide Level 27mmol/L (21-32) Anion Gap 7 (6-14) Blood Urea Nitrogen 3mg/dL (7-20) Creatinine 0.8mg/dL (0.6-1.0) Estimated GFR (Cockcroft-Gault) 87.1 Glucose Level 119mg/dL (70-99) Calcium Level 8.8mg/dL (8.5-10.1) Test 11/13/16 07:31 Glucose (Fingerstick) 91mg/dL (70-99) Microbiology 11/08/16 Blood Culture - Final, Complete NO GROWTH AFTER 5 DAYS Medications Current Medications Aspirin 324 mg 324 mg 1X ONCE PO Last administered on 11/07/16 13:20; Start 11/07/16 at 13:00; Stop 11/07/16 at 13:01; Status DC Sodium Chloride 1,000 ml @ 1,000 mls/hr Q1H IV Last administered on 11/07/16 16:15; Start 11/07/16 at 13:20; Stop 11/07/16 at 14:19; Status DC Insulin Human Regular 150 unit/ Sodium Chloride 151.5 ml @ 0 mls/hr CONT PRN PRN IV PER PROTOCOL; Start 11/07/16 at 13:30; Stop 11/08/16 at 10:34; Status DC Potassium Chloride 100 ml @ 100 mls/hr PRN Q1HR PRN IV SEE COMMENTS; Start at 13:30 Potassium Chloride 100 ml @ 100 mls/hr PRN Q1HR PRN IV SEE COMMENTS; Start at 13:30 Potassium Chloride 100 ml @ 100 mls/hr PRN Q1HR PRN IV SEE COMMENTS; Start at 13:30 Sodium Bicarbonate/ Sodium Chloride (Iv Sodium Chloride 0.45%) 1,050 ml @ 500 mls/hr Q2H6M PRN IV SEE COMMENTS Last administered on 11/07/16 15:50; Start at 13:20; Stop 11/07/16 at 20:13; Status DC Ondansetron HCl (Zofran) 4 mg PRN Q8HRS PRN IV NAUSEA/VOMITING Last administered on 11/08/16 12:19; Start 11/07/16 at 13:30; Stop 11/08/16 at 13:29 ; Status DC Morphine Sulfate 2 mg 2 mg PRN Q2HR PRN IV PAIN; Start 11/07/16 at 13:30; Stop 11/08/16 at 13:29; Status DC Sodium Chloride 1,000 ml @ 125 mls/hr Q8H IV Last administered on 11/07/16 22 :53; Start 11/07/16 at 13:23; Stop 11/08/16 at 00:15; Status DC Insulin Human Regular 150 ml @ 0 mls/hr 1X ONCE IV Last administered on 17:00; Start 11/07/16 at 13:30; Stop 11/07/16 at 13:32; Status DC Propofol (Diprivan) 50 ml @ As Directed STK-MED ONCE IV ; Start 11/07/16 at 13: 54; Stop 11/07/16 at 13:55; Status DC Vancomycin HCl 1 each 1 each PRN DAILY PRN MC SEE COMMENTS Last administered on 11/11/16 06:31; Start 11/07/16 at 15:30; Stop 11/12/16 at 12:13; Status DC Levofloxacin/ Dextrose 100 ml @ 100 mls/hr 1X ONCE IV Last administered on 15:53; Start 11/07/16 at 16:00; Stop 11/07/16 at 17:10; Status DC Lactated Ringer's 500 ml @ 500 mls/hr 1X ONCE IV ; Start 11/07/16 at 16:00; Stop 11/07/16 at 17:10; Status DC Vancomycin HCl/ Sodium Chloride (Iv Sodium Chloride 0.9% 500ml Bag) 500 ml @ 250 mls/hr 1X ONCE IV Last administered on 11/07/16 16:00; Start 11/07/16 at 16:00; Stop 11/07/16 at 17:59; Status DC Sodium Bicarbonate 50 meq STK-MED ONCE .ROUTE ; Start 11/07/16 at 15:43; Stop at 15:44; Status DC Sodium Bicarbonate 150 meq 150 meq 1X ONCE IV Last administered on 11/07/16 15:57; Start 11/07/16 at 16:00; Stop 11/07/16 at 17:10; Status DC Sodium Bicarbonate 50 meq/Sodium Chloride 1,050 ml @ 125 mls/hr Q8H24M IV ; Start 11/07/16 at 17:00; Stop 11/07/16 at 17:00; Status DC Sodium Bicarbonate 50 meq/Sodium Chloride 1,050 ml @ 500 mls/hr Q2H6M PRN IV SEE COMMENTS; Start 11/07/16 at 16:50; Stop 11/07/16 at 20:13; Status DC Vancomycin HCl/ Sodium Chloride (Iv Sodium Chloride 0.9% 500ml Bag) 500 ml @ 250 mls/hr 1X ONCE IV ; Start 11/07/16 at 17:00; Stop 11/07/16 at 18:59; Status Cancel Etomidate (Amidate) 20 mg STK-MED ONCE IV ; Start 11/07/16 at 17:16; Stop at 17:17; Status DC Succinylcholine Chloride 200 mg 200 mg STK-MED ONCE .ROUTE ; Start 11/07/16 at 17:16; Stop 11/07/16 at 17:17; Status DC Vancomycin HCl/ Sodium Chloride (Iv Sodium Chloride 0.9% 250ml) 250 ml @ 250 mls/hr Q24H IV Last administered on 11/09/16 18:35; Start 11/08/16 at 18:00; Stop 11/09/16 at 20:00; Status DC Vancomycin HCl 1 each 1 each 1X ONCE MC Last administered on 11/09/16 17:30; Start 11/09/16 at 17:30; Stop 11/09/16 at 17:31; Status DC Piperacillin Sod/ Tazobactam Sod 3.375 gm/Sodium Chloride 50 ml @ 100 mls/hr Q6HRS IV Last administered on 11/12/16 12:04; Start 11/07/16 at 18:30; Stop 11/12/16 at 12:11; Status DC Sodium Chloride (Iv Sodium Chloride 0.9% 1000ml Bag) 1,000 ml @ 1,000 mls/hr 1X ONCE IV Last administered on 11/07/16 21:24; Start 11/07/16 at 20:15; Stop 11/07/16 at 21:14; Status DC Fentanyl Citrate 25 mcg 25 mcg PRN Q2HR PRN IV PAIN Last administered on 11:07; Start 11/07/16 at 20:15 Sodium Chloride 1,000 ml @ 1,000 mls/hr ONCE ONCE IV Last administered on 21:44; Start 11/07/16 at 21:45; Stop 11/07/16 at 22:44; Status DC Potassium Chloride 100 ml @ 100 mls/hr PRN Q1HR PRN IV SEE COMMENTS; Start at 23:00 Sodium Phosphate 40 mmol/Dextrose 513.3333 ml @ 83.3 mls/hr 1X PRN PRN IV SEE COMMENTS; Start 11/07/16 at 23:00 Sodium Phosphate 40 mmol/Dextrose 513.3333 ml @ 83.3 mls/hr ONCE ONCE IV Last administered on 11/07/16 23:46; Start 11/07/16 at 23:30; Stop 11/08/16 at 05:39 ; Status DC Potassium Chloride 50 ml @ 50 mls/hr 1X ONCE IV Last administered on 00:11; Start 11/08/16 at 00:00; Stop 11/08/16 at 00:59; Status DC Potassium Chloride 50 ml @ 50 mls/hr Q1H IV Last administered on 11/08/16 02: 05; Start 11/08/16 at 01:00; Stop 11/08/16 at 02:59; Status DC Sodium Chloride 1,000 ml @ 125 mls/hr Q8H IV Last administered on 11/08/16 02 :53; Start 11/08/16 at 00:15; Stop 11/08/16 at 10:34; Status DC Potassium Chloride 50 ml @ 50 mls/hr 1X ONCE IV Last administered on 07:02; Start 11/08/16 at 07:00; Stop 11/08/16 at 07:59; Status DC Potassium Chloride 50 ml @ 50 mls/hr Q1H IV Last administered on 11/08/16 10: 07; Start 11/08/16 at 08:00; Stop 11/08/16 at 09:59; Status DC Potassium Chloride 50 ml @ 50 mls/hr Q1H IV Last administered on 11/08/16 13: 09; Start 11/08/16 at 10:00; Stop 11/08/16 at 11:59; Status DC Magnesium Sulfate/ Dextrose 50 ml @ 25 mls/hr 1X ONCE IV Last administered on 11/08/16 08:30; Start 11/08/16 at 08:00; Stop 11/08/16 at 09:59; Status DC Potassium Phosphate/Sodium Chloride (Potassium Phosphate/Iv Sodium Chloride 0.9 % 100ml) 103.3333 ml @ 51.667 m... Q2H IV Last administered on 11/08/16 10:07 ; Start 11/08/16 at 08:00; Stop 11/08/16 at 09:59; Status DC Dextrose 25 gm PRN Q15MIN PRN IV SEE COMMENTS; Start 11/08/16 at 09:00; Stop at 10:32; Status DC Albuterol Sulfate (Ventolin Neb Soln) 2.5 mg 1X ONCE NEB Last administered on 11/08/16 09:20; Start 11/08/16 at 10:00; Stop 11/08/16 at 10:01; Status DC Insulin Aspart (Novolog) 0-7 UNITS TIDWMEALS SQ Last administered on 11/10/16 18:18; Start 11/08/16 at 12:00; Stop 11/11/16 at 21:36; Status DC Dextrose 12.5 gm 12.5 gm PRN Q15MIN PRN IV SEE COMMENTS Last administered on 04:46; Start 11/08/16 at 09:45 Dextrose/Sodium Chloride (Iv D5% - 1/2 NS) 1,000 ml @ 250 mls/hr Q4H IV Last administered on 11/09/16 10:05; Start 11/08/16 at 10:30; Stop 11/09/16 at 14:55 ; Status DC Insulin Detemir (Levemir) 20 units DAILY SQ Last administered on 11/09/16 10: 03; Start 11/08/16 at 12:00; Stop 11/10/16 at 08:56; Status DC Throat Lozenges (Chloraseptic) 2 spray PRN Q2HR PRN PO SORE THROAT Last administered on 11/10/16 11:04; Start 11/08/16 at 12:00 Ondansetron HCl (Zofran) 4 mg PRN Q6HRS PRN IV NAUSEA/VOMITING 1ST CHOICE Last administered on 11/12/16 10:42; Start 11/08/16 at 12:15 Prochlorperazine Edisylate (Compazine) 10 mg 1X ONCE IV Last administered on 14:50; Start 11/08/16 at 14:30; Stop 11/08/16 at 14:31; Status DC Insulin Aspart 12 units 12 units 1X ONCE SQ Last administered on 11/08/16 15: 23; Start 11/08/16 at 15:15; Stop 11/08/16 at 15:16; Status DC Insulin Human Regular 150 unit/ Sodium Chloride 151.5 ml @ 0 mls/hr CONT PRN PRN IV PER PROTOCOL Last administered on 11/08/16 17:33; Start 11/08/16 at 17: 00 Potassium Phosphate 13.3 mmol/Sodium Chloride 104.4333 ml @ 100 mls/hr Q1H IV Last administered on 11/08/16 22:42; Start 11/08/16 at 21:00; Stop 11/08/16 at 23:59; Status DC Potassium Chloride 50 ml @ 50 mls/hr 1X ONCE IV ; Start 11/08/16 at 20:30; Stop 11/08/16 at 21:29; Status DC Potassium Chloride (KCl Premix 10meq) 100 ml @ 100 mls/hr Q1H IV Last administered on 11/09/16 01:01; Start 11/08/16 at 20:45; Stop 11/08/16 at 21:44 ; Status DC Prochlorperazine Edisylate (Compazine) 10 mg PRN Q8HRS PRN IV NAUSEA/VOMITING Last administered on 11/09/16 08:09; Start 11/08/16 at 22:30 Nitroglycerin (Nitrostat) 0.4 mg STK-MED ONCE SL ; Start 11/09/16 at 04:42; Stop 11/09/16 at 04:43; Status DC Nitroglycerin 0.4 mg 0.4 mg PRN Q5MIN PRN SL X 3 DOSES FOR CHEST PAIN Last administered on 11/09/16 04:52; Start 11/09/16 at 05:00 Potassium Chloride 50 ml @ 50 mls/hr 1X ONCE IV ; Start 11/09/16 at 06:00; Stop 11/09/16 at 06:23; Status DC Potassium Phosphate 10 mmol/ Sodium Chloride 103.3333 ml @ 51.667 m... Q2H IV Last administered on 11/09/16 10:01; Start 11/09/16 at 06:15; Stop 11/09/16 at 10:14; Status DC Potassium Chloride (KCl Premix 10meq) 100 ml @ 100 mls/hr Q1H IV Last administered on 11/09/16 06:44; Start 11/09/16 at 06:30; Stop 11/09/16 at 07:29 ; Status DC Dextrose 25 gm STK-MED ONCE IV ; Start 11/08/16 at 09:00; Stop 11/09/16 at 08:21 ; Status DC Nitroglycerin (Nitrostat) 0.4 mg STK-MED ONCE SL ; Start 11/09/16 at 05:00; Stop 11/09/16 at 08:22; Status DC Enoxaparin Sodium 40 mg 40 mg QHS SQ Last administered on 11/12/16 22:13; Start 11/09/16 at 21:00 Sodium Chloride (Iv Sodium Chloride 0.45%) 1,000 ml @ 75 mls/hr [id number] IV Last administered on 11/12/16 22:12; Start 11/09/16 at 11:30 Nitroglycerin (Nitroglycerin) 200 mcg STK-MED ONCE .ROUTE ; Start 11/09/16 at 15 :44; Stop 11/09/16 at 15:45; Status DC Verapamil HCl (Verapamil) 5 mg STK-MED ONCE .ROUTE ; Start 11/09/16 at 15:44; Stop 11/09/16 at 15:45; Status DC Heparin Sodium (Porcine) 10,000 unit STK-MED ONCE .ROUTE ; Start 11/09/16 at 15: 44; Stop 11/09/16 at 15:45; Status DC Fentanyl Citrate (Fentanyl 2ml Vial) 100 mcg STK-MED ONCE .ROUTE ; Start at 15:44; Stop 11/09/16 at 15:45; Status DC Midazolam HCl (Versed) 2 mg STK-MED ONCE .ROUTE ; Start 11/09/16 at 15:44; Stop 11/09/16 at 15:45; Status DC Iohexol 100 ml 100 ml STK-MED ONCE .ROUTE ; Start 11/09/16 at 15:49; Stop at 15:50; Status DC Heparin Sodium/ Sodium Chloride 500 ml @ As Directed STK-MED ONCE .ROUTE ; Start 11/09/16 at 15:49; Stop 11/09/16 at 15:50; Status DC Lidocaine HCl 20 ml STK-MED ONCE .ROUTE ; Start 11/09/16 at 15:49; Stop at 15:50; Status DC Nitroglycerin (Nitroglycerin) 200 mcg 1X ONCE IART Last administered on 16:14; Start 11/09/16 at 16:00; Stop 11/09/16 at 16:09; Status DC Verapamil HCl (Verapamil) 2.5 mg 1X ONCE IART Last administered on 11/09/16 16:15; Start 11/09/16 at 16:00; Stop 11/09/16 at 16:09; Status DC Heparin Sodium (Porcine) 2,500 unit 1X ONCE IART Last administered on 16:17; Start 11/09/16 at 16:00; Stop 11/09/16 at 16:09; Status DC Heparin Sodium/ Sodium Chloride 1,000 unit 1X ONCE IART Last administered on 16:16; Start 11/09/16 at 16:00; Stop 11/09/16 at 16:09; Status DC Midazolam HCl (Versed) 1 mg 1X ONCE IV Last administered on 11/09/16 16:15; Start 11/09/16 at 16:00; Stop 11/09/16 at 16:09; Status DC Fentanyl Citrate (Fentanyl 2ml Vial) 50 mcg 1X ONCE IV Last administered on 16:16; Start 11/09/16 at 16:00; Stop 11/09/16 at 16:09; Status DC Iohexol (Omnipaque 300 Mg/ml) 100 ml 1X ONCE IART Last administered on 16:16; Start 11/09/16 at 16:00; Stop 11/09/16 at 16:09; Status DC Lidocaine HCl 1 ml 1X ONCE IJ Last administered on 11/09/16 16:14; Start at 16:00; Stop 11/09/16 at 16:09; Status DC Info 1 each 1 each PRN DAILY PRN MC SEE COMMENTS; Start 11/09/16 at 16:15; Stop 11/11/16 at 16:14; Status DC Vancomycin HCl/ Sodium Chloride (Iv Sodium Chloride 0.9% 250ml) 250 ml @ 250 mls/hr Q12H IV Last administered on 11/11/16 05:40; Start 11/10/16 at 06:00; Stop 11/11/16 at 06:16; Status DC Vancomycin HCl 1 each 1 each 1X ONCE MC Last administered on 11/11/16 05:30; Start 11/11/16 at 05:30; Stop 11/11/16 at 05:31; Status DC Potassium Chloride (KCl Premix 20meq) 50 ml @ 50 mls/hr Q1H IV Last administered on 11/10/16 02:20; Start 11/10/16 at 00:30; Stop 11/10/16 at 02:29 ; Status DC Insulin Detemir (Levemir) 20 units QHS SQ Last administered on 11/10/16 21:03 ; Start 11/10/16 at 21:00; Stop 11/11/16 at 13:23; Status DC Acetaminophen (Tylenol) 650 mg PRN Q6HRS PRN PO MILD PAIN / TEMP Last administered on 11/12/16 22:10; Start 11/10/16 at 14:45 Tramadol HCl 50 mg 50 mg PRN Q6HRS PRN PO MODERATE - SEVERE PAIN Last administered on 11/11/16 09:45; Start 11/10/16 at 14:45 Vancomycin HCl 1.25 gm/Sodium Chloride 250 ml @ 167 mls/hr Q12H IV Last administered on 11/12/16 08:27; Start 11/11/16 at 06:30; Stop 11/12/16 at 12:11; Status DC Potassium Chloride (KCl Premix 20meq) 50 ml @ 50 mls/hr Q1H IV ; Start 11/11/16 at 06:30; Stop 11/11/16 at 10:29; Status UNV Vancomycin HCl 1 each 1 each 1X ONCE MC ; Start 11/12/16 at 06:00; Stop 11/12/16 at 06:01; Status DC Potassium Chloride 100 ml @ 100 mls/hr Q1H IV Last administered on 11/11/16 09 :42; Start 11/11/16 at 06:30; Stop 11/11/16 at 10:29; Status DC Potassium Phosphate/Sodium Chloride (Potassium Phosphate/Iv Sodium Chloride 0.9 % 250ml) 253.6667 ml @ 126.... 1X ONCE IV Last administered on 11/11/16 09:43 ; Start 11/11/16 at 09:30; Stop 11/11/16 at 11:29; Status DC Insulin Detemir (Levemir) 10 units QHS SQ Last administered on 11/12/16 22:23; Start 11/11/16 at 21:00 Pantoprazole Sodium (Protonix) 40 mg DAILYAC PO Last administered on 11/13/16 08:02; Start 11/12/16 at 07:30 Al Hydrox/Mg Hydrox/Simethicone (Mylanta Plus Xs) 30 ml PRN BFRMEALHC PRN PO HEARTBURN / GAS Last administered on 11/11/16 21:15; Start 11/11/16 at 20:30 Insulin Aspart (Novolog) 0-7 UNITS TIDWMEALHC SQ Last administered on 11/12/16 22:24; Start 11/11/16 at 21:45 Potassium Chloride (Klor-Con) 40 meq 1X ONCE PO ; Start 11/13/16 at 11:15; Stop 11/13/16 at 11:16; Status UNV Active Scripts Active Reported Metformin Hcl Er (Metformin Hcl) 750 Mg Tab.er.24h 1 Tab PO BID Oxybutynin Chloride Er (Oxybutynin Chloride) 10 Mg Tab.er.24 1 Tab PO DAILY Tresiba Flextouch U-100 (Insulin Degludec) 100 Unit/1 Ml Insuln.pen 25 Unit SQ DAILY Folic Acid 1 Mg Tablet 1 Tab PO DAILY Hydrocodone-Apap 5-325 (Hydrocodone Bit/Acetaminophen) 1 Each Tablet 1-2 Tab PO Q4-6HRS Glucovance 5-500 Mg Tablet (Glyburide/Metformin Hcl) 1 Each Tablet 2 Tab PO DAILY Glucovance 5-500 Mg Tablet (Glyburide/Metformin Hcl) 1 Each Tablet 1 Tab PO HS Losartan-Hctz 100-12.5 Mg Tab (Losartan/Hydrochlorothiazide) 1 Each Tablet 1 Each PO DAILY Xalatan (Latanoprost) 2.5 Ml Drops 1 Drop EACHEYE QHS Gabapentin 300 Mg Capsule 300 Mg PO TID Toprol Xl (Metoprolol Succinate) 50 Mg Tab.er.24h 1 Tab PO DAILY Vitals/I & O Vital Sign - Last 24 Hours 11/12/16 11/12/16 11/12/16 11/12/16 14:16 19:59 20:00 23:58 Temp 97.8 98.9 98.4 97.8 98.9 98.4 Pulse 90 97 89 Resp B/P 151/66 160/66 152/56 Pulse Ox 99 100 100 O2 Delivery Room Air Room Air Room Air Room Air 11/13/16 11/13/16 11/13/16 11/13/16 03:59 07:33 08:00 10:50 Temp 98.4 98.7 98.3 98.4 98.7 98.3 Pulse 79 82 81 Resp B/P 152/54 159/75 156/63 Pulse Ox 100 100 100 O2 Delivery Room Air Room Air Room Air Room Air Intake and Output 11/12/16 11/12/16 11/13/16 15:00 23:00 07:00 Intake Total 1250 ml Output Total 1404 ml Balance -154 ml KENYON PETIT MD Nov 13, 2016 11:09
[2016-11-13] MEDS ORDERED: POTASSIUM CHLORIDE 20 MEQ TABLET.ER. PO ONE (11:30)
[2016-11-13] MEDS ORDERED: CETIRIZINE HCL 10 MG TABLET PO PRN (11:30)
[2016-11-13] MEDS: ONDANSETRON PF 4 MG/2 ML VIAL. IV PRN (11:33)
[2016-11-13] MEDS: POTASSIUM CHLORIDE 10MEQ 100 ML IV SCH ×2 (11:50→13:37)
--- NOTE | 2016-11-13 12:26 | PDOC2 ---
GI CONSULT Reason For Consult: N/v HPI: HPI: 66 y/o female admitted 11/07/16 w/ DKA, acute encephalopathy, and acute resp failure requiring intubation (now extubated). GI consult requested re: n/v. Per RN, vomiting yesterday w/ ongoing nausea today, on full liquids. On PPI and Zofran. Admits to non-compliance w/ DM but plans to do better; her son and daughter had a talk with her last night. Symptoms now are mostly intermittent nausea ( probably mostly occurs 1 hour post-prandially) and retching. Occasional heartburn and diarrhea. She has a little trouble remembering things, so we called her daughter for help. Daughter is actually concerned w/ choking/ coughing while eating. No previous EGD. Believes colonoscopy w/ benign polyp ~ 5 years ago. PMH: PMH: DM (non-compliant), HTN, BARBARA, pacemaker, seizure disorder, RA on Remicade, right knee replacement FH: Family History: No pertinent hx Social History: Smoke: Quit ALCOHOL: none Drugs: None ROS: GEN: Denies fevers, chills, sweats HEENT: Denies blurred vision, sore throat CV: Denies chest pain RESP: Denies shortness of air, cough GI: Per HPI : Denies hematuria, dysuria ENDO: Denies weight changes NEURO: Denies confusion, dizziness MSK: Denies weakness, joint pain/swelling SKIN: Denies jaundice, pruritus VItals: Vitals: Vital Signs Date Time Temp Pulse Resp B/P Pulse Ox O2 Delivery O2 Flow Rate FiO2 11/13/16 10:50 98.3 81 17 156/63 100 Room Air 98.3 Labs: Labs: Laboratory Tests Test 11/12/16 16:15 11/12/16 21:46 11/13/16 06:00 11/13/16 07:31 Glucose (Fingerstick) 290mg/dL (70-99) 345mg/dL (70-99) 91mg/dL (70-99) White Blood Count 3.5x10^3/uL (4.0-11.0) Red Blood Count 3.14x10^6/uL (3.50-5.40) Hemoglobin 9.0g/dL (12.0-15.5) Hematocrit 27.4% (36.0-47.0) Mean Corpuscular Volume 87fL (79-100) Mean Corpuscular Hemoglobin 29pg (25-35) Mean Corpuscular Hemoglobin Concent 33g/dL (31-37) Red Cell Distribution Width 13.3% (11.5-14.5) Platelet Count 278x10^3/uL (140-400) Neutrophils (%) (Auto) 48% (31-73) Lymphocytes (%) (Auto) 26% (24-48) Monocytes (%) (Auto) 24% (0-9) Eosinophils (%) (Auto) 1% (0-3) Basophils (%) (Auto) 1% (0-3) Neutrophils # (Auto) 1.7x10^3uL (1.8-7.7) Lymphocytes # (Auto) 0.9x10^3/uL (1.0-4.8) Monocytes # (Auto) 0.8x10^3/uL (0.0-1.1) Eosinophils # (Auto) 0.0x10^3/uL (0.0-0.7) Basophils # (Auto) 0.0x10^3/uL (0.0-0.2) Sodium Level 146mmol/L (136-145) Potassium Level 3.2mmol/L (3.5-5.1) Chloride Level 112mmol/L (98-107) Carbon Dioxide Level 27mmol/L (21-32) Anion Gap 7 (6-14) Blood Urea Nitrogen 3mg/dL (7-20) Creatinine 0.8mg/dL (0.6-1.0) Estimated GFR (Cockcroft-Gault) 87.1 Glucose Level 119mg/dL (70-99) Calcium Level 8.8mg/dL (8.5-10.1) Test 11/13/16 11:30 Glucose (Fingerstick) 169mg/dL (70-99) Allergies: Coded Allergies: Penicillins (Verified Allergy, Intermediate, 11/08/16) azithromycin (Verified Allergy, Intermediate, 05/28/16) metoprolol (Verified Allergy, Intermediate, 05/28/16) nifedipine (Verified Allergy, Intermediate, 05/28/16) Medications: Current Medications Medications (Trade) Dose Ordered Sig/Thuy Route PRN Reason Start Time Stop Time Status Last Admin Dose Admin Potassium Chloride (KCl Premix 10meq) 100 ml @ 100 mls/hr Q1H IV 11/13/16 12:00 11/13/16 13:59 11/13/16 11:50 Cetirizine HCl (Zyrtec) 10 mg PRN DAILY PRN PO ALLERGIES 11/13/16 11:30 11/13/16 11:50 Imaging: Imaging: Echocardiogram <Conclusion> There is normal left ventricular wall thickness. The left ventricular systolic function is normal and the ejection fraction is within normal range. The Ejection Fraction is 60-65%. No significant valvular disease. PE: GEN: NAD, up to chair HEENT: Atraumatic, PERRL LUNGS: clear anteriorly HEART: RRR ABD: NABS, S/ND/NT EXTREMITY: No edema SKIN: No rashes, no jaundice NEURO/PSYCH: A & O 3 A/P: A/P: Nausea, retching ?dysphagia -coughing/choking while eating per daughter -cleared by CHILDR[employer] PROFESSOR after extubation DKA, resp failure, encephalopathy - improved -extubated, out of ICU CRC screen, h/o polyps -previous colonoscopy 5 years ago -- N/v likely related to DKA/non-compliance, component of diabetic gastroparesis. If unimproved over the weekend, consider abd US and PIPIDA on Wednesday r/o gallbladder disease. If unrevealing, consider EGD, particularly if having issues w/ dysphagia. Discussed in detail w/ pt and daughter via phone. Continue PPI, check A1c. EVE BEAVER Nov 13, 2016 12:26
[2016-11-13] MEDS: IV 1/2 NORMAL SALINE 1,000 ML IV SCH (13:37)
[2016-11-13 14:41] VITALS: BP 145/67
[2016-11-13 19:59] VITALS: BP 146/68
[2016-11-13] MEDS: ENOXAPARIN 40 MG/0.4 ML DISP.SYRIN. SQ SCH (20:55)
[2016-11-13] MEDS: INSULIN DETEMIR 300 UNITS/3 ML INSULN.PEN. SQ SCH (21:11)
[2016-11-13] MEDS: ACETAMINOPHEN 325 MG TABLET. PO PRN (21:22)
[2016-11-13 23:24] VITALS: BP 145/63
[2016-11-14] MEDS: IV 1/2 NORMAL SALINE 1,000 ML IV SCH (02:46)
[2016-11-14 03:59] VITALS: BP 132/62
[2016-11-14 06:01] LABS: BASO % 1 % (0-3); EOS % 1 % (0-3); HEMATOCRIT 25.6 % (36.0-47.0); HEMOGLOBIN 8.3 g/dL (12.0-15.5); LYMPH % 30 % (24-48); MEAN CORPUSCULAR HEMOGLOBIN 28 pg (25-35); MEAN CORPUSCULAR HGB CONC 33 g/dL (31-37); MEAN CORPUSCULAR VOLUME 87 fL (79-100); MONO % 31 % (0-9); NEUT % 36 % (31-73); PLATELET COUNT 322 x10^3/uL (140-400); RED BLOOD COUNT 2.94 x10^6/uL (3.50-5.40); RED CELL DISTRIBUTION WIDTH 13.5 % (11.5-14.5); WHITE BLOOD COUNT 3.3 x10^3/uL (4.0-11.0)
[2016-11-14 06:14] LABS: CALCIUM 8.2 mg/dL (8.5-10.1); CREATININE 0.7 mg/dL (0.6-1.0); GFR 101.6; POTASSIUM 3.1 mmol/L (3.5-5.1)
[2016-11-14 07:10] VITALS: BP 136/90
[2016-11-14] MEDS: INSULIN ASPART 300 UNITS/3 ML INSULN.PEN SQ SCH ×2 (07:44→11:46)
[2016-11-14] MEDS: PANTOPRAZOLE 40 MG TABLET. PO SCH (07:45)
[2016-11-14] MEDS ORDERED: HYDROCODONE/APAP 5/325MG TABLET. PO PRN (09:30)
[2016-11-14] MEDS ORDERED: FOLIC ACID 1 MG TABLET PO SCH (10:00)
[2016-11-14 10:40] VITALS: BP 128/69
--- NOTE | 2016-11-14 11:13 | PDOC ---
G I PROGRESS NOTE Subjective No more nausea and vomiting. Frequent feeling of regurgitation, probably water brash and intermittent dysphagia. Long h/o this at home with typical heartburn , not using any sort of antacid or anti-secretory (uses peppermints which are detrimental). Physical Exam Lungs clear. RRR Abdomen soft, not tender nor distended. Review of Relevant I have reviewed the following items terese (where applicable) has been applied. Labs Laboratory Tests Test 11/12/16 11:27 11/12/16 16:15 11/12/16 21:46 11/13/16 06:00 Glucose (Fingerstick) 276mg/dL (70-99) 290mg/dL (70-99) 345mg/dL (70-99) White Blood Count 3.5x10^3/uL (4.0-11.0) Red Blood Count 3.14x10^6/uL (3.50-5.40) Hemoglobin 9.0g/dL (12.0-15.5) Hematocrit 27.4% (36.0-47.0) Mean Corpuscular Volume 87fL (79-100) Mean Corpuscular Hemoglobin 29pg (25-35) Mean Corpuscular Hemoglobin Concent 33g/dL (31-37) Red Cell Distribution Width 13.3% (11.5-14.5) Platelet Count 278x10^3/uL (140-400) Neutrophils (%) (Auto) 48% (31-73) Lymphocytes (%) (Auto) 26% (24-48) Monocytes (%) (Auto) 24% (0-9) Eosinophils (%) (Auto) 1% (0-3) Basophils (%) (Auto) 1% (0-3) Neutrophils # (Auto) 1.7x10^3uL (1.8-7.7) Lymphocytes # (Auto) 0.9x10^3/uL (1.0-4.8) Monocytes # (Auto) 0.8x10^3/uL (0.0-1.1) Eosinophils # (Auto) 0.0x10^3/uL (0.0-0.7) Basophils # (Auto) 0.0x10^3/uL (0.0-0.2) Sodium Level 146mmol/L (136-145) Potassium Level 3.2mmol/L (3.5-5.1) Chloride Level 112mmol/L (98-107) Carbon Dioxide Level 27mmol/L (21-32) Anion Gap 7 (6-14) Blood Urea Nitrogen 3mg/dL (7-20) Creatinine 0.8mg/dL (0.6-1.0) Estimated GFR (Cockcroft-Gault) 87.1 Glucose Level 119mg/dL (70-99) Calcium Level 8.8mg/dL (8.5-10.1) Test 11/13/16 07:31 11/13/16 11:30 11/13/16 20:20 11/14/16 05:45 Glucose (Fingerstick) 91mg/dL (70-99) 169mg/dL (70-99) 327mg/dL (70-99) White Blood Count 3.3x10^3/uL (4.0-11.0) Red Blood Count 2.94x10^6/uL (3.50-5.40) Hemoglobin 8.3g/dL (12.0-15.5) Hematocrit 25.6% (36.0-47.0) Mean Corpuscular Volume 87fL (79-100) Mean Corpuscular Hemoglobin 28pg (25-35) Mean Corpuscular Hemoglobin Concent 33g/dL (31-37) Red Cell Distribution Width 13.5% (11.5-14.5) Platelet Count 322x10^3/uL (140-400) Neutrophils (%) (Auto) 36% (31-73) Lymphocytes (%) (Auto) 30% (24-48) Monocytes (%) (Auto) 31% (0-9) Eosinophils (%) (Auto) 1% (0-3) Basophils (%) (Auto) 1% (0-3) Neutrophils # (Auto) 1.2x10^3uL (1.8-7.7) Lymphocytes # (Auto) 1.0x10^3/uL (1.0-4.8) Monocytes # (Auto) 1.0x10^3/uL (0.0-1.1) Eosinophils # (Auto) 0.0x10^3/uL (0.0-0.7) Basophils # (Auto) 0.0x10^3/uL (0.0-0.2) Sodium Level 146mmol/L (136-145) Potassium Level 3.1mmol/L (3.5-5.1) Chloride Level 112mmol/L (98-107) Carbon Dioxide Level 29mmol/L (21-32) Anion Gap 5 (6-14) Blood Urea Nitrogen 4mg/dL (7-20) Creatinine 0.7mg/dL (0.6-1.0) Estimated GFR (Cockcroft-Gault) 101.6 Glucose Level 117mg/dL (70-99) Calcium Level 8.2mg/dL (8.5-10.1) Test 11/14/16 07:17 Glucose (Fingerstick) 102mg/dL (70-99) Laboratory Tests Test 11/13/16 11:30 11/13/16 20:20 11/14/16 05:45 11/14/16 07:17 Glucose (Fingerstick) 169mg/dL (70-99) 327mg/dL (70-99) 102mg/dL (70-99) White Blood Count 3.3x10^3/uL (4.0-11.0) Red Blood Count 2.94x10^6/uL (3.50-5.40) Hemoglobin 8.3g/dL (12.0-15.5) Hematocrit 25.6% (36.0-47.0) Mean Corpuscular Volume 87fL (79-100) Mean Corpuscular Hemoglobin 28pg (25-35) Mean Corpuscular Hemoglobin Concent 33g/dL (31-37) Red Cell Distribution Width 13.5% (11.5-14.5) Platelet Count 322x10^3/uL (140-400) Neutrophils (%) (Auto) 36% (31-73) Lymphocytes (%) (Auto) 30% (24-48) Monocytes (%) (Auto) 31% (0-9) Eosinophils (%) (Auto) 1% (0-3) Basophils (%) (Auto) 1% (0-3) Neutrophils # (Auto) 1.2x10^3uL (1.8-7.7) Lymphocytes # (Auto) 1.0x10^3/uL (1.0-4.8) Monocytes # (Auto) 1.0x10^3/uL (0.0-1.1) Eosinophils # (Auto) 0.0x10^3/uL (0.0-0.7) Basophils # (Auto) 0.0x10^3/uL (0.0-0.2) Sodium Level 146mmol/L (136-145) Potassium Level 3.1mmol/L (3.5-5.1) Chloride Level 112mmol/L (98-107) Carbon Dioxide Level 29mmol/L (21-32) Anion Gap 5 (6-14) Blood Urea Nitrogen 4mg/dL (7-20) Creatinine 0.7mg/dL (0.6-1.0) Estimated GFR (Cockcroft-Gault) 101.6 Glucose Level 117mg/dL (70-99) Calcium Level 8.2mg/dL (8.5-10.1) Microbiology 11/08/16 Blood Culture - Final, Complete NO GROWTH AFTER 5 DAYS Medications Current Medications Aspirin 324 mg 324 mg 1X ONCE PO Last administered on 11/07/16 13:20; Start 11/07/16 at 13:00; Stop 11/07/16 at 13:01; Status DC Sodium Chloride 1,000 ml @ 1,000 mls/hr Q1H IV Last administered on 11/07/16 16:15; Start 11/07/16 at 13:20; Stop 11/07/16 at 14:19; Status DC Insulin Human Regular 150 unit/ Sodium Chloride 151.5 ml @ 0 mls/hr CONT PRN PRN IV PER PROTOCOL; Start 11/07/16 at 13:30; Stop 11/08/16 at 10:34; Status DC Potassium Chloride 100 ml @ 100 mls/hr PRN Q1HR PRN IV SEE COMMENTS; Start at 13:30; Stop 11/14/16 at 09:17; Status DC Potassium Chloride 100 ml @ 100 mls/hr PRN Q1HR PRN IV SEE COMMENTS; Start at 13:30; Stop 11/14/16 at 09:17; Status DC Potassium Chloride 100 ml @ 100 mls/hr PRN Q1HR PRN IV SEE COMMENTS; Start at 13:30; Stop 11/14/16 at 09:17; Status DC Sodium Bicarbonate/ Sodium Chloride (Iv Sodium Chloride 0.45%) 1,050 ml @ 500 mls/hr Q2H6M PRN IV SEE COMMENTS Last administered on 11/07/16 15:50; Start at 13:20; Stop 11/07/16 at 20:13; Status DC Ondansetron HCl (Zofran) 4 mg PRN Q8HRS PRN IV NAUSEA/VOMITING Last administered on 11/08/16 12:19; Start 11/07/16 at 13:30; Stop 11/08/16 at 13:29 ; Status DC Morphine Sulfate 2 mg 2 mg PRN Q2HR PRN IV PAIN; Start 11/07/16 at 13:30; Stop 11/08/16 at 13:29; Status DC Sodium Chloride 1,000 ml @ 125 mls/hr Q8H IV Last administered on 11/07/16 22 :53; Start 11/07/16 at 13:23; Stop 11/08/16 at 00:15; Status DC Insulin Human Regular 150 ml @ 0 mls/hr 1X ONCE IV Last administered on 17:00; Start 11/07/16 at 13:30; Stop 11/07/16 at 13:32; Status DC Propofol (Diprivan) 50 ml @ As Directed STK-MED ONCE IV ; Start 11/07/16 at 13: 54; Stop 11/07/16 at 13:55; Status DC Vancomycin HCl 1 each 1 each PRN DAILY PRN MC SEE COMMENTS Last administered on 11/11/16 06:31; Start 11/07/16 at 15:30; Stop 11/12/16 at 12:13; Status DC Levofloxacin/ Dextrose 100 ml @ 100 mls/hr 1X ONCE IV Last administered on 15:53; Start 11/07/16 at 16:00; Stop 11/07/16 at 17:10; Status DC Lactated Ringer's 500 ml @ 500 mls/hr 1X ONCE IV ; Start 11/07/16 at 16:00; Stop 11/07/16 at 17:10; Status DC Vancomycin HCl/ Sodium Chloride (Iv Sodium Chloride 0.9% 500ml Bag) 500 ml @ 250 mls/hr 1X ONCE IV Last administered on 11/07/16 16:00; Start 11/07/16 at 16:00; Stop 11/07/16 at 17:59; Status DC Sodium Bicarbonate 50 meq STK-MED ONCE .ROUTE ; Start 11/07/16 at 15:43; Stop at 15:44; Status DC Sodium Bicarbonate 150 meq 150 meq 1X ONCE IV Last administered on 11/07/16 15:57; Start 11/07/16 at 16:00; Stop 11/07/16 at 17:10; Status DC Sodium Bicarbonate 50 meq/Sodium Chloride 1,050 ml @ 125 mls/hr Q8H24M IV ; Start 11/07/16 at 17:00; Stop 11/07/16 at 17:00; Status DC Sodium Bicarbonate 50 meq/Sodium Chloride 1,050 ml @ 500 mls/hr Q2H6M PRN IV SEE COMMENTS; Start 11/07/16 at 16:50; Stop 11/07/16 at 20:13; Status DC Vancomycin HCl/ Sodium Chloride (Iv Sodium Chloride 0.9% 500ml Bag) 500 ml @ 250 mls/hr 1X ONCE IV ; Start 11/07/16 at 17:00; Stop 11/07/16 at 18:59; Status Cancel Etomidate (Amidate) 20 mg STK-MED ONCE IV ; Start 11/07/16 at 17:16; Stop at 17:17; Status DC Succinylcholine Chloride 200 mg 200 mg STK-MED ONCE .ROUTE ; Start 11/07/16 at 17:16; Stop 11/07/16 at 17:17; Status DC Vancomycin HCl/ Sodium Chloride (Iv Sodium Chloride 0.9% 250ml) 250 ml @ 250 mls/hr Q24H IV Last administered on 11/09/16 18:35; Start 11/08/16 at 18:00; Stop 11/09/16 at 20:00; Status DC Vancomycin HCl 1 each 1 each 1X ONCE MC Last administered on 11/09/16 17:30; Start 11/09/16 at 17:30; Stop 11/09/16 at 17:31; Status DC Piperacillin Sod/ Tazobactam Sod 3.375 gm/Sodium Chloride 50 ml @ 100 mls/hr Q6HRS IV Last administered on 11/12/16 12:04; Start 11/07/16 at 18:30; Stop 11/12/16 at 12:11; Status DC Sodium Chloride (Iv Sodium Chloride 0.9% 1000ml Bag) 1,000 ml @ 1,000 mls/hr 1X ONCE IV Last administered on 11/07/16 21:24; Start 11/07/16 at 20:15; Stop 11/07/16 at 21:14; Status DC Fentanyl Citrate 25 mcg 25 mcg PRN Q2HR PRN IV PAIN Last administered on 11:07; Start 11/07/16 at 20:15 Sodium Chloride 1,000 ml @ 1,000 mls/hr ONCE ONCE IV Last administered on 21:44; Start 11/07/16 at 21:45; Stop 11/07/16 at 22:44; Status DC Potassium Chloride 100 ml @ 100 mls/hr PRN Q1HR PRN IV SEE COMMENTS; Start at 23:00; Stop 11/14/16 at 09:17; Status DC Sodium Phosphate 40 mmol/Dextrose 513.3333 ml @ 83.3 mls/hr 1X PRN PRN IV SEE COMMENTS; Start 11/07/16 at 23:00 Sodium Phosphate 40 mmol/Dextrose 513.3333 ml @ 83.3 mls/hr ONCE ONCE IV Last administered on 11/07/16 23:46; Start 11/07/16 at 23:30; Stop 11/08/16 at 05:39 ; Status DC Potassium Chloride 50 ml @ 50 mls/hr 1X ONCE IV Last administered on 00:11; Start 11/08/16 at 00:00; Stop 11/08/16 at 00:59; Status DC Potassium Chloride 50 ml @ 50 mls/hr Q1H IV Last administered on 11/08/16 02: 05; Start 11/08/16 at 01:00; Stop 11/08/16 at 02:59; Status DC Sodium Chloride 1,000 ml @ 125 mls/hr Q8H IV Last administered on 11/08/16 02 :53; Start 11/08/16 at 00:15; Stop 11/08/16 at 10:34; Status DC Potassium Chloride 50 ml @ 50 mls/hr 1X ONCE IV Last administered on 07:02; Start 11/08/16 at 07:00; Stop 11/08/16 at 07:59; Status DC Potassium Chloride 50 ml @ 50 mls/hr Q1H IV Last administered on 11/08/16 10: 07; Start 11/08/16 at 08:00; Stop 11/08/16 at 09:59; Status DC Potassium Chloride 50 ml @ 50 mls/hr Q1H IV Last administered on 11/08/16 13: 09; Start 11/08/16 at 10:00; Stop 11/08/16 at 11:59; Status DC Magnesium Sulfate/ Dextrose 50 ml @ 25 mls/hr 1X ONCE IV Last administered on 11/08/16 08:30; Start 11/08/16 at 08:00; Stop 11/08/16 at 09:59; Status DC Potassium Phosphate/Sodium Chloride (Potassium Phosphate/Iv Sodium Chloride 0.9 % 100ml) 103.3333 ml @ 51.667 m... Q2H IV Last administered on 11/08/16 10:07 ; Start 11/08/16 at 08:00; Stop 11/08/16 at 09:59; Status DC Dextrose 25 gm PRN Q15MIN PRN IV SEE COMMENTS; Start 11/08/16 at 09:00; Stop at 10:32; Status DC Albuterol Sulfate (Ventolin Neb Soln) 2.5 mg 1X ONCE NEB Last administered on 11/08/16 09:20; Start 11/08/16 at 10:00; Stop 11/08/16 at 10:01; Status DC Insulin Aspart (Novolog) 0-7 UNITS TIDWMEALS SQ Last administered on 11/10/16 18:18; Start 11/08/16 at 12:00; Stop 11/11/16 at 21:36; Status DC Dextrose 12.5 gm 12.5 gm PRN Q15MIN PRN IV SEE COMMENTS Last administered on 04:46; Start 11/08/16 at 09:45 Dextrose/Sodium Chloride (Iv D5% - 1/2 NS) 1,000 ml @ 250 mls/hr Q4H IV Last administered on 11/09/16 10:05; Start 11/08/16 at 10:30; Stop 11/09/16 at 14:55 ; Status DC Insulin Detemir (Levemir) 20 units DAILY SQ Last administered on 11/09/16 10: 03; Start 11/08/16 at 12:00; Stop 11/10/16 at 08:56; Status DC Throat Lozenges (Chloraseptic) 2 spray PRN Q2HR PRN PO SORE THROAT Last administered on 11/10/16 11:04; Start 11/08/16 at 12:00 Ondansetron HCl (Zofran) 4 mg PRN Q6HRS PRN IV NAUSEA/VOMITING 1ST CHOICE Last administered on 11/13/16 11:33; Start 11/08/16 at 12:15 Prochlorperazine Edisylate (Compazine) 10 mg 1X ONCE IV Last administered on 14:50; Start 11/08/16 at 14:30; Stop 11/08/16 at 14:31; Status DC Insulin Aspart 12 units 12 units 1X ONCE SQ Last administered on 11/08/16 15: 23; Start 11/08/16 at 15:15; Stop 11/08/16 at 15:16; Status DC Insulin Human Regular 150 unit/ Sodium Chloride 151.5 ml @ 0 mls/hr CONT PRN PRN IV PER PROTOCOL Last administered on 11/08/16 17:33; Start 11/08/16 at 17: 00; Stop 11/14/16 at 09:17; Status DC Potassium Phosphate 13.3 mmol/Sodium Chloride 104.4333 ml @ 100 mls/hr Q1H IV Last administered on 11/08/16 22:42; Start 11/08/16 at 21:00; Stop 11/08/16 at 23:59; Status DC Potassium Chloride 50 ml @ 50 mls/hr 1X ONCE IV ; Start 11/08/16 at 20:30; Stop 11/08/16 at 21:29; Status DC Potassium Chloride (KCl Premix 10meq) 100 ml @ 100 mls/hr Q1H IV Last administered on 11/09/16 01:01; Start 11/08/16 at 20:45; Stop 11/08/16 at 21:44 ; Status DC Prochlorperazine Edisylate (Compazine) 10 mg PRN Q8HRS PRN IV NAUSEA/VOMITING Last administered on 11/09/16 08:09; Start 11/08/16 at 22:30 Nitroglycerin (Nitrostat) 0.4 mg STK-MED ONCE SL ; Start 11/09/16 at 04:42; Stop 11/09/16 at 04:43; Status DC Nitroglycerin 0.4 mg 0.4 mg PRN Q5MIN PRN SL X 3 DOSES FOR CHEST PAIN Last administered on 11/09/16 04:52; Start 11/09/16 at 05:00 Potassium Chloride 50 ml @ 50 mls/hr 1X ONCE IV ; Start 11/09/16 at 06:00; Stop 11/09/16 at 06:23; Status DC Potassium Phosphate 10 mmol/ Sodium Chloride 103.3333 ml @ 51.667 m... Q2H IV Last administered on 11/09/16 10:01; Start 11/09/16 at 06:15; Stop 11/09/16 at 10:14; Status DC Potassium Chloride (KCl Premix 10meq) 100 ml @ 100 mls/hr Q1H IV Last administered on 11/09/16 06:44; Start 11/09/16 at 06:30; Stop 11/09/16 at 07:29 ; Status DC Dextrose 25 gm STK-MED ONCE IV ; Start 11/08/16 at 09:00; Stop 11/09/16 at 08:21 ; Status DC Nitroglycerin (Nitrostat) 0.4 mg STK-MED ONCE SL ; Start 11/09/16 at 05:00; Stop 11/09/16 at 08:22; Status DC Enoxaparin Sodium 40 mg 40 mg QHS SQ Last administered on 11/13/16 20:55; Start 11/09/16 at 21:00 Sodium Chloride (Iv Sodium Chloride 0.45%) 1,000 ml @ 75 mls/hr [id number] IV Last administered on 11/14/16 02:46; Start 11/09/16 at 11:30; Stop 11/14/16 at 09 :17; Status DC Nitroglycerin (Nitroglycerin) 200 mcg STK-MED ONCE .ROUTE ; Start 11/09/16 at 15 :44; Stop 11/09/16 at 15:45; Status DC Verapamil HCl (Verapamil) 5 mg STK-MED ONCE .ROUTE ; Start 11/09/16 at 15:44; Stop 11/09/16 at 15:45; Status DC Heparin Sodium (Porcine) 10,000 unit STK-MED ONCE .ROUTE ; Start 11/09/16 at 15: 44; Stop 11/09/16 at 15:45; Status DC Fentanyl Citrate (Fentanyl 2ml Vial) 100 mcg STK-MED ONCE .ROUTE ; Start at 15:44; Stop 11/09/16 at 15:45; Status DC Midazolam HCl (Versed) 2 mg STK-MED ONCE .ROUTE ; Start 11/09/16 at 15:44; Stop 11/09/16 at 15:45; Status DC Iohexol 100 ml 100 ml STK-MED ONCE .ROUTE ; Start 11/09/16 at 15:49; Stop at 15:50; Status DC Heparin Sodium/ Sodium Chloride 500 ml @ As Directed STK-MED ONCE .ROUTE ; Start 11/09/16 at 15:49; Stop 11/09/16 at 15:50; Status DC Lidocaine HCl 20 ml STK-MED ONCE .ROUTE ; Start 11/09/16 at 15:49; Stop at 15:50; Status DC Nitroglycerin (Nitroglycerin) 200 mcg 1X ONCE IART Last administered on 16:14; Start 11/09/16 at 16:00; Stop 11/09/16 at 16:09; Status DC Verapamil HCl (Verapamil) 2.5 mg 1X ONCE IART Last administered on 11/09/16 16:15; Start 11/09/16 at 16:00; Stop 11/09/16 at 16:09; Status DC Heparin Sodium (Porcine) 2,500 unit 1X ONCE IART Last administered on 16:17; Start 11/09/16 at 16:00; Stop 11/09/16 at 16:09; Status DC Heparin Sodium/ Sodium Chloride 1,000 unit 1X ONCE IART Last administered on 16:16; Start 11/09/16 at 16:00; Stop 11/09/16 at 16:09; Status DC Midazolam HCl (Versed) 1 mg 1X ONCE IV Last administered on 11/09/16 16:15; Start 11/09/16 at 16:00; Stop 11/09/16 at 16:09; Status DC Fentanyl Citrate (Fentanyl 2ml Vial) 50 mcg 1X ONCE IV Last administered on 16:16; Start 11/09/16 at 16:00; Stop 11/09/16 at 16:09; Status DC Iohexol (Omnipaque 300 Mg/ml) 100 ml 1X ONCE IART Last administered on 16:16; Start 11/09/16 at 16:00; Stop 11/09/16 at 16:09; Status DC Lidocaine HCl 1 ml 1X ONCE IJ Last administered on 11/09/16 16:14; Start at 16:00; Stop 11/09/16 at 16:09; Status DC Info 1 each 1 each PRN DAILY PRN MC SEE COMMENTS; Start 11/09/16 at 16:15; Stop 11/11/16 at 16:14; Status DC Vancomycin HCl/ Sodium Chloride (Iv Sodium Chloride 0.9% 250ml) 250 ml @ 250 mls/hr Q12H IV Last administered on 11/11/16 05:40; Start 11/10/16 at 06:00; Stop 11/11/16 at 06:16; Status DC Vancomycin HCl 1 each 1 each 1X ONCE MC Last administered on 11/11/16 05:30; Start 11/11/16 at 05:30; Stop 11/11/16 at 05:31; Status DC Potassium Chloride (KCl Premix 20meq) 50 ml @ 50 mls/hr Q1H IV Last administered on 11/10/16 02:20; Start 11/10/16 at 00:30; Stop 11/10/16 at 02:29 ; Status DC Insulin Detemir (Levemir) 20 units QHS SQ Last administered on 11/10/16 21:03 ; Start 11/10/16 at 21:00; Stop 11/11/16 at 13:23; Status DC Acetaminophen (Tylenol) 650 mg PRN Q6HRS PRN PO MILD PAIN / TEMP Last administered on 11/13/16 21:22; Start 11/10/16 at 14:45 Tramadol HCl 50 mg 50 mg PRN Q6HRS PRN PO MODERATE - SEVERE PAIN Last administered on 11/11/16 09:45; Start 11/10/16 at 14:45 Vancomycin HCl 1.25 gm/Sodium Chloride 250 ml @ 167 mls/hr Q12H IV Last administered on 11/12/16 08:27; Start 11/11/16 at 06:30; Stop 11/12/16 at 12:11; Status DC Potassium Chloride (KCl Premix 20meq) 50 ml @ 50 mls/hr Q1H IV ; Start 11/11/16 at 06:30; Stop 11/11/16 at 10:29; Status UNV Vancomycin HCl 1 each 1 each 1X ONCE MC Last administered on 11/14/16 07:46; Start 11/12/16 at 06:00; Stop 11/12/16 at 06:01; Status DC Potassium Chloride 100 ml @ 100 mls/hr Q1H IV Last administered on 11/11/16 09 :42; Start 11/11/16 at 06:30; Stop 11/11/16 at 10:29; Status DC Potassium Phosphate/Sodium Chloride (Potassium Phosphate/Iv Sodium Chloride 0.9 % 250ml) 253.6667 ml @ 126.... 1X ONCE IV Last administered on 11/11/16 09:43 ; Start 11/11/16 at 09:30; Stop 11/11/16 at 11:29; Status DC Insulin Detemir (Levemir) 10 units QHS SQ Last administered on 11/13/16 21:11; Start 11/11/16 at 21:00 Pantoprazole Sodium (Protonix) 40 mg DAILYAC PO Last administered on 11/14/16 07:45; Start 11/12/16 at 07:30 Al Hydrox/Mg Hydrox/Simethicone (Mylanta Plus Xs) 30 ml PRN BFRMEALHC PRN PO HEARTBURN / GAS Last administered on 11/11/16 21:15; Start 11/11/16 at 20:30 Insulin Aspart (Novolog) 0-7 UNITS TIDWMEALHC SQ Last administered on 11/13/16 21:10; Start 11/11/16 at 21:45 Potassium Chloride 40 meq 40 meq 1X ONCE PO ; Start 11/13/16 at 11:30; Stop 11/13 at 11:31; Status Cancel Potassium Chloride (KCl Premix 10meq) 100 ml @ 100 mls/hr Q1H IV Last administered on 11/13/16 13:37; Start 11/13/16 at 12:00; Stop 11/13/16 at 13:59; Status DC Cetirizine HCl (Zyrtec) 10 mg PRN DAILY PRN PO ALLERGIES Last administered on 11:50; Start 11/13/16 at 11:30 Folic Acid (Folic Acid) 1 mg DAILY PO Last administered on 11/14/16 09:34; Start 11/14/16 at 10:00 Gabapentin (Neurontin) 300 mg TID PO ; Start 11/14/16 at 14:00 Acetaminophen/ Hydrocodone Bitart (Lortab 5/325) 1 tab PRN TID PRN PO pain; Start 11/14/16 at 09:30 Latanoprost (Xalatan) 1 drop QHS OU ; Start 11/14/16 at 21:00 Oxybutynin Chloride (Ditropan) 5 mg BID PO ; Start 11/14/16 at 14:00 Active Scripts Active Reported Metformin Hcl Er (Metformin Hcl) 750 Mg Tab.er.24h 1 Tab PO BID Oxybutynin Chloride Er (Oxybutynin Chloride) 10 Mg Tab.er.24 1 Tab PO DAILY Tresiba Flextouch U-100 (Insulin Degludec) 100 Unit/1 Ml Insuln.pen 25 Unit SQ DAILY Folic Acid 1 Mg Tablet 1 Tab PO DAILY Hydrocodone-Apap 5-325 (Hydrocodone Bit/Acetaminophen) 1 Each Tablet 1-2 Tab PO Q4-6HRS Glucovance 5-500 Mg Tablet (Glyburide/Metformin Hcl) 1 Each Tablet 2 Tab PO DAILY Glucovance 5-500 Mg Tablet (Glyburide/Metformin Hcl) 1 Each Tablet 1 Tab PO HS Losartan-Hctz 100-12.5 Mg Tab (Losartan/Hydrochlorothiazide) 1 Each Tablet 1 Each PO DAILY Xalatan (Latanoprost) 2.5 Ml Drops 1 Drop EACHEYE QHS Gabapentin 300 Mg Capsule 300 Mg PO TID Toprol Xl (Metoprolol Succinate) 50 Mg Tab.er.24h 1 Tab PO DAILY Vitals/I & O Vital Sign - Last 24 Hours 11/13/16 11/13/16 11/13/16 11/13/16 14:41 19:59 20:00 23:24 Temp 98.6 99.5 98.3 98.6 99.5 98.3 Pulse 89 103 81 Resp 18 B/P 145/67 146/68 145/63 Pulse Ox 100 100 100 O2 Delivery Room Air Room Air Room Air Room Air 11/14/16 11/14/16 11/14/16 11/14/16 03:59 07:10 07:50 10:40 Temp 98.3 97.6 99.3 98.3 97.6 99.3 Pulse 80 96 92 Resp 18 B/P 132/62 136/90 128/69 Pulse Ox 99 100 98 O2 Delivery Room Air Room Air Room Air Room Air Intake and Output 11/13/16 11/13/16 11/14/16 15:00 23:00 07:00 Intake Total 840 ml Output Total 1000 ml Balance 840 ml -1000 ml Problem List Problems Medical Problems: (1) DKA (diabetic ketoacidoses) Status: Acute (2) Lactic acidosis Status: Acute (3) Lethargy Status: Acute Assessment Probably long-standing GERD; would merit at least one EGD, not emergent. Plan of Care: Continue current Tx, EDDI Read MD Nov 14, 2016 11:12
[2016-11-14] MEDS ORDERED: POTASSIUM CHLORIDE 20 MEQ TABLET.ER. PO ONE (12:30)
--- NOTE | 2016-11-14 12:34 | PDOC3 ---
Discharge Summary Visit Information Date of Admission: Nov 07, 2016 Date of Discharge: Nov 14, 2016 Admitting Diagnosis Comment: 1. Severe metabolic anion gap acidosis with leukocytosis RESOLVED. needed to be intuabted 2. Diabetic Ketoacidosis RESOLVED. 3. Respiratory failure RESOLVED. 4. Nausea 5. Hyperglycemia 6. Hypokalemia Final Diagnosis Problems Medical Problems: (1) DKA (diabetic ketoacidoses) Status: Acute (2) Lactic acidosis Status: Acute (3) Lethargy Status: Acute Brief Hospital Course Allergies Allergies Coded Allergies Type Severity Reaction Last Updated Verified Penicillins Allergy Intermediate 11/08/16 Yes azithromycin Allergy Intermediate 05/28/16 Yes metoprolol Allergy Intermediate 05/28/16 Yes nifedipine Allergy Intermediate 05/28/16 Yes Vital Signs Vital Signs Date Time Temp Pulse Resp B/P Pulse Ox O2 Delivery O2 Flow Rate FiO2 11/14/16 10:40 99.3 92 18 128/69 98 Room Air 99.3 Lab Results Laboratory Tests Test 11/12/16 16:15 11/12/16 21:46 11/13/16 06:00 11/13/16 07:31 Glucose (Fingerstick) 290mg/dL (70-99) 345mg/dL (70-99) 91mg/dL (70-99) White Blood Count 3.5x10^3/uL (4.0-11.0) Red Blood Count 3.14x10^6/uL (3.50-5.40) Hemoglobin 9.0g/dL (12.0-15.5) Hematocrit 27.4% (36.0-47.0) Mean Corpuscular Volume 87fL (79-100) Mean Corpuscular Hemoglobin 29pg (25-35) Mean Corpuscular Hemoglobin Concent 33g/dL (31-37) Red Cell Distribution Width 13.3% (11.5-14.5) Platelet Count 278x10^3/uL (140-400) Neutrophils (%) (Auto) 48% (31-73) Lymphocytes (%) (Auto) 26% (24-48) Monocytes (%) (Auto) 24% (0-9) Eosinophils (%) (Auto) 1% (0-3) Basophils (%) (Auto) 1% (0-3) Neutrophils # (Auto) 1.7x10^3uL (1.8-7.7) Lymphocytes # (Auto) 0.9x10^3/uL (1.0-4.8) Monocytes # (Auto) 0.8x10^3/uL (0.0-1.1) Eosinophils # (Auto) 0.0x10^3/uL (0.0-0.7) Basophils # (Auto) 0.0x10^3/uL (0.0-0.2) Sodium Level 146mmol/L (136-145) Potassium Level 3.2mmol/L (3.5-5.1) Chloride Level 112mmol/L (98-107) Carbon Dioxide Level 27mmol/L (21-32) Anion Gap 7 (6-14) Blood Urea Nitrogen 3mg/dL (7-20) Creatinine 0.8mg/dL (0.6-1.0) Estimated GFR (Cockcroft-Gault) 87.1 Glucose Level 119mg/dL (70-99) Calcium Level 8.8mg/dL (8.5-10.1) Test 11/13/16 11:30 11/13/16 20:20 11/14/16 05:45 11/14/16 07:17 Glucose (Fingerstick) 169mg/dL (70-99) 327mg/dL (70-99) 102mg/dL (70-99) White Blood Count 3.3x10^3/uL (4.0-11.0) Red Blood Count 2.94x10^6/uL (3.50-5.40) Hemoglobin 8.3g/dL (12.0-15.5) Hematocrit 25.6% (36.0-47.0) Mean Corpuscular Volume 87fL (79-100) Mean Corpuscular Hemoglobin 28pg (25-35) Mean Corpuscular Hemoglobin Concent 33g/dL (31-37) Red Cell Distribution Width 13.5% (11.5-14.5) Platelet Count 322x10^3/uL (140-400) Neutrophils (%) (Auto) 36% (31-73) Lymphocytes (%) (Auto) 30% (24-48) Monocytes (%) (Auto) 31% (0-9) Eosinophils (%) (Auto) 1% (0-3) Basophils (%) (Auto) 1% (0-3) Neutrophils # (Auto) 1.2x10^3uL (1.8-7.7) Lymphocytes # (Auto) 1.0x10^3/uL (1.0-4.8) Monocytes # (Auto) 1.0x10^3/uL (0.0-1.1) Eosinophils # (Auto) 0.0x10^3/uL (0.0-0.7) Basophils # (Auto) 0.0x10^3/uL (0.0-0.2) Sodium Level 146mmol/L (136-145) Potassium Level 3.1mmol/L (3.5-5.1) Chloride Level 112mmol/L (98-107) Carbon Dioxide Level 29mmol/L (21-32) Anion Gap 5 (6-14) Blood Urea Nitrogen 4mg/dL (7-20) Creatinine 0.7mg/dL (0.6-1.0) Estimated GFR (Cockcroft-Gault) 101.6 Glucose Level 117mg/dL (70-99) Calcium Level 8.2mg/dL (8.5-10.1) Test 11/14/16 11:17 Glucose (Fingerstick) 211mg/dL (70-99) Laboratory Tests Test 11/13/16 20:20 11/14/16 05:45 11/14/16 07:17 11/14/16 11:17 Glucose (Fingerstick) 327mg/dL (70-99) 102mg/dL (70-99) 211mg/dL (70-99) White Blood Count 3.3x10^3/uL (4.0-11.0) Red Blood Count 2.94x10^6/uL (3.50-5.40) Hemoglobin 8.3g/dL (12.0-15.5) Hematocrit 25.6% (36.0-47.0) Mean Corpuscular Volume 87fL (79-100) Mean Corpuscular Hemoglobin 28pg (25-35) Mean Corpuscular Hemoglobin Concent 33g/dL (31-37) Red Cell Distribution Width 13.5% (11.5-14.5) Platelet Count 322x10^3/uL (140-400) Neutrophils (%) (Auto) 36% (31-73) Lymphocytes (%) (Auto) 30% (24-48) Monocytes (%) (Auto) 31% (0-9) Eosinophils (%) (Auto) 1% (0-3) Basophils (%) (Auto) 1% (0-3) Neutrophils # (Auto) 1.2x10^3uL (1.8-7.7) Lymphocytes # (Auto) 1.0x10^3/uL (1.0-4.8) Monocytes # (Auto) 1.0x10^3/uL (0.0-1.1) Eosinophils # (Auto) 0.0x10^3/uL (0.0-0.7) Basophils # (Auto) 0.0x10^3/uL (0.0-0.2) Sodium Level 146mmol/L (136-145) Potassium Level 3.1mmol/L (3.5-5.1) Chloride Level 112mmol/L (98-107) Carbon Dioxide Level 29mmol/L (21-32) Anion Gap 5 (6-14) Blood Urea Nitrogen 4mg/dL (7-20) Creatinine 0.7mg/dL (0.6-1.0) Estimated GFR (Cockcroft-Gault) 101.6 Glucose Level 117mg/dL (70-99) Calcium Level 8.2mg/dL (8.5-10.1) Brief Hospital Course Ms. Tinoco is a 66 old Female admitted for severe HONK/DKA needing to be intubated and co managed with renal for the severe gap acidosis, DKA, electrolyte abN. She was on lantus for the longest time but PCP shifted her to [facility], Here in the hospital, she actually would have hypoglycemic episodes with too much insulin, and now we have her figured on levemir 10 qhs, with beautuiful BS, Metformin was being held bec crea was 2.2 on admit, on dc day is now 0.9. I defer to PCP re trulicity and metformin but i advised holding metformin until rpt BMP as OP and I gave Rx for levemir 10 qhs as that is what' s working for her here. Pt seen and examined dw her and RN extensively DispO; HH MAR done time 34 mins Proc; intubation COnsults: pulmo, renal Discharge Information Condition at Discharge: Improved Follow Up: Weeks (1-2 weeks PCP) Disposition/Orders: D/C to Home w/ HH Scheduled Folic Acid (Folic Acid) 1 TAB PO DAILY (Reported) Gabapentin (Gabapentin) 300 MG PO TID (Reported) Glyburide/Metformin Hcl (Glucovance 5-500 Mg Tablet) 1 TAB PO HS (Reported) Glyburide/Metformin Hcl (Glucovance 5-500 Mg Tablet) 2 TAB PO DAILY (Reported) Hydrocodone Bit/Acetaminophen (Hydrocodone-Apap 5-325 ) 1-2 TAB PO Q4-6HRS ( Reported) Insulin Degludec (Tresiba Flextouch U-100) 25 UNIT SQ DAILY (Reported) Latanoprost (Xalatan) 1 DROP EACHEYE QHS (Reported) Losartan/Hydrochlorothiazide (Losartan-Hctz 100-12.5 Mg Tab) 1 EACH PO DAILY ( Reported) Metformin Hcl (Metformin Hcl Er) 1 TAB PO BID (Reported) Metoprolol Succinate (Toprol Xl) 1 TAB PO DAILY (Reported) Oxybutynin Chloride (Oxybutynin Chloride Er) 1 TAB PO DAILY (Reported) NABILA KING MD Nov 14, 2016 12:34
[2016-11-14] MEDS ORDERED: OXYBUTYNIN CHLORIDE 5 MG TABLET PO SCH (14:00)
[2016-11-14] MEDS ORDERED: GABAPENTIN 300 MG CAPSULE. PO SCH (14:00)
[2016-11-14 15:04] VITALS: BP 136/58
[2016-11-14] MEDS ORDERED: LATANOPROST 0.005% OPHTH SOLUTION 2.5ML BOTTLE. OU SCH (21:00)
== END 2016-11-14 16:09 | disposition home health service (06) | DRG 208 ==
LOC: ER 11:19 → ED HOLD 13:22 → 1 WEST ICU 17:00 → 5 SOUTH 11-11 15:00
PROVIDERS: ADMIT Internal Medicine; ATTEND Internal Medicine
PROC: 5A1935Z Respiratory Ventilation, Less than 24 Consecutive Hours (ICD-10-PCS; principal; 2016-11-07)
PROC: 0BH17EZ Insertion of Endotracheal Airway into Trachea, Via Natural or Artificial Opening (ICD-10-PCS; 2016-11-07)
PROC: 05HM33Z Insertion of Infusion Device into Right Internal Jugular Vein, Percutaneous Approach (ICD-10-PCS; 2016-11-07)
PROC: B543ZZA Ultrasonography of Right Jugular Veins, Guidance (ICD-10-PCS; 2016-11-07)
PROC: 4A023N7 Measurement of Cardiac Sampling and Pressure, Left Heart, Percutaneous Approach (ICD-10-PCS; 2016-11-09)
PROC: B2111ZZ Fluoroscopy of Multiple Coronary Arteries using Low Osmolar Contrast (ICD-10-PCS; 2016-11-09)
PROC: B2151ZZ Fluoroscopy of Left Heart using Low Osmolar Contrast (ICD-10-PCS; 2016-11-09)
DX: J96.00 Acute respiratory failure, unspecified whether with hypoxia or hypercapnia (principal); I21.4 Non-ST elevation (NSTEMI) myocardial infarction; G93.41 Metabolic encephalopathy; E10.10 Type 1 diabetes mellitus with ketoacidosis without coma; E87.0 Hyperosmolality and hypernatremia; N17.9 Acute kidney failure, unspecified; E87.6 Hypokalemia; G40.909 Epilepsy, unspecified, not intractable, without status epilepticus; G47.33 Obstructive sleep apnea (adult) (pediatric); I10 Essential (primary) hypertension; I49.5 Sick sinus syndrome; J44.9 Chronic obstructive pulmonary disease, unspecified; K21.9 Gastro-esophageal reflux disease without esophagitis; Z96.651 Presence of right artificial knee joint; M06.9 Rheumatoid arthritis, unspecified; Z79.4 Long term (current) use of insulin; Z79.899 Other long term (current) drug therapy; Z83.3 Family history of diabetes mellitus; Z87.891 Personal history of nicotine dependence; Z88.0 Allergy status to penicillin; Z88.8 Allergy status to other drugs, medicaments and biological substances; Z91.14 Patient's other noncompliance with medication regimen; Z95.0 Presence of cardiac pacemaker
CPT/HCPCS: 31500; 36415; 36556; 36600; 71010; 74000; 80048; 80053; 80076; 80202; 81001; 82805; 82947; 83036; 83605; 83690; 83735; 83880; 83930; 84100; 84132; 84484; 85007; 85027; 87040; 87641; 93005; 93306; 93458; 94002; 94003; 94640; 96365; 96368; 96375; C1769; C1892; J0780; J1650; J1815; J1956; J2250; J2405; J2543; J3010; J3370; J3480; J3490; J7030; J7040; J7042; J7050; J7060; Q9967; 92610; 97110; 97116; 97530; 97535; 99291-25

== ENCOUNTER 2016-11-25 07:45 | Inpatient (IN) | payer MEDICARE ==
[2016-11-25] VITALS (14 sets, daily range): BP systolic 132–164; BP diastolic 49–71
[~2016-11-25] VITALS: Ht 172.7 cm; Wt 61.7 kg
[~2016-11-25 07:45] MED LIST changes: +INSU100I30 SQ; +METF750T2 PO; +OXYB10TA PO
--- NOTE | 2016-11-25 07:59 | PHYS DOC ---
Past Medical History Past Medical History: COPD, Diabetes-Type I, Seizure Additional Past Medical Histor: RA,NEUROPATHY, SLEEP APNEA-CPAP @NOC Past Surgical History: Pacemaker, Other Additional Past Surgical Histo: PACE Alcohol Use: None Drug Use: None Adult General Chief Complaint Chief Complaint: BLOOD SUGAR PROBLEM HPI HPI Patient is a 66 year old female who presents with mental status and tachypnea. According to daughter she has a history of DKA and was in the hospital a week ago for the exact same thing. According to the daughter she was fine last night but this morning is acting very tired and breathing fast and not answering questions or be as responsive as normal. The daughter states over the last week she's been having a lot of nausea and vomiting. According to the daughter her sugars were over 300 this morning. Review of Systems Review of Systems Unable to assess Current Medications Current Medications Current Medications Medications (Trade) Dose Ordered Sig/Thuy Start Time Stop Time Status Last Admin Dose Admin Insulin Human Regular (Novolin R Iv Drip) 150 ml @ 0 mls/hr 1X ONCE 11/25/16 09:15 11/25/16 09:16 DC 11/25/16 09:34 13.3 MLS/HR Ondansetron HCl (Zofran) 4 mg PRN Q8HRS PRN 11/25/16 09:30 11/26/16 09:29 Sodium Chloride 1,000 ml @ 1,000 mls/hr Q1H 11/25/16 10:00 11/25/16 11:59 11/25/16 09:18 1,000 MLS/HR Allergies Allergies Allergies Coded Allergies Type Severity Reaction Last Updated Verified Penicillins Allergy Intermediate 11/08/16 Yes azithromycin Allergy Intermediate 05/28/16 Yes metoprolol Allergy Intermediate 05/28/16 Yes nifedipine Allergy Intermediate 05/28/16 Yes Physical Exam Physical Exam Constitutional: Well developed, well nourished, in moderate acute distress, non- toxic appearance. [] HENT: Normocephalic, atraumatic, bilateral external ears normal, oropharynx moist, no oral exudates, nose normal. [] Eyes: PERRLA, EOMI, conjunctiva normal, no discharge. [] Neck: Normal range of motion, no tenderness, supple, no stridor. [] Cardiovascular: Tachycardic, no murmur [] Lungs & Thorax: Bilateral breath sounds clear to auscultation, tachypnea Abdomen: Bowel sounds normal, soft, no tenderness, no masses, no pulsatile masses. [] Skin: Warm, dry, no erythema, no rash. [] Back: No tenderness, no CVA tenderness. [] Extremities: No tenderness, no cyanosis, no clubbing, ROM intact, no edema. [] Neurologic: Alert but not answering questions, Psychologic: Unable to assess Current Patient Data Vital Signs Vital Signs Date Time Temp Pulse Resp B/P Pulse Ox O2 Delivery O2 Flow Rate FiO2 11/25/16 07:49 96.6 58 28 172/132 99 Room Air 96.6 Lab Values Laboratory Tests Test 11/25/16 08:04 11/25/16 08:35 11/25/16 09:00 White Blood Count 17.1x10^3/uL (4.0-11.0) H Red Blood Count 4.10x10^6/uL (3.50-5.40) Hemoglobin 11.8g/dL (12.0-15.5) L Hematocrit 40.4% (36.0-47.0) Mean Corpuscular Volume 99fL (79-100) Mean Corpuscular Hemoglobin 29pg (25-35) Mean Corpuscular Hemoglobin Concent 29g/dL (31-37) L Red Cell Distribution Width 15.9% (11.5-14.5) H Platelet Count 538x10^3/uL (140-400) H Neutrophils (%) (Auto) 80% (31-73) H Lymphocytes (%) (Auto) 10% (24-48) L Monocytes (%) (Auto) 9% (0-9) Eosinophils (%) (Auto) 0% (0-3) Basophils (%) (Auto) 1% (0-3) Neutrophils # (Auto) 13.7x10^3uL (1.8-7.7) H Lymphocytes # (Auto) 1.7x10^3/uL (1.0-4.8) Monocytes # (Auto) 1.5x10^3/uL (0.0-1.1) H Eosinophils # (Auto) 0.0x10^3/uL (0.0-0.7) Basophils # (Auto) 0.2x10^3/uL (0.0-0.2) Platelet Estimate Pending Sodium Level 140mmol/L (136-145) Potassium Level 4.6mmol/L (3.5-5.1) Chloride Level 99mmol/L (98-107) Carbon Dioxide Level < 5mmol/L (21-32) *L Anion Gap 36 (6-14) H Blood Urea Nitrogen 21mg/dL (7-20) H Creatinine 2.0mg/dL (0.6-1.0) H Estimated GFR (Cockcroft-Gault) 30.3 BUN/Creatinine Ratio 11 (6-20) Glucose Level 727mg/dL (70-99) *H Calcium Level 11.2mg/dL (8.5-10.1) H Total Bilirubin 0.3mg/dL (0.2-1.0) Aspartate Amino Transferase (AST) 11U/L (15-37) L Alanine Aminotransferase (ALT) 17U/L (14-59) Alkaline Phosphatase 113U/L (46-116) Creatine Kinase 30U/L (26-192) Creatine Kinase MB (Mass) 1.1ng/mL (0.0-3.6) Creatine Kinase MB Relative Index % (0-4) Troponin I Quantitative < 0.017ng/mL (0.000-0.055) Total Protein 8.4g/dL (6.4-8.2) H Albumin 3.2g/dL (3.4-5.0) L Albumin/Globulin Ratio 0.6 (1.0-1.7) L Urine Collection Type U cath Urine Color Yellow Urine Clarity Clear Urine pH 5.0 Urine Specific Renick 1.020 Urine Protein 100mg/dL (NEG-TRACE) Urine Glucose (UA) >=1000mg/dL (NEG) Urine Ketones (Stick) >=80mg/dL (NEG) Urine Blood Moderate (NEG) Urine Nitrite Negative (NEG) Urine Bilirubin Negative (NEG) Urine Urobilinogen Dipstick 0.2mg/dL (0.2 mg/dL) Urine Leukocyte Esterase Negative (NEG) Urine RBC 0/HPF (0-2) Urine WBC 0/HPF (0-4) Urine Squamous Epithelial Cells Few/LPF Urine Amorphous Sediment Present/HPF Urine Bacteria 0/HPF (0-FEW) Urine Hyaline Casts Occasional/HPF O2 Saturation 98% (92-99) Arterial Blood pH 6.96 (7.35-7.45) *L Arterial Blood pCO2 at Patient Temp < 15mmHg (35-46) *L Arterial Blood pO2 at Patient Temp 153mmHg (65-108) H Arterial Blood HCO3 3mmol/L (21-28) L Arterial Blood Base Excess -28mmol/L (-3-3) L FiO2 21 Laboratory Tests 11/25/16 08:04 Laboratory Tests 11/25/16 08:04 EKG EKG EKG shows sinus tach with a rate of [address] elevations, occasional PVCs noted, normal axis, QTC 504 ms, as interpreted by me. Radiology/Procedures Radiology/Procedures [facility] [address] [place] [address] IMAGING REPORT Signed PATIENT: MARY BONILLA ACCOUNT: [id number] : 1950 LOCATION: ER AGE: 66 SEX: F EXAM STATUS: PRE ER ORD. PHYSICIAN: RODOLFO NELSON MD REASON: dka, low blood sugar PROCEDURE: PORTABLE CHEST 1V Portable chest, 11/25/2016: History: Low blood sugar Comparison is made to a study from 11/10/2016. A right-sided transvenous pacemaker remains in place with 2 leads extending into the right heart. The right jugular central venous catheter has been removed. The heart size and pulmonary vascularity are normal. No pulmonary infiltrates are seen. There is no evidence of pleural fluid. IMPRESSION: No acute cardiopulmonary abnormality is detected. DICTATED and SIGNED BY: RENÉE TESFAYE MD DATE: 11/25/16 0848 CC: RODOLFO NELSON MD; MATTHEW BOOTH ~ Impressions: DKA Course & Med Decision Making Course & Med Decision Making Pertinent Labs and Imaging studies reviewed. (See chart for details) Presented with tachypnea and hyperglycemia. Her pH showed metabolic acidosis and respiratory alkalosis. PH is 6.96, PCO2 11, PO2 152, bicarbonate 2.6, base excess -27. She was given 3 L normal saline and started on insulin drip and be admitted to the ICU. She is in stable but critical condition at this time. Medical care time 105 minutes of critical care time was used on this patient excluding procedures. Nehemias Disclaimer Dragon Disclaimer This electronic medical record was generated, in whole or in part, using a voice recognition dictation system. Departure Departure Referrals: MATTHEW BOOTH (PCP) RODOLFO NELSON MD Nov 25, 2016 07:59
[2016-11-25 08:20] LABS: BASO # 0.2 x10^3/uL (0.0-0.2); BASO % 1 % (0-3); EOS % 0 % (0-3); HEMATOCRIT 40.4 % (36.0-47.0); HEMOGLOBIN 11.8 g/dL (12.0-15.5); LYMPH # 1.7 x10^3/uL (1.0-4.8); LYMPH % 10 % (24-48); MEAN CORPUSCULAR HEMOGLOBIN 29 pg (25-35); MEAN CORPUSCULAR HGB CONC 29 g/dL (31-37); MEAN CORPUSCULAR VOLUME 99 fL (79-100); MONO % 9 % (0-9); NEUT % 80 % (31-73); PLATELET COUNT 538 x10^3/uL (140-400); RED CELL DISTRIBUTION WIDTH 15.9 % (11.5-14.5); WHITE BLOOD COUNT 17.1 x10^3/uL (4.0-11.0)
[2016-11-25] MEDS ORDERED: IV NORMAL SALINE 1000ML BAG 1,000 ML IV SCH (08:30)
[2016-11-25 08:48] LABS: ALBUMIN 3.2 g/dL (3.4-5.0); ALBUMIN/GLOBULIN RATIO 0.6 (1.0-1.7); ALK PHOS 113 U/L (46-116); ALT (SGPT) 17 U/L (14-59); AST (SGOT) 11 U/L (15-37); BLOOD UREA NITROGEN 21 mg/dL (7-20); BUN/CREATININE RATIO 11 (6-20); CALCIUM 11.2 mg/dL (8.5-10.1); CHLORIDE 99 mmol/L (98-107); GFR 30.3; POTASSIUM 4.6 mmol/L (3.5-5.1); SODIUM 140 mmol/L (136-145); TOTAL BILIRUBIN 0.3 mg/dL (0.2-1.0); TOTAL PROTEIN 8.4 g/dL (6.4-8.2)
--- NOTE | 2016-11-25 08:51 | RAD ---
Portable chest, 11/25/2016: History: Low blood sugar Comparison is made to a study from 11/10/2016. A right-sided transvenous pacemaker remains in place with 2 leads extending into the right heart. The right jugular central venous catheter has been removed. The heart size and pulmonary vascularity are normal. No pulmonary infiltrates are seen. There is no evidence of pleural fluid. IMPRESSION: No acute cardiopulmonary abnormality is detected.
[2016-11-25 08:53] LABS: ANION GAP 36 (6-14); CARBON DIOXIDE < 5 mmol/L (21-32); GLUCOSE 727 mg/dL (70-99)
[2016-11-25 08:57] LABS: BILIRUBIN,URINE NEGATIVE (NEG); GLUCOSE,URINE >=1000 mg/dL (NEG); NITRITE,URINE NEGATIVE (NEG); PROTEIN,URINE 100 mg/dL (NEG-TRACE); UROBILINOGEN,URINE 0.2 mg/dL (0.2 mg/dL)
[2016-11-25 09:15] LABS: BACTERIA,URINE 0 /HPF (0-FEW); RBC,URINE 0 /HPF (0-2); SQUAMOUS EPITHELIAL CELL,UR FEW /LPF; WBC,URINE 0 /HPF (0-4)
[2016-11-25] MEDS ORDERED: INSULIN,REGULAR 150 UNIT DRIP 150 ML IV ONE (09:15)
[2016-11-25 09:17] LABS: HCO3 ABG 3 mmol/L (21-28); PO2 ABG 153 mmHg (65-108); SAT O2 ABG 98 % (92-99)
[2016-11-25] MEDS: IV NORMAL SALINE 1000ML BAG 1,000 ML IV SCH ×2 (09:18→10:59)
[2016-11-25 09:20] LABS: FIO2 ABG 21; PCO2 ABG < 15 mmHg (35-46); PH ABG 6.96 (7.35-7.45)
[2016-11-25] MEDS ORDERED: ONDANSETRON PF 4 MG/2 ML VIAL. IV PRN (09:30)
[2016-11-25 09:33] LABS: CKMB MASS 1.1 ng/mL (0.0-3.6); CREATINE KINASE 30 U/L (26-192)
[2016-11-25] MEDS ORDERED: SODIUM BICARBONATE VIAL 150 MEQ in IV STERILE WATER 1,000 ML IV ONE (10:30)
--- NOTE | 2016-11-25 10:59 | PDOC2 ---
CONSULT Date of Consult Date of Consult DATE: 11/25/16 TIME: 10:55 Reason for Consult Reason for Consult: RENAL FAILURE Identification/Chief Complaint Chief Complaint CONFUSION Source Source: Chart review History of Present Illness Reason for Visit: THIS IS A 66 YR OLD ADMITTED WITH CONFUSION, TACHYPNEA, TACHYCARDIA AND ELEVATED BG. SHE IS NOTED TO BE IN DKA WITH SEVERE DEHYDRATION AND SAURABH. SHE HAS HAD SIMILAR PRESENTATION IN THE PAST. CR IS 2.0, NO CKD NOTED Past Surgical History Past Surgical History: Pacemaker, Total knee replacement Social History ALCOHOL: none Drugs: None Current Problem List Problem List Problems Medical Problems: (1) DKA (diabetic ketoacidoses) Status: Acute Current Medications Current Medications Current Medications Sodium Chloride 1,000 ml @ 1,000 mls/hr Q1H IV Last administered on 11/25/16 08:11; Start 11/25/16 at 08:30; Stop 11/25/16 at 09:29; Status DC Sodium Chloride 1,000 ml @ 1,000 mls/hr Q1H IV Last administered on 11/25/16 09:18; Start 11/25/16 at 10:00; Stop 11/25/16 at 11:59 Insulin Human Regular (Novolin R Iv Drip) 150 ml @ 0 mls/hr 1X ONCE IV Last administered on 11/25/16 09:34; Start 11/25/16 at 09:15; Stop 11/25/16 at 09:16 ; Status DC Ondansetron HCl 4 mg 4 mg PRN Q8HRS PRN IV NAUSEA/VOMITING; Start 11/25/16 at 09:30; Stop 11/26/16 at 09:29 Sodium Bicarbonate/ Sterile Water 1,150 ml @ 125 mls/hr 1X ONCE IV ; Start at 10:30; Stop 11/25/16 at 19:41 Active Scripts Active Reported Oxybutynin Chloride Er (Oxybutynin Chloride) 10 Mg Tab.er.24 1 Tab PO DAILY Folic Acid 1 Mg Tablet 1 Tab PO DAILY Hydrocodone-Apap 5-325 (Hydrocodone Bit/Acetaminophen) 1 Each Tablet 1-2 Tab PO Q4-6HRS Losartan-Hctz 100-12.5 Mg Tab (Losartan/Hydrochlorothiazide) 1 Each Tablet 1 Each PO DAILY Xalatan (Latanoprost) 2.5 Ml Drops 1 Drop EACHEYE QHS Gabapentin 300 Mg Capsule 300 Mg PO TID Toprol Xl (Metoprolol Succinate) 50 Mg Tab.er.24h 1 Tab PO DAILY Allergies Allergies: Coded Allergies: Penicillins (Verified Allergy, Intermediate, 11/08/16) azithromycin (Verified Allergy, Intermediate, 05/28/16) metoprolol (Verified Allergy, Intermediate, 05/28/16) nifedipine (Verified Allergy, Intermediate, 05/28/16) ROS Review of System UNABLE TO OBTAIN Physical Exam General: Cooperative, mild distress HEENT: Atraumatic, PERRLA, EOMI, Other (DRY MUCOSA) Lungs: Clear to auscultation Heart: Regular rate, Normal S1, Normal S2 Abdomen: Normal bowel sounds, Soft, No tenderness Extremities: No clubbing Skin: No breakdown Neuro: Other (CONFUSED) Psych/Mental Status: Other (CONFUSED) MUSCULOSKELETAL: No deformity Vitals VITALS Vital Signs Date Time Temp Pulse Resp B/P Pulse Ox O2 Delivery O2 Flow Rate FiO2 11/25/16 09:52 94 25 159/70 100 Room Air 11/25/16 07:49 96.6 96.6 Labs Labs Laboratory Tests Test 11/25/16 08:04 11/25/16 08:35 11/25/16 09:00 11/25/16 10:42 White Blood Count 17.1x10^3/uL (4.0-11.0) Red Blood Count 4.10x10^6/uL (3.50-5.40) Hemoglobin 11.8g/dL (12.0-15.5) Hematocrit 40.4% (36.0-47.0) Mean Corpuscular Volume 99fL (79-100) Mean Corpuscular Hemoglobin 29pg (25-35) Mean Corpuscular Hemoglobin Concent 29g/dL (31-37) Red Cell Distribution Width 15.9% (11.5-14.5) Platelet Count 538x10^3/uL (140-400) Neutrophils (%) (Auto) 80% (31-73) Lymphocytes (%) (Auto) 10% (24-48) Monocytes (%) (Auto) 9% (0-9) Eosinophils (%) (Auto) 0% (0-3) Basophils (%) (Auto) 1% (0-3) Neutrophils # (Auto) 13.7x10^3uL (1.8-7.7) Lymphocytes # (Auto) 1.7x10^3/uL (1.0-4.8) Monocytes # (Auto) 1.5x10^3/uL (0.0-1.1) Eosinophils # (Auto) 0.0x10^3/uL (0.0-0.7) Basophils # (Auto) 0.2x10^3/uL (0.0-0.2) Sodium Level 140mmol/L (136-145) Potassium Level 4.6mmol/L (3.5-5.1) Chloride Level 99mmol/L (98-107) Carbon Dioxide Level < 5mmol/L (21-32) Anion Gap 36 (6-14) Blood Urea Nitrogen 21mg/dL (7-20) Creatinine 2.0mg/dL (0.6-1.0) Estimated GFR (Cockcroft-Gault) 30.3 BUN/Creatinine Ratio 11 (6-20) Glucose Level 727mg/dL (70-99) Calcium Level 11.2mg/dL (8.5-10.1) Total Bilirubin 0.3mg/dL (0.2-1.0) Aspartate Amino Transf (AST/SGOT) 11U/L (15-37) Alanine Aminotransferase (ALT/SGPT) 17U/L (14-59) Alkaline Phosphatase 113U/L (46-116) Creatine Kinase 30U/L (26-192) Creatine Kinase MB (Mass) 1.1ng/mL (0.0-3.6) Creatine Kinase MB Relative Index % (0-4) Troponin I Quantitative < 0.017ng/mL (0.000-0.055) Total Protein 8.4g/dL (6.4-8.2) Albumin 3.2g/dL (3.4-5.0) Albumin/Globulin Ratio 0.6 (1.0-1.7) Urine Collection Type U cath Urine Color Yellow Urine Clarity Clear Urine pH 5.0 Urine Specific Scotts 1.020 Urine Protein 100mg/dL (NEG-TRACE) Urine Glucose (UA) >=1000mg/dL (NEG) Urine Ketones (Stick) >=80mg/dL (NEG) Urine Blood Moderate (NEG) Urine Nitrite Negative (NEG) Urine Bilirubin Negative (NEG) Urine Urobilinogen Dipstick 0.2mg/dL (0.2 mg/dL) Urine Leukocyte Esterase Negative (NEG) Urine RBC 0/HPF (0-2) Urine WBC 0/HPF (0-4) Urine Squamous Epithelial Cells Few/LPF Urine Amorphous Sediment Present/HPF Urine Bacteria 0/HPF (0-FEW) Urine Hyaline Casts Occasional/HPF O2 Saturation 98% (92-99) Arterial Blood pH 6.96 (7.35-7.45) Arterial Blood pCO2 at Patient Temp < 15mmHg (35-46) Arterial Blood pO2 at Patient Temp 153mmHg (65-108) Arterial Blood HCO3 3mmol/L (21-28) Arterial Blood Base Excess -28mmol/L (-3-3) FiO2 21 Glucose (Fingerstick) 562mg/dL (70-99) Laboratory Tests Test 11/25/16 08:04 11/25/16 08:35 11/25/16 09:00 11/25/16 10:42 White Blood Count 17.1x10^3/uL (4.0-11.0) Red Blood Count 4.10x10^6/uL (3.50-5.40) Hemoglobin 11.8g/dL (12.0-15.5) Hematocrit 40.4% (36.0-47.0) Mean Corpuscular Volume 99fL (79-100) Mean Corpuscular Hemoglobin 29pg (25-35) Mean Corpuscular Hemoglobin Concent 29g/dL (31-37) Red Cell Distribution Width 15.9% (11.5-14.5) Platelet Count 538x10^3/uL (140-400) Neutrophils (%) (Auto) 80% (31-73) Lymphocytes (%) (Auto) 10% (24-48) Monocytes (%) (Auto) 9% (0-9) Eosinophils (%) (Auto) 0% (0-3) Basophils (%) (Auto) 1% (0-3) Neutrophils # (Auto) 13.7x10^3uL (1.8-7.7) Lymphocytes # (Auto) 1.7x10^3/uL (1.0-4.8) Monocytes # (Auto) 1.5x10^3/uL (0.0-1.1) Eosinophils # (Auto) 0.0x10^3/uL (0.0-0.7) Basophils # (Auto) 0.2x10^3/uL (0.0-0.2) Sodium Level 140mmol/L (136-145) Potassium Level 4.6mmol/L (3.5-5.1) Chloride Level 99mmol/L (98-107) Carbon Dioxide Level < 5mmol/L (21-32) Anion Gap 36 (6-14) Blood Urea Nitrogen 21mg/dL (7-20) Creatinine 2.0mg/dL (0.6-1.0) Estimated GFR (Cockcroft-Gault) 30.3 BUN/Creatinine Ratio 11 (6-20) Glucose Level 727mg/dL (70-99) Calcium Level 11.2mg/dL (8.5-10.1) Total Bilirubin 0.3mg/dL (0.2-1.0) Aspartate Amino Transf (AST/SGOT) 11U/L (15-37) Alanine Aminotransferase (ALT/SGPT) 17U/L (14-59) Alkaline Phosphatase 113U/L (46-116) Creatine Kinase 30U/L (26-192) Creatine Kinase MB (Mass) 1.1ng/mL (0.0-3.6) Creatine Kinase MB Relative Index % (0-4) Troponin I Quantitative < 0.017ng/mL (0.000-0.055) Total Protein 8.4g/dL (6.4-8.2) Albumin 3.2g/dL (3.4-5.0) Albumin/Globulin Ratio 0.6 (1.0-1.7) Urine Collection Type U cath Urine Color Yellow Urine Clarity Clear Urine pH 5.0 Urine Specific Scotts 1.020 Urine Protein 100mg/dL (NEG-TRACE) Urine Glucose (UA) >=1000mg/dL (NEG) Urine Ketones (Stick) >=80mg/dL (NEG) Urine Blood Moderate (NEG) Urine Nitrite Negative (NEG) Urine Bilirubin Negative (NEG) Urine Urobilinogen Dipstick 0.2mg/dL (0.2 mg/dL) Urine Leukocyte Esterase Negative (NEG) Urine RBC 0/HPF (0-2) Urine WBC 0/HPF (0-4) Urine Squamous Epithelial Cells Few/LPF Urine Amorphous Sediment Present/HPF Urine Bacteria 0/HPF (0-FEW) Urine Hyaline Casts Occasional/HPF O2 Saturation 98% (92-99) Arterial Blood pH 6.96 (7.35-7.45) Arterial Blood pCO2 at Patient Temp < 15mmHg (35-46) Arterial Blood pO2 at Patient Temp 153mmHg (65-108) Arterial Blood HCO3 3mmol/L (21-28) Arterial Blood Base Excess -28mmol/L (-3-3) FiO2 21 Glucose (Fingerstick) 562mg/dL (70-99) Assessment/Plan Assessment/Plan IMP DKA MET ACIDOSIS ACIDEMIA SAURABH HYPONATREMIA MET ENCEPHALOPATHY LEUCOCYTOSIS-REACTIVE PLAN VOLUME EXPAND DKA PROTOCOL WILL FOLLOW SUSANA APARICIO MD Nov 25, 2016 10:59
--- NOTE | 2016-11-25 11:20 | ACF ---
Admission Forms Criteria GENERAL ADMISSION CRITERIA (Place 'X' for any and all applicable criteria): Admission is indicated for ANY ONE of the following: [ ]I. Hemodynamic instability as indicated by ANY ONE of the following(1)(2) (3)(4)(5): [ ]a) Vital sign abnormality not readily corrected by appropriate treatment within 12 to 24 hours indicated by ANY ONE of the following: [ ]i) Hypotension [ ]ii) Symptomatic Tachycardia unresponsive to treatment (eg , analgesia, fluids, sedation as indicated) [ ]iii) Orthostatic vital sign changes unresponsive to treatment (eg, fluids) [ ]b) Vital sign abnormality that is severe indicated by ANY ONE of the following: [ ]i) Inadequate perfusion indicated by ANY ONE of the following: [ ]1) Lactic acidosis (greater than 2 mmol/L) [ ]2) New abnormal capillary refill (greater than 3 seconds) [ ]3) Other metabolic acidosis (arterial pH less than 7.35) not otherwise explained [ ]4) Reduced urine output [ ]5) Altered mental status [ ]6) Myocardial Ischemia [ ]v) Mean arterial pressure[A] less than 60 mm Hg [ ]vi) Mean arterial pressure[A] less than 70 mm Hg after 30 minutes of appropriate treatment (eg, fluid resuscitation) [ ]vii) IV inotropic or vasopressor medication required to maintain adequate blood pressure or perfusion [ ]viii) Sustained heart rate greater than 120 beats per minute in adult or child 6 years or older[B]] [ ]II. Hypertension requiring inpatient treatment as indicated by ANY ONE of the following(6)(7)(8): [ ]a) SBP greater than 220 mm Hg or DBP greater than 120 mm Hg despite treatment [ ]b) SBP greater than 140 mm Hg or DBP greater than 100 mm Hg with evidence of acute end organ damage as indicated by ANY ONE of the following: [ ]i) Encephalopathy [ ]ii) Acute renal failure as indicated by new onset of ANY ONE of the following(9)(10)(11)(12)(13): [ ]1) A 3-fold rise in serum creatinine from baseline [ ]2) Serum creatinine greater than 4 mg/dL ( 354 micromoles/L) with acute rise greater than 0.5 mg/dL (44.2 micromoles/L) [ ]3) Reduction of more than 75% in estimated glomerular filtration rate from baseline [ ]4) Estimated glomerular filtration rate less than 35 mL/min/1.73m2 (0.59 mL/sec/1.73m2) in child up to 18 years of age [ ]5) Cessation of urine output indicated by ALL of the following: [ ]A. Adequate volume status [ ]B. Inadequate urine output as indicated by ANY ONE of the following: [ ]a. Urine output less than 0.3 mL/kg/hr for 24 hours [ ]b. Anuria (urine output less than 0.1 mL/kg/hr) for 12 hours [ ]iii) Aortic dissection [ ]iv) Myocardial ischemia [ ]v) Left ventricular heart failure [ ]vi) Retinal hemorrhage [ ]vii) Other significant finding [ ]c) Hypertension in child requiring inpatient treatment as indicated by ALL of the following(14)(15)(16): [ ]i) Outpatient treatment not effective, not available, or not appropriate [ ]ii) SBP or DBP greater than 95th percentile for age [ ]iii) Evidence of acute end organ damage as indicated by ANY ONE of the following: [ ]1) Altered mental status [ ]2) Acute renal failure as indicated by new onset of ANY ONE of the following(9)(10)(11)(12)(13): [ ]A. A 3-fold rise in serum creatinine from baseline [ ]B. Serum creatinine greater than 4 mg/dL (354 micromoles/L) with acute rise greater than 0.5 mg/dL (44.2 micromoles/L) [ ]C. Reduction of more than 75% in estimated glomerular filtration rate from baseline [ ]D. Estimated glomerular filtration rate less than 35 mL/min/1.73m2 (0.59 mL/sec/1.73m2)in child up to 18 years of age [ ]E. Cessation of urine output indicated by ALL of the following: [ ]a. Adequate volume status [ ]b. Inadequate urine output as indicated by ANY ONE of the following: [ ]1) Urine output less than 0.3 mL/kg/hr for 24 hours [ ]2) Anuria (urine output less than 0.1 mL/kg/hr) for 12 hours [ ]3) Severe headache [ ]4) Visual disturbance [ ]5) Retinal hemorrhage [ ]6) Other significant finding [ ]III. Acute cardiac or peripheral ischemia as indicated by ANY ONE of the following: [ ]a) Acute coronary syndrome(17)(18) [ ]b) Acute peripheral ischemia (eg, pulseless, cool, mottled, or cyanotic extremity)(19) [ ]IV. Cardiac arrhythmias or findings of immediate concern indicated by ANY ONE of the following(20)(21): [ ]a) Heart rhythms that are inherently dangerous or unstable indicated by ANY ONE of the following(22)(23)(24): [ ]i) Resuscitated ventricular fibrillation or cardiac arrest [ ]ii) Ventricular escape rhythm [ ]iii) Sustained ventricular tachycardia (30 seconds or more of ventricular rhythm at greater than 100 beats per minute) [ ]iv) Nonsustained ventricular tachycardia and ANY ONE of the following: [ ]1) Suspected cardiac ischemia as cause or consequence of ventricular tachycardia [ ]2) In setting of acute myocarditis [ ]b) Unstable cardiac conduction defects indicated by ANY ONE of the following(24)(25)(26): [ ]i) Type II second-degree atrioventricular block [ ]ii) Third-degree atrioventricular block [ ]iii) New-onset left bundle branch block with suspected myocardial ischemia [ ]c) Any heart rhythm and ANY ONE of the following(22)(23)(27)(28)( 29): [ ] i) Continuous long-term ECG monitoring needed (eg, initiation of drug requiring monitoring for more than 24 hours) [ ] ii) Patient has automatic implanted cardioverter defibrillator that is repeatedly firing, malfunctioning, or in need of immediate adjustment of settings beyond the scope of ambulatory or observation care. [ ]d) Heart rhythms of concern due to ANY ONE of the following: [ ]i) Hypotension [ ]ii) Respiratory distress [ ]iii) Association with other significant symptoms (eg, bradycardia with syncope or ongoing dizziness, supraventricular tachycardia with chest pain) (27)(28) (30) [ ] V. Severe heart failure as indicated by ANY ONE of the following ( 31)(32): [ ]a) Respiratory distress [ ]b) Hypotension [ ]c) Anasarca (refractory to outpatient therapy) [ ]d) Cardiac arrhythmias of immediate concern [ ]e) Myocardial ischemia [ ]. Respiratory abnormalities, including ANY ONE of the following(33)(34) (35)(36): [ ]a) Respiratory rate greater than 30 breaths per minute unresponsive to treatment [A] [ ]b) New saturation of arterial oxygen less than 90% [ ]c) New partial pressure of carbon dioxide greater than 44 mm Hg ( 5.9 kPa) [ ]d) Supplemental oxygen or respiratory treatments needed that are new or not performable at other levels of care [ ]e) New-onset cyanosis [ ]f) Inability to protect airway [ ]g) Chronic lung disease with severe deterioration (not responsive to emergency and observation care treatment as appropriate) as indicated by ANY ONE of the following(34)(36 ): [ ]i) SaO2 5% below baseline in patient with chronic hypoxemia [ ]ii) New requirement for supplemental oxygen to keep SaO2 at baseline or acceptable level [ ]iii) Required supplemental oxygen performable only in acute inpatient setting [ ]iv) Severe airflow or ventilation abnormalities [ ]v) Previously mobile patient unable to walk between rooms [ ]vi Inability to eat or sleep due to dyspnea [ ]vii) Rapid rate of exacerbation onset [ ]viii) Altered mental status ]VII. Severe airflow or ventilation abnormalities (not responsive to emergency and observation care treatment as appropriate) as indicated by ANY ONE of the following(33)(34)(35)(37): [ ]a) PCO2 greater than 42 mm Hg (5.6 kPa) and pH less than 7.35 (new ) [ ]b) Documented PCO2 increased more than 5 mm Hg (0.7 kPa) from disease baseline [ ]c) Airflow measurements [B] less than 60% of previous best or predicted (eg, peak expiratory flow rate less than 300 L/minute) despite intensive emergent treatment [C] [ ]d) Required respiratory treatments that are performable only in acute inpatient setting [ ]VIII. Impending or actual respiratory arrest ( Also use Respiratory Failure GRG for severe respiratory disease and long-term mechanical ventilation patients) [ ]IX. Neurologic abnormalities, including ANY ONE of the following: [ ]a) New findings that suggest ANY ONE of the following: [ ]i) [employer] infection(38) [ ]ii) Cerebral bleeding, ischemia, or vasospasm(39)(40) [ ]iii) Increased intracranial pressure, hydrocephalus, or cerebral edema(41)(42)(43) [ ]iv) Spinal cord injury(44) [ ]b) Uncontrolled seizures(45) [ ]c) New-onset coma (eg, Francisco coma scale score less than 9) or unexplained abnormal mental status (eg, Francisco coma scale score less than 14) [D](41)(46)(47) [ ]X. New-onset severe neurologic findings requiring inpatient care; examples include(42)(48)(49): [ ]a) Papilledema [ ]b) Cerebral edema [ ]c) Mass effect on CT scan [ ]XI. Suspected acute intra-abdominal process with peritoneal signs, abdominal mass, or similar findings (50)(51)(52) [X]XII. Severe physiologic disorder remaining after emergency or observation level care (as appropriate) as indicated by ANY ONE of the following (53): [ ]a) Significant dehydration [X]b) Diabetic ketoacidosis [ ]c) Hyperglycemic hyperosmolar state (eg, osmolality greater than 320 mOsm/kg (mmol/kg) [ ]d) Hypoglycemia [ ]e) Other (new) acid-base disorder with pH less than 7.35 or greater than 7.5(54) [ ]f) Thyroid storm (55) [ ]g) Myxedema coma (55) [ ]XIII. Abdominal abnormalities with ANY ONE of the following(56)(57): [ ]a) Absent bowel sounds with complete ileus [ ]b) Signs of intestinal obstruction or peritonitis [E] [ ]c) Nausea and vomiting that cannot be controlled with outpatient or observation care [ ]XIV. Acute renal failure as indicated by new onset of ANY ONE of the following(9)(10)(11)(12)(13): [ ]a) A 3-fold rise in serum creatinine from baseline [ ]b) Serum creatinine greater than 4 mg/dL (354 micromoles/L) with acute rise greater than 0.5 mg/dL (44.2 micromoles/L) [ ]c) Reduction of more than 75% in estimated glomerular filtration rate from baseline [ ]d) Estimated glomerular filtration rate less than 35 mL/min/ 1.73m2 (0.59 mL/sec/1.73m2) in child up to 18 years of age [ ]e) Cessation of urine output indicated by ALL of the following: [ ]i) Adequate volume status [ ]ii) Inadequate urine output as indicated by ANY ONE of the following: [ ]1) Urine output less than 0.3 mL/kg/hr for 24 hours [ ]2) Anuria (urine output less than 0.1 mL/kg/hr) for 12 hours [ ]XV. Significant uremic complications as indicated by ANY ONE of the following(58)(59)(60): [ ]a) Outpatient therapy is ineffective or not feasible for ANY ONE of the following: [ ]i) Severe heart failure [ ]ii) Severehypertension [ ]iii) Pleural effusion [ ]iv) Pericarditis or pericardial effusion [ ]b) Cardiac arrhythmias of immediate concern [ ]c) Intractable nausea or vomiting [ ]d) Recurrent seizures [ ]e) Encephalopathy [ ]f) Bleeding abnormalities (eg, platelet dysfunction) with active (eg, gastrointestinal) bleeding [ ]g) Dialysis indicated before long-term access or ambulatory arrangements can be made [ ]h) Significant metabolic or electrolyte abnormalities (eg, severe acidosis or hyperkalemia) [ ]XVI. High fever or other high-risk infection situation as indicated by ANY ONE of the following(61)(62)(63)(64): [ ]a) Outpatient and observation care antimicrobial treatment unavailable, not effective, or not appropriate [ ]b) Documented bacteremia [ ]c) Temperature greater than 40.5 degrees C (104.9 degrees F) ( oral) [ ]d) Temperature greater than 39.5 degrees C (103.1 degrees F) ( oral) or less than 36 degrees C (96.8 degrees F) (rectal) that does not respond to e treatment and observation care [ ] XVII. Temperature less than 95 degrees F (35 degrees C)(rectal)(65) [ ] XVIII. Severe nutritional abnormalities as indicated by ALL of the following (66)(67): [ ]a) Inability to tolerate or establish sufficient oral or other enteral nutrition in outpatient setting [ ]b) Parenteral nutrition regimen need that must be implemented on inpatient basis [ ] XIX. Severe electrolyte abnormalities indicated by ALL of the following(68) (69)(70): [ ]a) Electrolytes and associated findings are not as expected for patient baseline or acceptable treatment effects. [ ]b) Severe abnormalities indicated by ANY ONE of the following: [ ]i) Sodium less than 130 mEq/L (mmol/L) (new) [ ]ii)Sodium less than 135 mEq/L (mmol/L) with ANY ONE of the following: [ ]1) Uncorrectable (to near normal or chronic baseline) after trial of outpatient and emergency treatment [ ]2) Altered mental status [ ]3) Seizures [ ]4) Severe medical etiology requiring inpatient management (eg, heart failure, hypovolemia) [ ]iii) Sodium greater than 155 mEq/L (mmol/L) [ ]iv) Sodium greater than 150 mEq/L (mmol/L) with ANY ONE of the following: [ ]1) Uncorrectable (to near normal or chronic baseline) with outpatient and emergency treatment [ ]2) Altered mental status [ ]3) Seizures [ ]4) Severe medical etiology (eg, hypovolemia, diabetes insipidus) [ ]v) Potassium less than 2.5 mEq/L (mmol/L) despite outpatient and emergency treatment [ ]vi) Potassium less than 3 mEq/L (mmol/L) with ANY ONE of the following: [ ]1) Weakness [ ]2) Cardiac abnormality (eg, arrhythmia, conduction disturbance) [ ]3) Cardiac ischemia [ ]4) Ileus [ ]5) Ongoing medical cause requiring inpatient management (eg, acute renal wasting or SIADH) [ ]6) Other severe symptoms [ ]vii) Potassium greater than 6.5 mEq/L (mmol/L) [ ]viii) Potassium greater than 5 mEq/L (mmol/L) with ANY ONE of the following: [ ]1) Uncorrectable (to near normal or chronic baseline) with outpatient and emergency treatment [ ]2) Severe ECG findings [F] [ ]3) Acute worsening of renal failure (creatinine greater than 2.5 mg/dL (221 micromoles/L) or significant elevation for age and size) [ ]4) Severe weakness [ ]5) Severe medical etiology (eg, hemolysis, infection, drug overdose) [ ]ix) Calcium less than 7 mg/dL (1.75 mmol/L) despite outpatient and emergency treatment (72) [ ]x) Calcium less than 8 mg/dL (2 mmol/L) with significant symptoms or findings; examples include(72): [ ]1) Altered mental status [ ]2) Muscle spasms [ ]3) Seizures [ ]4) Breathing difficulty [ ]5) Cardiac abnormality (eg, arrhythmia or conduction disturbance) [ ]xi) Calcium greater than 14 mg/dL (3.5 mmol/L)(72) [ ]xii) Calcium greater than 12 mg/dL (3 mmol/L) with ANY ONE of the following(72): [ ]1) Uncorrectable (to near normal or chronic baseline) with outpatient and emergency treatment [ ]2) Significant dehydration or hypovolemia as indicated by ALL of the following(70)(73)(74): [ ]A. Not resolved with initial treatments [ ]B. Clinically significant dehydration as indicated by ANY ONE of the following: [ ]a. Vomiting refractory to outpatient treatment (ie, precluding oral rehydration) [ ]b. Inability to drink [ ]c. Hypernatremia or other electrolyte abnormality unable to be corrected with outpatient and emergency treatment [ ]d. Failure to remain hydrated with outpatient therapy [ ]e. Reduced urine output [ ]f. Hypotension [ ]g. Serious cause for dehydration requiring acute hospitalization (eg, bowel obstruction, increased intracranial pressure, infectious cause) [ ]h. Child with ANY ONE of the following(75): [ ]1) Severe abdominal tenderness [ ]2) Adequate care not available at home [ ]3) Severe dehydration ( greater than 9% loss of body weight) [ ]4) Significant symptoms or findings; examples include: [ ]A. Altered mental status [ ]B. Cardiac abnormality (eg, arrhythmia, conduction disturbance) [ ]C. Malignant etiology requiring inpatient treatment [ ]xiii) Phosphorus less than 1 mg/dL (0.32 mmol/L) [ ]xiv) Phosphorus less than 1.5 mg/dL (0.48 mmol/L) with ANY ONE of the following: [ ]1) Patient unresponsive to outpatient and emergency treatment [ ]2) Significant symptoms or findings; examples include: [ ]A. Weakness [ ]B. Altered mental status [ ]C. Breathing difficulty [ ]D. Seizures [ ]E. Rhabdomyolysis [ ]xv) Phosphorus greater than 10 mg/dL (3.2 mmol/L) [ ]xvi) Phosphorus greater than 4.5 mg/dL (1.45 mmol/L) (new) with ANY ONE of the following: [ ]1) Severe medical etiology (eg, crush injury, acute renal failure) [ ]2) Associated hypocalcemia with significant findings; examples include: [ ]A. Neurologic symptoms [ ]B. Altered mental status [ ]C. Muscle spasms [ ]D. Seizures [ ]E. Breathing difficulty [ ]F. Cardiac abnormality (eg, arrhythmia, conduction disturbance) [ ]xvii) Magnesium less than 1 mg/dL (0.41 mmol/L) [ ]xviii) Magnesium less than 1.5 mg/dL (0.62 mmol/L) with ANY ONE of the following: [ ]1) Patient unresponsive to outpatient and emergency treatment [ ]2) Associated hypocalcemia with significant findings; examples include: [ ]A. Altered mental status [ ]B. Muscle spasms [ ]C. Seizures [ ]D. Breathing difficulty [ ]E. Cardiac abnormality (eg, arrhythmia , conduction disturbance) [ ]3) Associated hypokalemia (potassium less than 3 mEq/L (mmol/L)) with risk of arrhythmia [ ]xix) Magnesium greater than 4 mEq/L (2 mmol/L) [ ]xx) Magnesium greater than 2.5 mEq/L (1.25 mmol/L) with significant symptoms or findings; examples include: [ ]1) Weakness [ ]2) Altered mental status [ ]3) Cardiac abnormality (eg, arrhythmia, conduction disturbance) [ ]4) Breathing difficulty [ ]5) Severe medical etiology (eg, renal failure, hypovolemia) [ ]xxi) Uric acid greater than 20 mg/dL (1190 micromoles/L)(76) [ ]xxii) Uric acid greater than 8 mg/dL (476 micromoles/L) with significant symptoms or findings of tumor lysis syndrome; examples include(76): [ ]1) Creatinine greater than 1.5 times upper limit of normal [ ]2) Cardiac abnormality (eg, arrhythmia, conduction disturbance) [ ]3) Seizure [ ]XX. Acute blood loss causing significant abnormality as indicated by ANY ONE of the following(77)(78): [ ]a) Hemoglobin less than 10 g/dL (100 g/L) (not baseline) [ ]b) Hematocrit less than 30% (0.30) (not baseline) [ ]c) Repeat hematocrit decreased more than 2% (0.02) [ ]d) Uncontrolled bleeding [ ]XXI. Severe anemia indicated by ANY ONE of the following(78)(79): [ ]a) Altered mental status [ ]b) Chest pain [ ]c) Exertional dyspnea [ ]d) Syncope [ ]e) Other findings suggesting inadequate perfusion [ ]f) Treatment with transfusion or volume replacement is ineffective at resolving ANY ONE of the following [G]: [ ]i) Tachycardia for age [ ]ii) Orthostatic vital sign changes as indicated by ANY ONE of the following(80): [ ]1) Fall in SBP of 20 mm Hg or more 1 to 3 minutes after patient sits or stands from recumbent position [ ]2) Fall in DBP of 10 mm Hg or more 1 to 3 minutes after patient sits or stands from recumbent position [ ]XXII. High-risk low platelet count as indicated by ANY ONE of the following( 81)(82): [ ]a) Severe or life-threatening bleeding (eg, intracranial, major gastrointestinal, or extensive mucosal bleeding), with any reduced platelet count [ ]b) Platelet count less than 20,000/mm3 (20 x109/L) with any active bleeding [ ]c) Platelet count less than 10,000/mm3 (10 x109/L) with minor purpura or petechiae [ ]d) Platelet count less than 5000/mm3 (5 x109/L) [ ]e) Low platelet count with hemolytic anemia [ ]XXIII. Disseminated intravascular coagulation(77)(83) [ ]XXIV. Severe adverse drug or systemic toxin reaction requiring inpatient treatment; examples include(84)(85): [ ]a) Serotonin syndrome(86) [ ]b) Neuroleptic malignant syndrome(86) [ ]c) Cholinergic syndrome with severe symptoms (eg, bronchorrhea, weakness, mental status changes, seizures) [ ]d) Sympathetic syndrome with severe symptoms (eg, seizures, mental status changes, cardiac dysrhythmias) [ ]e) Anticholinergic syndrome [ ]XXV. Severe pain requiring acute inpatient management as indicated by ALL of the following (87)(88)(89): [ ]a) Continuous or frequent (eg, every 2 to 4 hours) parenteral analgesics required [H] [ ]b) Rapid improvement expected from treatment or acute intervention (eg, surgery, anesthesia procedure) [ ]XXVI.Severe behavioral health issues judged unmanageable at a lower level of care (eg, residential) in a patient who is ANY ONE of the following(91) [ ]a) Acutely suicidal [ ]b) A danger to self (eg, self-mutilating or suicidal behavior) [ ]c) A danger to others (eg, assaultive or homicidal behavior) [ ]d) Incapacitated because of grave disability (eg, inability to provide for self at lower level of care) (92) [ ]XXVII. Inpatient monitoring needed; examples include(1)(3)(87)(93)(94)(95)(96 ): [ ]a) Vital signs, neurologic signs, or vascular checks more frequently than every 4 hours [ ]b) Cardiac or respiratory monitoring beyond the scope (eg, over 24 hours) of observation care [ ]c) Pulmonary artery catheter monitoring [ ]d) Suspected compartment syndrome(97) (98) [ ]e) Cerebral bleeding, hydrocephalus, or vasospasm monitoring [ ]f) Increased intracranial pressure or cerebral edema monitoring [ ]g) monitoring [ ]XXVIII. Treatment requiring inpatient care; examples include: [ ]a) IV fluid to replace significant ongoing losses (greater than 3 L/m2 per day)(53) [ ]b) High concentration oxygen (greater than 40%)(33)(99)(100) [ ]c) Frequent respiratory therapy (more frequently than every 4 hours) to maintain airflow rates greater than 60% of baseline(33)(99)(100) [ ]d) Epidural analgesia(87) [ ]e) IV anticoagulation, vasoactive, or antiarrhythmic medication(19 )(23) [ ]f) Acute thrombolytics (generally require 24 hours of observation )(101)(102) [ ]XXIX. Emergency procedures needed; examples include: [ ]a) Emergency inpatient surgery [ ]b) Temporary pacemaker placement(103) [ ]c) Chest tube placement with active evacuation (eg, suction, drainage)(104) [ ]d) Emergent cardioversion(105) [ ]e) Emergent cardiac or vascular procedures (eg, cardiac catheterization, angioplasty) (17)(18) [ ]f) Emergent dialysis access placement and institution(10)(106) [ ]g) Emergent pericardiocentesis(107) [ ]h) Emergent plasmapheresis or leukapheresis(83) [ ]i) Emergent tracheostomy The original [employer] content created by [employer] has been revised. The portions of the content which have been revised are identified through the use of italic text or in bold, and [facility] [employer] has neither reviewed nor approved the modified material. All other unmodified content is copyright [employer]. Please see references footnoted in the original [employer] edition 2016 Admission Criteria Met?: Yes JOSE CARLOS DWYER Nov 25, 2016 11:20
[2016-11-25 11:41] LABS: % BASOS 2 % (0-3); NUCLEATED RBC 1
[2016-11-25 11:43] LABS: PLT ESTIMATE INCREASED (ADEQUATE)
[2016-11-25] MEDS ORDERED: HYDROCODONE/APAP 5/325MG TABLET. PO PRN (13:15)
[2016-11-25] MEDS: HYDROCHLOROTHIAZIDE 12.5 MG CAPSULE. PO SCH (13:44)
[2016-11-25] MEDS: GABAPENTIN 300 MG CAPSULE. PO SCH ×2 (13:44→21:00)
[2016-11-25] MEDS: LOSARTAN POTASSIUM 50 MG TABLET. PO SCH (13:44)
[2016-11-25] MEDS: FOLIC ACID 1 MG TABLET PO SCH (13:44)
[2016-11-25] MEDS: OXYBUTYNIN CHLORIDE 5 MG TABLET PO SCH ×2 (13:44→21:00)
[2016-11-25] MEDS ORDERED: SODIUM PHOSPHATE 40 MMOL in IV NORMAL SALINE 500ML BAG 500 ML IV PRN (13:45)
[2016-11-25] MEDS ORDERED: SODIUM PHOSPHATE 10 MMOL in IV DEXTROSE 5% 250 ML IV PRN (13:45)
[2016-11-25] MEDS ORDERED: INSULIN REGULAR VIAL 150 UNIT in 0.9 % SODIUM CHLORIDE 150ML 150 ML IV PRN (13:45)
[2016-11-25] MEDS ORDERED: SODIUM PHOSPHATE 20 MMOL in IV DEXTROSE 5% 250 ML IV PRN (13:45)
[2016-11-25] MEDS ORDERED: POTASSIUM CHLORIDE 10MEQ 100 ML IV PRN ×3 (13:45)
[2016-11-25] MEDS ORDERED: IV 1/2 NORMAL SALINE 500 ML IV ONE (13:45)
[2016-11-25] MEDS: METOPROLOL SUCC 24HR ER 50 MG TAB.ER.24H. PO SCH (13:45)
[2016-11-25] MEDS: IV 1/2 NORMAL SALINE 1,000 ML IV SCH ×3 (13:48→21:48)
--- NOTE | 2016-11-25 13:52 | EKG ---
[facility] [address] [place] [address] Test Date: 2016-11-25 Test Time: 11:00:31 Pat Name: MARY BONILLA Department: Room: [facility] 1 Gender: F Business Quality Assurance Analyst: BUBBA : [id number] Requested By: RODOLFO NELSON Order Number: [id number] Reading MD: Shira Thomas Measurements Intervals [place] Rate: 97 P: 36 RI: 174 QRS: 76 QRSD: 132 T: 56 QT: 392 QTc: 503 Interpretive Statements SINUS RHYTHM RIGHT BUNDLE BRANCH BLOCK RVH WITH REPOLARIZATION ABNORMALITY ABNORMAL ECG Electronically Signed On 11-28-2016 19:45:35 CDT by Shira Thomas
[2016-11-25 14:45] LABS: ALBUMIN 2.7 g/dL (3.4-5.0); ALBUMIN/GLOBULIN RATIO 0.6 (1.0-1.7)
[2016-11-25 14:46] LABS: CALCIUM 9.4 mg/dL (8.5-10.1); CREATININE 1.5 mg/dL (0.6-1.0); GFR 42.2; PHOSPHORUS 2.7 mg/dL (2.6-4.7); POTASSIUM 4.1 mmol/L (3.5-5.1); TOTAL BILIRUBIN 0.4 mg/dL (0.2-1.0)
[2016-11-25] MEDS: IV DEXTROSE 5 %-0.45 % NACL 1,000 ML IV SCH ×2 (15:53→20:05)
[2016-11-25] MEDS: POTASSIUM CHLORIDE 10MEQ 100 ML IV SCH ×3 (16:56→22:00)
[2016-11-25] MEDS ORDERED: SODIUM PHOSPHATE 20 MMOL in IV DEXTROSE 5% 250 ML IV ONE (17:00)
--- NOTE | 2016-11-25 17:41 | HP ---
ADMIT DATE: 11/25/2016 CHIEF COMPLAINT: Elevated glucose. HISTORY OF PRESENT ILLNESS: The patient is a pleasant 66-year-old female, who we just discharged within the past week or two. During a previous admission, she had severe DKA and almost . This time, she presents with a little bit of mild ____ DKA. She is a little more alert and oriented, but she does have a metabolic acidosis. I have discussed the case with the ER physician. We are going to admit and give her DKA protocol. PAST MEDICAL HISTORY: DKA, noncompliance, COPD, diabetes, neuropathy, rheumatoid arthritis, obstructive sleep apnea and pacemaker. ALLERGIES: PENICILLIN, AZITHROMYCIN, METOPROLOL AND NIFEDIPINE. FAMILY HISTORY: Coronary artery disease. SOCIAL HISTORY: She does not drink, smoke or take drugs. I think she lives with her daughter. MEDICATIONS: Reviewed, please refer to the MRAD. REVIEW OF SYSTEMS: GENERAL: No history of weight change, weakness or fevers. SKIN: No bruising, hair changes or rashes. EYES: No blurred, double or loss of vision. NOSE AND THROAT: No history of nosebleeds, hoarseness or sore throat. HEART: No history of palpitations, chest pain or shortness of breath on exertion. LUNGS: Denies cough, hemoptysis, wheezing or shortness of breath. GASTROINTESTINAL: Complains of nausea, especially after eating. GENITOURINARY: No history of frequency, urgency, hesitancy or nocturia. NEUROLOGIC: Denies history of numbness, tingling, tremor or weakness. PSYCHIATRIC: No history of panic, anxiety or depression. ENDOCRINE: No history of heat or cold intolerance, polyuria or polydipsia. EXTREMITIES: Denies muscle weakness, joint pain, pain on walking or stiffness. PHYSICAL EXAMINATION: VITAL SIGNS: Temperature afebrile, pulse 67, respirations 18, blood pressure 159/____. GENERAL: She is alert, cooperative. Her daughter is present here in the ICU. HEART: Distant S1, S2. LUNGS: Clear. ABDOMEN: Soft. Decreased bowel sounds, tender. EXTREMITIES: 1+ edema. SKIN: No rashes. PSYCHIATRIC: She is depressed. VASCULAR: Good capillary refill. ENDOCRINE: No thyromegaly. LYMPHATICS: No cervical nodes. HEMATOPOIETIC: No bruising. LABORATORY DATA: White count 17, hemoglobin 12, platelets 538. Electrolytes: Sodium 140, potassium 4.6, chloride 99, bicarbonate 36, BUN 21, creatinine 2, glucose ____, anion gap 36. ASSESSMENT AND PLAN: Diabetic ketoacidosis and diagnosed gastroparesis. The patient is being admitted. We will start the DKA protocol including IV fluids and IV insulin. I am going to go ahead and consult GI for a second opinion regarding the possibility of gastroparesis. Resume home medicines, PT, OT, frequent labs. PROGNOSIS: Guarded. ANA KIRKLAND DO DR: CAPRI/kyaw JOB#: [id number] / [id number]
[2016-11-25 20:43] LABS: ALBUMIN 2.3 g/dL (3.4-5.0); ALBUMIN/GLOBULIN RATIO 0.7 (1.0-1.7); CALCIUM 8.7 mg/dL (8.5-10.1); CREATININE 1.1 mg/dL (0.6-1.0); GFR 60.3; MAGNESIUM 1.7 mg/dL (1.8-2.4); PHOSPHORUS 0.7 mg/dL (2.6-4.7); TOTAL BILIRUBIN 0.2 mg/dL (0.2-1.0); TOTAL PROTEIN 5.8 g/dL (6.4-8.2)
[2016-11-25] MEDS: LATANOPROST 0.005% OPHTH SOLUTION 2.5ML BOTTLE. OU SCH (21:59)
[2016-11-25] MEDS ORDERED: DEXTROSE 50% 25 GM / 50ML DISP.SYRIN. IV PRN (23:30)
[2016-11-26] VITALS (15 sets, daily range): BP systolic 105–193; BP diastolic 42–62
[2016-11-26] MEDS: IV DEXTROSE 5 %-0.45 % NACL 1,000 ML IV SCH ×3 (00:22→10:00)
[2016-11-26] MEDS: POTASSIUM CHLORIDE 10MEQ 100 ML IV SCH ×3 (00:23→02:47)
[2016-11-26 01:08] LABS: CALCIUM 9.2 mg/dL (8.5-10.1); CREATININE 1.1 mg/dL (0.6-1.0); GFR 60.3; MAGNESIUM 1.6 mg/dL (1.8-2.4); PHOSPHORUS 1.5 mg/dL (2.6-4.7)
[2016-11-26 01:13] LABS: POTASSIUM 2.8 mmol/L (3.5-5.1)
[2016-11-26] MEDS ORDERED: DEXTROSE 50% 25 GM / 50ML DISP.SYRIN. IV PRN ×2 (05:45→10:00)
[2016-11-26] MEDS: INSULIN ASPART 300 UNITS/3 ML INSULN.PEN SQ SCH ×5 (06:00→17:27)
[2016-11-26] MEDS ORDERED: INSULIN ASPART 300 UNITS/3 ML INSULN.PEN SQ SCH (08:00)
[2016-11-26] MEDS ORDERED: MAGNESIUM SULFATE 4GM 100 ML IV PRN (09:00)
[2016-11-26 09:07] LABS: BASO # 0.1 x10^3/uL (0.0-0.2); BASO % 1 % (0-3); EOS % 0 % (0-3); LYMPH # 0.9 x10^3/uL (1.0-4.8); LYMPH % 8 % (24-48); MEAN CORPUSCULAR HEMOGLOBIN 28 pg (25-35); MEAN CORPUSCULAR HGB CONC 32 g/dL (31-37); MEAN CORPUSCULAR VOLUME 88 fL (79-100); MONO % 12 % (0-9); NEUT % 80 % (31-73); PLATELET COUNT 344 x10^3/uL (140-400); RED CELL DISTRIBUTION WIDTH 14.7 % (11.5-14.5); WHITE BLOOD COUNT 11.3 x10^3/uL (4.0-11.0)
[2016-11-26 09:27] LABS: CALCIUM 8.4 mg/dL (8.5-10.1); CREATININE 0.7 mg/dL (0.6-1.0); GFR 101.6; MAGNESIUM 1.5 mg/dL (1.8-2.4); PHOSPHORUS 1.8 mg/dL (2.6-4.7); POTASSIUM 3.2 mmol/L (3.5-5.1)
--- NOTE | 2016-11-26 09:51 | PDOC2 ---
ELLIOTTSHEELA Annie PROSPECTING DRILLER HELPER 11/26/16 0951: CARDIAC CONSULT DATE OF CONSULT Date of Consult DATE: 11/26/16 TIME: 09:47 REASON FOR CONSULT Reason for Consult: elevated troponin REFERRING PHYSICIAN Referring Physician: Dr. Baldo Lujan SOURCE Source: Chart review, Patient (who is a poor historian ) HISTORY OF PRESENT ILLNESS HISTORY OF PRESENT ILLNESS 66 year old female admitted through ER with DKA and BS > 560. Has been on DKA protocol. Cardiology consulted for troponin level of 0.057. Patient with similar episode in October and underwent cardiac cath demonstrating no obstructive disease. Patient also with PPM placed in 1999. Now stating she [place] [facility] [place]2016 report follow up with Dr. Rose. EKG with SR with RBBB. Denies chest pain or dyspnea. Reason for Visit: elevated troponin PAST MEDICAL HISTORY Cardiovascular: HTN, Hyperlipidemia, Other (PPM - [employer] for SSS) Pulmonary: COPD, Other (BARBARA) CENTRAL NERVOUS SYSTEM: Seizure GI: Peptic Ulcer disease Endocrine: Diabetes (type II, history of medication non-compliance) PAST SURGICAL HISTORY Past Surgical History: Pacemaker, Total knee replacement FAMILY HISTORY Family History: Diabetes SOCIAL HISTORY Smoke: Quit CURRENT MEDICATIONS CURRENT MEDICATIONS Current Medications Medications (Trade) Dose Ordered Sig/Thuy Route PRN Reason Start Time Stop Time Status Last Admin Dose Admin Sodium Chloride 1,000 ml @ 1,000 mls/hr Q1H IV 11/25/16 10:00 11/25/16 11:59 DC 11/25/16 10:59 Sodium Bicarbonate/ Sterile Water 1,150 ml @ 125 mls/hr 1X ONCE IV 11/25/16 10:30 11/25/16 19:41 DC 11/25/16 10:30 Latanoprost 1 drop 1 drop QHS OU 11/25/16 21:00 11/25/16 21:59 Sodium Chloride 1,000 ml @ 250 mls/hr Q4H IV 11/25/16 13:48 11/26/16 01:26 DC 11/25/16 13:48 Dextrose/Sodium Chloride 1,000 ml @ 250 mls/hr Q4H IV 11/25/16 18:00 11/26/16 04:27 Insulin Human Regular 150 unit/ Sodium Chloride 151.5 ml @ 0 mls/hr CONT PRN PRN IV PER PROTOCOL 11/25/16 13:45 11/25/16 22:15 Potassium Chloride 100 ml @ 50 mls/hr Q1H IV 11/25/16 17:00 11/25/16 18:59 DC 11/25/16 17:58 Sodium Phosphate 20 mmol/Dextrose 256.6667 ml @ 64.167 m... 1X ONCE IV 11/25/16 17:00 11/25/16 20:59 DC 11/25/16 16:53 Potassium Chloride (KCl Premix 10meq) 100 ml @ 100 mls/hr Q1H IV 11/25/16 21:30 11/26/16 01:29 DC 11/26/16 02:47 ALLERGIES ALLERGIES: Coded Allergies: Penicillins (Verified Allergy, Intermediate, 11/08/16) azithromycin (Verified Allergy, Intermediate, 05/28/16) metoprolol (Verified Allergy, Intermediate, 05/28/16) nifedipine (Verified Allergy, Intermediate, 05/28/16) ROS General: YES: Fatigue, Malaise PSYCHOLOGICAL ROS: YES: Memory difficulties Eyes: No Blurry vision, No Decreased vision, No Double vision, No Dry eyes, No Excessive tearing, No Eye Pain, No Itchy Eyes, No Loss of vision, No Other, No Photophobia, No Scotomata, No Uses contacts, No Uses glasses HEENT: No: Epistaxis, Heacaches, Hearing change, Nasal congestion, Nasal discharge, Oral lesions, Other, Sinus pain, Sneezing, Snoring, Sore Throat, Tinnitus, Vertigo, Visual Changes, Vocal changes ALLERGY AND IMMUNOLOGY: No: Hives, Insect Bite Sensitivity, Itchy/Watery Eyes, Nasal Congestion, Other, Post Nasal Drip, Seasonal Allergies Hematological and Lymphatic: No: Bleeding Problems, Blood Clots, Blood Transfusions, Brusing, Night Sweats, Other, Pallor, Swollen Lymph Nodes ENDOCRINE: No: Breast Changes, Galactorrhea, Hair Pattern Changes, Hot Flashes , Malaise/lethargy, Mood Swings, Other, Palpitations, Polydipsia/polyuria, Skin Changes, Temperature Intolerance, Unexpected Weight Changes Respiratory: No: Cough, Hemoptysis, Orthopnea, Other, Pleuritic Pain, SOB with excertion, Shortness of breath, Sputum Changes, Stridor, Tachypnea, Wheezing Cardiovascular: No Chest Pain, No Edema, No Lt Headedness, No Orthopnea, No Other, No Palpitations, No Paroxysmal Noc. Dyspnea Gastrointestinal: No Abdominal Pain, No Constipation, No Diarrhea, No Hematochezia, No Melena, No Nausea, No Other, No Vomiting Genitourinary: No Discharge, No Dysuria, No Flank Pain, No Frequency, No Hematuria, No Incontinence, No Other, No Pain, No Retention, No Urgency Neurological: Yes Memory Loss, Yes Seizures Skin: No Acne, No Dry Skin, No Eczema, No Hair Changes, No Lumps, No Mole Changes, No Mottling, No Nail Changes, No Other, No Pruritus, No Rash, No Skin Lesion Changes PHYSICAL EXAM General: Cooperative, No acute distress HEENT: Atraumatic, PERRLA Lungs: Clear to auscultation, Normal air movement Heart: Normal S1, Normal S2, Other (1/6 murmur LLSB; PPM pocket right pectoral - well healed) Extremities: No edema, Normal pulses Skin: No rashes Neuro: Normal speech Psych/Mental Status: Mood NL MUSCULOSKELETAL: Osteoarthritic changes both hands VITALS VITALS Vital Signs Date Time Temp Pulse Resp B/P Pulse Ox O2 Delivery O2 Flow Rate FiO2 11/26/16 06:00 89 20 177/54 Room Air 11/26/16 04:00 97.6 97.6 11/26/16 01:58 100 LABS Lab: Laboratory Tests Test 11/25/16 10:40 11/25/16 10:42 11/25/16 12:16 11/25/16 13:19 Nasal Screen MRSA (PCR) Negative (Negative) Glucose (Fingerstick) 562mg/dL (70-99) 419mg/dL (70-99) 344mg/dL (70-99) Test 11/25/16 13:25 11/25/16 14:40 11/25/16 15:20 11/25/16 16:15 Sodium Level 147mmol/L (136-145) Potassium Level 4.1mmol/L (3.5-5.1) Chloride Level 113mmol/L (98-107) Carbon Dioxide Level 9mmol/L (21-32) Anion Gap 25 (6-14) Blood Urea Nitrogen 19mg/dL (7-20) Creatinine 1.5mg/dL (0.6-1.0) Estimated GFR (Cockcroft-Gault) 42.2 BUN/Creatinine Ratio 13 (6-20) Glucose Level 313mg/dL (70-99) Lactic Acid Level 3.9mmol/L (0.4-2.0) Calcium Level 9.4mg/dL (8.5-10.1) Phosphorus Level 2.7mg/dL (2.6-4.7) Magnesium Level 2.0mg/dL (1.8-2.4) Total Bilirubin 0.4mg/dL (0.2-1.0) Aspartate Amino Transf (AST/SGOT) 10U/L (15-37) Alanine Aminotransferase (ALT/SGPT) 15U/L (14-59) Alkaline Phosphatase 90U/L (46-116) Total Protein 7.0g/dL (6.4-8.2) Albumin 2.7g/dL (3.4-5.0) Albumin/Globulin Ratio 0.6 (1.0-1.7) Glucose (Fingerstick) 242mg/dL (70-99) 189mg/dL (70-99) Troponin I Quantitative 0.052ng/mL (0.000-0.055) Test 11/25/16 17:19 11/25/16 18:21 11/25/16 19:39 11/25/16 20:20 Glucose (Fingerstick) 205mg/dL (70-99) 216mg/dL (70-99) 233mg/dL (70-99) Sodium Level 142mmol/L (136-145) Potassium Level 3.0mmol/L (3.5-5.1) Chloride Level 112mmol/L (98-107) Carbon Dioxide Level 20mmol/L (21-32) Anion Gap 10 (6-14) Blood Urea Nitrogen 14mg/dL (7-20) Creatinine 1.1mg/dL (0.6-1.0) Estimated GFR (Cockcroft-Gault) 60.3 BUN/Creatinine Ratio 13 (6-20) Glucose Level 253mg/dL (70-99) Calcium Level 8.7mg/dL (8.5-10.1) Phosphorus Level 0.7mg/dL (2.6-4.7) Magnesium Level 1.7mg/dL (1.8-2.4) Total Bilirubin 0.2mg/dL (0.2-1.0) Aspartate Amino Transf (AST/SGOT) 12U/L (15-37) Alanine Aminotransferase (ALT/SGPT) 12U/L (14-59) Alkaline Phosphatase 70U/L (46-116) Troponin I Quantitative 0.057ng/mL (0.000-0.055) Total Protein 5.8g/dL (6.4-8.2) Albumin 2.3g/dL (3.4-5.0) Albumin/Globulin Ratio 0.7 (1.0-1.7) Test 11/25/16 21:01 11/25/16 22:07 11/25/16 23:15 11/26/16 00:29 Glucose (Fingerstick) 204mg/dL (70-99) 211mg/dL (70-99) 214mg/dL (70-99) 182mg/dL (70-99) Test 11/26/16 00:37 11/26/16 01:43 11/26/16 02:49 11/26/16 03:56 Sodium Level 144mmol/L (136-145) Potassium Level 2.8mmol/L (3.5-5.1) Chloride Level 113mmol/L (98-107) Carbon Dioxide Level 18mmol/L (21-32) Anion Gap 13 (6-14) Blood Urea Nitrogen 11mg/dL (7-20) Creatinine 1.1mg/dL (0.6-1.0) Estimated GFR (Cockcroft-Gault) 60.3 Glucose Level 206mg/dL (70-99) Lactic Acid Level 2.6mmol/L (0.4-2.0) Calcium Level 9.2mg/dL (8.5-10.1) Phosphorus Level 1.5mg/dL (2.6-4.7) Magnesium Level 1.6mg/dL (1.8-2.4) Glucose (Fingerstick) 190mg/dL (70-99) 134mg/dL (70-99) 84mg/dL (70-99) Test 11/26/16 05:12 11/26/16 07:06 11/26/16 08:55 Glucose (Fingerstick) 95mg/dL (70-99) 144mg/dL (70-99) White Blood Count 11.3x10^3/uL (4.0-11.0) Red Blood Count 3.20x10^6/uL (3.50-5.40) Hemoglobin 9.0g/dL (12.0-15.5) Hematocrit 28.0% (36.0-47.0) Mean Corpuscular Volume 88fL (79-100) Mean Corpuscular Hemoglobin 28pg (25-35) Mean Corpuscular Hemoglobin Concent 32g/dL (31-37) Red Cell Distribution Width 14.7% (11.5-14.5) Platelet Count 344x10^3/uL (140-400) Neutrophils (%) (Auto) 80% (31-73) Lymphocytes (%) (Auto) 8% (24-48) Monocytes (%) (Auto) 12% (0-9) Eosinophils (%) (Auto) 0% (0-3) Basophils (%) (Auto) 1% (0-3) Neutrophils # (Auto) 9.0x10^3uL (1.8-7.7) Lymphocytes # (Auto) 0.9x10^3/uL (1.0-4.8) Monocytes # (Auto) 1.3x10^3/uL (0.0-1.1) Eosinophils # (Auto) 0.0x10^3/uL (0.0-0.7) Basophils # (Auto) 0.1x10^3/uL (0.0-0.2) Sodium Level 141mmol/L (136-145) Potassium Level 3.2mmol/L (3.5-5.1) Chloride Level 111mmol/L (98-107) Carbon Dioxide Level 14mmol/L (21-32) Anion Gap 16 (6-14) Blood Urea Nitrogen 7mg/dL (7-20) Creatinine 0.7mg/dL (0.6-1.0) Estimated GFR (Cockcroft-Gault) 101.6 Glucose Level 301mg/dL (70-99) Calcium Level 8.4mg/dL (8.5-10.1) Phosphorus Level 1.8mg/dL (2.6-4.7) Magnesium Level 1.5mg/dL (1.8-2.4) IMAGES IMAGES Comparison is made to a study from 11/10/2016. A right-sided transvenous pacemaker remains in place with 2 leads extending into the right heart. The right jugular central venous catheter has been removed. The heart size and pulmonary vascularity are normal. No pulmonary infiltrates are seen. There is no evidence of pleural fluid. IMPRESSION: No acute cardiopulmonary abnormality is detected. EKG EKG no acute changes ECHOCARDIOGRAM ECHOCARDIOGRAM 10/2016: TTE: There is normal left ventricular wall thickness. The left ventricular systolic function is normal and the ejection fraction is within normal range. The Ejection Fraction is 60-65%. No significant valvular disease. ASSESSMENT/PLAN ASSESSMENT/PLAN 1. elevated troponin not consistent with ACS trivial elevation in level in setting of SAURABH cath 10/2016 without significant disease echo 10/2016 with preserved LV function no further cardiac evaluation indicated 2. SSS with h/o PPM will ask [employer] to interrogate records requested 3. DKA per primary service 4. HTN control with meds Will follow peripherally. Problems: CAILIN DANIEL MD 11/26/16 2148: CARDIAC CONSULT ALLERGIES ALLERGIES: Coded Allergies: Penicillins (Verified Allergy, Intermediate, 11/08/16) azithromycin (Verified Allergy, Intermediate, 05/28/16) metoprolol (Verified Allergy, Intermediate, 05/28/16) nifedipine (Verified Allergy, Intermediate, 05/28/16) ASSESSMENT/PLAN ASSESSMENT/PLAN Pt. seen and examined. Agree with above GEOLOGICAL ENGINEER note. 66 y.o F with poor diabetic control no clear cardiac symptoms. admitted for DKA Mild trop elevation. Normal cardiac exam Supportive care. Thanks for consult. Problems: SHEELA GALLAGHER APRN Nov 26, 2016 09:51 CAILIN DANIEL MD Nov 26, 2016 21:48
[2016-11-26] MEDS ORDERED: INSULIN ASPART 300 UNITS/3 ML INSULN.PEN SQ ONE (10:00)
[2016-11-26] MEDS ORDERED: INSULIN DETEMIR 300 UNITS/3 ML INSULN.PEN. SQ ONE (10:00)
[2016-11-26] MEDS: POTASSIUM CHLORIDE 20 MEQ TABLET.ER. PO SCH ×2 (10:19→17:24)
[2016-11-26] MEDS: GABAPENTIN 300 MG CAPSULE. PO SCH ×3 (10:19→22:12)
[2016-11-26] MEDS: LOSARTAN POTASSIUM 50 MG TABLET. PO SCH (10:20)
[2016-11-26] MEDS: METOPROLOL SUCC 24HR ER 50 MG TAB.ER.24H. PO SCH (10:20)
[2016-11-26] MEDS: FOLIC ACID 1 MG TABLET PO SCH (10:20)
[2016-11-26] MEDS: HYDROCHLOROTHIAZIDE 12.5 MG CAPSULE. PO SCH (10:20)
[2016-11-26] MEDS: OXYBUTYNIN CHLORIDE 5 MG TABLET PO SCH ×2 (10:30→22:22)
[2016-11-26] MEDS ORDERED: MAGNESIUM SULFATE 2GM 50 ML IV ONE (11:00)
--- NOTE | 2016-11-26 11:38 | PDOC ---
Renal-Progress Notes Subjective Notes Notes AWAKE AND FEELING BETTER History of Present Illness Hx of present illness BETTER Vitals Vitals Vital Signs Date Time Temp Pulse Resp B/P Pulse Ox O2 Delivery O2 Flow Rate FiO2 11/26/16 11:00 74 26 163/57 100 Room Air 11/26/16 08:00 98.6 98.6 Weight Weight [ ] I.O. Intake and Output Intake and Output 11/26/16 07:00 Intake Total 9366.9 ml Output Total 2500 ml Balance 6866.9 ml Intake Oral 20 ml IV Total 9346.9 ml Output Urine Total 2500 ml Labs Labs Laboratory Tests Test 11/25/16 12:16 11/25/16 13:19 11/25/16 13:25 11/25/16 14:40 Glucose (Fingerstick) 419mg/dL (70-99) 344mg/dL (70-99) 242mg/dL (70-99) Sodium Level 147mmol/L (136-145) Potassium Level 4.1mmol/L (3.5-5.1) Chloride Level 113mmol/L (98-107) Carbon Dioxide Level 9mmol/L (21-32) Anion Gap 25 (6-14) Blood Urea Nitrogen 19mg/dL (7-20) Creatinine 1.5mg/dL (0.6-1.0) Estimated GFR (Cockcroft-Gault) 42.2 BUN/Creatinine Ratio 13 (6-20) Glucose Level 313mg/dL (70-99) Lactic Acid Level 3.9mmol/L (0.4-2.0) Calcium Level 9.4mg/dL (8.5-10.1) Phosphorus Level 2.7mg/dL (2.6-4.7) Magnesium Level 2.0mg/dL (1.8-2.4) Total Bilirubin 0.4mg/dL (0.2-1.0) Aspartate Amino Transf (AST/SGOT) 10U/L (15-37) Alanine Aminotransferase (ALT/SGPT) 15U/L (14-59) Alkaline Phosphatase 90U/L (46-116) Total Protein 7.0g/dL (6.4-8.2) Albumin 2.7g/dL (3.4-5.0) Albumin/Globulin Ratio 0.6 (1.0-1.7) Test 11/25/16 15:20 11/25/16 16:15 11/25/16 17:19 11/25/16 18:21 Troponin I Quantitative 0.052ng/mL (0.000-0.055) Glucose (Fingerstick) 189mg/dL (70-99) 205mg/dL (70-99) 216mg/dL (70-99) Test 11/25/16 19:39 11/25/16 20:20 11/25/16 21:01 11/25/16 22:07 Glucose (Fingerstick) 233mg/dL (70-99) 204mg/dL (70-99) 211mg/dL (70-99) Sodium Level 142mmol/L (136-145) Potassium Level 3.0mmol/L (3.5-5.1) Chloride Level 112mmol/L (98-107) Carbon Dioxide Level 20mmol/L (21-32) Anion Gap 10 (6-14) Blood Urea Nitrogen 14mg/dL (7-20) Creatinine 1.1mg/dL (0.6-1.0) Estimated GFR (Cockcroft-Gault) 60.3 BUN/Creatinine Ratio 13 (6-20) Glucose Level 253mg/dL (70-99) Calcium Level 8.7mg/dL (8.5-10.1) Phosphorus Level 0.7mg/dL (2.6-4.7) Magnesium Level 1.7mg/dL (1.8-2.4) Total Bilirubin 0.2mg/dL (0.2-1.0) Aspartate Amino Transf (AST/SGOT) 12U/L (15-37) Alanine Aminotransferase (ALT/SGPT) 12U/L (14-59) Alkaline Phosphatase 70U/L (46-116) Troponin I Quantitative 0.057ng/mL (0.000-0.055) Total Protein 5.8g/dL (6.4-8.2) Albumin 2.3g/dL (3.4-5.0) Albumin/Globulin Ratio 0.7 (1.0-1.7) Test 11/25/16 23:15 11/26/16 00:29 11/26/16 00:37 11/26/16 01:43 Glucose (Fingerstick) 214mg/dL (70-99) 182mg/dL (70-99) 190mg/dL (70-99) Sodium Level 144mmol/L (136-145) Potassium Level 2.8mmol/L (3.5-5.1) Chloride Level 113mmol/L (98-107) Carbon Dioxide Level 18mmol/L (21-32) Anion Gap 13 (6-14) Blood Urea Nitrogen 11mg/dL (7-20) Creatinine 1.1mg/dL (0.6-1.0) Estimated GFR (Cockcroft-Gault) 60.3 Glucose Level 206mg/dL (70-99) Lactic Acid Level 2.6mmol/L (0.4-2.0) Calcium Level 9.2mg/dL (8.5-10.1) Phosphorus Level 1.5mg/dL (2.6-4.7) Magnesium Level 1.6mg/dL (1.8-2.4) Test 11/26/16 02:49 11/26/16 03:56 11/26/16 05:12 11/26/16 07:06 Glucose (Fingerstick) 134mg/dL (70-99) 84mg/dL (70-99) 95mg/dL (70-99) 144mg/dL (70-99) Test 11/26/16 08:55 White Blood Count 11.3x10^3/uL (4.0-11.0) Red Blood Count 3.20x10^6/uL (3.50-5.40) Hemoglobin 9.0g/dL (12.0-15.5) Hematocrit 28.0% (36.0-47.0) Mean Corpuscular Volume 88fL (79-100) Mean Corpuscular Hemoglobin 28pg (25-35) Mean Corpuscular Hemoglobin Concent 32g/dL (31-37) Red Cell Distribution Width 14.7% (11.5-14.5) Platelet Count 344x10^3/uL (140-400) Neutrophils (%) (Auto) 80% (31-73) Lymphocytes (%) (Auto) 8% (24-48) Monocytes (%) (Auto) 12% (0-9) Eosinophils (%) (Auto) 0% (0-3) Basophils (%) (Auto) 1% (0-3) Neutrophils # (Auto) 9.0x10^3uL (1.8-7.7) Lymphocytes # (Auto) 0.9x10^3/uL (1.0-4.8) Monocytes # (Auto) 1.3x10^3/uL (0.0-1.1) Eosinophils # (Auto) 0.0x10^3/uL (0.0-0.7) Basophils # (Auto) 0.1x10^3/uL (0.0-0.2) Sodium Level 141mmol/L (136-145) Potassium Level 3.2mmol/L (3.5-5.1) Chloride Level 111mmol/L (98-107) Carbon Dioxide Level 14mmol/L (21-32) Anion Gap 16 (6-14) Blood Urea Nitrogen 7mg/dL (7-20) Creatinine 0.7mg/dL (0.6-1.0) Estimated GFR (Cockcroft-Gault) 101.6 Glucose Level 301mg/dL (70-99) Calcium Level 8.4mg/dL (8.5-10.1) Phosphorus Level 1.8mg/dL (2.6-4.7) Magnesium Level 1.5mg/dL (1.8-2.4) Review of Systems Constitutional: yes: alert, oriented, weakness Ears/Nose/Throat: Yes: no symptom reported Pulmonary: Yes no symptom reported Gastrointestional: Yes: anorexia Musculoskeletal: Yes: muscle stiffness Skin: Yes no symptom reported Physical Exam General Appearance: no apparent distress Skin: warm Respiratory: bilateral CTA Heart: S1S2 Abdomen: soft Extremities: pulses present Neurology: alert Assessment Assessment IMP SAURABH-RESOLVED DKA-RESOLVED LOW MAG, LOW K AND PO4 DM II PLAN IVF'S REPLACE ELECTROLYTES SUSANA APARICIO MD Nov 26, 2016 11:37
[2016-11-26] MEDS: POTASSIUM PHOSPHATE DIBASIC 10 MMOL in IV NORMAL SALINE 100ML 100 ML IV SCH ×2 (12:12→15:22)
[2016-11-26] MEDS: POTASSIUM CHLORIDE 30 MEQ in IV 1/2 NORMAL SALINE 1,000 ML IV SCH (12:12)
--- NOTE | 2016-11-26 17:13 | PDOC ---
PROGRESS NOTES Chief Complaint Chief Complaint DKA ASSESSMENT AND PLAN: 1. DKA: resolved. insulin gtt stopped. 2. Hyperglycemia: levemir started this AM, low dose, with planned adjustments over the day. pt can't remember how much insulin she is taking at home. pt and daughter need diabetic teaching 3. Vomiting w/o nausea: chronic. pt describes vomiting after PO intake (wich reflexively has decresaed), as well as sensation of food getting stuck mid chest. GI consult 4. Dysphagia: (see3). speech eval w/o pharyngeal impairment 5. Troponin leak: minimal, with mild SAURABH, and asymptomatic. cardiac consult obtained: same presentation 1 month ago, prompting extensive W/U, incl neg echo and cath. no further w/o indicated at this time 6. SAURABH: creat mildly elevated; most likely vasomotor. monitor with ongoing IVF 7. Hypokalemia: oral/IV repletion 8. Hypomag: replete IV 9. RA: on remicade q7 weeks, MTX weekly. can hold latter for now 10. Prophylaxis: heparin, H2B 11. Dispo: ok to transfer to [facility] [place] (no tele) to await GI W/U Vitals Vitals Vital Signs Date Time Temp Pulse Resp B/P Pulse Ox O2 Delivery O2 Flow Rate FiO2 11/26/16 16:00 98.1 77 20 105/44 100 Room Air 98.1 Physical Exam General: Alert, Oriented X3, Cooperative, No acute distress Heart: Regular rate, Other Lungs: Clear Abdomen: Normal bowel sounds, Soft, No tenderness Extremities: No edema, Normal pulses Skin: No rashes Labs LABS Laboratory Tests Test 11/25/16 17:19 11/25/16 18:21 11/25/16 19:39 11/25/16 20:20 Glucose (Fingerstick) 205mg/dL (70-99) 216mg/dL (70-99) 233mg/dL (70-99) Sodium Level 142mmol/L (136-145) Potassium Level 3.0mmol/L (3.5-5.1) Chloride Level 112mmol/L (98-107) Carbon Dioxide Level 20mmol/L (21-32) Anion Gap 10 (6-14) Blood Urea Nitrogen 14mg/dL (7-20) Creatinine 1.1mg/dL (0.6-1.0) Estimated GFR (Cockcroft-Gault) 60.3 BUN/Creatinine Ratio 13 (6-20) Glucose Level 253mg/dL (70-99) Calcium Level 8.7mg/dL (8.5-10.1) Phosphorus Level 0.7mg/dL (2.6-4.7) Magnesium Level 1.7mg/dL (1.8-2.4) Total Bilirubin 0.2mg/dL (0.2-1.0) Aspartate Amino Transf (AST/SGOT) 12U/L (15-37) Alanine Aminotransferase (ALT/SGPT) 12U/L (14-59) Alkaline Phosphatase 70U/L (46-116) Troponin I Quantitative 0.057ng/mL (0.000-0.055) Total Protein 5.8g/dL (6.4-8.2) Albumin 2.3g/dL (3.4-5.0) Albumin/Globulin Ratio 0.7 (1.0-1.7) Test 11/25/16 21:01 11/25/16 22:07 11/25/16 23:15 11/26/16 00:29 Glucose (Fingerstick) 204mg/dL (70-99) 211mg/dL (70-99) 214mg/dL (70-99) 182mg/dL (70-99) Test 11/26/16 00:37 11/26/16 01:43 11/26/16 02:49 11/26/16 03:56 Sodium Level 144mmol/L (136-145) Potassium Level 2.8mmol/L (3.5-5.1) Chloride Level 113mmol/L (98-107) Carbon Dioxide Level 18mmol/L (21-32) Anion Gap 13 (6-14) Blood Urea Nitrogen 11mg/dL (7-20) Creatinine 1.1mg/dL (0.6-1.0) Estimated GFR (Cockcroft-Gault) 60.3 Glucose Level 206mg/dL (70-99) Lactic Acid Level 2.6mmol/L (0.4-2.0) Calcium Level 9.2mg/dL (8.5-10.1) Phosphorus Level 1.5mg/dL (2.6-4.7) Magnesium Level 1.6mg/dL (1.8-2.4) Glucose (Fingerstick) 190mg/dL (70-99) 134mg/dL (70-99) 84mg/dL (70-99) Test 11/26/16 05:12 11/26/16 07:06 11/26/16 08:55 11/26/16 12:10 Glucose (Fingerstick) 95mg/dL (70-99) 144mg/dL (70-99) 234mg/dL (70-99) White Blood Count 11.3x10^3/uL (4.0-11.0) Red Blood Count 3.20x10^6/uL (3.50-5.40) Hemoglobin 9.0g/dL (12.0-15.5) Hematocrit 28.0% (36.0-47.0) Mean Corpuscular Volume 88fL (79-100) Mean Corpuscular Hemoglobin 28pg (25-35) Mean Corpuscular Hemoglobin Concent 32g/dL (31-37) Red Cell Distribution Width 14.7% (11.5-14.5) Platelet Count 344x10^3/uL (140-400) Neutrophils (%) (Auto) 80% (31-73) Lymphocytes (%) (Auto) 8% (24-48) Monocytes (%) (Auto) 12% (0-9) Eosinophils (%) (Auto) 0% (0-3) Basophils (%) (Auto) 1% (0-3) Neutrophils # (Auto) 9.0x10^3uL (1.8-7.7) Lymphocytes # (Auto) 0.9x10^3/uL (1.0-4.8) Monocytes # (Auto) 1.3x10^3/uL (0.0-1.1) Eosinophils # (Auto) 0.0x10^3/uL (0.0-0.7) Basophils # (Auto) 0.1x10^3/uL (0.0-0.2) Sodium Level 141mmol/L (136-145) Potassium Level 3.2mmol/L (3.5-5.1) Chloride Level 111mmol/L (98-107) Carbon Dioxide Level 14mmol/L (21-32) Anion Gap 16 (6-14) Blood Urea Nitrogen 7mg/dL (7-20) Creatinine 0.7mg/dL (0.6-1.0) Estimated GFR (Cockcroft-Gault) 101.6 Glucose Level 301mg/dL (70-99) Calcium Level 8.4mg/dL (8.5-10.1) Phosphorus Level 1.8mg/dL (2.6-4.7) Magnesium Level 1.5mg/dL (1.8-2.4) Review of Systems Review of Systems feels much better. not hungry this AM, no nausea. swallowing difficulties Comment Review of Relevant . TANNER STORM MD Nov 26, 2016 17:13
[2016-11-26] MEDS: LATANOPROST 0.005% OPHTH SOLUTION 2.5ML BOTTLE. OU SCH (22:13)
[2016-11-26] MEDS: INSULIN DETEMIR 300 UNITS/3 ML INSULN.PEN. SQ SCH (22:17)
[2016-11-27 00:19] VITALS: BP 140/60
[2016-11-27] MEDS: POTASSIUM CHLORIDE 30 MEQ in IV 1/2 NORMAL SALINE 1,000 ML IV SCH ×2 (02:35→14:05)
[2016-11-27 04:07] VITALS: BP 126/54
[2016-11-27 05:02] LABS: BASO # 0.1 x10^3/uL (0.0-0.2); BASO % 1 % (0-3); EOS % 0 % (0-3); HEMATOCRIT 29.2 % (36.0-47.0); HEMOGLOBIN 9.5 g/dL (12.0-15.5); LYMPH # 1.1 x10^3/uL (1.0-4.8); LYMPH % 15 % (24-48); MEAN CORPUSCULAR HEMOGLOBIN 28 pg (25-35); MEAN CORPUSCULAR HGB CONC 32 g/dL (31-37); MEAN CORPUSCULAR VOLUME 88 fL (79-100); MONO % 8 % (0-9); NEUT % 76 % (31-73); PLATELET COUNT 309 x10^3/uL (140-400); RED BLOOD COUNT 3.33 x10^6/uL (3.50-5.40); RED CELL DISTRIBUTION WIDTH 15.2 % (11.5-14.5); WHITE BLOOD COUNT 7.6 x10^3/uL (4.0-11.0)
[2016-11-27 05:15] LABS: CALCIUM 8.8 mg/dL (8.5-10.1); CREATININE 0.7 mg/dL (0.6-1.0); GFR 101.6
[2016-11-27 05:16] LABS: MAGNESIUM 2.4 mg/dL (1.8-2.4); PHOSPHORUS 1.9 mg/dL (2.6-4.7)
[2016-11-27] MEDS: INSULIN ASPART 300 UNITS/3 ML INSULN.PEN SQ SCH ×3 (07:52→17:15)
[2016-11-27 07:59] VITALS: BP 88/53
[2016-11-27] MEDS: FOLIC ACID 1 MG TABLET PO SCH (08:21)
[2016-11-27] MEDS: GABAPENTIN 300 MG CAPSULE. PO SCH ×3 (08:21→21:34)
[2016-11-27] MEDS: OXYBUTYNIN CHLORIDE 5 MG TABLET PO SCH ×2 (08:21→21:34)
[2016-11-27] MEDS: POTASSIUM CHLORIDE 20 MEQ TABLET.ER. PO SCH ×2 (08:21→17:13)
[2016-11-27] MEDS: LOSARTAN POTASSIUM 50 MG TABLET. PO SCH (08:22)
[2016-11-27] MEDS: METOPROLOL SUCC 24HR ER 50 MG TAB.ER.24H. PO SCH (08:23)
[2016-11-27] MEDS: HYDROCHLOROTHIAZIDE 12.5 MG CAPSULE. PO SCH (08:23)
[2016-11-27] MEDS ORDERED: BARIUM SULFATE PO ONE (08:30)
[2016-11-27] MEDS ORDERED: SIMETHICONE/SOD BICARB/CITRIC ACID PACKET. PO ONE (08:30)
[2016-11-27] MEDS ORDERED: BARIUM SULFATE 60% 355 ML SUSP PO ONE (08:30)
--- NOTE | 2016-11-27 09:58 | RAD ---
Esophagram, 11/27/2016: History: Difficulty swallowing, vomiting The study was performed utilizing high density barium and regular liquid barium. 3.2 minutes of fluoroscopy time was utilized. 10 static and dynamic fluoroscopic sequences were recorded. The swallowing mechanism is intact. There is no obstruction to flow of the barium through the cervical esophagus. There are mild posterior impressions upon the lower cervical esophagus due to cervical spurs. The esophageal peristalsis is decreased with moderate stasis of the barium in the thoracic esophagus in the recumbent position. A small sliding-type hiatal hernia was identified. The GE junction opens up to a maximal diameter of 6 mm during the exam. The mucosa at this level appears smooth. No gastroesophageal reflux was demonstrated. IMPRESSION: 1. Small sliding-type hiatal hernia. 2. Mild esophageal stricture at the GE junction level. 3. Decreased esophageal peristalsis.
[2016-11-27 11:02] VITALS: BP 130/46
--- NOTE | 2016-11-27 11:04 | PDOC ---
PROGRESS NOTES Chief Complaint Chief Complaint CC - DKA ASSESSMENT AND PLAN: 1. DKA: resolved. insulin gtt stopped. 2. Hyperglycemia: levemir started this AM, low dose, with planned adjustments over the day. pt can't remember how much insulin she is taking at home. pt and daughter need diabetic teaching 3. Vomiting w/o nausea: chronic. pt describes vomiting after PO intake (wich reflexively has decresaed), as well as sensation of food getting stuck mid chest. GI consult 4. Dysphagia: (see3). speech eval w/o pharyngeal impairment 5. Troponin leak: minimal, with mild SAURABH, and asymptomatic. cardiac consult obtained: same presentation 1 month ago, prompting extensive W/U, incl neg echo and cath. no further w/o indicated at this time 6. SAURABH: creat mildly elevated; most likely vasomotor. monitor with ongoing IVF 7. Hypokalemia: oral/IV repletion 8. Hypomag: replete IV 9. RA: on remicade q7 weeks, MTX weekly. can hold latter for now 10. Prophylaxis: heparin, H2B 11. Dispo: ok to transfer to [facility] (no tele) to await GI W/U History of Present Illness History of Present Illness Patient was laying in the bed at the time of evaluation, she was awake, alert, oriented, complaining of dysphagia, GI is already consulted and esophagogram result is pending, family was present at the bedside. DKA is resolved so waiting for GI work up done, plan of care discussed with pt. and family. Vitals Vitals Vital Signs Date Time Temp Pulse Resp B/P Pulse Ox O2 Delivery O2 Flow Rate FiO2 11/27/16 08:23 70 88/53 11/27/16 07:59 98.1 19 98 Room Air 98.1 Physical Exam General: Alert, Oriented X3, Cooperative, No acute distress Heart: Regular rate Lungs: Clear Abdomen: Normal bowel sounds, Soft, No tenderness Extremities: No edema, Normal pulses Skin: No rashes Labs LABS Laboratory Tests Test 11/26/16 12:10 11/26/16 17:26 11/27/16 04:08 11/27/16 07:34 Glucose (Fingerstick) 234mg/dL (70-99) 178mg/dL (70-99) 73mg/dL (70-99) White Blood Count 7.6x10^3/uL (4.0-11.0) Red Blood Count 3.33x10^6/uL (3.50-5.40) Hemoglobin 9.5g/dL (12.0-15.5) Hematocrit 29.2% (36.0-47.0) Mean Corpuscular Volume 88fL (79-100) Mean Corpuscular Hemoglobin 28pg (25-35) Mean Corpuscular Hemoglobin Concent 32g/dL (31-37) Red Cell Distribution Width 15.2% (11.5-14.5) Platelet Count 309x10^3/uL (140-400) Neutrophils (%) (Auto) 76% (31-73) Lymphocytes (%) (Auto) 15% (24-48) Monocytes (%) (Auto) 8% (0-9) Eosinophils (%) (Auto) 0% (0-3) Basophils (%) (Auto) 1% (0-3) Neutrophils # (Auto) 5.7x10^3uL (1.8-7.7) Lymphocytes # (Auto) 1.1x10^3/uL (1.0-4.8) Monocytes # (Auto) 0.6x10^3/uL (0.0-1.1) Eosinophils # (Auto) 0.0x10^3/uL (0.0-0.7) Basophils # (Auto) 0.1x10^3/uL (0.0-0.2) Sodium Level 145mmol/L (136-145) Potassium Level 4.0mmol/L (3.5-5.1) Chloride Level 114mmol/L (98-107) Carbon Dioxide Level 20mmol/L (21-32) Anion Gap 11 (6-14) Blood Urea Nitrogen 4mg/dL (7-20) Creatinine 0.7mg/dL (0.6-1.0) Estimated GFR (Cockcroft-Gault) 101.6 Glucose Level 168mg/dL (70-99) Calcium Level 8.8mg/dL (8.5-10.1) Phosphorus Level 1.9mg/dL (2.6-4.7) Magnesium Level 2.4mg/dL (1.8-2.4) Test 11/27/16 10:37 Glucose (Fingerstick) 253mg/dL (70-99) Review of Systems Review of Systems Denies fever, chills Denies SOB, CP Awake, alert, oriented Dysphagia especially with solid food Assessment and Plan Assessmemt and Plan ASSESSMENT: 1. DKA: resolved. insulin gtt stopped. 2. Hyperglycemia: levemir started this AM, low dose, with planned adjustments over the day. pt can't remember how much insulin she is taking at home. pt and daughter need diabetic teaching 3. Vomiting w/o nausea: chronic. pt describes vomiting after PO intake (wich reflexively has decresaed), as well as sensation of food getting stuck mid chest. GI consult 4. Dysphagia: (see3). speech eval w/o pharyngeal impairment 5. Troponin leak: minimal, with mild SAURABH, and asymptomatic. cardiac consult obtained: same presentation 1 month ago, prompting extensive W/U, incl neg echo and cath. no further w/o indicated at this time 6. SAURABH: creat mildly elevated; most likely vasomotor. monitor with ongoing IVF 7. Hypokalemia: oral/IV repletion 8. Hypomag: replete IV 9. RA: on remicade q7 weeks, MTX weekly. can hold latter for now 10. Prophylaxis: heparin, H2B Plan: Esophagogram result pending Wait for GI inputs Recheck labs in AM PTOT Appreciate subspecialities inputs and recommendations Problems Medical Problems: (1) DKA (diabetic ketoacidoses) Status: Acute Problems: Comment Review of Relevant I have reviewed the following items terese (where applicable) has been applied. Labs Laboratory Tests Test 11/25/16 12:16 11/25/16 13:19 11/25/16 13:25 11/25/16 14:40 Glucose (Fingerstick) 419mg/dL (70-99) 344mg/dL (70-99) 242mg/dL (70-99) Sodium Level 147mmol/L (136-145) Potassium Level 4.1mmol/L (3.5-5.1) Chloride Level 113mmol/L (98-107) Carbon Dioxide Level 9mmol/L (21-32) Anion Gap 25 (6-14) Blood Urea Nitrogen 19mg/dL (7-20) Creatinine 1.5mg/dL (0.6-1.0) Estimated GFR (Cockcroft-Gault) 42.2 BUN/Creatinine Ratio 13 (6-20) Glucose Level 313mg/dL (70-99) Lactic Acid Level 3.9mmol/L (0.4-2.0) Calcium Level 9.4mg/dL (8.5-10.1) Phosphorus Level 2.7mg/dL (2.6-4.7) Magnesium Level 2.0mg/dL (1.8-2.4) Total Bilirubin 0.4mg/dL (0.2-1.0) Aspartate Amino Transf (AST/SGOT) 10U/L (15-37) Alanine Aminotransferase (ALT/SGPT) 15U/L (14-59) Alkaline Phosphatase 90U/L (46-116) Total Protein 7.0g/dL (6.4-8.2) Albumin 2.7g/dL (3.4-5.0) Albumin/Globulin Ratio 0.6 (1.0-1.7) Test 11/25/16 15:20 11/25/16 16:15 11/25/16 17:19 11/25/16 18:21 Troponin I Quantitative 0.052ng/mL (0.000-0.055) Glucose (Fingerstick) 189mg/dL (70-99) 205mg/dL (70-99) 216mg/dL (70-99) Test 11/25/16 19:39 11/25/16 20:20 11/25/16 21:01 11/25/16 22:07 Glucose (Fingerstick) 233mg/dL (70-99) 204mg/dL (70-99) 211mg/dL (70-99) Sodium Level 142mmol/L (136-145) Potassium Level 3.0mmol/L (3.5-5.1) Chloride Level 112mmol/L (98-107) Carbon Dioxide Level 20mmol/L (21-32) Anion Gap 10 (6-14) Blood Urea Nitrogen 14mg/dL (7-20) Creatinine 1.1mg/dL (0.6-1.0) Estimated GFR (Cockcroft-Gault) 60.3 BUN/Creatinine Ratio 13 (6-20) Glucose Level 253mg/dL (70-99) Calcium Level 8.7mg/dL (8.5-10.1) Phosphorus Level 0.7mg/dL (2.6-4.7) Magnesium Level 1.7mg/dL (1.8-2.4) Total Bilirubin 0.2mg/dL (0.2-1.0) Aspartate Amino Transf (AST/SGOT) 12U/L (15-37) Alanine Aminotransferase (ALT/SGPT) 12U/L (14-59) Alkaline Phosphatase 70U/L (46-116) Troponin I Quantitative 0.057ng/mL (0.000-0.055) Total Protein 5.8g/dL (6.4-8.2) Albumin 2.3g/dL (3.4-5.0) Albumin/Globulin Ratio 0.7 (1.0-1.7) Test 11/25/16 23:15 11/26/16 00:29 11/26/16 00:37 11/26/16 01:43 Glucose (Fingerstick) 214mg/dL (70-99) 182mg/dL (70-99) 190mg/dL (70-99) Sodium Level 144mmol/L (136-145) Potassium Level 2.8mmol/L (3.5-5.1) Chloride Level 113mmol/L (98-107) Carbon Dioxide Level 18mmol/L (21-32) Anion Gap 13 (6-14) Blood Urea Nitrogen 11mg/dL (7-20) Creatinine 1.1mg/dL (0.6-1.0) Estimated GFR (Cockcroft-Gault) 60.3 Glucose Level 206mg/dL (70-99) Lactic Acid Level 2.6mmol/L (0.4-2.0) Calcium Level 9.2mg/dL (8.5-10.1) Phosphorus Level 1.5mg/dL (2.6-4.7) Magnesium Level 1.6mg/dL (1.8-2.4) Test 11/26/16 02:49 11/26/16 03:56 11/26/16 05:12 11/26/16 07:06 Glucose (Fingerstick) 134mg/dL (70-99) 84mg/dL (70-99) 95mg/dL (70-99) 144mg/dL (70-99) Test 11/26/16 08:55 11/26/16 12:10 11/26/16 17:26 11/27/16 04:08 White Blood Count 11.3x10^3/uL (4.0-11.0) 7.6x10^3/uL (4.0-11.0) Red Blood Count 3.20x10^6/uL (3.50-5.40) 3.33x10^6/uL (3.50-5.40) Hemoglobin 9.0g/dL (12.0-15.5) 9.5g/dL (12.0-15.5) Hematocrit 28.0% (36.0-47.0) 29.2% (36.0-47.0) Mean Corpuscular Volume 88fL (79-100) 88fL (79-100) Mean Corpuscular Hemoglobin 28pg (25-35) 28pg (25-35) Mean Corpuscular Hemoglobin Concent 32g/dL (31-37) 32g/dL (31-37) Red Cell Distribution Width 14.7% (11.5-14.5) 15.2% (11.5-14.5) Platelet Count 344x10^3/uL (140-400) 309x10^3/uL (140-400) Neutrophils (%) (Auto) 80% (31-73) 76% (31-73) Lymphocytes (%) (Auto) 8% (24-48) 15% (24-48) Monocytes (%) (Auto) 12% (0-9) 8% (0-9) Eosinophils (%) (Auto) 0% (0-3) 0% (0-3) Basophils (%) (Auto) 1% (0-3) 1% (0-3) Neutrophils # (Auto) 9.0x10^3uL (1.8-7.7) 5.7x10^3uL (1.8-7.7) Lymphocytes # (Auto) 0.9x10^3/uL (1.0-4.8) 1.1x10^3/uL (1.0-4.8) Monocytes # (Auto) 1.3x10^3/uL (0.0-1.1) 0.6x10^3/uL (0.0-1.1) Eosinophils # (Auto) 0.0x10^3/uL (0.0-0.7) 0.0x10^3/uL (0.0-0.7) Basophils # (Auto) 0.1x10^3/uL (0.0-0.2) 0.1x10^3/uL (0.0-0.2) Sodium Level 141mmol/L (136-145) 145mmol/L (136-145) Potassium Level 3.2mmol/L (3.5-5.1) 4.0mmol/L (3.5-5.1) Chloride Level 111mmol/L (98-107) 114mmol/L (98-107) Carbon Dioxide Level 14mmol/L (21-32) 20mmol/L (21-32) Anion Gap 16 (6-14) 11 (6-14) Blood Urea Nitrogen 7mg/dL (7-20) 4mg/dL (7-20) Creatinine 0.7mg/dL (0.6-1.0) 0.7mg/dL (0.6-1.0) Estimated GFR (Cockcroft-Gault) 101.6 101.6 Glucose Level 301mg/dL (70-99) 168mg/dL (70-99) Calcium Level 8.4mg/dL (8.5-10.1) 8.8mg/dL (8.5-10.1) Phosphorus Level 1.8mg/dL (2.6-4.7) 1.9mg/dL (2.6-4.7) Magnesium Level 1.5mg/dL (1.8-2.4) 2.4mg/dL (1.8-2.4) Glucose (Fingerstick) 234mg/dL (70-99) 178mg/dL (70-99) Test 11/27/16 07:34 11/27/16 10:37 Glucose (Fingerstick) 73mg/dL (70-99) 253mg/dL (70-99) Laboratory Tests Test 11/26/16 12:10 11/26/16 17:26 11/27/16 04:08 11/27/16 07:34 Glucose (Fingerstick) 234mg/dL (70-99) 178mg/dL (70-99) 73mg/dL (70-99) White Blood Count 7.6x10^3/uL (4.0-11.0) Red Blood Count 3.33x10^6/uL (3.50-5.40) Hemoglobin 9.5g/dL (12.0-15.5) Hematocrit 29.2% (36.0-47.0) Mean Corpuscular Volume 88fL (79-100) Mean Corpuscular Hemoglobin 28pg (25-35) Mean Corpuscular Hemoglobin Concent 32g/dL (31-37) Red Cell Distribution Width 15.2% (11.5-14.5) Platelet Count 309x10^3/uL (140-400) Neutrophils (%) (Auto) 76% (31-73) Lymphocytes (%) (Auto) 15% (24-48) Monocytes (%) (Auto) 8% (0-9) Eosinophils (%) (Auto) 0% (0-3) Basophils (%) (Auto) 1% (0-3) Neutrophils # (Auto) 5.7x10^3uL (1.8-7.7) Lymphocytes # (Auto) 1.1x10^3/uL (1.0-4.8) Monocytes # (Auto) 0.6x10^3/uL (0.0-1.1) Eosinophils # (Auto) 0.0x10^3/uL (0.0-0.7) Basophils # (Auto) 0.1x10^3/uL (0.0-0.2) Sodium Level 145mmol/L (136-145) Potassium Level 4.0mmol/L (3.5-5.1) Chloride Level 114mmol/L (98-107) Carbon Dioxide Level 20mmol/L (21-32) Anion Gap 11 (6-14) Blood Urea Nitrogen 4mg/dL (7-20) Creatinine 0.7mg/dL (0.6-1.0) Estimated GFR (Cockcroft-Gault) 101.6 Glucose Level 168mg/dL (70-99) Calcium Level 8.8mg/dL (8.5-10.1) Phosphorus Level 1.9mg/dL (2.6-4.7) Magnesium Level 2.4mg/dL (1.8-2.4) Test 11/27/16 10:37 Glucose (Fingerstick) 253mg/dL (70-99) Microbiology 11/25/16 Blood Culture - Preliminary, Resulted NO GROWTH AFTER 1 DAY Medications Current Medications Sodium Chloride 1,000 ml @ 1,000 mls/hr Q1H IV Last administered on 11/25/16 08:11; Start 11/25/16 at 08:30; Stop 11/25/16 at 09:29; Status DC Sodium Chloride 1,000 ml @ 1,000 mls/hr Q1H IV Last administered on 11/25/16 10:59; Start 11/25/16 at 10:00; Stop 11/25/16 at 11:59; Status DC Insulin Human Regular (Novolin R Iv Drip) 150 ml @ 0 mls/hr 1X ONCE IV Last administered on 11/25/16 09:34; Start 11/25/16 at 09:15; Stop 11/25/16 at 09:16 ; Status DC Ondansetron HCl 4 mg 4 mg PRN Q8HRS PRN IV NAUSEA/VOMITING; Start 11/25/16 at 09:30; Stop 11/26/16 at 09:29; Status DC Sodium Bicarbonate/ Sterile Water 1,150 ml @ 125 mls/hr 1X ONCE IV Last administered on 11/25/16 10:30; Start 11/25/16 at 10:30; Stop 11/25/16 at 19:41 ; Status DC Folic Acid (Folic Acid) 1 mg DAILY PO Last administered on 11/27/16 08:21; Start 11/25/16 at 14:00 Gabapentin (Neurontin) 300 mg TID PO Last administered on 11/27/16 08:21; Start 11/25/16 at 14:00 Acetaminophen/ Hydrocodone Bitart (Lortab 5/325) 1 tab PRN QID PRN PO PAIN; Start 11/25/16 at 13:00 Latanoprost (Xalatan) 1 drop QHS OU Last administered on 11/26/16 22:13; Start 11/25/16 at 21:00 Metoprolol Succinate (Toprol Xl) 50 mg DAILY PO Last administered on 11/26/16 10:20; Start 11/25/16 at 14:00 Losartan Potassium (Cozaar) 100 mg DAILY PO Last administered on 11/26/16 10: 20; Start 11/25/16 at 14:00 Oxybutynin Chloride (Ditropan) 5 mg BID PO Last administered on 11/27/16 08:21 ; Start 11/25/16 at 14:00 Acetaminophen/ Hydrocodone Bitart (Lortab 5/325) 2 tab PRN QID PRN PO PAIN; Start 11/25/16 at 13:15 Hydrochlorothiazide 12.5 mg 12.5 mg DAILY PO Last administered on 11/26/16 10: 20; Start 11/25/16 at 14:00 Sodium Chloride 500 ml @ 500 mls/hr 1X ONCE IV ; Start 11/25/16 at 13:45; Stop 11/25/16 at 14:44; Status DC Sodium Chloride 1,000 ml @ 250 mls/hr Q4H IV Last administered on 11/25/16 13 :48; Start 11/25/16 at 13:48; Stop 11/26/16 at 01:26; Status DC Dextrose/Sodium Chloride 1,000 ml @ 250 mls/hr Q4H IV Last administered on 04:27; Start 11/25/16 at 18:00; Stop 11/26/16 at 10:13; Status DC Insulin Human Regular 150 unit/ Sodium Chloride 151.5 ml @ 0 mls/hr CONT PRN PRN IV PER PROTOCOL Last administered on 11/25/16 22:15; Start 11/25/16 at 13: 45; Stop 11/26/16 at 12:21; Status DC Potassium Chloride 100 ml @ 100 mls/hr PRN Q1HR PRN IV SEE COMMENTS; Start at 13:45 Potassium Chloride 100 ml @ 100 mls/hr PRN Q1HR PRN IV SEE COMMENTS; Start at 13:45 Potassium Chloride 100 ml @ 100 mls/hr PRN Q1HR PRN IV SEE COMMENTS; Start at 13:45 Magnesium Sulfate/ Dextrose 100 ml @ 25 mls/hr PRN DAILY PRN IV SEE COMMENTS Last administered on 11/26/16 10:24; Start 11/26/16 at 09:00 Sodium Phosphate 40 mmol/Sodium Chloride 513.3333 ml @ 83.3 mls/hr 1X PRN PRN IV SEE COMMENTS; Start 11/25/16 at 13:45 Sodium Phosphate 20 mmol/Dextrose 256.6667 ml @ 62.5 mls/hr 1X PRN PRN IV SEE COMMENTS; Start 11/25/16 at 13:45 Sodium Phosphate 10 mmol/Dextrose 253.3333 ml @ 62.5 mls/hr 1X PRN PRN IV SEE COMMENTS; Start 11/25/16 at 13:45 Potassium Chloride 100 ml @ 50 mls/hr Q1H IV Last administered on 11/25/16 17 :58; Start 11/25/16 at 17:00; Stop 11/25/16 at 18:59; Status DC Sodium Phosphate 20 mmol/Dextrose 256.6667 ml @ 64.167 m... 1X ONCE IV Last administered on 11/25/16 16:53; Start 11/25/16 at 17:00; Stop 11/25/16 at 20:59 ; Status DC Potassium Chloride (KCl Premix 10meq) 100 ml @ 100 mls/hr Q1H IV Last administered on 11/26/16 02:47; Start 11/25/16 at 21:30; Stop 11/26/16 at 01:29 ; Status DC Insulin Aspart (Novolog) 0-7 UNITS TIDWMEALS SQ ; Start 11/26/16 at 08:00; Status Cancel Dextrose 12.5 gm PRN Q15MIN PRN IV SEE COMMENTS; Start 11/25/16 at 23:30; Stop 11/26/16 at 05:40; Status DC Insulin Aspart (Novolog) 0-7 UNITS Q6HRS SQ ; Start 11/26/16 at 06:00; Stop at 12:21; Status DC Dextrose 12.5 gm PRN Q15MIN PRN IV SEE COMMENTS; Start 11/26/16 at 05:45; Stop 11/26/16 at 10:11; Status DC Insulin Detemir (Levemir) 10 units 1X ONCE SQ Last administered on 11/26/16 10:22; Start 11/26/16 at 10:00; Stop 11/26/16 at 10:01; Status DC Insulin Aspart (Novolog) 10 units 1X ONCE SQ Last administered on 3/16/17at 10 :22; Start 11/26/16 at 10:00; Stop 11/26/16 at 10:01; Status DC Insulin Aspart (Novolog) 0-9 UNITS TIDWMEALS SQ Last administered on 11/26/16 17:27; Start 11/26/16 at 12:00 Dextrose 12.5 gm PRN Q15MIN PRN IV SEE COMMENTS; Start 11/26/16 at 10:00 Potassium Chloride 20 meq 20 meq BIDWMEALS PO Last administered on 11/27/16 08 :21; Start 11/26/16 at 10:00 Magnesium Sulfate/ Dextrose 50 ml @ 25 mls/hr 1X ONCE IV ; Start 11/26/16 at 11 :00; Stop 11/26/16 at 12:59; Status DC Potassium Chloride 30 meq/ Sodium Chloride 1,015 ml @ 75 mls/hr [id number] IV Last administered on 11/27/16 02:35; Start 11/26/16 at 11:00 Potassium Phosphate/Sodium Chloride (Potassium Phosphate/Iv Sodium Chloride 0.9 % 100ml) 103.3333 ml @ 51.667 m... Q2H IV Last administered on 11/26/16 15:22 ; Start 11/26/16 at 12:00; Stop 11/26/16 at 15:59; Status DC Insulin Detemir (Levemir) 12 units QHS SQ Last administered on 11/26/16 22:17 ; Start 11/26/16 at 21:00 Barium Sulfate (Liquid E-Z Paque) 355 ml 1X ONCE PO Last administered on 09:38; Start 11/27/16 at 08:30; Stop 11/27/16 at 08:31; Status DC Barium Sulfate (E-Z-Hd) 135 ml 1X ONCE PO Last administered on 11/27/16 08:30 ; Start 11/27/16 at 08:30; Stop 11/27/16 at 08:31; Status DC Simethicone/ Sodium Bicarb/ Citric Ac (E-Z-Gas) 1 packet 1X ONCE PO ; Start at 08:30; Stop 11/27/16 at 08:31; Status DC Active Scripts Active Reported Oxybutynin Chloride Er (Oxybutynin Chloride) 10 Mg Tab.er.24 1 Tab PO DAILY Folic Acid 1 Mg Tablet 1 Tab PO DAILY Hydrocodone-Apap 5-325 (Hydrocodone Bit/Acetaminophen) 1 Each Tablet 1-2 Tab PO Q4-6HRS Losartan-Hctz 100-12.5 Mg Tab (Losartan/Hydrochlorothiazide) 1 Each Tablet 1 Each PO DAILY Xalatan (Latanoprost) 2.5 Ml Drops 1 Drop EACHEYE QHS Gabapentin 300 Mg Capsule 300 Mg PO TID Toprol Xl (Metoprolol Succinate) 50 Mg Tab.er.24h 1 Tab PO DAILY Vitals/I & O Vital Sign - Last 24 Hours 11/26/16 11/26/16 11/26/16 11/26/16 11:00 12:00 16:00 20:00 Temp 98.8 98.1 98.8 98.1 Pulse 74 78 77 Resp 26 22 20 B/P 163/57 136/55 105/44 Pulse Ox 100 100 100 O2 Delivery Room Air Room Air Room Air Room Air 11/26/16 11/27/16 11/27/16 11/27/16 20:12 00:19 04:07 07:59 Temp 98.4 97.7 97.9 98.1 98.4 97.7 97.9 98.1 Pulse 76 86 68 70 Resp 18 18 18 19 B/P 117/42 140/60 126/54 88/53 Pulse Ox 99 98 100 98 O2 Delivery Room Air Room Air Room Air Room Air 11/27/16 11/27/16 08:22 08:23 Pulse 70 70 B/P 88/53 88/53 Intake and Output 11/26/16 11/26/16 11/27/16 15:00 23:00 07:00 Intake Total 550 ml 620 ml Output Total 725 ml 450 ml 3400 ml Balance -725 ml 100 ml -2780 ml ANA KIRKLAND III DO Nov 27, 2016 11:04
--- NOTE | 2016-11-27 11:20 | PDOC ---
Renal-Progress Notes Subjective Notes Notes NONE History of Present Illness Hx of present illness BETTER Vitals Vitals Vital Signs Date Time Temp Pulse Resp B/P Pulse Ox O2 Delivery O2 Flow Rate FiO2 11/27/16 11:02 97.9 76 18 130/46 100 Room Air 97.9 Weight Weight [ ] I.O. Intake and Output Intake and Output 11/27/16 07:00 Intake Total 1170 ml Output Total 4575 ml Balance -3405 ml Intake Oral 1170 ml Output Urine Total 4575 ml Labs Labs Laboratory Tests Test 11/26/16 12:10 11/26/16 17:26 11/27/16 04:08 11/27/16 07:34 Glucose (Fingerstick) 234mg/dL (70-99) 178mg/dL (70-99) 73mg/dL (70-99) White Blood Count 7.6x10^3/uL (4.0-11.0) Red Blood Count 3.33x10^6/uL (3.50-5.40) Hemoglobin 9.5g/dL (12.0-15.5) Hematocrit 29.2% (36.0-47.0) Mean Corpuscular Volume 88fL (79-100) Mean Corpuscular Hemoglobin 28pg (25-35) Mean Corpuscular Hemoglobin Concent 32g/dL (31-37) Red Cell Distribution Width 15.2% (11.5-14.5) Platelet Count 309x10^3/uL (140-400) Neutrophils (%) (Auto) 76% (31-73) Lymphocytes (%) (Auto) 15% (24-48) Monocytes (%) (Auto) 8% (0-9) Eosinophils (%) (Auto) 0% (0-3) Basophils (%) (Auto) 1% (0-3) Neutrophils # (Auto) 5.7x10^3uL (1.8-7.7) Lymphocytes # (Auto) 1.1x10^3/uL (1.0-4.8) Monocytes # (Auto) 0.6x10^3/uL (0.0-1.1) Eosinophils # (Auto) 0.0x10^3/uL (0.0-0.7) Basophils # (Auto) 0.1x10^3/uL (0.0-0.2) Sodium Level 145mmol/L (136-145) Potassium Level 4.0mmol/L (3.5-5.1) Chloride Level 114mmol/L (98-107) Carbon Dioxide Level 20mmol/L (21-32) Anion Gap 11 (6-14) Blood Urea Nitrogen 4mg/dL (7-20) Creatinine 0.7mg/dL (0.6-1.0) Estimated GFR (Cockcroft-Gault) 101.6 Glucose Level 168mg/dL (70-99) Calcium Level 8.8mg/dL (8.5-10.1) Phosphorus Level 1.9mg/dL (2.6-4.7) Magnesium Level 2.4mg/dL (1.8-2.4) Test 11/27/16 10:37 Glucose (Fingerstick) 253mg/dL (70-99) Micro Micro Microbiology 11/25/16 Blood Culture - Preliminary, Resulted NO GROWTH AFTER 1 DAY Review of Systems Constitutional: yes: alert, oriented, weakness Ears/Nose/Throat: Yes: no symptom reported Pulmonary: Yes no symptom reported Gastrointestional: Yes: anorexia Musculoskeletal: Yes: muscle stiffness Skin: Yes no symptom reported Physical Exam General Appearance: no apparent distress Skin: warm Respiratory: bilateral CTA Heart: [id number] Abdomen: soft Extremities: pulses present Neurology: alert Assessment Assessment IMP SAURABH-RESOLVED DKA-RESOLVED LOW MAG, LOW K AND PO4-BETTER DM II PLAN MORE PO4 REPLACEMENT TODAY SHOULD CORRECT ON ITS OWN AFTER THAT WILL SIGN OFF SUSANA APARICIO MD Nov 27, 2016 11:20
[2016-11-27] MEDS ORDERED: SODIUM PHOSPHATE 20 MMOL in IV DEXTROSE 5% 250 ML IV ONE (11:30)
--- NOTE | 2016-11-27 12:17 | PDOC2 ---
CONSULT Date of Consult Date of Consult DATE: 11/27/16 TIME: 12:16 Reason for Consult Reason for Consult: Dysphagia Past Medical History Cardiovascular: HTN, Hyperlipidemia, Other ([employer] - [employer] for SSS) Pulmonary: COPD, Other ([facility]) CENTRAL NERVOUS SYSTEM: Seizure GI: Peptic Ulcer disease Endocrine: Diabetes (type II, history of medication non-compliance) Past Surgical History Past Surgical History: Pacemaker, Total knee replacement Family History Family History: Diabetes Social History Quit ALCOHOL: none Drugs: None Current Problem List Problem List Problems Medical Problems: (1) DKA (diabetic ketoacidoses) Status: Acute Current Medications Current Medications Current Medications Sodium Chloride 1,000 ml @ 1,000 mls/hr Q1H IV Last administered on 11/25/16 08:11; Start 11/25/16 at 08:30; Stop 11/25/16 at 09:29; Status DC Sodium Chloride 1,000 ml @ 1,000 mls/hr Q1H IV Last administered on 11/25/16 10:59; Start 11/25/16 at 10:00; Stop 11/25/16 at 11:59; Status DC Insulin Human Regular (Novolin R Iv Drip) 150 ml @ 0 mls/hr 1X ONCE IV Last administered on 11/25/16 09:34; Start 11/25/16 at 09:15; Stop 11/25/16 at 09:16 ; Status DC Ondansetron HCl 4 mg 4 mg PRN Q8HRS PRN IV NAUSEA/VOMITING; Start 11/25/16 at 09:30; Stop 11/26/16 at 09:29; Status DC Sodium Bicarbonate/ Sterile Water 1,150 ml @ 125 mls/hr 1X ONCE IV Last administered on 11/25/16 10:30; Start 11/25/16 at 10:30; Stop 11/25/16 at 19:41 ; Status DC Folic Acid (Folic Acid) 1 mg DAILY PO Last administered on 11/27/16 08:21; Start 11/25/16 at 14:00 Gabapentin (Neurontin) 300 mg TID PO Last administered on 11/27/16 08:21; Start 11/25/16 at 14:00 Acetaminophen/ Hydrocodone Bitart (Lortab 5/325) 1 tab PRN QID PRN PO PAIN; Start 11/25/16 at 13:00 Latanoprost (Xalatan) 1 drop QHS OU Last administered on 11/26/16 22:13; Start 11/25/16 at 21:00 Metoprolol Succinate (Toprol Xl) 50 mg DAILY PO Last administered on 11/26/16 10:20; Start 11/25/16 at 14:00 Losartan Potassium (Cozaar) 100 mg DAILY PO Last administered on 11/26/16 10: 20; Start 11/25/16 at 14:00 Oxybutynin Chloride (Ditropan) 5 mg BID PO Last administered on 11/27/16 08:21 ; Start 11/25/16 at 14:00 Acetaminophen/ Hydrocodone Bitart (Lortab 5/325) 2 tab PRN QID PRN PO PAIN; Start 11/25/16 at 13:15 Hydrochlorothiazide 12.5 mg 12.5 mg DAILY PO Last administered on 11/26/16 10: 20; Start 11/25/16 at 14:00 Sodium Chloride 500 ml @ 500 mls/hr 1X ONCE IV ; Start 11/25/16 at 13:45; Stop 11/25/16 at 14:44; Status DC Sodium Chloride 1,000 ml @ 250 mls/hr Q4H IV Last administered on 11/25/16 13 :48; Start 11/25/16 at 13:48; Stop 11/26/16 at 01:26; Status DC Dextrose/Sodium Chloride 1,000 ml @ 250 mls/hr Q4H IV Last administered on 04:27; Start 11/25/16 at 18:00; Stop 11/26/16 at 10:13; Status DC Insulin Human Regular 150 unit/ Sodium Chloride 151.5 ml @ 0 mls/hr CONT PRN PRN IV PER PROTOCOL Last administered on 11/25/16 22:15; Start 11/25/16 at 13: 45; Stop 11/26/16 at 12:21; Status DC Potassium Chloride 100 ml @ 100 mls/hr PRN Q1HR PRN IV SEE COMMENTS; Start at 13:45 Potassium Chloride 100 ml @ 100 mls/hr PRN Q1HR PRN IV SEE COMMENTS; Start at 13:45 Potassium Chloride 100 ml @ 100 mls/hr PRN Q1HR PRN IV SEE COMMENTS; Start at 13:45 Magnesium Sulfate/ Dextrose 100 ml @ 25 mls/hr PRN DAILY PRN IV SEE COMMENTS Last administered on 11/26/16 10:24; Start 11/26/16 at 09:00 Sodium Phosphate 40 mmol/Sodium Chloride 513.3333 ml @ 83.3 mls/hr 1X PRN PRN IV SEE COMMENTS; Start 11/25/16 at 13:45 Sodium Phosphate 20 mmol/Dextrose 256.6667 ml @ 62.5 mls/hr 1X PRN PRN IV SEE COMMENTS; Start 11/25/16 at 13:45 Sodium Phosphate 10 mmol/Dextrose 253.3333 ml @ 62.5 mls/hr 1X PRN PRN IV SEE COMMENTS; Start 11/25/16 at 13:45 Potassium Chloride 100 ml @ 50 mls/hr Q1H IV Last administered on 11/25/16 17 :58; Start 11/25/16 at 17:00; Stop 11/25/16 at 18:59; Status DC Sodium Phosphate 20 mmol/Dextrose 256.6667 ml @ 64.167 m... 1X ONCE IV Last administered on 11/25/16 16:53; Start 11/25/16 at 17:00; Stop 11/25/16 at 20:59 ; Status DC Potassium Chloride (KCl Premix 10meq) 100 ml @ 100 mls/hr Q1H IV Last administered on 11/26/16 02:47; Start 11/25/16 at 21:30; Stop 11/26/16 at 01:29 ; Status DC Insulin Aspart (Novolog) 0-7 UNITS TIDWMEALS SQ ; Start 11/26/16 at 08:00; Status Cancel Dextrose 12.5 gm PRN Q15MIN PRN IV SEE COMMENTS; Start 11/25/16 at 23:30; Stop 11/26/16 at 05:40; Status DC Insulin Aspart (Novolog) 0-7 UNITS Q6HRS SQ ; Start 11/26/16 at 06:00; Stop at 12:21; Status DC Dextrose 12.5 gm PRN Q15MIN PRN IV SEE COMMENTS; Start 11/26/16 at 05:45; Stop 11/26/16 at 10:11; Status DC Insulin Detemir (Levemir) 10 units 1X ONCE SQ Last administered on 11/26/16 10:22; Start 11/26/16 at 10:00; Stop 11/26/16 at 10:01; Status DC Insulin Aspart (Novolog) 10 units 1X ONCE SQ Last administered on 11/26/16 10 :22; Start 11/26/16 at 10:00; Stop 11/26/16 at 10:01; Status DC Insulin Aspart (Novolog) 0-9 UNITS TIDWMEALS SQ Last administered on 11/27/16 11:55; Start 11/26/16 at 12:00 Dextrose 12.5 gm PRN Q15MIN PRN IV SEE COMMENTS; Start 11/26/16 at 10:00 Potassium Chloride 20 meq 20 meq BIDWMEALS PO Last administered on 11/27/16 08 :21; Start 11/26/16 at 10:00 Magnesium Sulfate/ Dextrose 50 ml @ 25 mls/hr 1X ONCE IV ; Start 11/26/16 at 11 :00; Stop 11/26/16 at 12:59; Status DC Potassium Chloride 30 meq/ Sodium Chloride 1,015 ml @ 75 mls/hr [id number] IV Last administered on 11/27/16 02:35; Start 11/26/16 at 11:00 Potassium Phosphate/Sodium Chloride (Potassium Phosphate/Iv Sodium Chloride 0.9 % 100ml) 103.3333 ml @ 51.667 m... Q2H IV Last administered on 11/26/16 15:22 ; Start 11/26/16 at 12:00; Stop 11/26/16 at 15:59; Status DC Insulin Detemir (Levemir) 12 units QHS SQ Last administered on 11/26/16 22:17 ; Start 11/26/16 at 21:00 Barium Sulfate (Liquid E-Z Paque) 355 ml 1X ONCE PO Last administered on 09:38; Start 11/27/16 at 08:30; Stop 11/27/16 at 08:31; Status DC Barium Sulfate (E-Z-Hd) 135 ml 1X ONCE PO Last administered on 11/27/16 08:30 ; Start 11/27/16 at 08:30; Stop 11/27/16 at 08:31; Status DC Simethicone/ Sodium Bicarb/ Citric Ac 1 packet 1 packet 1X ONCE PO ; Start at 08:30; Stop 11/27/16 at 08:31; Status DC Sodium Phosphate/ Dextrose 256.6667 ml @ 64.167 m... 1X ONCE IV Last administered on 11/27/16t 11:53; Start 11/27/16 at 11:30; Stop 11/27/16 at 15:29 Active Scripts Active Reported Oxybutynin Chloride Er (Oxybutynin Chloride) 10 Mg Tab.er.24 1 Tab PO DAILY Folic Acid 1 Mg Tablet 1 Tab PO DAILY Hydrocodone-Apap 5-325 (Hydrocodone Bit/Acetaminophen) 1 Each Tablet 1-2 Tab PO Q4-6HRS Losartan-Hctz 100-12.5 Mg Tab (Losartan/Hydrochlorothiazide) 1 Each Tablet 1 Each PO DAILY Xalatan (Latanoprost) 2.5 Ml Drops 1 Drop EACHEYE QHS Gabapentin 300 Mg Capsule 300 Mg PO TID Toprol Xl (Metoprolol Succinate) 50 Mg Tab.er.24h 1 Tab PO DAILY Allergies Allergies: Coded Allergies: Penicillins (Verified Allergy, Intermediate, 11/08/16) azithromycin (Verified Allergy, Intermediate, 05/28/16) metoprolol (Verified Allergy, Intermediate, 05/28/16) nifedipine (Verified Allergy, Intermediate, 05/28/16) Vitals VITALS Vital Signs Date Time Temp Pulse Resp B/P Pulse Ox O2 Delivery O2 Flow Rate FiO2 11/27/16 11:02 97.9 76 18 130/46 100 Room Air 97.9 Labs Labs Laboratory Tests Test 11/25/16 13:19 11/25/16 13:25 11/25/16 14:40 11/25/16 15:20 Glucose (Fingerstick) 344mg/dL (70-99) 242mg/dL (70-99) Sodium Level 147mmol/L (136-145) Potassium Level 4.1mmol/L (3.5-5.1) Chloride Level 113mmol/L (98-107) Carbon Dioxide Level 9mmol/L (21-32) Anion Gap 25 (6-14) Blood Urea Nitrogen 19mg/dL (7-20) Creatinine 1.5mg/dL (0.6-1.0) Estimated GFR (Cockcroft-Gault) 42.2 BUN/Creatinine Ratio 13 (6-20) Glucose Level 313mg/dL (70-99) Lactic Acid Level 3.9mmol/L (0.4-2.0) Calcium Level 9.4mg/dL (8.5-10.1) Phosphorus Level 2.7mg/dL (2.6-4.7) Magnesium Level 2.0mg/dL (1.8-2.4) Total Bilirubin 0.4mg/dL (0.2-1.0) Aspartate Amino Transf (AST/SGOT) 10U/L (15-37) Alanine Aminotransferase (ALT/SGPT) 15U/L (14-59) Alkaline Phosphatase 90U/L (46-116) Total Protein 7.0g/dL (6.4-8.2) Albumin 2.7g/dL (3.4-5.0) Albumin/Globulin Ratio 0.6 (1.0-1.7) Troponin I Quantitative 0.052ng/mL (0.000-0.055) Test 11/25/16 16:15 11/25/16 17:19 11/25/16 18:21 11/25/16 19:39 Glucose (Fingerstick) 189mg/dL (70-99) 205mg/dL (70-99) 216mg/dL (70-99) 233mg/dL (70-99) Test 11/25/16 20:20 11/25/16 21:01 11/25/16 22:07 11/25/16 23:15 Sodium Level 142mmol/L (136-145) Potassium Level 3.0mmol/L (3.5-5.1) Chloride Level 112mmol/L (98-107) Carbon Dioxide Level 20mmol/L (21-32) Anion Gap 10 (6-14) Blood Urea Nitrogen 14mg/dL (7-20) Creatinine 1.1mg/dL (0.6-1.0) Estimated GFR (Cockcroft-Gault) 60.3 BUN/Creatinine Ratio 13 (6-20) Glucose Level 253mg/dL (70-99) Calcium Level 8.7mg/dL (8.5-10.1) Phosphorus Level 0.7mg/dL (2.6-4.7) Magnesium Level 1.7mg/dL (1.8-2.4) Total Bilirubin 0.2mg/dL (0.2-1.0) Aspartate Amino Transf (AST/SGOT) 12U/L (15-37) Alanine Aminotransferase (ALT/SGPT) 12U/L (14-59) Alkaline Phosphatase 70U/L (46-116) Troponin I Quantitative 0.057ng/mL (0.000-0.055) Total Protein 5.8g/dL (6.4-8.2) Albumin 2.3g/dL (3.4-5.0) Albumin/Globulin Ratio 0.7 (1.0-1.7) Glucose (Fingerstick) 204mg/dL (70-99) 211mg/dL (70-99) 214mg/dL (70-99) Test 11/26/16 00:29 11/26/16 00:37 11/26/16 01:43 11/26/16 02:49 Glucose (Fingerstick) 182mg/dL (70-99) 190mg/dL (70-99) 134mg/dL (70-99) Sodium Level 144mmol/L (136-145) Potassium Level 2.8mmol/L (3.5-5.1) Chloride Level 113mmol/L (98-107) Carbon Dioxide Level 18mmol/L (21-32) Anion Gap 13 (6-14) Blood Urea Nitrogen 11mg/dL (7-20) Creatinine 1.1mg/dL (0.6-1.0) Estimated GFR (Cockcroft-Gault) 60.3 Glucose Level 206mg/dL (70-99) Lactic Acid Level 2.6mmol/L (0.4-2.0) Calcium Level 9.2mg/dL (8.5-10.1) Phosphorus Level 1.5mg/dL (2.6-4.7) Magnesium Level 1.6mg/dL (1.8-2.4) Test 11/26/16 03:56 11/26/16 05:12 11/26/16 07:06 11/26/16 08:55 Glucose (Fingerstick) 84mg/dL (70-99) 95mg/dL (70-99) 144mg/dL (70-99) White Blood Count 11.3x10^3/uL (4.0-11.0) Red Blood Count 3.20x10^6/uL (3.50-5.40) Hemoglobin 9.0g/dL (12.0-15.5) Hematocrit 28.0% (36.0-47.0) Mean Corpuscular Volume 88fL (79-100) Mean Corpuscular Hemoglobin 28pg (25-35) Mean Corpuscular Hemoglobin Concent 32g/dL (31-37) Red Cell Distribution Width 14.7% (11.5-14.5) Platelet Count 344x10^3/uL (140-400) Neutrophils (%) (Auto) 80% (31-73) Lymphocytes (%) (Auto) 8% (24-48) Monocytes (%) (Auto) 12% (0-9) Eosinophils (%) (Auto) 0% (0-3) Basophils (%) (Auto) 1% (0-3) Neutrophils # (Auto) 9.0x10^3uL (1.8-7.7) Lymphocytes # (Auto) 0.9x10^3/uL (1.0-4.8) Monocytes # (Auto) 1.3x10^3/uL (0.0-1.1) Eosinophils # (Auto) 0.0x10^3/uL (0.0-0.7) Basophils # (Auto) 0.1x10^3/uL (0.0-0.2) Sodium Level 141mmol/L (136-145) Potassium Level 3.2mmol/L (3.5-5.1) Chloride Level 111mmol/L (98-107) Carbon Dioxide Level 14mmol/L (21-32) Anion Gap 16 (6-14) Blood Urea Nitrogen 7mg/dL (7-20) Creatinine 0.7mg/dL (0.6-1.0) Estimated GFR (Cockcroft-Gault) 101.6 Glucose Level 301mg/dL (70-99) Calcium Level 8.4mg/dL (8.5-10.1) Phosphorus Level 1.8mg/dL (2.6-4.7) Magnesium Level 1.5mg/dL (1.8-2.4) Test 11/26/16 12:10 11/26/16 17:26 11/27/16 04:08 11/27/16 07:34 Glucose (Fingerstick) 234mg/dL (70-99) 178mg/dL (70-99) 73mg/dL (70-99) White Blood Count 7.6x10^3/uL (4.0-11.0) Red Blood Count 3.33x10^6/uL (3.50-5.40) Hemoglobin 9.5g/dL (12.0-15.5) Hematocrit 29.2% (36.0-47.0) Mean Corpuscular Volume 88fL (79-100) Mean Corpuscular Hemoglobin 28pg (25-35) Mean Corpuscular Hemoglobin Concent 32g/dL (31-37) Red Cell Distribution Width 15.2% (11.5-14.5) Platelet Count 309x10^3/uL (140-400) Neutrophils (%) (Auto) 76% (31-73) Lymphocytes (%) (Auto) 15% (24-48) Monocytes (%) (Auto) 8% (0-9) Eosinophils (%) (Auto) 0% (0-3) Basophils (%) (Auto) 1% (0-3) Neutrophils # (Auto) 5.7x10^3uL (1.8-7.7) Lymphocytes # (Auto) 1.1x10^3/uL (1.0-4.8) Monocytes # (Auto) 0.6x10^3/uL (0.0-1.1) Eosinophils # (Auto) 0.0x10^3/uL (0.0-0.7) Basophils # (Auto) 0.1x10^3/uL (0.0-0.2) Sodium Level 145mmol/L (136-145) Potassium Level 4.0mmol/L (3.5-5.1) Chloride Level 114mmol/L (98-107) Carbon Dioxide Level 20mmol/L (21-32) Anion Gap 11 (6-14) Blood Urea Nitrogen 4mg/dL (7-20) Creatinine 0.7mg/dL (0.6-1.0) Estimated GFR (Cockcroft-Gault) 101.6 Glucose Level 168mg/dL (70-99) Calcium Level 8.8mg/dL (8.5-10.1) Phosphorus Level 1.9mg/dL (2.6-4.7) Magnesium Level 2.4mg/dL (1.8-2.4) Test 11/27/16 10:37 Glucose (Fingerstick) 253mg/dL (70-99) Laboratory Tests Test 11/26/16 17:26 11/27/16 04:08 11/27/16 07:34 11/27/16 10:37 Glucose (Fingerstick) 178mg/dL (70-99) 73mg/dL (70-99) 253mg/dL (70-99) White Blood Count 7.6x10^3/uL (4.0-11.0) Red Blood Count 3.33x10^6/uL (3.50-5.40) Hemoglobin 9.5g/dL (12.0-15.5) Hematocrit 29.2% (36.0-47.0) Mean Corpuscular Volume 88fL (79-100) Mean Corpuscular Hemoglobin 28pg (25-35) Mean Corpuscular Hemoglobin Concent 32g/dL (31-37) Red Cell Distribution Width 15.2% (11.5-14.5) Platelet Count 309x10^3/uL (140-400) Neutrophils (%) (Auto) 76% (31-73) Lymphocytes (%) (Auto) 15% (24-48) Monocytes (%) (Auto) 8% (0-9) Eosinophils (%) (Auto) 0% (0-3) Basophils (%) (Auto) 1% (0-3) Neutrophils # (Auto) 5.7x10^3uL (1.8-7.7) Lymphocytes # (Auto) 1.1x10^3/uL (1.0-4.8) Monocytes # (Auto) 0.6x10^3/uL (0.0-1.1) Eosinophils # (Auto) 0.0x10^3/uL (0.0-0.7) Basophils # (Auto) 0.1x10^3/uL (0.0-0.2) Sodium Level 145mmol/L (136-145) Potassium Level 4.0mmol/L (3.5-5.1) Chloride Level 114mmol/L (98-107) Carbon Dioxide Level 20mmol/L (21-32) Anion Gap 11 (6-14) Blood Urea Nitrogen 4mg/dL (7-20) Creatinine 0.7mg/dL (0.6-1.0) Estimated GFR (Cockcroft-Gault) 101.6 Glucose Level 168mg/dL (70-99) Calcium Level 8.8mg/dL (8.5-10.1) Phosphorus Level 1.9mg/dL (2.6-4.7) Magnesium Level 2.4mg/dL (1.8-2.4) Assessment/Plan Assessment/Plan Dysphagia- most likely multifactorial in etiology Schatzi ring, presbyesophagus , malignancy, eosinophilic esophagitis, achalasia, and/or Riojas's in differential. Plan PPI therapy o/p egd to further assess Full note dictated TREVIN ARTEAGA MD Nov 27, 2016 12:17
[2016-11-27] MEDS: PANTOPRAZOLE 40 MG TABLET. PO SCH (14:04)
[2016-11-27 16:25] VITALS: BP 139/52
[2016-11-27 20:00] VITALS: BP 136/55
[2016-11-27] MEDS: LATANOPROST 0.005% OPHTH SOLUTION 2.5ML BOTTLE. OU SCH (21:34)
[2016-11-27] MEDS: INSULIN DETEMIR 300 UNITS/3 ML INSULN.PEN. SQ SCH (21:41)
[2016-11-28] VITALS (7 sets, daily range): BP systolic 112–142; BP diastolic 55–69
--- NOTE | 2016-11-28 02:26 | CONS ---
DATE OF CONSULTATION: 11/27/2016 REASON FOR CONSULTATION: Dysphagia. HISTORY OF PRESENT ILLNESS: This is a 66-year-old -[place] female whose past medical history is significant for diabetic ketoacidosis, noncompliance, COPD, neuropathy, rheumatoid arthritis, obstructive sleep apnea, pacemaker, who is admitted with recurrent DKA. She is also noted to have dysphagia for solids, but not liquids. This has been present for the past 6 weeks. There has been no change in weight or appetite. SOCIAL HISTORY: She is not drinker or smoker. FAMILY HISTORY: Otherwise, noncontributory. With continued symptoms, consultation is requested. PAST MEDICAL HISTORY: Diabetes, COPD, neuropathy, rheumatoid arthritis, COPD, history of organic heart disease, pacemaker placement. MEDICATIONS: At the present time include insulin, Xalatan eyedrops, , Ditropan, Cozaar, Toprol, Neurontin, folic acid. FAMILY AND SOCIAL HISTORY: As stated. REVIEW OF SYSTEMS: Per records. PHYSICAL EXAMINATION: GENERAL: Reveals a well-nourished, well-developed -[place] female who was eating a liquid lunch. VITAL SIGNS: Temperature is 97.9, pulse 76, respirations 18, blood pressure is 130/46. HEENT: Exam reveals normocephalic and atraumatic head. Pupils and extraocular movements not tested. Sclerae anicteric. NECK: Supple. LUNGS: Clear. CARDIOVASCULAR: Reveals an S1, S2 without S3, S4 or appreciable murmur. ABDOMEN: Reveals a soft abdomen, normal bowel sounds, without appreciable hepatosplenomegaly. EXTREMITIES: Reveals no cyanosis, clubbing, edema. LABORATORY STUDIES: Sodium 145, potassium 4.0, chloride 114, bicarbonate 20, BUN 4, creatinine 0.7, glucose is 168, phosphorus 1.9, magnesium 2.4, total bilirubin is 0.2, alkaline phosphatase 70, ALT 12, AST of 12. Esophagram reveals a small sliding type hiatal hernia, mild esophageal stricture at the GE junction, increased esophageal peristalsis raising the question of presbyesophagus. IMPRESSION: Dysphagia, most likely is multifactorial in etiology. Differential does include Riojas's, gastroesophageal reflux disease, achalasia, malignancy, eosinophilic esophagitis and otherwise we will recommend the patient be placed on PPI therapy and as an outpatient return to the hospital for esophageal dilatation. Risks and benefits of procedure have been discussed. The patient is willing to proceed at this time as an outpatient. I would like to thank Dr. Del Toro for allowing us to consult and participate in this patient's care. TREVIN ARTEAGA MD DR: REJI/kyaw JOB#: [id number] / [id number] ANA Erazo DO
[2016-11-28] MEDS: POTASSIUM CHLORIDE 30 MEQ in IV 1/2 NORMAL SALINE 1,000 ML IV SCH ×2 (04:22→20:38)
[2016-11-28 06:18] LABS: BASO % 1 % (0-3); EOS % 1 % (0-3); HEMATOCRIT 28.7 % (36.0-47.0); HEMOGLOBIN 9.5 g/dL (12.0-15.5); LYMPH # 0.9 x10^3/uL (1.0-4.8); LYMPH % 25 % (24-48); MEAN CORPUSCULAR HEMOGLOBIN 29 pg (25-35); MEAN CORPUSCULAR HGB CONC 33 g/dL (31-37); MEAN CORPUSCULAR VOLUME 87 fL (79-100); MONO % 14 % (0-9); NEUT % 59 % (31-73); PLATELET COUNT 318 x10^3/uL (140-400); RED CELL DISTRIBUTION WIDTH 15.3 % (11.5-14.5); WHITE BLOOD COUNT 3.8 x10^3/uL (4.0-11.0)
[2016-11-28 06:43] LABS: CREATININE 0.7 mg/dL (0.6-1.0); GFR 101.6; POTASSIUM 4.3 mmol/L (3.5-5.1)
[2016-11-28] MEDS: INSULIN ASPART 300 UNITS/3 ML INSULN.PEN SQ SCH ×3 (08:00→17:05)
--- NOTE | 2016-11-28 08:46 | PDOC ---
PROGRESS NOTES Chief Complaint Chief Complaint CC - DKA ASSESSMENT AND PLAN: 1. DKA: resolved. insulin gtt stopped. 2. Hyperglycemia: levemir started this AM, low dose, with planned adjustments over the day. pt can't remember how much insulin she is taking at home. pt and daughter need diabetic teaching 3. Vomiting w/o nausea: chronic. pt describes vomiting after PO intake (wich reflexively has decresaed), as well as sensation of food getting stuck mid chest. GI consult 4. Dysphagia: (see3). speech eval w/o pharyngeal impairment 5. Troponin leak: minimal, with mild SAURABH, and asymptomatic. cardiac consult obtained: same presentation 1 month ago, prompting extensive W/U, incl neg echo and cath. no further w/o indicated at this time 6. SAURABH: creat mildly elevated; most likely vasomotor. monitor with ongoing IVF 7. Hypokalemia: oral/IV repletion 8. Hypomag: replete IV 9. RA: on remicade q7 weeks, MTX weekly. can hold latter for now 10. Prophylaxis: heparin, H2B 11. Dispo: ok to transfer to [facility] (no tele) to await GI W/U History of Present Illness History of Present Illness Patient was sitting in the bed at the time of evaluation, she was awake, alert, oriented, eating her breakfast, GI is already discussed the plan of care for dysphagia. Pt. is feeling better, and ready to get discharged home. Vitals Vitals Vital Signs Date Time Temp Pulse Resp B/P Pulse Ox O2 Delivery O2 Flow Rate FiO2 11/28/16 04:00 97.3 81 18 134/62 99 Room Air 97.3 Physical Exam General: Alert, Oriented X3, Cooperative, No acute distress Heart: Regular rate Lungs: Clear Abdomen: Normal bowel sounds, Soft, No tenderness Extremities: No edema, Normal pulses Skin: No rashes Labs LABS Laboratory Tests Test 11/27/16 10:37 11/27/16 16:33 11/27/16 21:38 11/28/16 05:50 Glucose (Fingerstick) 253mg/dL (70-99) 309mg/dL (70-99) 370mg/dL (70-99) White Blood Count 3.8x10^3/uL (4.0-11.0) Red Blood Count 3.30x10^6/uL (3.50-5.40) Hemoglobin 9.5g/dL (12.0-15.5) Hematocrit 28.7% (36.0-47.0) Mean Corpuscular Volume 87fL (79-100) Mean Corpuscular Hemoglobin 29pg (25-35) Mean Corpuscular Hemoglobin Concent 33g/dL (31-37) Red Cell Distribution Width 15.3% (11.5-14.5) Platelet Count 318x10^3/uL (140-400) Neutrophils (%) (Auto) 59% (31-73) Lymphocytes (%) (Auto) 25% (24-48) Monocytes (%) (Auto) 14% (0-9) Eosinophils (%) (Auto) 1% (0-3) Basophils (%) (Auto) 1% (0-3) Neutrophils # (Auto) 2.3x10^3uL (1.8-7.7) Lymphocytes # (Auto) 0.9x10^3/uL (1.0-4.8) Monocytes # (Auto) 0.5x10^3/uL (0.0-1.1) Eosinophils # (Auto) 0.0x10^3/uL (0.0-0.7) Basophils # (Auto) 0.0x10^3/uL (0.0-0.2) Sodium Level 147mmol/L (136-145) Potassium Level 4.3mmol/L (3.5-5.1) Chloride Level 113mmol/L (98-107) Carbon Dioxide Level 23mmol/L (21-32) Anion Gap 11 (6-14) Blood Urea Nitrogen 4mg/dL (7-20) Creatinine 0.7mg/dL (0.6-1.0) Estimated GFR (Cockcroft-Gault) 101.6 Glucose Level 56mg/dL (70-99) Calcium Level 9.0mg/dL (8.5-10.1) Test 11/28/16 07:20 11/28/16 08:18 Glucose (Fingerstick) 30mg/dL (70-99) 182mg/dL (70-99) Review of Systems Review of Systems Denies fever, chills Denies n/v/d Denies SOB, CP Dysphagia Awake, alert, oriented Assessment and Plan Assessmemt and Plan ASSESSMENT: 1. DKA: resolved. insulin gtt stopped. 2. Hyperglycemia: levemir started this AM, low dose, with planned adjustments over the day. pt can't remember how much insulin she is taking at home. pt and daughter need diabetic teaching 3. Vomiting w/o nausea: chronic. pt describes vomiting after PO intake (wich reflexively has decresaed), as well as sensation of food getting stuck mid chest. GI consult 4. Dysphagia: (see3). speech eval w/o pharyngeal impairment 5. Troponin leak: minimal, with mild SAURABH, and asymptomatic. cardiac consult obtained: same presentation 1 month ago, prompting extensive W/U, incl neg echo and cath. no further w/o indicated at this time 6. SAURABH: creat mildly elevated; most likely vasomotor. monitor with ongoing IVF 7. Hypokalemia: oral/IV repletion 8. Hypomag: replete IV 9. RA: on remicade q7 weeks, MTX weekly. can hold latter for now 10. Prophylaxis: heparin, H2B Plan: Probable discharge home today Continue care per floor protocol Continue PPI Recheck labs in AM PTOT Appreciate subspecialities inputs and recommendations Problems Medical Problems: (1) DKA (diabetic ketoacidoses) Status: Acute Problems: Comment Review of Relevant I have reviewed the following items terese (where applicable) has been applied. Labs Laboratory Tests Test 11/26/16 08:55 11/26/16 12:10 11/26/16 17:26 11/26/16 21:13 White Blood Count 11.3x10^3/uL (4.0-11.0) Red Blood Count 3.20x10^6/uL (3.50-5.40) Hemoglobin 9.0g/dL (12.0-15.5) Hematocrit 28.0% (36.0-47.0) Mean Corpuscular Volume 88fL (79-100) Mean Corpuscular Hemoglobin 28pg (25-35) Mean Corpuscular Hemoglobin Concent 32g/dL (31-37) Red Cell Distribution Width 14.7% (11.5-14.5) Platelet Count 344x10^3/uL (140-400) Neutrophils (%) (Auto) 80% (31-73) Lymphocytes (%) (Auto) 8% (24-48) Monocytes (%) (Auto) 12% (0-9) Eosinophils (%) (Auto) 0% (0-3) Basophils (%) (Auto) 1% (0-3) Neutrophils # (Auto) 9.0x10^3uL (1.8-7.7) Lymphocytes # (Auto) 0.9x10^3/uL (1.0-4.8) Monocytes # (Auto) 1.3x10^3/uL (0.0-1.1) Eosinophils # (Auto) 0.0x10^3/uL (0.0-0.7) Basophils # (Auto) 0.1x10^3/uL (0.0-0.2) Sodium Level 141mmol/L (136-145) Potassium Level 3.2mmol/L (3.5-5.1) Chloride Level 111mmol/L (98-107) Carbon Dioxide Level 14mmol/L (21-32) Anion Gap 16 (6-14) Blood Urea Nitrogen 7mg/dL (7-20) Creatinine 0.7mg/dL (0.6-1.0) Estimated GFR (Cockcroft-Gault) 101.6 Glucose Level 301mg/dL (70-99) Calcium Level 8.4mg/dL (8.5-10.1) Phosphorus Level 1.8mg/dL (2.6-4.7) Magnesium Level 1.5mg/dL (1.8-2.4) Glucose (Fingerstick) 234mg/dL (70-99) 178mg/dL (70-99) 148mg/dL (70-99) Test 11/27/16 04:08 11/27/16 07:34 11/27/16 10:37 11/27/16 16:33 White Blood Count 7.6x10^3/uL (4.0-11.0) Red Blood Count 3.33x10^6/uL (3.50-5.40) Hemoglobin 9.5g/dL (12.0-15.5) Hematocrit 29.2% (36.0-47.0) Mean Corpuscular Volume 88fL (79-100) Mean Corpuscular Hemoglobin 28pg (25-35) Mean Corpuscular Hemoglobin Concent 32g/dL (31-37) Red Cell Distribution Width 15.2% (11.5-14.5) Platelet Count 309x10^3/uL (140-400) Neutrophils (%) (Auto) 76% (31-73) Lymphocytes (%) (Auto) 15% (24-48) Monocytes (%) (Auto) 8% (0-9) Eosinophils (%) (Auto) 0% (0-3) Basophils (%) (Auto) 1% (0-3) Neutrophils # (Auto) 5.7x10^3uL (1.8-7.7) Lymphocytes # (Auto) 1.1x10^3/uL (1.0-4.8) Monocytes # (Auto) 0.6x10^3/uL (0.0-1.1) Eosinophils # (Auto) 0.0x10^3/uL (0.0-0.7) Basophils # (Auto) 0.1x10^3/uL (0.0-0.2) Sodium Level 145mmol/L (136-145) Potassium Level 4.0mmol/L (3.5-5.1) Chloride Level 114mmol/L (98-107) Carbon Dioxide Level 20mmol/L (21-32) Anion Gap 11 (6-14) Blood Urea Nitrogen 4mg/dL (7-20) Creatinine 0.7mg/dL (0.6-1.0) Estimated GFR (Cockcroft-Gault) 101.6 Glucose Level 168mg/dL (70-99) Calcium Level 8.8mg/dL (8.5-10.1) Phosphorus Level 1.9mg/dL (2.6-4.7) Magnesium Level 2.4mg/dL (1.8-2.4) Glucose (Fingerstick) 73mg/dL (70-99) 253mg/dL (70-99) 309mg/dL (70-99) Test 11/27/16 21:38 11/28/16 05:50 11/28/16 07:20 11/28/16 08:18 Glucose (Fingerstick) 370mg/dL (70-99) 30mg/dL (70-99) 182mg/dL (70-99) White Blood Count 3.8x10^3/uL (4.0-11.0) Red Blood Count 3.30x10^6/uL (3.50-5.40) Hemoglobin 9.5g/dL (12.0-15.5) Hematocrit 28.7% (36.0-47.0) Mean Corpuscular Volume 87fL (79-100) Mean Corpuscular Hemoglobin 29pg (25-35) Mean Corpuscular Hemoglobin Concent 33g/dL (31-37) Red Cell Distribution Width 15.3% (11.5-14.5) Platelet Count 318x10^3/uL (140-400) Neutrophils (%) (Auto) 59% (31-73) Lymphocytes (%) (Auto) 25% (24-48) Monocytes (%) (Auto) 14% (0-9) Eosinophils (%) (Auto) 1% (0-3) Basophils (%) (Auto) 1% (0-3) Neutrophils # (Auto) 2.3x10^3uL (1.8-7.7) Lymphocytes # (Auto) 0.9x10^3/uL (1.0-4.8) Monocytes # (Auto) 0.5x10^3/uL (0.0-1.1) Eosinophils # (Auto) 0.0x10^3/uL (0.0-0.7) Basophils # (Auto) 0.0x10^3/uL (0.0-0.2) Sodium Level 147mmol/L (136-145) Potassium Level 4.3mmol/L (3.5-5.1) Chloride Level 113mmol/L (98-107) Carbon Dioxide Level 23mmol/L (21-32) Anion Gap 11 (6-14) Blood Urea Nitrogen 4mg/dL (7-20) Creatinine 0.7mg/dL (0.6-1.0) Estimated GFR (Cockcroft-Gault) 101.6 Glucose Level 56mg/dL (70-99) Calcium Level 9.0mg/dL (8.5-10.1) Laboratory Tests Test 11/27/16 10:37 11/27/16 16:33 11/27/16 21:38 11/28/16 05:50 Glucose (Fingerstick) 253mg/dL (70-99) 309mg/dL (70-99) 370mg/dL (70-99) White Blood Count 3.8x10^3/uL (4.0-11.0) Red Blood Count 3.30x10^6/uL (3.50-5.40) Hemoglobin 9.5g/dL (12.0-15.5) Hematocrit 28.7% (36.0-47.0) Mean Corpuscular Volume 87fL (79-100) Mean Corpuscular Hemoglobin 29pg (25-35) Mean Corpuscular Hemoglobin Concent 33g/dL (31-37) Red Cell Distribution Width 15.3% (11.5-14.5) Platelet Count 318x10^3/uL (140-400) Neutrophils (%) (Auto) 59% (31-73) Lymphocytes (%) (Auto) 25% (24-48) Monocytes (%) (Auto) 14% (0-9) Eosinophils (%) (Auto) 1% (0-3) Basophils (%) (Auto) 1% (0-3) Neutrophils # (Auto) 2.3x10^3uL (1.8-7.7) Lymphocytes # (Auto) 0.9x10^3/uL (1.0-4.8) Monocytes # (Auto) 0.5x10^3/uL (0.0-1.1) Eosinophils # (Auto) 0.0x10^3/uL (0.0-0.7) Basophils # (Auto) 0.0x10^3/uL (0.0-0.2) Sodium Level 147mmol/L (136-145) Potassium Level 4.3mmol/L (3.5-5.1) Chloride Level 113mmol/L (98-107) Carbon Dioxide Level 23mmol/L (21-32) Anion Gap 11 (6-14) Blood Urea Nitrogen 4mg/dL (7-20) Creatinine 0.7mg/dL (0.6-1.0) Estimated GFR (Cockcroft-Gault) 101.6 Glucose Level 56mg/dL (70-99) Calcium Level 9.0mg/dL (8.5-10.1) Test 11/28/16 07:20 11/28/16 08:18 Glucose (Fingerstick) 30mg/dL (70-99) 182mg/dL (70-99) Microbiology 11/25/16 Blood Culture - Preliminary, Resulted NO GROWTH AFTER 2 DAYS Medications Current Medications Sodium Chloride 1,000 ml @ 1,000 mls/hr Q1H IV Last administered on 11/25/16 08:11; Start 11/25/16 at 08:30; Stop 11/25/16 at 09:29; Status DC Sodium Chloride 1,000 ml @ 1,000 mls/hr Q1H IV Last administered on 11/25/16 10:59; Start 11/25/16 at 10:00; Stop 11/25/16 at 11:59; Status DC Insulin Human Regular (Novolin R Iv Drip) 150 ml @ 0 mls/hr 1X ONCE IV Last administered on 11/25/16 09:34; Start 11/25/16 at 09:15; Stop 11/25/16 at 09:16 ; Status DC Ondansetron HCl 4 mg 4 mg PRN Q8HRS PRN IV NAUSEA/VOMITING; Start 11/25/16 at 09:30; Stop 11/26/16 at 09:29; Status DC Sodium Bicarbonate/ Sterile Water 1,150 ml @ 125 mls/hr 1X ONCE IV Last administered on 11/25/16 10:30; Start 11/25/16 at 10:30; Stop 11/25/16 at 19:41 ; Status DC Folic Acid (Folic Acid) 1 mg DAILY PO Last administered on 11/27/16 08:21; Start 11/25/16 at 14:00 Gabapentin (Neurontin) 300 mg TID PO Last administered on 11/27/16 21:34; Start 11/25/16 at 14:00 Acetaminophen/ Hydrocodone Bitart (Lortab 5/325) 1 tab PRN QID PRN PO PAIN; Start 11/25/16 at 13:00 Latanoprost (Xalatan) 1 drop QHS OU Last administered on 11/27/16 21:34; Start 11/25/16 at 21:00 Metoprolol Succinate (Toprol Xl) 50 mg DAILY PO Last administered on 11/26/16 10:20; Start 11/25/16 at 14:00 Losartan Potassium (Cozaar) 100 mg DAILY PO Last administered on 11/26/16 10: 20; Start 11/25/16 at 14:00 Oxybutynin Chloride (Ditropan) 5 mg BID PO Last administered on 11/27/16 21:34 ; Start 11/25/16 at 14:00 Acetaminophen/ Hydrocodone Bitart (Lortab 5/325) 2 tab PRN QID PRN PO PAIN; Start 11/25/16 at 13:15 Hydrochlorothiazide 12.5 mg 12.5 mg DAILY PO Last administered on 11/26/16 10: 20; Start 11/25/16 at 14:00 Sodium Chloride 500 ml @ 500 mls/hr 1X ONCE IV ; Start 11/25/16 at 13:45; Stop 11/25/16 at 14:44; Status DC Sodium Chloride 1,000 ml @ 250 mls/hr Q4H IV Last administered on 11/25/16 13 :48; Start 11/25/16 at 13:48; Stop 11/26/16 at 01:26; Status DC Dextrose/Sodium Chloride 1,000 ml @ 250 mls/hr Q4H IV Last administered on 04:27; Start 11/25/16 at 18:00; Stop 11/26/16 at 10:13; Status DC Insulin Human Regular 150 unit/ Sodium Chloride 151.5 ml @ 0 mls/hr CONT PRN PRN IV PER PROTOCOL Last administered on 11/25/16 22:15; Start 11/25/16 at 13: 45; Stop 11/26/16 at 12:21; Status DC Potassium Chloride 100 ml @ 100 mls/hr PRN Q1HR PRN IV SEE COMMENTS; Start at 13:45 Potassium Chloride 100 ml @ 100 mls/hr PRN Q1HR PRN IV SEE COMMENTS; Start at 13:45 Potassium Chloride 100 ml @ 100 mls/hr PRN Q1HR PRN IV SEE COMMENTS; Start at 13:45 Magnesium Sulfate/ Dextrose 100 ml @ 25 mls/hr PRN DAILY PRN IV SEE COMMENTS Last administered on 11/26/16 10:24; Start 11/26/16 at 09:00 Sodium Phosphate 40 mmol/Sodium Chloride 513.3333 ml @ 83.3 mls/hr 1X PRN PRN IV SEE COMMENTS; Start 11/25/16 at 13:45 Sodium Phosphate 20 mmol/Dextrose 256.6667 ml @ 62.5 mls/hr 1X PRN PRN IV SEE COMMENTS; Start 11/25/16 at 13:45 Sodium Phosphate 10 mmol/Dextrose 253.3333 ml @ 62.5 mls/hr 1X PRN PRN IV SEE COMMENTS; Start 11/25/16 at 13:45 Potassium Chloride 100 ml @ 50 mls/hr Q1H IV Last administered on 11/25/16 17 :58; Start 11/25/16 at 17:00; Stop 11/25/16 at 18:59; Status DC Sodium Phosphate 20 mmol/Dextrose 256.6667 ml @ 64.167 m... 1X ONCE IV Last administered on 11/25/16 16:53; Start 11/25/16 at 17:00; Stop 11/25/16 at 20:59 ; Status DC Potassium Chloride (KCl Premix 10meq) 100 ml @ 100 mls/hr Q1H IV Last administered on 11/26/16 02:47; Start 11/25/16 at 21:30; Stop 11/26/16 at 01:29 ; Status DC Insulin Aspart (Novolog) 0-7 UNITS TIDWMEALS SQ ; Start 11/26/16 at 08:00; Status Cancel Dextrose 12.5 gm PRN Q15MIN PRN IV SEE COMMENTS; Start 11/25/16 at 23:30; Stop 11/26/16 at 05:40; Status DC Insulin Aspart (Novolog) 0-7 UNITS Q6HRS SQ ; Start 11/26/16 at 06:00; Stop at 12:21; Status DC Dextrose 12.5 gm PRN Q15MIN PRN IV SEE COMMENTS; Start 11/26/16 at 05:45; Stop 11/26/16 at 10:11; Status DC Insulin Detemir (Levemir) 10 units 1X ONCE SQ Last administered on 11/26/16 10:22; Start 11/26/16 at 10:00; Stop 11/26/16 at 10:01; Status DC Insulin Aspart (Novolog) 10 units 1X ONCE SQ Last administered on 11/26/16 10 :22; Start 11/26/16 at 10:00; Stop 11/26/16 at 10:01; Status DC Insulin Aspart (Novolog) 0-9 UNITS TIDWMEALS SQ Last administered on 11/27/16 17:15; Start 11/26/16 at 12:00 Dextrose 12.5 gm PRN Q15MIN PRN IV SEE COMMENTS; Start 11/26/16 at 10:00 Potassium Chloride 20 meq 20 meq BIDWMEALS PO Last administered on 11/27/16 17 :13; Start 11/26/16 at 10:00 Magnesium Sulfate/ Dextrose 50 ml @ 25 mls/hr 1X ONCE IV ; Start 11/26/16 at 11 :00; Stop 11/26/16 at 12:59; Status DC Potassium Chloride 30 meq/ Sodium Chloride 1,015 ml @ 75 mls/hr [id number] IV Last administered on 11/28/16 04:22; Start 11/26/16 at 11:00 Potassium Phosphate/Sodium Chloride (Potassium Phosphate/Iv Sodium Chloride 0.9 % 100ml) 103.3333 ml @ 51.667 m... Q2H IV Last administered on 11/26/16 15:22 ; Start 11/26/16 at 12:00; Stop 11/26/16 at 15:59; Status DC Insulin Detemir (Levemir) 12 units QHS SQ Last administered on 11/27/16 21:41 ; Start 11/26/16 at 21:00 Barium Sulfate (Liquid E-Z Paque) 355 ml 1X ONCE PO Last administered on 09:38; Start 11/27/16 at 08:30; Stop 11/27/16 at 08:31; Status DC Barium Sulfate (E-Z-Hd) 135 ml 1X ONCE PO Last administered on 11/27/16 08:30 ; Start 11/27/16 at 08:30; Stop 11/27/16 at 08:31; Status DC Simethicone/ Sodium Bicarb/ Citric Ac 1 packet 1 packet 1X ONCE PO ; Start at 08:30; Stop 11/27/16 at 08:31; Status DC Sodium Phosphate/ Dextrose 256.6667 ml @ 64.167 m... 1X ONCE IV Last administered on 11/27/16 11:53; Start 11/27/16 at 11:30; Stop 11/27/16 at 15:29 ; Status DC Pantoprazole Sodium (Protonix) 40 mg DAILYAC PO Last administered on 11/27/16t 14:04; Start 11/27/16 at 13:00 Active Scripts Active Reported Oxybutynin Chloride Er (Oxybutynin Chloride) 10 Mg Tab.er.24 1 Tab PO DAILY Folic Acid 1 Mg Tablet 1 Tab PO DAILY Hydrocodone-Apap 5-325 (Hydrocodone Bit/Acetaminophen) 1 Each Tablet 1-2 Tab PO Q4-6HRS Losartan-Hctz 100-12.5 Mg Tab (Losartan/Hydrochlorothiazide) 1 Each Tablet 1 Each PO DAILY Xalatan (Latanoprost) 2.5 Ml Drops 1 Drop EACHEYE QHS Gabapentin 300 Mg Capsule 300 Mg PO TID Toprol Xl (Metoprolol Succinate) 50 Mg Tab.er.24h 1 Tab PO DAILY Vitals/I & O Vital Sign - Last 24 Hours 11/27/16 11/27/16 11/27/16 11/27/16 11:02 16:25 20:00 20:00 Temp 97.9 97.7 96.2 97.9 97.7 96.2 Pulse 76 82 97 Resp B/P 130/46 139/52 136/55 Pulse Ox 100 100 100 O2 Delivery Room Air Room Air Room Air Room Air 11/28/16 11/28/16 00:00 04:00 Temp 97.3 97.3 97.3 97.3 Pulse 94 81 Resp B/P 140/69 134/62 Pulse Ox 99 99 O2 Delivery Room Air Room Air Intake and Output 11/27/16 11/27/16 11/28/16 15:00 23:00 07:00 Intake Total 1135 ml 257 ml Output Total 1000 ml 800 ml 3500 ml Balance 135 ml -543 ml -3500 ml ANA KIRKLAND III DO Nov 28, 2016 08:46
[2016-11-28] MEDS: FOLIC ACID 1 MG TABLET PO SCH (08:56)
[2016-11-28] MEDS: OXYBUTYNIN CHLORIDE 5 MG TABLET PO SCH ×2 (08:56→21:46)
[2016-11-28] MEDS: GABAPENTIN 300 MG CAPSULE. PO SCH ×3 (08:56→21:46)
[2016-11-28] MEDS: POTASSIUM CHLORIDE 20 MEQ TABLET.ER. PO SCH ×2 (08:56→17:02)
[2016-11-28] MEDS: PANTOPRAZOLE 40 MG TABLET. PO SCH (08:57)
[2016-11-28] MEDS: LOSARTAN POTASSIUM 50 MG TABLET. PO SCH (08:57)
[2016-11-28] MEDS: HYDROCHLOROTHIAZIDE 12.5 MG CAPSULE. PO SCH (08:57)
[2016-11-28] MEDS: METOPROLOL SUCC 24HR ER 50 MG TAB.ER.24H. PO SCH (08:57)
[2016-11-28] MEDS: HYDROCODONE/APAP 5/325MG TABLET. PO PRN ×2 (12:08→21:46)
--- NOTE | 2016-11-28 13:06 | PDOC ---
G I PROGRESS NOTE Reason for Follow-up Dysphagia/esophageal stricture Subjective Unable to tolerate solids today/ Physical Exam Lungs clear CV S1 S2 ABD +BS, soft, nontender Review of Relevant I have reviewed the following items terese (where applicable) has been applied. Labs Laboratory Tests Test 11/26/16 17:26 11/26/16 21:13 11/27/16 04:08 11/27/16 07:34 Glucose (Fingerstick) 178mg/dL (70-99) 148mg/dL (70-99) 73mg/dL (70-99) White Blood Count 7.6x10^3/uL (4.0-11.0) Red Blood Count 3.33x10^6/uL (3.50-5.40) Hemoglobin 9.5g/dL (12.0-15.5) Hematocrit 29.2% (36.0-47.0) Mean Corpuscular Volume 88fL (79-100) Mean Corpuscular Hemoglobin 28pg (25-35) Mean Corpuscular Hemoglobin Concent 32g/dL (31-37) Red Cell Distribution Width 15.2% (11.5-14.5) Platelet Count 309x10^3/uL (140-400) Neutrophils (%) (Auto) 76% (31-73) Lymphocytes (%) (Auto) 15% (24-48) Monocytes (%) (Auto) 8% (0-9) Eosinophils (%) (Auto) 0% (0-3) Basophils (%) (Auto) 1% (0-3) Neutrophils # (Auto) 5.7x10^3uL (1.8-7.7) Lymphocytes # (Auto) 1.1x10^3/uL (1.0-4.8) Monocytes # (Auto) 0.6x10^3/uL (0.0-1.1) Eosinophils # (Auto) 0.0x10^3/uL (0.0-0.7) Basophils # (Auto) 0.1x10^3/uL (0.0-0.2) Sodium Level 145mmol/L (136-145) Potassium Level 4.0mmol/L (3.5-5.1) Chloride Level 114mmol/L (98-107) Carbon Dioxide Level 20mmol/L (21-32) Anion Gap 11 (6-14) Blood Urea Nitrogen 4mg/dL (7-20) Creatinine 0.7mg/dL (0.6-1.0) Estimated GFR (Cockcroft-Gault) 101.6 Glucose Level 168mg/dL (70-99) Calcium Level 8.8mg/dL (8.5-10.1) Phosphorus Level 1.9mg/dL (2.6-4.7) Magnesium Level 2.4mg/dL (1.8-2.4) Test 11/27/16 10:37 11/27/16 16:33 11/27/16 21:38 11/28/16 05:50 Glucose (Fingerstick) 253mg/dL (70-99) 309mg/dL (70-99) 370mg/dL (70-99) White Blood Count 3.8x10^3/uL (4.0-11.0) Red Blood Count 3.30x10^6/uL (3.50-5.40) Hemoglobin 9.5g/dL (12.0-15.5) Hematocrit 28.7% (36.0-47.0) Mean Corpuscular Volume 87fL (79-100) Mean Corpuscular Hemoglobin 29pg (25-35) Mean Corpuscular Hemoglobin Concent 33g/dL (31-37) Red Cell Distribution Width 15.3% (11.5-14.5) Platelet Count 318x10^3/uL (140-400) Neutrophils (%) (Auto) 59% (31-73) Lymphocytes (%) (Auto) 25% (24-48) Monocytes (%) (Auto) 14% (0-9) Eosinophils (%) (Auto) 1% (0-3) Basophils (%) (Auto) 1% (0-3) Neutrophils # (Auto) 2.3x10^3uL (1.8-7.7) Lymphocytes # (Auto) 0.9x10^3/uL (1.0-4.8) Monocytes # (Auto) 0.5x10^3/uL (0.0-1.1) Eosinophils # (Auto) 0.0x10^3/uL (0.0-0.7) Basophils # (Auto) 0.0x10^3/uL (0.0-0.2) Sodium Level 147mmol/L (136-145) Potassium Level 4.3mmol/L (3.5-5.1) Chloride Level 113mmol/L (98-107) Carbon Dioxide Level 23mmol/L (21-32) Anion Gap 11 (6-14) Blood Urea Nitrogen 4mg/dL (7-20) Creatinine 0.7mg/dL (0.6-1.0) Estimated GFR (Cockcroft-Gault) 101.6 Glucose Level 56mg/dL (70-99) Calcium Level 9.0mg/dL (8.5-10.1) Test 11/28/16 07:20 11/28/16 08:18 11/28/16 11:11 Glucose (Fingerstick) 30mg/dL (70-99) 182mg/dL (70-99) 247mg/dL (70-99) Laboratory Tests Test 11/27/16 16:33 11/27/16 21:38 11/28/16 05:50 11/28/16 07:20 Glucose (Fingerstick) 309mg/dL (70-99) 370mg/dL (70-99) 30mg/dL (70-99) White Blood Count 3.8x10^3/uL (4.0-11.0) Red Blood Count 3.30x10^6/uL (3.50-5.40) Hemoglobin 9.5g/dL (12.0-15.5) Hematocrit 28.7% (36.0-47.0) Mean Corpuscular Volume 87fL (79-100) Mean Corpuscular Hemoglobin 29pg (25-35) Mean Corpuscular Hemoglobin Concent 33g/dL (31-37) Red Cell Distribution Width 15.3% (11.5-14.5) Platelet Count 318x10^3/uL (140-400) Neutrophils (%) (Auto) 59% (31-73) Lymphocytes (%) (Auto) 25% (24-48) Monocytes (%) (Auto) 14% (0-9) Eosinophils (%) (Auto) 1% (0-3) Basophils (%) (Auto) 1% (0-3) Neutrophils # (Auto) 2.3x10^3uL (1.8-7.7) Lymphocytes # (Auto) 0.9x10^3/uL (1.0-4.8) Monocytes # (Auto) 0.5x10^3/uL (0.0-1.1) Eosinophils # (Auto) 0.0x10^3/uL (0.0-0.7) Basophils # (Auto) 0.0x10^3/uL (0.0-0.2) Sodium Level 147mmol/L (136-145) Potassium Level 4.3mmol/L (3.5-5.1) Chloride Level 113mmol/L (98-107) Carbon Dioxide Level 23mmol/L (21-32) Anion Gap 11 (6-14) Blood Urea Nitrogen 4mg/dL (7-20) Creatinine 0.7mg/dL (0.6-1.0) Estimated GFR (Cockcroft-Gault) 101.6 Glucose Level 56mg/dL (70-99) Calcium Level 9.0mg/dL (8.5-10.1) Test 11/28/16 08:18 11/28/16 11:11 Glucose (Fingerstick) 182mg/dL (70-99) 247mg/dL (70-99) Microbiology 11/25/16 Blood Culture - Preliminary, Resulted NO GROWTH AFTER 2 DAYS Medications Current Medications Sodium Chloride 1,000 ml @ 1,000 mls/hr Q1H IV Last administered on 11/25/16 08:11; Start 11/25/16 at 08:30; Stop 11/25/16 at 09:29; Status DC Sodium Chloride 1,000 ml @ 1,000 mls/hr Q1H IV Last administered on 11/25/16 10:59; Start 11/25/16 at 10:00; Stop 11/25/16 at 11:59; Status DC Insulin Human Regular (Novolin R Iv Drip) 150 ml @ 0 mls/hr 1X ONCE IV Last administered on 11/25/16 09:34; Start 11/25/16 at 09:15; Stop 11/25/16 at 09:16 ; Status DC Ondansetron HCl 4 mg 4 mg PRN Q8HRS PRN IV NAUSEA/VOMITING; Start 11/25/16 at 09:30; Stop 11/26/16 at 09:29; Status DC Sodium Bicarbonate/ Sterile Water 1,150 ml @ 125 mls/hr 1X ONCE IV Last administered on 11/25/16 10:30; Start 11/25/16 at 10:30; Stop 11/25/16 at 19:41 ; Status DC Folic Acid (Folic Acid) 1 mg DAILY PO Last administered on 11/28/16 08:56; Start 11/25/16 at 14:00 Gabapentin (Neurontin) 300 mg TID PO Last administered on 11/28/16 08:56; Start 11/25/16 at 14:00 Acetaminophen/ Hydrocodone Bitart (Lortab 5/325) 1 tab PRN QID PRN PO PAIN Last administered on 11/28/16 12:08; Start 11/25/16 at 13:00 Latanoprost (Xalatan) 1 drop QHS OU Last administered on 11/27/16 21:34; Start 11/25/16 at 21:00 Metoprolol Succinate (Toprol Xl) 50 mg DAILY PO Last administered on 11/28/16 08:57; Start 11/25/16 at 14:00 Losartan Potassium (Cozaar) 100 mg DAILY PO Last administered on 11/28/16 08: 57; Start 11/25/16 at 14:00 Oxybutynin Chloride (Ditropan) 5 mg BID PO Last administered on 11/28/16 08:56 ; Start 11/25/16 at 14:00 Acetaminophen/ Hydrocodone Bitart (Lortab 5/325) 2 tab PRN QID PRN PO PAIN; Start 11/25/16 at 13:15 Hydrochlorothiazide 12.5 mg 12.5 mg DAILY PO Last administered on 11/28/16 08: 57; Start 11/25/16 at 14:00 Sodium Chloride 500 ml @ 500 mls/hr 1X ONCE IV ; Start 11/25/16 at 13:45; Stop 11/25/16 at 14:44; Status DC Sodium Chloride 1,000 ml @ 250 mls/hr Q4H IV Last administered on 11/25/16 13 :48; Start 11/25/16 at 13:48; Stop 11/26/16 at 01:26; Status DC Dextrose/Sodium Chloride 1,000 ml @ 250 mls/hr Q4H IV Last administered on 04:27; Start 11/25/16 at 18:00; Stop 11/26/16 at 10:13; Status DC Insulin Human Regular 150 unit/ Sodium Chloride 151.5 ml @ 0 mls/hr CONT PRN PRN IV PER PROTOCOL Last administered on 11/25/16 22:15; Start 11/25/16 at 13: 45; Stop 11/26/16 at 12:21; Status DC Potassium Chloride 100 ml @ 100 mls/hr PRN Q1HR PRN IV SEE COMMENTS; Start at 13:45 Potassium Chloride 100 ml @ 100 mls/hr PRN Q1HR PRN IV SEE COMMENTS; Start at 13:45 Potassium Chloride 100 ml @ 100 mls/hr PRN Q1HR PRN IV SEE COMMENTS; Start at 13:45 Magnesium Sulfate/ Dextrose 100 ml @ 25 mls/hr PRN DAILY PRN IV SEE COMMENTS Last administered on 11/26/16 10:24; Start 11/26/16 at 09:00 Sodium Phosphate 40 mmol/Sodium Chloride 513.3333 ml @ 83.3 mls/hr 1X PRN PRN IV SEE COMMENTS; Start 11/25/16 at 13:45 Sodium Phosphate 20 mmol/Dextrose 256.6667 ml @ 62.5 mls/hr 1X PRN PRN IV SEE COMMENTS; Start 11/25/16 at 13:45 Sodium Phosphate 10 mmol/Dextrose 253.3333 ml @ 62.5 mls/hr 1X PRN PRN IV SEE COMMENTS; Start 11/25/16 at 13:45 Potassium Chloride 100 ml @ 50 mls/hr Q1H IV Last administered on 11/25/16 17 :58; Start 11/25/16 at 17:00; Stop 11/25/16 at 18:59; Status DC Sodium Phosphate 20 mmol/Dextrose 256.6667 ml @ 64.167 m... 1X ONCE IV Last administered on 11/25/16 16:53; Start 11/25/16 at 17:00; Stop 11/25/16 at 20:59 ; Status DC Potassium Chloride (KCl Premix 10meq) 100 ml @ 100 mls/hr Q1H IV Last administered on 11/26/16 02:47; Start 11/25/16 at 21:30; Stop 11/26/16 at 01:29 ; Status DC Insulin Aspart (Novolog) 0-7 UNITS TIDWMEALS SQ ; Start 11/26/16 at 08:00; Status Cancel Dextrose 12.5 gm PRN Q15MIN PRN IV SEE COMMENTS; Start 11/25/16 at 23:30; Stop 11/26/16 at 05:40; Status DC Insulin Aspart (Novolog) 0-7 UNITS Q6HRS SQ ; Start 11/26/16 at 06:00; Stop at 12:21; Status DC Dextrose 12.5 gm PRN Q15MIN PRN IV SEE COMMENTS; Start 11/26/16 at 05:45; Stop 11/26/16 at 10:11; Status DC Insulin Detemir (Levemir) 10 units 1X ONCE SQ Last administered on 11/26/16 10:22; Start 11/26/16 at 10:00; Stop 11/26/16 at 10:01; Status DC Insulin Aspart (Novolog) 10 units 1X ONCE SQ Last administered on 11/26/16 10 :22; Start 11/26/16 at 10:00; Stop 11/26/16 at 10:01; Status DC Insulin Aspart (Novolog) 0-9 UNITS TIDWMEALS SQ Last administered on 11/28/16 12:15; Start 11/26/16 at 12:00 Dextrose 12.5 gm PRN Q15MIN PRN IV SEE COMMENTS; Start 11/26/16 at 10:00 Potassium Chloride 20 meq 20 meq BIDWMEALS PO Last administered on 11/28/16 08 :56; Start 11/26/16 at 10:00 Magnesium Sulfate/ Dextrose 50 ml @ 25 mls/hr 1X ONCE IV ; Start 11/26/16 at 11 :00; Stop 11/26/16 at 12:59; Status DC Potassium Chloride 30 meq/ Sodium Chloride 1,015 ml @ 75 mls/hr [id number] IV Last administered on 11/28/16 04:22; Start 11/26/16 at 11:00 Potassium Phosphate/Sodium Chloride (Potassium Phosphate/Iv Sodium Chloride 0.9 % 100ml) 103.3333 ml @ 51.667 m... Q2H IV Last administered on 11/26/16 15:22 ; Start 11/26/16 at 12:00; Stop 11/26/16 at 15:59; Status DC Insulin Detemir (Levemir) 12 units QHS SQ Last administered on 11/27/16 21:41 ; Start 11/26/16 at 21:00 Barium Sulfate (Liquid E-Z Paque) 355 ml 1X ONCE PO Last administered on 09:38; Start 11/27/16 at 08:30; Stop 11/27/16 at 08:31; Status DC Barium Sulfate (E-Z-Hd) 135 ml 1X ONCE PO Last administered on 11/27/16 08:30 ; Start 11/27/16 at 08:30; Stop 11/27/16 at 08:31; Status DC Simethicone/ Sodium Bicarb/ Citric Ac 1 packet 1 packet 1X ONCE PO ; Start at 08:30; Stop 11/27/16 at 08:31; Status DC Sodium Phosphate/ Dextrose 256.6667 ml @ 64.167 m... 1X ONCE IV Last administered on 11/27/16 11:53; Start 11/27/16 at 11:30; Stop 11/27/16 at 15:29 ; Status DC Pantoprazole Sodium (Protonix) 40 mg DAILYAC PO Last administered on 11/28/16 08:57; Start 11/27/16 at 13:00 Active Scripts Active Reported Oxybutynin Chloride Er (Oxybutynin Chloride) 10 Mg Tab.er.24 1 Tab PO DAILY Folic Acid 1 Mg Tablet 1 Tab PO DAILY Hydrocodone-Apap 5-325 (Hydrocodone Bit/Acetaminophen) 1 Each Tablet 1-2 Tab PO Q4-6HRS Losartan-Hctz 100-12.5 Mg Tab (Losartan/Hydrochlorothiazide) 1 Each Tablet 1 Each PO DAILY Xalatan (Latanoprost) 2.5 Ml Drops 1 Drop EACHEYE QHS Gabapentin 300 Mg Capsule 300 Mg PO TID Toprol Xl (Metoprolol Succinate) 50 Mg Tab.er.24h 1 Tab PO DAILY Vitals/I & O Vital Sign - Last 24 Hours 11/27/16 11/27/16 11/27/16 11/28/16 16:25 20:00 20:00 00:00 Temp 97.7 96.2 97.3 97.7 96.2 97.3 Pulse 82 97 94 Resp B/P 139/52 136/55 140/69 Pulse Ox 100 100 99 O2 Delivery Room Air Room Air Room Air Room Air 11/28/16 11/28/16 11/28/16 11/28/16 04:00 08:00 08:30 08:57 Temp 97.3 97.2 97.3 97.2 Pulse 81 89 89 Resp 18 20 B/P 134/62 142/55 142/55 Pulse Ox 99 99 O2 Delivery Room Air Room Air Room Air 11/28/16 11/28/16 08:57 12:00 Temp 100.8 100.8 Pulse 89 80 Resp 24 B/P 142/55 122/57 Pulse Ox 98 O2 Delivery Room Air Intake and Output 11/27/16 11/27/16 11/28/16 15:00 23:00 07:00 Intake Total 1135 ml 257 ml Output Total 1000 ml 800 ml 3500 ml Balance 135 ml -543 ml -3500 ml Problem List Problems Medical Problems: (1) DKA (diabetic ketoacidoses) Status: Acute Assessment Dysphagia- with stricture on esophagram, dilation will likely be needed prior to release as she is unable to tolerate po solids, will tentatively proceed Wednesday TREVIN ARTEAGA MD Nov 28, 2016 13:06
[2016-11-28] MEDS: LATANOPROST 0.005% OPHTH SOLUTION 2.5ML BOTTLE. OU SCH (21:46)
[2016-11-28] MEDS: INSULIN DETEMIR 300 UNITS/3 ML INSULN.PEN. SQ SCH (21:52)
[2016-11-29 02:29] VITALS: BP 134/65
[2016-11-29 06:10] LABS: BASO % 1 % (0-3); EOS % 1 % (0-3); HEMATOCRIT 29.8 % (36.0-47.0); HEMOGLOBIN 9.6 g/dL (12.0-15.5); LYMPH # 0.9 x10^3/uL (1.0-4.8); LYMPH % 18 % (24-48); MEAN CORPUSCULAR HEMOGLOBIN 29 pg (25-35); MEAN CORPUSCULAR HGB CONC 32 g/dL (31-37); MEAN CORPUSCULAR VOLUME 88 fL (79-100); MONO % 14 % (0-9); NEUT % 66 % (31-73); PLATELET COUNT 289 x10^3/uL (140-400); RED BLOOD COUNT 3.38 x10^6/uL (3.50-5.40); RED CELL DISTRIBUTION WIDTH 14.7 % (11.5-14.5); WHITE BLOOD COUNT 4.9 x10^3/uL (4.0-11.0)
[2016-11-29 06:40] LABS: CALCIUM 9.4 mg/dL (8.5-10.1); CREATININE 0.7 mg/dL (0.6-1.0); GFR 101.6; POTASSIUM 4.3 mmol/L (3.5-5.1)
[2016-11-29 07:30] VITALS: BP 146/59
[2016-11-29] MEDS: INSULIN ASPART 300 UNITS/3 ML INSULN.PEN SQ SCH ×3 (08:00→17:13)
[2016-11-29] MEDS: METOPROLOL SUCC 24HR ER 50 MG TAB.ER.24H. PO SCH (08:08)
[2016-11-29] MEDS: PANTOPRAZOLE 40 MG TABLET. PO SCH (08:08)
[2016-11-29] MEDS: FOLIC ACID 1 MG TABLET PO SCH (08:08)
[2016-11-29] MEDS: OXYBUTYNIN CHLORIDE 5 MG TABLET PO SCH ×2 (08:08→20:40)
[2016-11-29] MEDS: HYDROCHLOROTHIAZIDE 12.5 MG CAPSULE. PO SCH (08:08)
[2016-11-29] MEDS: LOSARTAN POTASSIUM 50 MG TABLET. PO SCH (08:08)
[2016-11-29] MEDS: GABAPENTIN 300 MG CAPSULE. PO SCH ×3 (08:09→20:40)
[2016-11-29] MEDS: POTASSIUM CHLORIDE 20 MEQ TABLET.ER. PO SCH ×2 (08:09→17:05)
[2016-11-29] MEDS: HYDROCODONE/APAP 5/325MG TABLET. PO PRN ×2 (08:15→20:40)
[2016-11-29] MEDS: POTASSIUM CHLORIDE 30 MEQ in IV 1/2 NORMAL SALINE 1,000 ML IV SCH ×2 (08:16→20:12)
[2016-11-29 11:00] VITALS: BP 123/76
--- NOTE | 2016-11-29 14:11 | PDOC ---
G I PROGRESS NOTE Reason for Follow-up Dysphagia Subjective Tolerating liquids only Physical Exam Lungs clear CV S1 S2 ABD +BS, soft, nontender Review of Relevant I have reviewed the following items terese (where applicable) has been applied. Labs Laboratory Tests Test 11/27/16 16:33 11/27/16 21:38 11/28/16 05:50 11/28/16 07:20 Glucose (Fingerstick) 309mg/dL (70-99) 370mg/dL (70-99) 30mg/dL (70-99) White Blood Count 3.8x10^3/uL (4.0-11.0) Red Blood Count 3.30x10^6/uL (3.50-5.40) Hemoglobin 9.5g/dL (12.0-15.5) Hematocrit 28.7% (36.0-47.0) Mean Corpuscular Volume 87fL (79-100) Mean Corpuscular Hemoglobin 29pg (25-35) Mean Corpuscular Hemoglobin Concent 33g/dL (31-37) Red Cell Distribution Width 15.3% (11.5-14.5) Platelet Count 318x10^3/uL (140-400) Neutrophils (%) (Auto) 59% (31-73) Lymphocytes (%) (Auto) 25% (24-48) Monocytes (%) (Auto) 14% (0-9) Eosinophils (%) (Auto) 1% (0-3) Basophils (%) (Auto) 1% (0-3) Neutrophils # (Auto) 2.3x10^3uL (1.8-7.7) Lymphocytes # (Auto) 0.9x10^3/uL (1.0-4.8) Monocytes # (Auto) 0.5x10^3/uL (0.0-1.1) Eosinophils # (Auto) 0.0x10^3/uL (0.0-0.7) Basophils # (Auto) 0.0x10^3/uL (0.0-0.2) Sodium Level 147mmol/L (136-145) Potassium Level 4.3mmol/L (3.5-5.1) Chloride Level 113mmol/L (98-107) Carbon Dioxide Level 23mmol/L (21-32) Anion Gap 11 (6-14) Blood Urea Nitrogen 4mg/dL (7-20) Creatinine 0.7mg/dL (0.6-1.0) Estimated GFR (Cockcroft-Gault) 101.6 Glucose Level 56mg/dL (70-99) Calcium Level 9.0mg/dL (8.5-10.1) Test 11/28/16 08:18 11/28/16 11:11 11/28/16 16:04 11/28/16 21:09 Glucose (Fingerstick) 182mg/dL (70-99) 247mg/dL (70-99) 310mg/dL (70-99) 184mg/dL (70-99) Test 11/29/16 05:15 11/29/16 07:39 11/29/16 11:08 White Blood Count 4.9x10^3/uL (4.0-11.0) Red Blood Count 3.38x10^6/uL (3.50-5.40) Hemoglobin 9.6g/dL (12.0-15.5) Hematocrit 29.8% (36.0-47.0) Mean Corpuscular Volume 88fL (79-100) Mean Corpuscular Hemoglobin 29pg (25-35) Mean Corpuscular Hemoglobin Concent 32g/dL (31-37) Red Cell Distribution Width 14.7% (11.5-14.5) Platelet Count 289x10^3/uL (140-400) Neutrophils (%) (Auto) 66% (31-73) Lymphocytes (%) (Auto) 18% (24-48) Monocytes (%) (Auto) 14% (0-9) Eosinophils (%) (Auto) 1% (0-3) Basophils (%) (Auto) 1% (0-3) Neutrophils # (Auto) 3.3x10^3uL (1.8-7.7) Lymphocytes # (Auto) 0.9x10^3/uL (1.0-4.8) Monocytes # (Auto) 0.7x10^3/uL (0.0-1.1) Eosinophils # (Auto) 0.1x10^3/uL (0.0-0.7) Basophils # (Auto) 0.0x10^3/uL (0.0-0.2) Sodium Level 145mmol/L (136-145) Potassium Level 4.3mmol/L (3.5-5.1) Chloride Level 111mmol/L (98-107) Carbon Dioxide Level 26mmol/L (21-32) Anion Gap 8 (6-14) Blood Urea Nitrogen 5mg/dL (7-20) Creatinine 0.7mg/dL (0.6-1.0) Estimated GFR (Cockcroft-Gault) 101.6 Glucose Level 103mg/dL (70-99) Calcium Level 9.4mg/dL (8.5-10.1) Glucose (Fingerstick) 71mg/dL (70-99) 218mg/dL (70-99) Laboratory Tests Test 11/28/16 16:04 11/28/16 21:09 11/29/16 05:15 11/29/16 07:39 Glucose (Fingerstick) 310mg/dL (70-99) 184mg/dL (70-99) 71mg/dL (70-99) White Blood Count 4.9x10^3/uL (4.0-11.0) Red Blood Count 3.38x10^6/uL (3.50-5.40) Hemoglobin 9.6g/dL (12.0-15.5) Hematocrit 29.8% (36.0-47.0) Mean Corpuscular Volume 88fL (79-100) Mean Corpuscular Hemoglobin 29pg (25-35) Mean Corpuscular Hemoglobin Concent 32g/dL (31-37) Red Cell Distribution Width 14.7% (11.5-14.5) Platelet Count 289x10^3/uL (140-400) Neutrophils (%) (Auto) 66% (31-73) Lymphocytes (%) (Auto) 18% (24-48) Monocytes (%) (Auto) 14% (0-9) Eosinophils (%) (Auto) 1% (0-3) Basophils (%) (Auto) 1% (0-3) Neutrophils # (Auto) 3.3x10^3uL (1.8-7.7) Lymphocytes # (Auto) 0.9x10^3/uL (1.0-4.8) Monocytes # (Auto) 0.7x10^3/uL (0.0-1.1) Eosinophils # (Auto) 0.1x10^3/uL (0.0-0.7) Basophils # (Auto) 0.0x10^3/uL (0.0-0.2) Sodium Level 145mmol/L (136-145) Potassium Level 4.3mmol/L (3.5-5.1) Chloride Level 111mmol/L (98-107) Carbon Dioxide Level 26mmol/L (21-32) Anion Gap 8 (6-14) Blood Urea Nitrogen 5mg/dL (7-20) Creatinine 0.7mg/dL (0.6-1.0) Estimated GFR (Cockcroft-Gault) 101.6 Glucose Level 103mg/dL (70-99) Calcium Level 9.4mg/dL (8.5-10.1) Test 11/29/16 11:08 Glucose (Fingerstick) 218mg/dL (70-99) Microbiology 11/25/16 Blood Culture - Preliminary, Resulted NO GROWTH AFTER 4 DAYS Medications Current Medications Sodium Chloride 1,000 ml @ 1,000 mls/hr Q1H IV Last administered on 11/25/16 08:11; Start 11/25/16 at 08:30; Stop 11/25/16 at 09:29; Status DC Sodium Chloride 1,000 ml @ 1,000 mls/hr Q1H IV Last administered on 11/25/16 10:59; Start 11/25/16 at 10:00; Stop 11/25/16 at 11:59; Status DC Insulin Human Regular (Novolin R Iv Drip) 150 ml @ 0 mls/hr 1X ONCE IV Last administered on 11/25/16 09:34; Start 11/25/16 at 09:15; Stop 11/25/16 at 09:16 ; Status DC Ondansetron HCl 4 mg 4 mg PRN Q8HRS PRN IV NAUSEA/VOMITING; Start 11/25/16 at 09:30; Stop 11/26/16 at 09:29; Status DC Sodium Bicarbonate/ Sterile Water 1,150 ml @ 125 mls/hr 1X ONCE IV Last administered on 11/25/16 10:30; Start 11/25/16 at 10:30; Stop 11/25/16 at 19:41 ; Status DC Folic Acid (Folic Acid) 1 mg DAILY PO Last administered on 11/29/16 08:08; Start 11/25/16 at 14:00 Gabapentin (Neurontin) 300 mg TID PO Last administered on 11/29/16 08:09; Start 11/25/16 at 14:00 Acetaminophen/ Hydrocodone Bitart (Lortab 5/325) 1 tab PRN QID PRN PO PAIN Last administered on 11/29/16 08:15; Start 11/25/16 at 13:00 Latanoprost (Xalatan) 1 drop QHS OU Last administered on 11/28/16 21:46; Start 11/25/16 at 21:00 Metoprolol Succinate (Toprol Xl) 50 mg DAILY PO Last administered on 11/29/16 08:08; Start 11/25/16 at 14:00 Losartan Potassium (Cozaar) 100 mg DAILY PO Last administered on 11/29/16 08: 08; Start 11/25/16 at 14:00 Oxybutynin Chloride (Ditropan) 5 mg BID PO Last administered on 11/29/16 08:08 ; Start 11/25/16 at 14:00 Acetaminophen/ Hydrocodone Bitart (Lortab 5/325) 2 tab PRN QID PRN PO PAIN; Start 11/25/16 at 13:15 Hydrochlorothiazide 12.5 mg 12.5 mg DAILY PO Last administered on 11/29/16 08: 08; Start 11/25/16 at 14:00 Sodium Chloride 500 ml @ 500 mls/hr 1X ONCE IV ; Start 11/25/16 at 13:45; Stop 11/25/16 at 14:44; Status DC Sodium Chloride 1,000 ml @ 250 mls/hr Q4H IV Last administered on 11/25/16 13 :48; Start 11/25/16 at 13:48; Stop 11/26/16 at 01:26; Status DC Dextrose/Sodium Chloride 1,000 ml @ 250 mls/hr Q4H IV Last administered on 04:27; Start 11/25/16 at 18:00; Stop 11/26/16 at 10:13; Status DC Insulin Human Regular 150 unit/ Sodium Chloride 151.5 ml @ 0 mls/hr CONT PRN PRN IV PER PROTOCOL Last administered on 11/25/16 22:15; Start 11/25/16 at 13: 45; Stop 11/26/16 at 12:21; Status DC Potassium Chloride 100 ml @ 100 mls/hr PRN Q1HR PRN IV SEE COMMENTS; Start at 13:45 Potassium Chloride 100 ml @ 100 mls/hr PRN Q1HR PRN IV SEE COMMENTS; Start at 13:45 Potassium Chloride 100 ml @ 100 mls/hr PRN Q1HR PRN IV SEE COMMENTS; Start at 13:45 Magnesium Sulfate/ Dextrose 100 ml @ 25 mls/hr PRN DAILY PRN IV SEE COMMENTS Last administered on 11/26/16 10:24; Start 11/26/16 at 09:00 Sodium Phosphate 40 mmol/Sodium Chloride 513.3333 ml @ 83.3 mls/hr 1X PRN PRN IV SEE COMMENTS; Start 11/25/16 at 13:45 Sodium Phosphate 20 mmol/Dextrose 256.6667 ml @ 62.5 mls/hr 1X PRN PRN IV SEE COMMENTS; Start 11/25/16 at 13:45 Sodium Phosphate 10 mmol/Dextrose 253.3333 ml @ 62.5 mls/hr 1X PRN PRN IV SEE COMMENTS; Start 11/25/16 at 13:45 Potassium Chloride 100 ml @ 50 mls/hr Q1H IV Last administered on 11/25/16 17 :58; Start 11/25/16 at 17:00; Stop 11/25/16 at 18:59; Status DC Sodium Phosphate 20 mmol/Dextrose 256.6667 ml @ 64.167 m... 1X ONCE IV Last administered on 11/25/16 16:53; Start 11/25/16 at 17:00; Stop 11/25/16 at 20:59 ; Status DC Potassium Chloride (KCl Premix 10meq) 100 ml @ 100 mls/hr Q1H IV Last administered on 11/26/16 02:47; Start 11/25/16 at 21:30; Stop 11/26/16 at 01:29 ; Status DC Insulin Aspart (Novolog) 0-7 UNITS TIDWMEALS SQ ; Start 11/26/16 at 08:00; Status Cancel Dextrose 12.5 gm PRN Q15MIN PRN IV SEE COMMENTS; Start 11/25/16 at 23:30; Stop 11/26/16 at 05:40; Status DC Insulin Aspart (Novolog) 0-7 UNITS Q6HRS SQ ; Start 11/26/16 at 06:00; Stop at 12:21; Status DC Dextrose 12.5 gm PRN Q15MIN PRN IV SEE COMMENTS; Start 11/26/16 at 05:45; Stop 11/26/16 at 10:11; Status DC Insulin Detemir (Levemir) 10 units 1X ONCE SQ Last administered on 11/26/16 10:22; Start 11/26/16 at 10:00; Stop 11/26/16 at 10:01; Status DC Insulin Aspart (Novolog) 10 units 1X ONCE SQ Last administered on 11/26/16 10 :22; Start 11/26/16 at 10:00; Stop 11/26/16 at 10:01; Status DC Insulin Aspart (Novolog) 0-9 UNITS TIDWMEALS SQ Last administered on 11/29/16 12:21; Start 11/26/16 at 12:00 Dextrose 12.5 gm PRN Q15MIN PRN IV SEE COMMENTS; Start 11/26/16 at 10:00 Potassium Chloride 20 meq 20 meq BIDWMEALS PO Last administered on 11/29/16 08 :09; Start 11/26/16 at 10:00 Magnesium Sulfate/ Dextrose 50 ml @ 25 mls/hr 1X ONCE IV ; Start 11/26/16 at 11 :00; Stop 11/26/16 at 12:59; Status DC Potassium Chloride 30 meq/ Sodium Chloride 1,015 ml @ 75 mls/hr [id number] IV Last administered on 11/29/16 08:16; Start 11/26/16 at 11:00 Potassium Phosphate/Sodium Chloride (Potassium Phosphate/Iv Sodium Chloride 0.9 % 100ml) 103.3333 ml @ 51.667 m... Q2H IV Last administered on 11/26/16 15:22 ; Start 11/26/16 at 12:00; Stop 11/26/16 at 15:59; Status DC Insulin Detemir (Levemir) 12 units QHS SQ Last administered on 11/28/16 21:52 ; Start 11/26/16 at 21:00 Barium Sulfate (Liquid E-Z Paque) 355 ml 1X ONCE PO Last administered on 09:38; Start 11/27/16 at 08:30; Stop 11/27/16 at 08:31; Status DC Barium Sulfate (E-Z-Hd) 135 ml 1X ONCE PO Last administered on 11/27/16 08:30 ; Start 11/27/16 at 08:30; Stop 11/27/16 at 08:31; Status DC Simethicone/ Sodium Bicarb/ Citric Ac 1 packet 1 packet 1X ONCE PO ; Start at 08:30; Stop 11/27/16 at 08:31; Status DC Sodium Phosphate/ Dextrose 256.6667 ml @ 64.167 m... 1X ONCE IV Last administered on 11/27/16 11:53; Start 11/27/16 at 11:30; Stop 11/27/16 at 15:29 ; Status DC Pantoprazole Sodium (Protonix) 40 mg DAILYAC PO Last administered on 11/29/16 08:08; Start 11/27/16 at 13:00 Active Scripts Active Reported Oxybutynin Chloride Er (Oxybutynin Chloride) 10 Mg Tab.er.24 1 Tab PO DAILY Folic Acid 1 Mg Tablet 1 Tab PO DAILY Hydrocodone-Apap 5-325 (Hydrocodone Bit/Acetaminophen) 1 Each Tablet 1-2 Tab PO Q4-6HRS Losartan-Hctz 100-12.5 Mg Tab (Losartan/Hydrochlorothiazide) 1 Each Tablet 1 Each PO DAILY Xalatan (Latanoprost) 2.5 Ml Drops 1 Drop EACHEYE QHS Gabapentin 300 Mg Capsule 300 Mg PO TID Toprol Xl (Metoprolol Succinate) 50 Mg Tab.er.24h 1 Tab PO DAILY Vitals/I & O Vital Sign - Last 24 Hours 11/28/16 11/28/16 11/28/16 11/28/16 16:00 19:59 20:00 21:46 Temp 98.6 100.8 98.6 100.8 Pulse 78 82 Resp 18 16 B/P 112/58 142/62 Pulse Ox 94 100 100 O2 Delivery Room Air Room Air Room Air Room Air 11/28/16 11/28/16 11/29/16 11/29/16 22:34 22:46 02:29 07:30 Temp 98.5 98.2 97.4 98.5 98.2 97.4 Pulse 86 77 75 Resp 18 16 19 B/P 118/55 134/65 146/59 Pulse Ox 100 100 99 98 O2 Delivery Room Air Room Air Room Air Room Air 11/29/16 11/29/16 11/29/16 11/29/16 08:08 08:08 08:20 11:00 Temp 97.9 97.9 Pulse 75 75 78 Resp 19 B/P 146/59 146/59 123/76 Pulse Ox 100 O2 Delivery Room Air Room Air Intake and Output 11/28/16 11/28/16 11/29/16 15:00 23:00 07:00 Intake Total 354 ml 2140 ml 650 ml Output Total 2450 ml Balance 354 ml -310 ml 650 ml Problem List Problems Medical Problems: (1) DKA (diabetic ketoacidoses) Status: Acute Assessment Dysphagia- with stricture on esophagram, EGD with possible bx and/or dilation tomorrow, risks and benefits discussed with patient who is wiling to proceed. TREVIN ARTEAGA MD Nov 29, 2016 14:11
[2016-11-29 15:00] VITALS: BP 123/90
--- NOTE | 2016-11-29 16:03 | PDOC ---
PROGRESS NOTES Chief Complaint Chief Complaint DKA ASSESSMENT AND PLAN: 1. DKA: resolved. insulin gtt stopped. 2. Hyperglycemia: levemir started with episode of hypoglycemia. now rebounded excessively. titrate cuatiously 3. Vomiting w/o nausea: chronic. GI following 4. Dysphagia: (see3). speech eval w/o pharyngeal impairment. stricture on esophagram: planned EGD on Mon 5. Troponin leak: minimal, with mild SAURABH, and asymptomatic. cardiac consult obtained: same presentation 1 month ago, prompting extensive W/U, incl neg echo and cath. no further w/o indicated at this time 6. SAURABH: POA, now resolved 7. Hypokalemia: resolved 8. Hypomag: resolved 9. RA: on remicade q7 weeks, MTX weekly. can hold latter for now 10. Prophylaxis: heparin, H2B History of Present Illness History of Present Illness Vitals Vitals Vital Signs Date Time Temp Pulse Resp B/P Pulse Ox O2 Delivery O2 Flow Rate FiO2 11/29/16 15:00 97.9 73 19 123/90 93 Room Air 97.9 Physical Exam General: Alert, Oriented X3, Cooperative, No acute distress Heart: Regular rate Lungs: Clear Abdomen: Normal bowel sounds, Soft, No tenderness Extremities: No edema, Normal pulses Skin: No rashes Labs LABS Laboratory Tests Test 11/28/16 16:04 11/28/16 21:09 11/29/16 05:15 11/29/16 07:39 Glucose (Fingerstick) 310mg/dL (70-99) 184mg/dL (70-99) 71mg/dL (70-99) White Blood Count 4.9x10^3/uL (4.0-11.0) Red Blood Count 3.38x10^6/uL (3.50-5.40) Hemoglobin 9.6g/dL (12.0-15.5) Hematocrit 29.8% (36.0-47.0) Mean Corpuscular Volume 88fL (79-100) Mean Corpuscular Hemoglobin 29pg (25-35) Mean Corpuscular Hemoglobin Concent 32g/dL (31-37) Red Cell Distribution Width 14.7% (11.5-14.5) Platelet Count 289x10^3/uL (140-400) Neutrophils (%) (Auto) 66% (31-73) Lymphocytes (%) (Auto) 18% (24-48) Monocytes (%) (Auto) 14% (0-9) Eosinophils (%) (Auto) 1% (0-3) Basophils (%) (Auto) 1% (0-3) Neutrophils # (Auto) 3.3x10^3uL (1.8-7.7) Lymphocytes # (Auto) 0.9x10^3/uL (1.0-4.8) Monocytes # (Auto) 0.7x10^3/uL (0.0-1.1) Eosinophils # (Auto) 0.1x10^3/uL (0.0-0.7) Basophils # (Auto) 0.0x10^3/uL (0.0-0.2) Sodium Level 145mmol/L (136-145) Potassium Level 4.3mmol/L (3.5-5.1) Chloride Level 111mmol/L (98-107) Carbon Dioxide Level 26mmol/L (21-32) Anion Gap 8 (6-14) Blood Urea Nitrogen 5mg/dL (7-20) Creatinine 0.7mg/dL (0.6-1.0) Estimated GFR (Cockcroft-Gault) 101.6 Glucose Level 103mg/dL (70-99) Calcium Level 9.4mg/dL (8.5-10.1) Test 11/29/16 11:08 Glucose (Fingerstick) 218mg/dL (70-99) Review of Systems Review of Systems much improved. tolerating full liquids TANNER STORM MD Nov 29, 2016 16:03
[2016-11-29 19:26] VITALS: BP 143/62
[2016-11-29] MEDS: LATANOPROST 0.005% OPHTH SOLUTION 2.5ML BOTTLE. OU SCH (20:40)
[2016-11-29] MEDS: INSULIN DETEMIR 300 UNITS/3 ML INSULN.PEN. SQ SCH (20:47)
[2016-11-29 23:00] VITALS: BP 139/65
[2016-11-30 03:00] VITALS: BP 134/64
[2016-11-30 04:45] LABS: BASO % 1 % (0-3); EOS % 2 % (0-3); HEMATOCRIT 29.1 % (36.0-47.0); HEMOGLOBIN 9.4 g/dL (12.0-15.5); LYMPH # 0.9 x10^3/uL (1.0-4.8); LYMPH % 22 % (24-48); MEAN CORPUSCULAR HEMOGLOBIN 29 pg (25-35); MEAN CORPUSCULAR HGB CONC 33 g/dL (31-37); MEAN CORPUSCULAR VOLUME 88 fL (79-100); MONO % 20 % (0-9); NEUT % 55 % (31-73); PLATELET COUNT 319 x10^3/uL (140-400); RED BLOOD COUNT 3.31 x10^6/uL (3.50-5.40); RED CELL DISTRIBUTION WIDTH 14.7 % (11.5-14.5)
[2016-11-30 05:09] LABS: CALCIUM 9.5 mg/dL (8.5-10.1); CREATININE 0.7 mg/dL (0.6-1.0); GFR 101.6; POTASSIUM 4.8 mmol/L (3.5-5.1)
[2016-11-30 07:00] VITALS: BP 124/67
[2016-11-30] MEDS: INSULIN ASPART 300 UNITS/3 ML INSULN.PEN SQ SCH ×4 (08:00→16:38)
[2016-11-30] MEDS: HYDROCHLOROTHIAZIDE 12.5 MG CAPSULE. PO SCH (08:54)
[2016-11-30] MEDS: POTASSIUM CHLORIDE 20 MEQ TABLET.ER. PO SCH ×2 (08:54→16:38)
[2016-11-30] MEDS: PANTOPRAZOLE 40 MG TABLET. PO SCH (08:54)
[2016-11-30] MEDS: GABAPENTIN 300 MG CAPSULE. PO SCH ×3 (08:54→20:35)
[2016-11-30] MEDS: LOSARTAN POTASSIUM 50 MG TABLET. PO SCH (08:54)
[2016-11-30] MEDS: METOPROLOL SUCC 24HR ER 50 MG TAB.ER.24H. PO SCH (08:55)
[2016-11-30] MEDS: OXYBUTYNIN CHLORIDE 5 MG TABLET PO SCH ×2 (08:55→20:36)
[2016-11-30] MEDS: FOLIC ACID 1 MG TABLET PO SCH (08:55)
[2016-11-30] MEDS: POTASSIUM CHLORIDE 30 MEQ in IV 1/2 NORMAL SALINE 1,000 ML IV SCH (09:44)
[2016-11-30 11:00] VITALS: BP 119/53
--- NOTE | 2016-11-30 14:24 | PDOC ---
PROGRESS NOTES Chief Complaint Chief Complaint DKA ASSESSMENT AND PLAN: 1. DKA: resolved. insulin gtt stopped. 2. Hyperglycemia: levemir started with episode of hypoglycemia. now rebounded excessively. titrate cuatiously 3. Vomiting w/o nausea: chronic. GI following 4. Dysphagia: (see3). speech eval w/o pharyngeal impairment. stricture on esophagram: planned EGD on Mon 5. Troponin leak: minimal, with mild SAURABH, and asymptomatic. cardiac consult obtained: same presentation 1 month ago, prompting extensive W/U, incl neg echo and cath. no further w/o indicated at this time 6. SAURABH: POA, now resolved 7. Hypokalemia: resolved 8. Hypomag: resolved 9. RA: on remicade q7 weeks, MTX weekly. can hold latter for now 10. Prophylaxis: heparin, H2B History of Present Illness History of Present Illness planned EGD, poss dilation today I discussed this case with DR. Regan Resendiz, plan outpatient DM f.u, he has concerns about prior poor compliance of meds pt had concerns about more freq. insulin Vitals Vitals Vital Signs Date Time Temp Pulse Resp B/P Pulse Ox O2 Delivery O2 Flow Rate FiO2 11/30/16 11:00 98.3 93 17 119/53 96 Room Air 98.3 Physical Exam General: Alert, Oriented X3, Cooperative, No acute distress Heart: Regular rate Lungs: Clear Abdomen: Normal bowel sounds, Soft, No tenderness Extremities: No edema, Normal pulses Skin: No rashes Labs LABS Laboratory Tests Test 11/29/16 16:44 11/29/16 20:44 11/30/16 04:10 11/30/16 07:59 Glucose (Fingerstick) 375mg/dL (70-99) 265mg/dL (70-99) 117mg/dL (70-99) White Blood Count 4.0x10^3/uL (4.0-11.0) Red Blood Count 3.31x10^6/uL (3.50-5.40) Hemoglobin 9.4g/dL (12.0-15.5) Hematocrit 29.1% (36.0-47.0) Mean Corpuscular Volume 88fL (79-100) Mean Corpuscular Hemoglobin 29pg (25-35) Mean Corpuscular Hemoglobin Concent 33g/dL (31-37) Red Cell Distribution Width 14.7% (11.5-14.5) Platelet Count 319x10^3/uL (140-400) Neutrophils (%) (Auto) 55% (31-73) Lymphocytes (%) (Auto) 22% (24-48) Monocytes (%) (Auto) 20% (0-9) Eosinophils (%) (Auto) 2% (0-3) Basophils (%) (Auto) 1% (0-3) Neutrophils # (Auto) 2.2x10^3uL (1.8-7.7) Lymphocytes # (Auto) 0.9x10^3/uL (1.0-4.8) Monocytes # (Auto) 0.8x10^3/uL (0.0-1.1) Eosinophils # (Auto) 0.1x10^3/uL (0.0-0.7) Basophils # (Auto) 0.0x10^3/uL (0.0-0.2) Sodium Level 143mmol/L (136-145) Potassium Level 4.8mmol/L (3.5-5.1) Chloride Level 108mmol/L (98-107) Carbon Dioxide Level 29mmol/L (21-32) Anion Gap 6 (6-14) Blood Urea Nitrogen 6mg/dL (7-20) Creatinine 0.7mg/dL (0.6-1.0) Estimated GFR (Cockcroft-Gault) 101.6 Glucose Level 174mg/dL (70-99) Calcium Level 9.5mg/dL (8.5-10.1) Test 11/30/16 11:29 Glucose (Fingerstick) 398mg/dL (70-99) Review of Systems Review of Systems no n.v.d Assessment and Plan Assessmemt and Plan Problems Medical Problems: (1) DKA (diabetic ketoacidoses) Status: Acute Problems: Comment Review of Relevant I have reviewed the following items terese (where applicable) has been applied. Labs Laboratory Tests Test 11/28/16 16:04 11/28/16 21:09 11/29/16 05:15 11/29/16 07:39 Glucose (Fingerstick) 310mg/dL (70-99) 184mg/dL (70-99) 71mg/dL (70-99) White Blood Count 4.9x10^3/uL (4.0-11.0) Red Blood Count 3.38x10^6/uL (3.50-5.40) Hemoglobin 9.6g/dL (12.0-15.5) Hematocrit 29.8% (36.0-47.0) Mean Corpuscular Volume 88fL (79-100) Mean Corpuscular Hemoglobin 29pg (25-35) Mean Corpuscular Hemoglobin Concent 32g/dL (31-37) Red Cell Distribution Width 14.7% (11.5-14.5) Platelet Count 289x10^3/uL (140-400) Neutrophils (%) (Auto) 66% (31-73) Lymphocytes (%) (Auto) 18% (24-48) Monocytes (%) (Auto) 14% (0-9) Eosinophils (%) (Auto) 1% (0-3) Basophils (%) (Auto) 1% (0-3) Neutrophils # (Auto) 3.3x10^3uL (1.8-7.7) Lymphocytes # (Auto) 0.9x10^3/uL (1.0-4.8) Monocytes # (Auto) 0.7x10^3/uL (0.0-1.1) Eosinophils # (Auto) 0.1x10^3/uL (0.0-0.7) Basophils # (Auto) 0.0x10^3/uL (0.0-0.2) Sodium Level 145mmol/L (136-145) Potassium Level 4.3mmol/L (3.5-5.1) Chloride Level 111mmol/L (98-107) Carbon Dioxide Level 26mmol/L (21-32) Anion Gap 8 (6-14) Blood Urea Nitrogen 5mg/dL (7-20) Creatinine 0.7mg/dL (0.6-1.0) Estimated GFR (Cockcroft-Gault) 101.6 Glucose Level 103mg/dL (70-99) Calcium Level 9.4mg/dL (8.5-10.1) Test 11/29/16 11:08 11/29/16 16:44 11/29/16 20:44 11/30/16 04:10 Glucose (Fingerstick) 218mg/dL (70-99) 375mg/dL (70-99) 265mg/dL (70-99) White Blood Count 4.0x10^3/uL (4.0-11.0) Red Blood Count 3.31x10^6/uL (3.50-5.40) Hemoglobin 9.4g/dL (12.0-15.5) Hematocrit 29.1% (36.0-47.0) Mean Corpuscular Volume 88fL (79-100) Mean Corpuscular Hemoglobin 29pg (25-35) Mean Corpuscular Hemoglobin Concent 33g/dL (31-37) Red Cell Distribution Width 14.7% (11.5-14.5) Platelet Count 319x10^3/uL (140-400) Neutrophils (%) (Auto) 55% (31-73) Lymphocytes (%) (Auto) 22% (24-48) Monocytes (%) (Auto) 20% (0-9) Eosinophils (%) (Auto) 2% (0-3) Basophils (%) (Auto) 1% (0-3) Neutrophils # (Auto) 2.2x10^3uL (1.8-7.7) Lymphocytes # (Auto) 0.9x10^3/uL (1.0-4.8) Monocytes # (Auto) 0.8x10^3/uL (0.0-1.1) Eosinophils # (Auto) 0.1x10^3/uL (0.0-0.7) Basophils # (Auto) 0.0x10^3/uL (0.0-0.2) Sodium Level 143mmol/L (136-145) Potassium Level 4.8mmol/L (3.5-5.1) Chloride Level 108mmol/L (98-107) Carbon Dioxide Level 29mmol/L (21-32) Anion Gap 6 (6-14) Blood Urea Nitrogen 6mg/dL (7-20) Creatinine 0.7mg/dL (0.6-1.0) Estimated GFR (Cockcroft-Gault) 101.6 Glucose Level 174mg/dL (70-99) Calcium Level 9.5mg/dL (8.5-10.1) Test 11/30/16 07:59 11/30/16 11:29 Glucose (Fingerstick) 117mg/dL (70-99) 398mg/dL (70-99) Laboratory Tests Test 11/29/16 16:44 11/29/16 20:44 11/30/16 04:10 11/30/16 07:59 Glucose (Fingerstick) 375mg/dL (70-99) 265mg/dL (70-99) 117mg/dL (70-99) White Blood Count 4.0x10^3/uL (4.0-11.0) Red Blood Count 3.31x10^6/uL (3.50-5.40) Hemoglobin 9.4g/dL (12.0-15.5) Hematocrit 29.1% (36.0-47.0) Mean Corpuscular Volume 88fL (79-100) Mean Corpuscular Hemoglobin 29pg (25-35) Mean Corpuscular Hemoglobin Concent 33g/dL (31-37) Red Cell Distribution Width 14.7% (11.5-14.5) Platelet Count 319x10^3/uL (140-400) Neutrophils (%) (Auto) 55% (31-73) Lymphocytes (%) (Auto) 22% (24-48) Monocytes (%) (Auto) 20% (0-9) Eosinophils (%) (Auto) 2% (0-3) Basophils (%) (Auto) 1% (0-3) Neutrophils # (Auto) 2.2x10^3uL (1.8-7.7) Lymphocytes # (Auto) 0.9x10^3/uL (1.0-4.8) Monocytes # (Auto) 0.8x10^3/uL (0.0-1.1) Eosinophils # (Auto) 0.1x10^3/uL (0.0-0.7) Basophils # (Auto) 0.0x10^3/uL (0.0-0.2) Sodium Level 143mmol/L (136-145) Potassium Level 4.8mmol/L (3.5-5.1) Chloride Level 108mmol/L (98-107) Carbon Dioxide Level 29mmol/L (21-32) Anion Gap 6 (6-14) Blood Urea Nitrogen 6mg/dL (7-20) Creatinine 0.7mg/dL (0.6-1.0) Estimated GFR (Cockcroft-Gault) 101.6 Glucose Level 174mg/dL (70-99) Calcium Level 9.5mg/dL (8.5-10.1) Test 11/30/16 11:29 Glucose (Fingerstick) 398mg/dL (70-99) Microbiology 11/25/16 Blood Culture - Final, Complete NO GROWTH AFTER 5 DAYS Medications Current Medications Sodium Chloride 1,000 ml @ 1,000 mls/hr Q1H IV Last administered on 11/25/16 08:11; Start 11/25/16 at 08:30; Stop 11/25/16 at 09:29; Status DC Sodium Chloride 1,000 ml @ 1,000 mls/hr Q1H IV Last administered on 11/25/16 10:59; Start 11/25/16 at 10:00; Stop 11/25/16 at 11:59; Status DC Insulin Human Regular (Novolin R Iv Drip) 150 ml @ 0 mls/hr 1X ONCE IV Last administered on 11/25/16 09:34; Start 11/25/16 at 09:15; Stop 11/25/16 at 09:16 ; Status DC Ondansetron HCl 4 mg 4 mg PRN Q8HRS PRN IV NAUSEA/VOMITING; Start 11/25/16 at 09:30; Stop 11/26/16 at 09:29; Status DC Sodium Bicarbonate/ Sterile Water 1,150 ml @ 125 mls/hr 1X ONCE IV Last administered on 11/25/16 10:30; Start 11/25/16 at 10:30; Stop 11/25/16 at 19:41 ; Status DC Folic Acid (Folic Acid) 1 mg DAILY PO Last administered on 11/30/16 08:55; Start 11/25/16 at 14:00 Gabapentin (Neurontin) 300 mg TID PO Last administered on 11/30/16 08:54; Start 11/25/16 at 14:00 Acetaminophen/ Hydrocodone Bitart (Lortab 5/325) 1 tab PRN QID PRN PO PAIN Last administered on 11/29/16 20:40; Start 11/25/16 at 13:00 Latanoprost (Xalatan) 1 drop QHS OU Last administered on 11/29/16 20:40; Start 11/25/16 at 21:00 Metoprolol Succinate (Toprol Xl) 50 mg DAILY PO Last administered on 11/30/16 08:55; Start 11/25/16 at 14:00 Losartan Potassium (Cozaar) 100 mg DAILY PO Last administered on 11/30/16 08: 54; Start 11/25/16 at 14:00 Oxybutynin Chloride (Ditropan) 5 mg BID PO Last administered on 11/30/16 08:55 ; Start 11/25/16 at 14:00 Acetaminophen/ Hydrocodone Bitart (Lortab 5/325) 2 tab PRN QID PRN PO PAIN; Start 11/25/16 at 13:15 Hydrochlorothiazide 12.5 mg 12.5 mg DAILY PO Last administered on 11/30/16 08: 54; Start 11/25/16 at 14:00 Sodium Chloride 500 ml @ 500 mls/hr 1X ONCE IV ; Start 11/25/16 at 13:45; Stop 11/25/16 at 14:44; Status DC Sodium Chloride 1,000 ml @ 250 mls/hr Q4H IV Last administered on 11/25/16 13 :48; Start 11/25/16 at 13:48; Stop 11/26/16 at 01:26; Status DC Dextrose/Sodium Chloride 1,000 ml @ 250 mls/hr Q4H IV Last administered on 04:27; Start 11/25/16 at 18:00; Stop 11/26/16 at 10:13; Status DC Insulin Human Regular 150 unit/ Sodium Chloride 151.5 ml @ 0 mls/hr CONT PRN PRN IV PER PROTOCOL Last administered on 11/25/16 22:15; Start 11/25/16 at 13: 45; Stop 11/26/16 at 12:21; Status DC Potassium Chloride 100 ml @ 100 mls/hr PRN Q1HR PRN IV SEE COMMENTS; Start at 13:45 Potassium Chloride 100 ml @ 100 mls/hr PRN Q1HR PRN IV SEE COMMENTS; Start at 13:45 Potassium Chloride 100 ml @ 100 mls/hr PRN Q1HR PRN IV SEE COMMENTS; Start at 13:45 Magnesium Sulfate/ Dextrose 100 ml @ 25 mls/hr PRN DAILY PRN IV SEE COMMENTS Last administered on 11/26/16 10:24; Start 11/26/16 at 09:00 Sodium Phosphate 40 mmol/Sodium Chloride 513.3333 ml @ 83.3 mls/hr 1X PRN PRN IV SEE COMMENTS; Start 11/25/16 at 13:45 Sodium Phosphate 20 mmol/Dextrose 256.6667 ml @ 62.5 mls/hr 1X PRN PRN IV SEE COMMENTS; Start 11/25/16 at 13:45 Sodium Phosphate 10 mmol/Dextrose 253.3333 ml @ 62.5 mls/hr 1X PRN PRN IV SEE COMMENTS; Start 11/25/16 at 13:45 Potassium Chloride 100 ml @ 50 mls/hr Q1H IV Last administered on 11/25/16 17 :58; Start 11/25/16 at 17:00; Stop 11/25/16 at 18:59; Status DC Sodium Phosphate 20 mmol/Dextrose 256.6667 ml @ 64.167 m... 1X ONCE IV Last administered on 11/25/16 16:53; Start 11/25/16 at 17:00; Stop 11/25/16 at 20:59 ; Status DC Potassium Chloride (KCl Premix 10meq) 100 ml @ 100 mls/hr Q1H IV Last administered on 11/26/16 02:47; Start 11/25/16 at 21:30; Stop 11/26/16 at 01:29 ; Status DC Insulin Aspart (Novolog) 0-7 UNITS TIDWMEALS SQ ; Start 11/26/16 at 08:00; Status Cancel Dextrose 12.5 gm PRN Q15MIN PRN IV SEE COMMENTS; Start 11/25/16 at 23:30; Stop 11/26/16 at 05:40; Status DC Insulin Aspart (Novolog) 0-7 UNITS Q6HRS SQ ; Start 11/26/16 at 06:00; Stop at 12:21; Status DC Dextrose 12.5 gm PRN Q15MIN PRN IV SEE COMMENTS; Start 11/26/16 at 05:45; Stop 11/26/16 at 10:11; Status DC Insulin Detemir (Levemir) 10 units 1X ONCE SQ Last administered on 11/26/16 10:22; Start 11/26/16 at 10:00; Stop 11/26/16 at 10:01; Status DC Insulin Aspart (Novolog) 10 units 1X ONCE SQ Last administered on 11/26/16 10 :22; Start 11/26/16 at 10:00; Stop 11/26/16 at 10:01; Status DC Insulin Aspart (Novolog) 0-9 UNITS TIDWMEALS SQ Last administered on 11/30/16 11:35; Start 11/26/16 at 12:00 Dextrose 12.5 gm PRN Q15MIN PRN IV SEE COMMENTS; Start 11/26/16 at 10:00 Potassium Chloride 20 meq 20 meq BIDWMEALS PO Last administered on 11/30/16 08 :54; Start 11/26/16 at 10:00 Magnesium Sulfate/ Dextrose 50 ml @ 25 mls/hr 1X ONCE IV ; Start 11/26/16 at 11 :00; Stop 11/26/16 at 12:59; Status DC Potassium Chloride 30 meq/ Sodium Chloride 1,015 ml @ 75 mls/hr [id number] IV Last administered on 11/29/16 20:12; Start 11/26/16 at 11:00; Stop 11/30/16 at 14:12; Status DC Potassium Phosphate/Sodium Chloride (Potassium Phosphate/Iv Sodium Chloride 0.9 % 100ml) 103.3333 ml @ 51.667 m... Q2H IV Last administered on 11/26/16 15:22 ; Start 11/26/16 at 12:00; Stop 11/26/16 at 15:59; Status DC Insulin Detemir (Levemir) 12 units QHS SQ Last administered on 11/29/16 20:47 ; Start 11/26/16 at 21:00 Barium Sulfate (Liquid E-Z Paque) 355 ml 1X ONCE PO Last administered on 09:38; Start 11/27/16 at 08:30; Stop 11/27/16 at 08:31; Status DC Barium Sulfate (E-Z-Hd) 135 ml 1X ONCE PO Last administered on 11/27/16 08:30 ; Start 11/27/16 at 08:30; Stop 11/27/16 at 08:31; Status DC Simethicone/ Sodium Bicarb/ Citric Ac 1 packet 1 packet 1X ONCE PO ; Start at 08:30; Stop 11/27/16 at 08:31; Status DC Sodium Phosphate/ Dextrose 256.6667 ml @ 64.167 m... 1X ONCE IV Last administered on 11/27/16 11:53; Start 11/27/16 at 11:30; Stop 11/27/16 at 15:29 ; Status DC Pantoprazole Sodium (Protonix) 40 mg DAILYAC PO Last administered on 11/30/16 08:54; Start 11/27/16 at 13:00 Insulin Aspart (Novolog) 5 units TIDAC SQ ; Start 11/30/16 at 16:30; Stop at 16:30; Status DC Insulin Aspart (Novolog) 4 units TIDAC SQ ; Start 11/30/16 at 16:30 Active Scripts Active Reported Oxybutynin Chloride Er (Oxybutynin Chloride) 10 Mg Tab.er.24 1 Tab PO DAILY Folic Acid 1 Mg Tablet 1 Tab PO DAILY Hydrocodone-Apap 5-325 (Hydrocodone Bit/Acetaminophen) 1 Each Tablet 1-2 Tab PO Q4-6HRS Losartan-Hctz 100-12.5 Mg Tab (Losartan/Hydrochlorothiazide) 1 Each Tablet 1 Each PO DAILY Xalatan (Latanoprost) 2.5 Ml Drops 1 Drop EACHEYE QHS Gabapentin 300 Mg Capsule 300 Mg PO TID Toprol Xl (Metoprolol Succinate) 50 Mg Tab.er.24h 1 Tab PO DAILY Vitals/I & O Vital Sign - Last 24 Hours 11/29/16 11/29/16 11/29/16 11/29/16 15:00 19:26 20:00 20:40 Temp 97.9 99.0 97.9 99.0 Pulse 73 88 Resp B/P 123/90 143/62 Pulse Ox 93 98 98 O2 Delivery Room Air Room Air Room Air Room Air 11/29/16 11/29/16 11/30/16 11/30/16 21:40 23:00 03:00 07:00 Temp 99.0 98.9 97.9 99.0 98.9 97.9 Pulse 79 76 82 Resp B/P 139/65 134/64 124/67 Pulse Ox 98 98 99 96 O2 Delivery Room Air Room Air Room Air Room Air 11/30/16 11/30/16 11/30/16 08:54 08:55 11:00 Temp 98.3 98.3 Pulse 82 82 93 Resp 17 B/P 124/67 124/67 119/53 Pulse Ox 96 O2 Delivery Room Air Intake and Output 11/29/16 11/29/16 11/30/16 15:00 23:00 07:00 Intake Total 800 ml 1615 ml Balance 800 ml 1615 ml OMAR BELLAMY MD Nov 30, 2016 14:23
[2016-11-30 15:00] VITALS: BP 145/65
[2016-11-30] MEDS ORDERED: IV NORMAL SALINE 1000ML BAG 1,000 ML IV ONE (15:00)
[2016-11-30] MEDS ORDERED: LIDOCAINE 2% PF Vial for OR 5 ML VIAL. ONE ×2 (16:28→17:03)
[2016-11-30] MEDS ORDERED: PROPOFOL 20 ML IV ONE (16:28)
[2016-11-30] MEDS ORDERED: INSULIN ASPART 300 UNITS/3 ML INSULN.PEN SQ SCH (16:30)
[2016-11-30] MEDS ORDERED: PROPOFOL 0 ML IV ONE (17:03)
--- NOTE | 2016-11-30 17:56 | PDOC4 ---
Operative Note Operative Note EGD with bx/dilation Meds propofol per anesthesia Pre-op dx dysphagia Post-op dx reflux esophagitis S/p bx/stricture s/p 54 Fr Contreras dilation non-erosive gastritis Plan advance diet await biopsies TREVIN ARTEAGA MD Nov 30, 2016 17:56
[2016-11-30 19:00] VITALS: BP 140/57
[2016-11-30] MEDS: LATANOPROST 0.005% OPHTH SOLUTION 2.5ML BOTTLE. OU SCH (20:36)
[2016-11-30] MEDS: INSULIN DETEMIR 300 UNITS/3 ML INSULN.PEN. SQ SCH (22:07)
[2016-11-30 23:00] VITALS: BP 152/62
[2016-12-01 03:00] VITALS: BP 125/57
[2016-12-01 04:21] LABS: BASO % 1 % (0-3); EOS % 1 % (0-3); HEMATOCRIT 27.7 % (36.0-47.0); LYMPH # 0.6 x10^3/uL (1.0-4.8); LYMPH % 14 % (24-48); MEAN CORPUSCULAR HEMOGLOBIN 28 pg (25-35); MEAN CORPUSCULAR HGB CONC 32 g/dL (31-37); MEAN CORPUSCULAR VOLUME 87 fL (79-100); MONO % 21 % (0-9); NEUT % 64 % (31-73); PLATELET COUNT 363 x10^3/uL (140-400); RED BLOOD COUNT 3.18 x10^6/uL (3.50-5.40); RED CELL DISTRIBUTION WIDTH 14.5 % (11.5-14.5); WHITE BLOOD COUNT 4.7 x10^3/uL (4.0-11.0)
[2016-12-01 04:41] LABS: CALCIUM 9.2 mg/dL (8.5-10.1); CREATININE 0.8 mg/dL (0.6-1.0); GFR 87.1; POTASSIUM 3.8 mmol/L (3.5-5.1)
[2016-12-01 07:00] VITALS: BP 141/66
[2016-12-01 07:26] LABS: % BASOS 1 % (0-3); % EOS 1 % (0-5)
[2016-12-01 07:27] LABS: PLT ESTIMATE ADEQUATE (ADEQUATE)
[2016-12-01] MEDS: INSULIN ASPART 300 UNITS/3 ML INSULN.PEN SQ SCH ×4 (07:30→12:12)
[2016-12-01] MEDS: POTASSIUM CHLORIDE 20 MEQ TABLET.ER. PO SCH (08:17)
[2016-12-01] MEDS: LOSARTAN POTASSIUM 50 MG TABLET. PO SCH (08:18)
[2016-12-01] MEDS: METOPROLOL SUCC 24HR ER 50 MG TAB.ER.24H. PO SCH (08:18)
[2016-12-01] MEDS: HYDROCHLOROTHIAZIDE 12.5 MG CAPSULE. PO SCH (08:19)
[2016-12-01] MEDS: PANTOPRAZOLE 40 MG TABLET. PO SCH (08:19)
[2016-12-01] MEDS: FOLIC ACID 1 MG TABLET PO SCH (08:19)
[2016-12-01] MEDS: OXYBUTYNIN CHLORIDE 5 MG TABLET PO SCH (08:19)
[2016-12-01] MEDS: GABAPENTIN 300 MG CAPSULE. PO SCH (08:19)
[2016-12-01 10:55] VITALS: BP_SYST 120; BP_SYST 141; BP_DIAS 58; BP_DIAS 66
[2016-12-01] MEDS ORDERED: INSU100I17 SQ (11:08)
[2016-12-01] MEDS ORDERED: INSU100I27 SQ (11:08)
--- NOTE | 2016-12-01 11:11 | PDOC3 ---
Discharge Summary Visit Information Date of Admission: Nov 25, 2016 Date of Discharge: Dec 01, 2016 Admitting Diagnosis: DKA Final Diagnosis 1. DKA: insulin gtt on admit 2. Hyperglycemia: Dm1.5 , poor control 3. Vomiting w/o nausea: acute on chronic. 4. Dysphagia: stricture on esophagram 5. Troponin leak: minimal, 6. SAURABH: POA, vasomotor 7. Hypokalemia 8. Hypoma. Rheum Asthritis : on remicade q7 weeks, 10/ Hx noncompliance per PCP Problems Medical Problems: (1) DKA (diabetic ketoacidoses) Status: Acute (2) Lactic acidosis Status: Acute Brief Hospital Course Allergies Allergies Coded Allergies Type Severity Reaction Last Updated Verified Penicillins Allergy Intermediate 11/08/16 Yes Vital Signs Vital Signs Date Time Temp Pulse Resp B/P Pulse Ox O2 Delivery O2 Flow Rate FiO2 12/01/16 10:55 98.0 80 18 120/58 99 Room Air 98.0 11/30/16 17:57 3.0 Lab Results Laboratory Tests Test 11/29/16 11:08 11/29/16 16:44 11/29/16 20:44 11/30/16 04:10 Glucose (Fingerstick) 218mg/dL (70-99) 375mg/dL (70-99) 265mg/dL (70-99) White Blood Count 4.0x10^3/uL (4.0-11.0) Red Blood Count 3.31x10^6/uL (3.50-5.40) Hemoglobin 9.4g/dL (12.0-15.5) Hematocrit 29.1% (36.0-47.0) Mean Corpuscular Volume 88fL (79-100) Mean Corpuscular Hemoglobin 29pg (25-35) Mean Corpuscular Hemoglobin Concent 33g/dL (31-37) Red Cell Distribution Width 14.7% (11.5-14.5) Platelet Count 319x10^3/uL (140-400) Neutrophils (%) (Auto) 55% (31-73) Lymphocytes (%) (Auto) 22% (24-48) Monocytes (%) (Auto) 20% (0-9) Eosinophils (%) (Auto) 2% (0-3) Basophils (%) (Auto) 1% (0-3) Neutrophils # (Auto) 2.2x10^3uL (1.8-7.7) Lymphocytes # (Auto) 0.9x10^3/uL (1.0-4.8) Monocytes # (Auto) 0.8x10^3/uL (0.0-1.1) Eosinophils # (Auto) 0.1x10^3/uL (0.0-0.7) Basophils # (Auto) 0.0x10^3/uL (0.0-0.2) Sodium Level 143mmol/L (136-145) Potassium Level 4.8mmol/L (3.5-5.1) Chloride Level 108mmol/L (98-107) Carbon Dioxide Level 29mmol/L (21-32) Anion Gap 6 (6-14) Blood Urea Nitrogen 6mg/dL (7-20) Creatinine 0.7mg/dL (0.6-1.0) Estimated GFR (Cockcroft-Gault) 101.6 Glucose Level 174mg/dL (70-99) Calcium Level 9.5mg/dL (8.5-10.1) Test 11/30/16 07:59 11/30/16 10:52 11/30/16 11:29 11/30/16 15:40 Glucose (Fingerstick) 117mg/dL (70-99) 409mg/dL (70-99) 398mg/dL (70-99) 222mg/dL (70-99) Test 11/30/16 21:29 12/01/16 03:22 12/01/16 08:13 12/01/16 10:34 Glucose (Fingerstick) 354mg/dL (70-99) 96mg/dL (70-99) 279mg/dL (70-99) White Blood Count 4.7x10^3/uL (4.0-11.0) Red Blood Count 3.18x10^6/uL (3.50-5.40) Hemoglobin 9.0g/dL (12.0-15.5) Hematocrit 27.7% (36.0-47.0) Mean Corpuscular Volume 87fL (79-100) Mean Corpuscular Hemoglobin 28pg (25-35) Mean Corpuscular Hemoglobin Concent 32g/dL (31-37) Red Cell Distribution Width 14.5% (11.5-14.5) Platelet Count 363x10^3/uL (140-400) Neutrophils (%) (Auto) 64% (31-73) Lymphocytes (%) (Auto) 14% (24-48) Monocytes (%) (Auto) 21% (0-9) Eosinophils (%) (Auto) 1% (0-3) Basophils (%) (Auto) 1% (0-3) Neutrophils # (Auto) 3.0x10^3uL (1.8-7.7) Lymphocytes # (Auto) 0.6x10^3/uL (1.0-4.8) Monocytes # (Auto) 1.0x10^3/uL (0.0-1.1) Eosinophils # (Auto) 0.0x10^3/uL (0.0-0.7) Basophils # (Auto) 0.0x10^3/uL (0.0-0.2) Segmented Neutrophils % 73% (35-66) Band Neutrophils % 6% (0-9) Lymphocytes % 14% (24-48) Monocytes % 5% (0-10) Eosinophils % 1% (0-5) Basophils % 1% (0-3) Platelet Estimate Adequate (ADEQUATE) Sodium Level 138mmol/L (136-145) Potassium Level 3.8mmol/L (3.5-5.1) Chloride Level 103mmol/L (98-107) Carbon Dioxide Level 29mmol/L (21-32) Anion Gap 6 (6-14) Blood Urea Nitrogen 7mg/dL (7-20) Creatinine 0.8mg/dL (0.6-1.0) Estimated GFR (Cockcroft-Gault) 87.1 Glucose Level 287mg/dL (70-99) Calcium Level 9.2mg/dL (8.5-10.1) Laboratory Tests Test 11/30/16 11:29 11/30/16 15:40 11/30/16 21:29 12/01/16 03:22 Glucose (Fingerstick) 398mg/dL (70-99) 222mg/dL (70-99) 354mg/dL (70-99) White Blood Count 4.7x10^3/uL (4.0-11.0) Red Blood Count 3.18x10^6/uL (3.50-5.40) Hemoglobin 9.0g/dL (12.0-15.5) Hematocrit 27.7% (36.0-47.0) Mean Corpuscular Volume 87fL (79-100) Mean Corpuscular Hemoglobin 28pg (25-35) Mean Corpuscular Hemoglobin Concent 32g/dL (31-37) Red Cell Distribution Width 14.5% (11.5-14.5) Platelet Count 363x10^3/uL (140-400) Neutrophils (%) (Auto) 64% (31-73) Lymphocytes (%) (Auto) 14% (24-48) Monocytes (%) (Auto) 21% (0-9) Eosinophils (%) (Auto) 1% (0-3) Basophils (%) (Auto) 1% (0-3) Neutrophils # (Auto) 3.0x10^3uL (1.8-7.7) Lymphocytes # (Auto) 0.6x10^3/uL (1.0-4.8) Monocytes # (Auto) 1.0x10^3/uL (0.0-1.1) Eosinophils # (Auto) 0.0x10^3/uL (0.0-0.7) Basophils # (Auto) 0.0x10^3/uL (0.0-0.2) Segmented Neutrophils % 73% (35-66) Band Neutrophils % 6% (0-9) Lymphocytes % 14% (24-48) Monocytes % 5% (0-10) Eosinophils % 1% (0-5) Basophils % 1% (0-3) Platelet Estimate Adequate (ADEQUATE) Sodium Level 138mmol/L (136-145) Potassium Level 3.8mmol/L (3.5-5.1) Chloride Level 103mmol/L (98-107) Carbon Dioxide Level 29mmol/L (21-32) Anion Gap 6 (6-14) Blood Urea Nitrogen 7mg/dL (7-20) Creatinine 0.8mg/dL (0.6-1.0) Estimated GFR (Cockcroft-Gault) 87.1 Glucose Level 287mg/dL (70-99) Calcium Level 9.2mg/dL (8.5-10.1) Test 12/01/16 08:13 12/01/16 10:34 Glucose (Fingerstick) 96mg/dL (70-99) 279mg/dL (70-99) Brief Hospital Course Ms. Tinoco is a 66 old admit with DKA, hx noncompliance better with fluids and insulin gtt, to ICU dysphagia, esophogram showed stricture, then EGD, dilation done 11/30, globus sensation improved, swallowing easier I discussed this case with DR. Regan Resendiz, plan outpatient DM f.u, he has concerns about prior poor compliance of med Discharge Information Condition at Discharge: Improved Follow Up: Weeks Disposition/Orders: D/C to Home Scheduled Folic Acid (Folic Acid) 1 TAB PO DAILY (Reported) Gabapentin (Gabapentin) 300 MG PO TID (Reported) Hydrocodone Bit/Acetaminophen (Hydrocodone-Apap 5-325 ) 1-2 TAB PO Q4-6HRS ( Reported) Latanoprost (Xalatan) 1 DROP EACHEYE QHS (Reported) Losartan/Hydrochlorothiazide (Losartan-Hctz 100-12.5 Mg Tab) 1 EACH PO DAILY ( Reported) Metoprolol Succinate (Toprol Xl) 1 TAB PO DAILY (Reported) Oxybutynin Chloride (Oxybutynin Chloride Er) 1 TAB PO DAILY (Reported) Patient Instructions Patient Instructions time > 30 min OMAR BELLAMY MD Dec 01, 2016 11:11
--- NOTE | 2016-12-01 12:04 | PDOC ---
Subjective: Subjective: Ready to DC, tolerating PO, swallowing well. Objective: Vital Signs: Vital Signs Date Time Temp Pulse Resp B/P Pulse Ox O2 Delivery O2 Flow Rate FiO2 12/01/16 10:55 98.0 80 18 120/58 99 Room Air 98.0 11/30/16 17:57 3.0 Labs: Laboratory Tests Test 11/30/16 15:40 11/30/16 21:29 12/01/16 03:22 12/01/16 08:13 Glucose (Fingerstick) 222mg/dL 354mg/dL 96mg/dL White Blood Count 4.7x10^3/uL Red Blood Count 3.18x10^6/uL Hemoglobin 9.0g/dL Hematocrit 27.7% Mean Corpuscular Volume 87fL Mean Corpuscular Hemoglobin 28pg Mean Corpuscular Hemoglobin Concent 32g/dL Red Cell Distribution Width 14.5% Platelet Count 363x10^3/uL Neutrophils (%) (Auto) 64% Lymphocytes (%) (Auto) 14% Monocytes (%) (Auto) 21% Eosinophils (%) (Auto) 1% Basophils (%) (Auto) 1% Neutrophils # (Auto) 3.0x10^3uL Lymphocytes # (Auto) 0.6x10^3/uL Monocytes # (Auto) 1.0x10^3/uL Eosinophils # (Auto) 0.0x10^3/uL Basophils # (Auto) 0.0x10^3/uL Segmented Neutrophils % 73% Band Neutrophils % 6% Lymphocytes % 14% Monocytes % 5% Eosinophils % 1% Basophils % 1% Platelet Estimate Adequate Sodium Level 138mmol/L Potassium Level 3.8mmol/L Chloride Level 103mmol/L Carbon Dioxide Level 29mmol/L Anion Gap 6 Blood Urea Nitrogen 7mg/dL Creatinine 0.8mg/dL Estimated GFR (Cockcroft-Gault) 87.1 Glucose Level 287mg/dL Calcium Level 9.2mg/dL Test 12/01/16 10:34 Glucose (Fingerstick) 279mg/dL Imaging: EGD 11/30/16: reflux esophagitis s/p bx, stricture s/p [address] dilation, non-erosive gastritis. PE: GEN: NAD LUNGS: CTAB HEART: RRR ABD: NABS, S/ND/NT NEURO/PSYCH: A & O 3 A/P: Reflux esophagitis s/p biopsy -on PPI Esophageal stricture s/p dilation Dysphagia - resolved CRC screen -reports colonoscopy w/ benign polyp ~5 years ago -- Plans for DC today - okay per GI. Continue w/ PPI (Rx provided to RN) and follow-up for pathology results. EVE BEAVER Dec 01, 2016 12:04
--- NOTE | 2016-12-02 13:44 | PATHOLOGY ---
PATHOLOGY REPORT * * * * * * * * FINAL DIAGNOSIS: Esophageal biopsies, distal esophagus: - Segments of hyperplastic squamous esophageal mucosa and esophagogastric mucosa showing focal ulceration and acute and chronic inflammation. COMMENT: Sections of the distal esophageal biopsy reveal segments of hyperplastic squamous esophageal mucosa and esophagogastric mucosa showing focal ulceration and acute and chronic inflammation. The findings are consistent with reflux esophagitis with ulceration. There is no evidence of Riojas's change, dysplasia, or malignancy. (JPM:; d/t: 12/02/16) REPORT ELECTRONICALLY SIGNED BY: Kyree Ayoub M.D. DATE/TIME: 12/02/2016 13:43 * * * * * * * * GROSS PATHOLOGY: Received in formalin labeled "Kayla Bonilla and distal esophagus bx's," are 4 segments of johnson soft tissue measuring 1.5 x 0.4 x 0.3 and cm in aggregate dimensions and ranging from 0.2 to 0.6 cm in maximum dimension. The specimen is submitted entirely in cassette A1. (TTL; 12/01/2016) INITIAL CPT CODE(S): A; 89900 Professional services performed by [facility] [place] [address] Technical services performed by [facility] at [address] [place] [address], [place] [address]. SPECIMEN(S) RECEIVED: A.Distal esophagus biopsy CLINICAL HISTORY: Dysphagia PATIENT: KAYLA BONILLA /AGE: 8 1950 (Age: 66) PATIENT #: [id number] ALT CASE #: SPECIMEN COLLECTION DATE: 11/30/2016 SPECIMEN RECEIVED DATE: 12/01/2016 [facility] - [address] [place] [address] - PHONE: [phone] * * * END OF REPORT * * *
== END 2016-12-01 14:54 | disposition home or self-care (01) | DRG 682 ==
LOC: ER 07:45 → 1 WEST ICU 09:00 → 5 NORTH 11-26 18:00
PROVIDERS: ADMIT Internal Medicine; ATTEND Internal Medicine
DX: N17.0 Acute kidney failure with tubular necrosis (principal); E13.10 Other specified diabetes mellitus with ketoacidosis without coma; G93.41 Metabolic encephalopathy; E87.1 Hypo-osmolality and hyponatremia; K31.84 Gastroparesis; E87.6 Hypokalemia; K22.2 Esophageal obstruction; D72.829 Elevated white blood cell count, unspecified; E78.5 Hyperlipidemia, unspecified; E83.42 Hypomagnesemia; G47.33 Obstructive sleep apnea (adult) (pediatric); I11.9 Hypertensive heart disease without heart failure; I49.5 Sick sinus syndrome; Z96.659 Presence of unspecified artificial knee joint; E86.0 Dehydration; K29.70 Gastritis, unspecified, without bleeding; R56.9 Unspecified convulsions; R13.10 Dysphagia, unspecified; J44.9 Chronic obstructive pulmonary disease, unspecified; K21.0 Gastro-esophageal reflux disease with esophagitis; M06.9 Rheumatoid arthritis, unspecified; Z82.49 Family history of ischemic heart disease and other diseases of the circulatory system; Z83.3 Family history of diabetes mellitus; Z87.11 Personal history of peptic ulcer disease; Z91.14 Patient's other noncompliance with medication regimen; Z91.19 Patient's noncompliance with other medical treatment and regimen; Z79.899 Other long term (current) drug therapy; Z95.0 Presence of cardiac pacemaker; Z88.1 Allergy status to other antibiotic agents; Z88.0 Allergy status to penicillin; Z88.8 Allergy status to other drugs, medicaments and biological substances; Z79.4 Long term (current) use of insulin
CPT/HCPCS: 36415; 36600; 51701; 71010; 74220; 80048; 80053; 81001; 82553; 82805; 82947; 83605; 83735; 84100; 84484; 85007; 85027; 87040; 87641; 93005; 96361; 96374; 96375; 99292; J1815; J2704; J3475; J3480; J7030; 92610; 99291-25